=== PATIENT | female | born 1940 | race Caucasian/White ===

== ENCOUNTER → 2018-04-28 08:59 | Outpatient (CLI) | payer MEDICARE, OTHER, SELFPAY ==
--- NOTE | 2018-04-28 09:29 | DI.CT.S_ITS ---
PROCEDURE: CT ABDOMEN W CON INDICATIONS: Breast cancer evaluate liver cysts TECHNIQUE: After the administration of oral and intravenous contrast, 5 mm thick sections acquired from the diaphragms to the iliac crests. 5 mm thick coronal and sagittal reformats were acquired. For radiation dose reduction, the following was used: automated exposure control, adjustment of mA and/or kV according to patient size. COMPARISON: None. FINDINGS: Image quality: Excellent. Lung bases: There is a 7 mm subpleural nodule in the left lower lobe (series 5 image 10). Another nodule is noted more anteriorly on the same slice measuring 9 mm. Heart size is normal. There is a small hiatal hernia. Solid organs: There are a couple of low density nodules in the left hepatic lobe measuring 9 mm and 7 mm, respectively, most likely hepatic cysts. There is a 2 mm hepatic hypodensity in the right hepatic lobe, too small to further characterize. A 6 mm low density nodules noted in spleen, suspicious for a cyst. Liver and spleen are normal in size and enhancement. Gallbladder is normal. Biliary system is non dilated. Pancreas enhances normally. No adrenal nodules. Kidneys are normal in size, without hydronephrosis. Peritoneum and bowel: Contrast enhanced bowel loops appear normal in caliber. No free fluid or air. Nodes and vessels: No retroperitoneal or mesenteric adenopathy by size criteria. Scattered mesenteric lymph nodes are slightly more numerous and prominent in size than normally seen. Aorta and inferior vena cava are normal in size. Bones: No suspicious bony lesions. No vertebral body compression fractures. Miscellaneous: No ventral hernias. IMPRESSION: 1. A couple of cysts in the left hepatic lobe an 2 mm indeterminate hypodensity in the right hepatic lobe. 2. A centimeter hypodensity in the spleen is of likely a cyst. 3. A couple of lung nodules in the left lung base. CT followup suggested in 3 months in this patient with breast cancer. 4. Slightly prominent mesenteric lymph nodes, which is a nonspecific finding. 5. Small hiatal hernia. Dictated by: Goldie Cassidy M.D. on 04/28/2018 at 11:06 Approved by: Goldie Cassidy M.D. on 04/28/2018 at 11:17
[2018-04-28 09:45] LABS: BUN Creatinine Ratio 22.5 (6-22); Blood Urea Nitrogen 18 mg/dL (7-17); Calcium 9.2 mg/dL (8.4-10.2); Carbon Dioxide 31 mmol/L (22-32); Chloride 101 mmol/L (98-107); Estimated Glomerular Filt Rate > 60.0 mL/min (>60); Glucose 97 mg/dL (80-110); HEMOLYSIS < 15 (0-50); Potassium 4.2 mmol/L (3.4-5.1); Sodium 140 mmol/L (137-145)
== END ==
PROVIDERS: PCP Internal Medicine; Visit Provider Internal Medicine Hematology & Oncology
DX: C50.919 Malignant neoplasm of unspecified site of unspecified female breast (principal); K76.9 Liver disease, unspecified; R91.8 Other nonspecific abnormal finding of lung field; K44.9 Diaphragmatic hernia without obstruction or gangrene
CPT/HCPCS: 36415; 74160; 80048; Q9967

== ENCOUNTER → 2018-04-29 10:26 | Outpatient (CLI) | payer MEDICARE, OTHER, SELFPAY | PROVIDERS: PCP Internal Medicine; Visit Provider Internal Medicine Hematology & Oncology | DX: C50.911 Malignant neoplasm of unspecified site of right female breast (principal); Z53.9 Procedure and treatment not carried out, unspecified reason ==

== ENCOUNTER → 2018-05-04 15:25 | Outpatient (CLI) | payer MEDICARE, OTHER, SELFPAY ==
--- NOTE | 2018-05-04 15:29 | DI.RAD.S_ITS ---
PROCEDURE: XR CHEST 2V INDICATIONS: cough TECHNIQUE: 2 views of the chest were acquired. COMPARISON: [facility], , RIBS UNILATERAL WITH PA CXR, 06/22/2015, 11:54. FINDINGS: Surgical changes and devices: Postoperative changes of right breast surgery and axillary node resection Lungs and pleura: No pleural effusions or pneumothorax. Lungs are clear. Mediastinum: Mediastinal contours are normal. Heart size is normal. Bones and chest wall: No suspicious bony abnormalities. Soft tissues appear unremarkable. IMPRESSION: 1. Status post right lumpectomy and node dissection. 2. No evidence of metastatic disease or acute cardiopulmonary abnormality. Source of cough not seen. Dictated by: Jose Payne M.D. on 05/04/2018 at 16:02 Approved by: Jose Payne M.D. on 05/04/2018 at 16:05
== END ==
PROVIDERS: PCP Internal Medicine; Visit Provider Internal Medicine
DX: R05 Cough (principal); Z85.3 Personal history of malignant neoplasm of breast
CPT/HCPCS: 71046

== ENCOUNTER → 2018-05-07 10:11 | Outpatient (CLI) | payer MEDICARE, OTHER, SELFPAY ==
--- NOTE | 2018-05-07 | OV.WND_ITS ---
Progress Note Details Patient Name: Sherrie Sharif Patient Number: [id number] PatientPatientDate: 05/07/2018 Clinician: Mar Devine Physician / Junior Mechanical Engineer: Ryan Alonzo SUBJECTIVE Chief Complaint This information was obtained from the patient Skin tear to left forearm Allergies Sulfa (Sulfonamide Antibiotics), morphine HPI This information was obtained from the patient 05/07/18. Seen by Dr. Alonzo. The patient is new to our clinic and presents with a left forearm trauma wound that occurred last Friday when she feel up a set of stairs. She reports some mild discomfort at the site but no significant drainage, swelling, or redness and she's simply been keeping it covered the past few days. She also mentions a persistent cough over the past 2 weeks and feels it may be related to sitting near a citronella candle prior to her symptoms starting. She's consider asking for a referral to a chemistry quality control analyst and has asked my opinion. 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 Past Medical History This information was obtained from the patient Patient has a medical history of: Arthritis Hyperlipidemia Breast Cancer Surgical History This information was obtained from the patient Patient has a surgical history of: Hysterectomy Bladder Lift Appendectomy Complaints and Symptoms This information was obtained from the patient Patient complains of: General Notes: I have reviewed and concur with the Review of Systems and Past Family Social History documents completed by the clinician, I have reviewed and concur with the Wound Assessment document completed by the clinician Integumentary (Hair/Skin/Nails): Open Sore Prior Wound History: Drainage, Pain Respiratory: Cough Patient denies complaints or symptoms related to: Cardiovascular (Central): Irregular heart beat Constitutional Symptoms (General Health): Chills, Fever Hematologic/Lymphatic: Bleeding / Clotting Disorders, Bleeding Tendency Neurological: Loss of Protective Sensation Psychiatric: Memory Loss General Notes: Up to date Additional Information Does patient have a history of Cancer? Yes? Complete all questions.: Yes Location of Cancer: Breast Patient underwent Radiation Treatment? If yes, answer question below.: No Medications Crestor 5 mg tablet oral tablet oral once daily letrozole 2.5 mg tablet oral tablet oral once daily albuterol sulfate HFA 90 mcg/actuation aerosol inhaler inhalation HFA aerosol inhaler inhalation Boniva 3 mg/3 mL intravenous syringe intravenous syringe intravenous OBJECTIVE Constitutional Vital signs reviewed and noted. Well developed. Alert. Clean appearing.. Height/ Length: 67 in (170.18 cm), Weight: 155 lbs (70.45 kgs), BMI: 24.3, Temperature: 98.7 ?F ( 37.06 ?C), Pulse: 78 bpm, Respiratory Rate: 16 breaths/min, Blood Pressure: 112/68 mmHg, Pulse Oximetry: 97 %. Ears, Nose, Mouth, and Throat: No clinically significant hearing loss on informal examination. Respiratory: intermittent cough. Integumentary (Hair, Skin) No periwound erythema, warmth, or significant drainage. No periwound rashes appreciated or noted otherwise.. Refer to appropriate clinician wound documentation for this visit; left forearm wound extends to subcut with base partially covered with pink granulation, remainder yellow biofilm, fibrin and slough. Wound #1 Left Arm is a Full Thickness Skin Tear and has received a status of Not Healed. Initial wound encounter measurements are 0.9cm length x 1.6cm width x 0.1cm depth, with an area of 1.44 sq cm and a volume of 0.144 cubic cm. No tunneling has been noted. No sinus tract has been noted. No undermining has been noted. There is a moderate amount of sero- sanguineous drainage noted which has no odor. The patient reports a wound pain of level 0/10. The wound margin is attached. Wound bed has Yes epithelialization, No eschar, Yes slough, Yes pink, firm granulation. The periwound skin texture is normal. The periwound skin moisture is normal. The periwound skin color is normal. The temperature of the periwound skin is WNL. Periwound skin does not exhibit signs or symptoms of infection. Local Pulse is Palpable. Neurological: Cranial nerves grossly intact with symmetric function normal by informal observation.. ASSESSMENT Active Problems ICD-10 (Encounter Diagnosis) S51.802D - Unspecified open wound of left forearm, subsequent encounter (Encounter Diagnosis) R05 - Cough PROCEDURES Wound #1 Wound #1 (Skin Tear) is located on the left arm. A skin/subcutaneous tissue level surgical debridement with a total area debrided of 1.44 sq cm was performed by Ryan Alonzo MD. Dermis, Epidermis, and Subcutaneous were removed along with devitalized tissue: slough. The following instrument(s) were used: curette, forceps, and scissors. Pain control was achieved using 4% Lido. A time out was conducted prior to the start of the procedure. A minimal amount of bleeding was controlled with n/a. The procedure was tolerated well with a pain level of 0 throughout and a pain level of 0 following the procedure. Post Debridement Measurements: 0.9cm length x 1.6cm width x 0.2cm depth; with an area of 1.44 sq cm and a volume of 0.288 cubic cm; Additional Information Muscle fascia or bone removed and sent to pathology?: No PLAN Wound Orders: Wound #1 Left Arm Anesthetic Topical Xylocaine to wound bed. - In clinic only Cleanser Cleanse Wound: - Normal saline in clinic. May use distilled water at home. May Shower. - Please avoid getting wound wet with tap water. Please cover while in the shower. Dressings Primary dressing: - Bordered foam Change Dressing: - Every two days. Additional Orders: Follow-Up Appointments Return Appointment: - - One week Other information: If you develop fever, chills, increased pain, drainage, redness or swelling please call our office. If after hours, respond to the ER. Should you experience any significant changes in your wound(s) or have any questions regarding your home care instructions please contact the wound center @ [phone]. If after hours, contact your primary care physician or go to the hospital emergency room. Scribing Attestation I attest, as the nurse, that I scribed these orders for the physician. General Notes: We will call with any positive wound cultures requiring antibiotics. I've reviewed the clinician's documentation and agree with the evaluation and plan as written. In addition the patient's wound demonstrates evidence of non-viable devitalized tissue which will continue to benefit from sharp debridement to help promote granulation and expedite healing. Also, I've cultured the wound due to the drainage noted on exam but will defer oral antibiotics pending the results. I've also advised her to contact her PCP again regarding her cough as there's likely additional testing that would need to be done if the cough persists or worsens prior to referring to pulmonology. Electronic Signature(s) Signed By: Date: yRan Alonzo MD 05/08/2018 06:52:26 Entered By: Ryan Alonzo on 05/08/2018 06:47:10
== END ==
PROVIDERS: PCP Internal Medicine; Visit Provider Internal Medicine
DX: S51.802A Unspecified open wound of left forearm, initial encounter (principal); W10.8XXA Fall (on) (from) other stairs and steps, initial encounter; R05 Cough
CPT/HCPCS: 11042; 87070; 87075; 87205; 99213

== ENCOUNTER → 2018-05-21 09:55 | Outpatient (CLI) | payer MEDICARE, OTHER, SELFPAY ==
--- NOTE | 2018-05-21 | OV.WND_ITS ---
Progress Note Details Patient Name: Sherrie Sharif Patient Number: [id number] PatientPatientDate: 05/21/2018 Clinician: Krystle Andrade Clinician Cosigner: Elba Sy Physician / Ruby Engineer: Ryan Alonzo SUBJECTIVE Chief Complaint This information was obtained from the patient Skin tear to left forearm Allergies Sulfa (Sulfonamide Antibiotics), morphine HPI This information was obtained from the patient 05/21/18. Seen by Dr. Alonzo. The patient does not report pain or drainage associated with the left forearm trauma wound since her last visit. 05/07/18. Seen by Dr. Alonzo. The patient is new to our clinic and presents with a left forearm trauma wound that occurred last Friday when she feel up a set of stairs. She reports some mild discomfort at the site but no significant drainage, swelling, or redness and she's simply been keeping it covered the past few days. She also mentions a persistent cough over the past 2 weeks and feels it may be related to sitting near a citronella candle prior to her symptoms starting. She's consider asking for a referral to a inclusion specialist and has asked my opinion. Past Medical History This information was obtained from the patient Patient has a medical history of: Arthritis Hyperlipidemia Breast Cancer Complaints and Symptoms This information was obtained from the patient Patient complains of: General Notes: I have reviewed and concur with the Review of Systems and Past Family Social History documents completed by the clinician, I have reviewed and concur with the Wound Assessment document completed by the clinician Integumentary (Hair/Skin/Nails): Open Sore Prior Wound History: Drainage, Pain Respiratory: Cough Patient denies complaints or symptoms related to: Cardiovascular (Central): Irregular heart beat Constitutional Symptoms (General Health): Chills, Fever Hematologic/Lymphatic: Bleeding / Clotting Disorders, Bleeding Tendency Neurological: Loss of Protective Sensation Psychiatric: Memory Loss Additional Information Does patient have a history of Cancer? Yes? Complete all questions.: Yes Location of Cancer: Breast Patient underwent Radiation Treatment? If yes, answer question below.: No OBJECTIVE Constitutional Vital signs reviewed and noted. Height/Length: 67 in (170.18 cm), Weight: 155 lbs (70.45 kgs), BMI: 24.3, Temperature: 98.5 ?F (36.94 ?C), Pulse: 77 bpm, Respiratory Rate: 16 breaths/min, Blood Pressure: 109/65 mmHg, Pulse Oximetry: 98 %. Ears, Nose, Mouth, and Throat: No clinically significant hearing loss on informal examination. Integumentary (Hair, Skin) Refer to appropriate clinician wound documentation for this visit.. Wound #1 Left Arm is a Full Thickness Skin Tear and has received an outcome of Healed - no new wound(s). Subsequent wound encounter measurements are 0cm length x 0cm width x 0cm depth, with an area of 0 sq cm and a volume of 0 cubic cm. No tunneling has been noted. No sinus tract has been noted. No undermining has been noted. There was no drainage noted. The patient reports a wound pain of level 0/10. The wound margin is attached. Wound bed has Yes epithelialization, No eschar, No slough, No granulation. The periwound skin texture is normal. The periwound skin moisture is normal. The periwound skin color is normal. The temperature of the periwound skin is WNL. Periwound skin does not exhibit signs or symptoms of infection. Local Pulse is Palpable. Neurological: Cranial nerves grossly intact with symmetric function normal by informal observation.. ASSESSMENT Active Problems ICD-10 (Encounter Diagnosis) S51.802D - Unspecified open wound of left forearm, subsequent encounter PLAN Additional Orders: Follow-Up Appointments Discharge from Outpatient Services. - No dressing needed, wound is healed. Please call if you have any questions or concerns. Scribing Attestation I attest, as the nurse, that I scribed these orders for the physician. I've reviewed the clinician's documentation and agree with the evaluation and plan as written. In addition the patient's last remiaining complex wound is now healed. The patient is invited to return to our clinic for treatment of any future complex wounds. Post wound care and strategies to avoid recurrences were discussed. Electronic Signature(s) Signed By: Date: Ryan Alonzo MD 05/22/2018 07:58:24 Entered By: Ryan Alonzo on 05/21/2018 15:28:56
== END ==
PROVIDERS: PCP Internal Medicine; Visit Provider Internal Medicine
DX: S51.802D Unspecified open wound of left forearm, subsequent encounter (principal)
CPT/HCPCS: 99212

== ENCOUNTER → 2018-07-08 12:09 | Outpatient (CLI) | payer MEDICARE, OTHER, SELFPAY ==
--- NOTE | 2018-07-08 12:10 | DI.MG.S_ITS ---
BILATERAL DIGITAL SCREENING MAMMOGRAM 3D/2D WITH CAD POST LUMPECTOMY: 07/08/2018 CLINICAL: Routine screening. Family history of breast cancer. Comparison is made to exams dated: 06/30/2017 mammogram, 05/30/2016 mammogram, and 05/10/2015 mammogram - [facility]. The tissue of both breasts is heterogeneously dense. This may lower the sensitivity of mammography. Current study was also evaluated with a Computer Aided Detection (CAD) system. There are calcifications in both breasts, most consistent with secretory calcifications. There also are post operative findings in the right breast. No significant masses, calcifications, or other findings are seen in either breast. There has been no significant interval change. IMPRESSION: BENIGN There is no mammographic evidence of malignancy. A 1 year screening mammogram is recommended. This exam was interpreted at Station ID: [id number]. NOTE: For mammograms, a report in lay terms will be sent to the patient. Approximately 15% of breast malignancies will not be visualized mammographically. In the management of a palpable breast mass, a negative mammogram must not discourage biopsy of a clinically suspicious lesion. Electronically Signed By: Alan Bland M.D. ecl/:07/09/2018 07:26:27 letter sent: Normal Exam ACR BI-RADS Category 2: Benign Finding(s) 3342F
== END ==
PROVIDERS: PCP Internal Medicine; Visit Provider Internal Medicine
DX: Z12.31 Encounter for screening mammogram for malignant neoplasm of breast (principal); Z80.3 Family history of malignant neoplasm of breast
CPT/HCPCS: 77063; 77067

== ENCOUNTER → 2018-07-28 11:03 | Outpatient (CLI) | payer MEDICARE, OTHER, SELFPAY ==
--- NOTE | 2018-07-28 11:00 | DI.CT.S_ITS ---
PROCEDURE: CT ABDOMEN WO/W CON INDICATIONS: Liver nodules TECHNIQUE: 4 phase scanning was performed. Non-contrast 5 mm axial sections acquired from the diaphragm to the iliac crests. Following the administration of intravenous contrast, 5 mm thick arterial-phase, portal venous-phase, and 5-minute delayed phase images were acquired through the liver. 5 mm thick coronal and sagittal reformats were performed. For radiation dose reduction, the following was used: automated exposure control, adjustment of mA and/or kV according to patient size. COMPARISON: [facility], CT, CT ABDOMEN W CON, 04/28/2018, 9:44. FINDINGS: Image quality: Excellent. Lung bases: A 6 mm diameter left pleural-based nodule is redemonstrated, unchanged from the study dated 04/28/18. No acute air space opacities. No pleural effusion. No pneumothorax. Liver: The liver demonstrates normal size and homogeneous enhancement. 9 mm and a 7 mm hypoattenuating lesions are redemonstrated within the left hepatic lobe. These have a similar size and appearance to the study dated 04/28/18. A these demonstrate decrease density with respect to the surrounding hepatic parenchyma; however given the small size, these do not demonstrate water density. Other solid organs: Gallbladder is unremarkable. Biliary system is non dilated. Pancreas is normal in morphology. Spleen is normal in size and enhancement. A 5 mm hypoattenuating lesion is present within the midpole of the spleen, similar in size to the study dated 04/28/18. This demonstrates peripheral enhancement on the arterial and portal venous phase images than near complete central enhancement on the delayed phase images suggesting the presence of a splenic hemangioma. Along the anterolateral aspect of the spleen is a cystic lesion which remains hypoattenuating on all sequences suggesting a splenic cyst. No adrenal nodules. Both kidneys demonstrate normal size and enhancement, without hydronephrosis or nephrolithiasis. Nodes and vessels: No retroperitoneal or mesenteric adenopathy by size criteria. There is haziness at the mesenteric root with multiple subcentimeter shotty mesenteric lymph nodes. This finding is similar to the study dated 04/28/18. Aorta and inferior vena cava are normal in size. Bowel and peritoneum: Unenhanced bowel loops are normal in caliber. No free fluid or air. Bones: No suspicious bony lesions. No vertebral body compression fractures. Miscellaneous: No ventral hernias. IMPRESSION: 1. 9 and 7 mm hepatic cysts which are unchanged in size when compared with the study dated 04/28/18. These did not demonstrate any appreciable enhancement on this multiphase study; however, given their small size they are too small to definitively characterized as hepatic cysts. Continued attention should be directed to these lesions on future surveillance scans. 2. 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 However, given small size continued attention should be directed to these lesions on future surveillance scans. 3. Mesenteric root haziness and shotty subcentimeter mesenteric lymph nodes. This is a nonspecific finding, but can be associated with hematologic neoplasm. 4. Stable appearance of a left basilar pulmonary nodule when compared with the prior study. Dictated by: Mery Dodson M.D. on 07/28/2018 at 15:43 Approved by: Mery Dodson M.D. on 07/28/2018 at 16:13
== END ==
PROVIDERS: PCP Internal Medicine; Visit Provider Internal Medicine Hematology & Oncology
DX: K76.89 Other specified diseases of liver (principal); D73.4 Cyst of spleen; R91.1 Solitary pulmonary nodule
CPT/HCPCS: 74170; Q9967

== ENCOUNTER 2018-07-29 13:30 | Oncology outpatient (ONC) | payer MEDICARE, OTHER, SELFPAY ==
--- NOTE | 2018-04-23 09:59 | ONC.CONS ---
History of Present Illness - Data of Consult Primary Care Provider: PATRICIA Ellison - Consult Narrative Narrative: Sherrie Sharif is a 77 year old female CC: Silvio Arvizu MD Home Medications and Allergies Home Medications Medication Instructions Recorded Confirmed Type Coenzyme Q10 (COENZYME Q10~) 60 mg PO Q DAY #0 04/10/12 History lorazepam 0.5 mg PO HSP PRN #30 tab 08/14/17 Rx letrozole [Femara] 2.5 mg PO QDAY #90 tab 01/26/18 Rx rosuvastatin [Crestor] 5 mg PO QDAY #90 tab 01/26/18 Rx Allergies Allergy/AdvReac Type Severity Reaction Status Date / Time Sulfa (Sulfonamide Allergy Mild Unverified 01/28/18 13:07 Antibiotics) alendronate sodium AdvReac Mild Unverified 01/28/18 13:07 meperidine AdvReac Mild NAUSEA Unverified 01/28/18 13:07 morphine AdvReac Mild ILLNESS Unverified 01/28/18 13:07 Medical History - Medical, Surgical, Family History Surgical History: Surgical History History of bladder suspension procedure Status post appendectomy Status post hysterectomy Family History: Family History Child Age: 54 DCIS (ductal carcinoma in situ) Child Age: 52 Non Hodgkin's lymphoma, Onset Age: 36 Mother Heart disease Hypertension Stroke Sister Age: 65 Breast cancer
[2018-04-23 11:26] VITALS: BP 118/72; PULSE 70; RESP 16; TEMP 36.7; O2SAT 97
--- NOTE | 2018-04-23 11:44 | ONC.CONS ---
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 Mammogram on 03/24/2014 revealed a non-palpable 0.9 x 1.0 x 0.8 cm mass. Ultrasound-guided needle biopsy on 03/30/2014 confirmed invasive ductal carcinoma. Breast MRI on 04/12/2014 confirmed 1.2 x 1.3 x 1.8 cm mass in the right breast, and a 0.8 cm nodule in the left breast, which was ultimately benign. There were also 2 small 0.7 cm nodules in the left lobe of the liver, thought to represent cysts or hemangiomas. Radiology recommended further imaging with CT, which has not been performed to date. On 05/03/2014, Dr. Karina Rae took her to right breast lumpectomy with sentinel lymph node biopsy. Pathology revealed a 1.5 cm moderately differentiated invasive ductal carcinoma, composite score 6/9. This was a unifocal lesion with negative surgical margins. There was no DCIS or LCIS. ER and NM were both positive. She had a low proliferative index, and tumor was negative for overexpression of her-2. Two sentinel lymph nodes were negative. Pathologic staging was T1c N0 (sn). She met with Dr. Mittal in Radiation Oncology, but declined adjuvant radiation. She met with Dr. Jose Davalos in Medical Oncology in [place], and was started on letrozole 2.5 mg by mouth daily, initiating therapy in June 2014, with plans for a 5 year course of of antiestrogen treatment. She denies any side effects from this treatment. In particular, she denies any hot flashes or arthralgias. Recent bone density study at [facility] on 11/11/2017 shows osteoporosis. While she is on vitamin D3, calcium, ?hurts her stomach?, as did prior treatment with Fosamax. She had a right ankle fracture about 2 years ago. Mammogram in billing him in October is reportedly negative for evidence of recurrent cancer. That exam is not available in clinic today, but has been requested. She denies any acute change in her right breast. She denies any developing lesions in the left breast. She notes that her breasts have always been a ?lumpy?. No change in nipple. No nipple discharge. No change in overlying skin. She achieved menarche at age 16, and menopause at age 52. She has 2 adult children. Her son had non-Hodgkin's lymphoma at age 36, and daughter had DCIS in her mid 40s, later developing invasive breast cancer at age 52. A younger sister had breast cancer in 2009. A paternal cousin had breast cancer. There is no known family history of ovarian cancer. CC: Silvio Arvizu MD Home Medications and Allergies Home Medications Medication Instructions Recorded Confirmed Type Coenzyme Q10 (COENZYME Q10~) 60 mg PO Q DAY #0 04/10/12 History lorazepam 0.5 mg PO HSP PRN #30 tab 08/14/17 Rx letrozole [Femara] 2.5 mg PO QDAY #90 tab 01/26/18 Rx rosuvastatin [Crestor] 5 mg PO QDAY #90 tab 01/26/18 Rx cholecalciferol (vitamin D3) 5,000 unit PO DAILY 04/23/18 04/23/18 History [Vitamin D3] magnesium 400 mg PO DAILY 04/23/18 04/23/18 History omega-3 fatty acids [Fish Oil 1,000 mg PO DAILY 04/23/18 04/23/18 History Concentrate] potassium gluconate 550 mg PO DAILY 04/23/18 04/23/18 History Allergies Allergy/AdvReac Type Severity Reaction Status Date / Time Sulfa (Sulfonamide Allergy Mild Unverified 01/28/18 13:07 Antibiotics) alendronate sodium AdvReac Mild Unverified 01/28/18 13:07 meperidine AdvReac Mild NAUSEA Unverified 01/28/18 13:07 morphine AdvReac Mild ILLNESS Unverified 01/28/18 13:07 Medical History - Medical, Surgical, Family History Medical History: Medical History (Last Reviewed 04/23/18 @ 12:08 by Silvio Arvizu MD) Ankle fracture, right Cancer of right breast, stage 1, estrogen receptor positive Surgical History: Surgical History (Last Reviewed 04/23/18 @ 12:08 by Silvio Arvizu MD) S/P lumpectomy, right breast History of bladder suspension procedure Status post appendectomy Status post hysterectomy Family History: Family History (Last Reviewed 04/23/18 @ 12:08 by Silvio Arvizu MD) Child Age: 54 DCIS (ductal carcinoma in situ) Child Age: 52 Non Hodgkin's lymphoma, Onset Age: 36 Mother Heart disease Hypertension Stroke Sister Age: 65 Breast cancer - Social History Smoking Status: Former smoker Years smoked: 30 Quit Date: 04/23/90 Review of Systems - Patient Self-Reported Symptoms SR respiratory issues: Cough Exam Vital signs: Last Vital Signs Temp 98.1 F 04/23/18 11:26 Pulse 70 04/23/18 11:26 Resp 16 04/23/18 11:26 BP 118/72 04/23/18 11:26 Pulse Ox 97 04/23/18 11:26 - Constitutional positive no acute distress - Routine HEENT Exam Eye: Present: EOMI, PERRL, conjunctivae pink ENT: Present: mucous membranes moist - Routine Neck Exam Present: supple. Absent: lymphadenopathy - Routine Chest/Breast/Axilla Exam Breast: Absent: mass - Detailed Breast Exam right upper outer Palpation: Absent: mass Comments: Prior right lumpectomy. No evidence of recurrent tumor mass. Mild tenderness. - Routine Respiratory Exam Present: Clear to auscultation bilaterally - Routine Cardiovascular Exam Present: RRR, S1, S2. Absent: murmur, gallop, rubs - Routine Abdominal Exam Present: soft, normoactive bowel sounds. Absent: tenderness Palpation/Percussion: Absent: hepatomegaly, splenomegaly - Routine Extremities Exam Present: pulses intact. Absent: edema, tenderness - Routine Skin Exam Present: intact - Routine Neurological Exam Present: alert, oriented X3 - Routine Psychiatric Exam Present: normal affect Assessment and Plan (1) Malignant neoplasm of breast Onset Date: 06/22/14 Current visit: No Status: None 04/23/18 12:15 Pathologic T1c N0 M0 moderately differentiated infiltrating ductal carcinoma of the right breast: The patient was diagnosed in March 2014 when she had an abnormal mammogram. MRI imaging at that time showed a 1.5 cm mass, but also showed a couple small abnormalities in the liver. She underwent right lumpectomy and sentinel lymph node sampling with Dr. Karina Rae in [place], but declined subsequent adjuvant radiation therapy. However, she has been on hormonal therapy with letrozole 2.5 mg by mouth daily since June 2014 for her estrogen receptor-positive disease. She has significant osteoporosis, and sustained a right ankle fracture about 2 years ago. She is unable to tolerate oral calcium or Fosamax, but is on vitamin D3. Recommend that her primary care provider provide Prolia twice yearly to reduce risk of future arm fractures. Continue letrozole for a total of 5 years, which will be June 2019. She is not experiencing any significant side effects at this time. Obtain CT of the abdomen with contrast to follow-up previous abnormalities on MRI. Although these are likely liver cysts, we need to confirm. Return in 6 months for ongoing clinical evaluation. No further intervention indicated at this time. (1) Malignant neoplasm of breast Qualifiers: Breast location: upper outer quadrant of breast
--- NOTE | 2018-04-23 11:50 | P.CONONC_ITS ---
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 Mammogram on 03/24/2014 revealed a non-palpable 0.9 x 1.0 x 0.8 cm mass. Ultrasound-guided needle biopsy on 03/30/2014 confirmed invasive ductal carcinoma. Breast MRI on 04/12/2014 confirmed 1.2 x 1.3 x 1.8 cm mass in the right breast, and a 0.8 cm nodule in the left breast, which was ultimately benign. There were also 2 small 0.7 cm nodules in the left lobe of the liver, thought to represent cysts or hemangiomas. Radiology recommended further imaging with CT, which has not been performed to date. On 05/03/2014, Dr. Karina Rae took her to right breast lumpectomy with sentinel lymph node biopsy. Pathology revealed a 1.5 cm moderately differentiated invasive ductal carcinoma, composite score 6/9. This was a unifocal lesion with negative surgical margins. There was no DCIS or LCIS. ER and AR were both positive. She had a low proliferative index, and tumor was negative for overexpression of her-2. Two sentinel lymph nodes were negative. Pathologic staging was T1c N0 ( sn). She met with Dr. Mittal in Radiation Oncology, but declined adjuvant radiation. She met with Dr. Jose Davalos in Medical Oncology in [place], and was started on letrozole 2.5 mg by mouth daily, initiating therapy in June 2014 , with plans for a 5 year course of of antiestrogen treatment. She denies any side effects from this treatment. In particular, she denies any hot flashes or arthralgias. Recent bone density study at [facility] on 11/11/2017 shows osteoporosis. While she is on vitamin D3, calcium, ?hurts her stomach?, as did prior treatment with Fosamax. She had a right ankle fracture about 2 years ago. Mammogram in billing him in October is reportedly negative for evidence of recurrent cancer. That exam is not available in clinic today, but has been requested. She denies any acute change in her right breast. She denies any developing lesions in the left breast. She notes that her breasts have always been a ? lumpy?. No change in nipple. No nipple discharge. No change in overlying skin. She achieved menarche at age 16, and menopause at age 52. She has 2 adult children. Her son had non-Hodgkin's lymphoma at age 36, and daughter had DCIS in her mid 40s, later developing invasive breast cancer at age 52. A younger sister had breast cancer in 2009. A paternal cousin had breast cancer. There is no known family history of ovarian cancer. CC: Silvio Arvizu MD Home Medications and Allergies Home Medications Medication Instructions Recorded Confirmed Type Coenzyme Q10 (COENZYME Q10~) 60 mg PO Q DAY #0 04/10/12 History lorazepam 0.5 mg PO HSP PRN #30 tab 08/14/17 Rx letrozole [Femara] 2.5 mg PO QDAY #90 tab 01/26/18 Rx rosuvastatin [Crestor] 5 mg PO QDAY #90 tab 01/26/18 Rx cholecalciferol (vitamin D3) 5,000 unit PO DAILY 04/23/18 04/23/18 History [Vitamin D3] magnesium 400 mg PO DAILY 04/23/18 04/23/18 History omega-3 fatty acids [Fish Oil 1,000 mg PO DAILY 04/23/18 04/23/18 History Concentrate] potassium gluconate 550 mg PO DAILY 04/23/18 04/23/18 History Allergies Allergy/AdvReac Type Severity Reaction Status Date / Time Sulfa (Sulfonamide Allergy Mild Unverified 01/28/18 13:07 Antibiotics) alendronate sodium AdvReac Mild Unverified 01/28/18 13:07 meperidine AdvReac Mild NAUSEA Unverified 01/28/18 13:07 morphine AdvReac Mild ILLNESS Unverified 01/28/18 13:07 Medical History - Medical, Surgical, Family History Medical History: Medical History (Last Reviewed 04/23/18 @ 12:08 by Silvio Arvizu MD) Ankle fracture, right Cancer of right breast, stage 1, estrogen receptor positive Surgical History: Surgical History (Last Reviewed 04/23/18 @ 12:08 by Silvio Arvizu MD) S/P lumpectomy, right breast History of bladder suspension procedure Status post appendectomy Status post hysterectomy Family History: Family History (Last Reviewed 04/23/18 @ 12:08 by Silvio Arvizu MD) Child Age: 54 DCIS (ductal carcinoma in situ) Child Age: 52 Non Hodgkin's lymphoma, Onset Age: 36 Mother Heart disease Hypertension Stroke Sister Age: 65 Breast cancer - Social History Smoking Status: Former smoker Years smoked: 30 Quit Date: 04/23/90 Review of Systems - Patient Self-Reported Symptoms SR respiratory issues: Cough Exam Vital signs: Last Vital Signs Temp 98.1 F 04/23/18 11:26 Pulse 70 04/23/18 11:26 Resp 16 04/23/18 11:26 BP 118/72 04/23/18 11:26 Pulse Ox 97 04/23/18 11:26 - Constitutional positive no acute distress - Routine HEENT Exam Eye: Present: EOMI, PERRL, conjunctivae pink ENT: Present: mucous membranes moist - Routine Neck Exam Present: supple. Absent: lymphadenopathy - Routine Chest/Breast/Axilla Exam Breast: Absent: mass - Detailed Breast Exam right upper outer Palpation: Absent: mass Comments: Prior right lumpectomy. No evidence of recurrent tumor mass. Mild tenderness. - Routine Respiratory Exam Present: Clear to auscultation bilaterally - Routine Cardiovascular Exam Present: RRR, S1, S2. Absent: murmur, gallop, rubs - Routine Abdominal Exam Present: soft, normoactive bowel sounds. Absent: tenderness Palpation/Percussion: Absent: hepatomegaly, splenomegaly - Routine Extremities Exam Present: pulses intact. Absent: edema, tenderness - Routine Skin Exam Present: intact - Routine Neurological Exam Present: alert, oriented X3 - Routine Psychiatric Exam Present: normal affect Assessment and Plan (1) Malignant neoplasm of breast Onset Date: 06/22/14 Current visit: No Status: None 04/23/18 12:15 Pathologic T1c N0 M0 moderately differentiated infiltrating ductal carcinoma of the right breast: The patient was diagnosed in March 2014 when she had an abnormal mammogram. MRI imaging at that time showed a 1.5 cm mass, but also showed a couple small abnormalities in the liver. She underwent right lumpectomy and sentinel lymph node sampling with Dr. Karina Rae in [place] , but declined subsequent adjuvant radiation therapy. However, she has been on hormonal therapy with letrozole 2.5 mg by mouth daily since June 2014 for her estrogen receptor-positive disease. She has significant osteoporosis, and sustained a right ankle fracture about 2 years ago. She is unable to tolerate oral calcium or Fosamax, but is on vitamin D3. Recommend that her primary care provider provide Prolia twice yearly to reduce risk of future arm fractures. Continue letrozole for a total of 5 years, which will be June 2019. She is not experiencing any significant side effects at this time. Obtain CT of the abdomen with contrast to follow-up previous abnormalities on MRI. Although these are likely liver cysts, we need to confirm. Return in 6 months for ongoing clinical evaluation. No further intervention indicated at this time. (1) Malignant neoplasm of breast Qualifiers: Breast location: upper outer quadrant of breast
[2018-04-30 11:15] VITALS: BP 139/88; PULSE 86; RESP 16; TEMP 36.6; O2SAT 98
--- NOTE | 2018-04-30 11:46 | ONC.PN ---
Assessment and Plan (1) Malignant neoplasm of breast Onset Date: 06/22/14 Current visit: No Status: None Pathologic T1c N0 M0 moderately differentiated infiltrating ductal carcinoma of the right breast: The patient was diagnosed in March 2014 when she had an abnormal mammogram. MRI imaging at that time showed a 1.5 cm mass, but also showed a couple small abnormalities in the liver. She underwent right lumpectomy and sentinel lymph node sampling with Dr. Karina Rae in [place], but declined subsequent adjuvant radiation therapy. However, she has been on hormonal therapy with letrozole 2.5 mg by mouth daily since June 2014 for her estrogen receptor-positive disease. She has significant osteoporosis, and sustained a right ankle fracture about 2 years ago. She is unable to tolerate oral calcium or Fosamax, but is on vitamin D3. Recommend that her primary care provider provide Prolia twice yearly to reduce risk of future arm fractures. Continue letrozole for a total of 5 years, which will be June 2019. She is not experiencing any significant side effects at this time. CT of the abdomen with contrast to follow-up previous abnormalities on MRI showed stable cysts in the right hepatic lobe. She also had a small cyst in the spleen and a couple small lung nodules at the left lung base. Repeat CT imaging of the abdomen with contrast to reassess these findings in approximately 3 months, as recommended by Radiology. No further intervention indicated at this time. 04/30/18 11:52 PN -Subjective Interval history: Sherrie Sharif is a 77 year old female with node-negative right breast cancer. Mammogram on 03/24/2014 revealed a non-palpable 0.9 x 1.0 x 0.8 cm mass. Ultrasound-guided needle biopsy on 03/30/2014 confirmed invasive ductal carcinoma. Breast MRI on 04/12/2014 confirmed 1.2 x 1.3 x 1.8 cm mass in the right breast, and a 0.8 cm nodule in the left breast, which was ultimately benign. There were also 2 small 0.7 cm nodules in the left lobe of the liver, thought to represent cysts or hemangiomas. Radiology recommended further imaging with CT, which has not been performed to date. On 05/03/2014, Dr. Karina Rae took her to right breast lumpectomy with sentinel lymph node biopsy. Pathology revealed a 1.5 cm moderately differentiated invasive ductal carcinoma, composite score 6/9. This was a unifocal lesion with negative surgical margins. There was no DCIS or LCIS. ER and CO were both positive. She had a low proliferative index, and tumor was negative for overexpression of her-2. Two sentinel lymph nodes were negative. Pathologic staging was T1c N0 (sn). She met with Dr. Mittal in Radiation Oncology, but declined adjuvant radiation. She met with Dr. Jose Davalos in Medical Oncology in [place], and was started on letrozole 2.5 mg by mouth daily, initiating therapy in June 2014, with plans for a 5 year course of of antiestrogen treatment. She denies any side effects from this treatment. In particular, she denies any hot flashes or arthralgias. Recent bone density study at [facility] on 11/11/2017 shows osteoporosis. While she is on vitamin D3, calcium, ?hurts her stomach?, as did prior treatment with Fosamax. She had a right ankle fracture about 2 years ago. Mammogram in billing [facility] in October is reportedly negative for evidence of recurrent cancer. That exam is not available in clinic today, but has been requested. She denies any acute change in her right breast. She denies any developing lesions in the left breast. She notes that her breasts have always been a ?lumpy?. No change in nipple. No nipple discharge. No change in overlying skin. She achieved menarche at age 16, and menopause at age 52. She has 2 adult children. Her son had non-Hodgkin's lymphoma at age 36, and daughter had DCIS in her mid 40s, later developing invasive breast cancer at age 52. A younger sister had breast cancer in 2010. A paternal cousin had breast cancer. There is no known family history of ovarian cancer. CT of the abdomen on 04/28/2018 showed a couple stable cysts in the left hepatic lobe, approximately 2 mm in maximum dimension. There was also a subcentimeter hypodensity in the spleen, likely a cyst. A couple lung nodules in the left lung base, with recommended follow-up in 3 months by Radiology. She continues to have a slight cough, and is planning to meet with her primary care provider for further evaluation. - Patient Self-Reported Symptoms SR ears, nose, mouth, throat issues: Cough SR respiratory issues: Cough Home Medications and Allergies Home Medications Medication Instructions Recorded Confirmed Type Coenzyme Q10 (COENZYME Q10~) 60 mg PO Q DAY #0 04/10/12 History lorazepam 0.5 mg PO HSP PRN #30 tab 08/14/17 Rx letrozole [Femara] 2.5 mg PO QDAY #90 tab 01/26/18 Rx rosuvastatin [Crestor] 5 mg PO QDAY #90 tab 01/26/18 Rx cholecalciferol (vitamin D3) 5,000 unit PO DAILY 04/23/18 04/23/18 History [Vitamin D3] magnesium 400 mg PO DAILY 04/23/18 04/23/18 History omega-3 fatty acids [Fish Oil 1,000 mg PO DAILY 04/23/18 04/23/18 History Concentrate] potassium gluconate 550 mg PO DAILY 04/23/18 04/23/18 History Allergies Allergy/AdvReac Type Severity Reaction Status Date / Time Sulfa (Sulfonamide Allergy Mild Unverified 01/28/18 13:07 Antibiotics) alendronate sodium AdvReac Mild Unverified 01/28/18 13:07 meperidine AdvReac Mild NAUSEA Unverified 01/28/18 13:07 morphine AdvReac Mild ILLNESS Unverified 01/28/18 13:07 Exam Vital signs: Last Vital Signs Temp 97.8 F 04/30/18 11:15 Pulse 86 04/30/18 11:15 Resp 16 04/30/18 11:15 BP 139/88 H 04/30/18 11:15 Pulse Ox 98 04/30/18 11:15 Narrative: HEENT: Pupils equally round reactive to light extraocular muscles intact sclerae anicteric conjunctiva pink mucous membranes moist no oral lesions Nodes: No adenopathy in the neck or axilla Chest: Clear throughout no wheezes or crackles Cardiac: Regular rate and rhythm with normal S1 and S2 Breasts: No evidence of recurrent disease Abdomen soft nontender with normoactive bowel tones Extremities no edema 2+ distal pulses no calf tenderness Neuro: Alert and cooperative with no gross focal deficits (1) Malignant neoplasm of breast Qualifiers: Breast location: upper outer quadrant of breast
[2018-07-28 11:08] LABS: Blood Urea Nitrogen 20 mg/dL (7-17); Estimated Glomerular Filt Rate > 60.0 mL/min (>60)
[2018-07-29 14:01] VITALS: BP 113/61; PULSE 84; RESP 18; TEMP 36.5; O2SAT 96
--- NOTE | 2018-07-29 14:12 | P.PNONC_ITS ---
PN -Subjective Interval history: Diagnosis: Breast cancer T1 cN0, ERPR positive, her 2- Previous treatment: 1. Lumpectomy and sentinel node biopsy in April 2014. 2. Letrozole beginning in May 2014. Interval history: The patient is a 77-year-old woman who is seen today for follow-up of stage I breast cancer. She has been on hormone therapy with letrozole and has been tolerating it well. She notes occasional hot flashes but does not find them particularly bothersome. She does have some arthritis pain particularly in the hands but it has been stable. She denies any other new aches or pains. She denies any shortness of breath but has had a chronic cough that has not worsened. No GI complaints. She has not noted any changes in the breast. Her past medical history is notable for prior hysterectomy and appendectomy. She has a history of hypercholesterolemia. She has had osteoporosis. She did not tolerate fosamax very well but is doing better with Bon[place]. Family history is notable for son who had lymphoma. Her daughter had breast cancer and a sister had breast cancer as well. - Patient Self-Reported Symptoms SR ears, nose, mouth, throat issues: Cough SR respiratory issues: Cough SR Genitourinary issues: Incontinence Home Medications and Allergies Home Medications Medication Instructions Recorded Confirmed Type Coenzyme Q10 (COENZYME Q10~) 60 mg PO Q DAY #0 04/10/12 05/13/18 History cholecalciferol (vitamin D3) 5,000 unit PO DAILY 04/23/18 05/13/18 History [Vitamin D3] magnesium 400 mg PO DAILY 04/23/18 05/13/18 History omega-3 fatty acids [Fish Oil 1,000 mg PO DAILY 04/23/18 05/13/18 History Concentrate] albuterol sulfate HFA 90 2 puff INHALATION Q4H PRN #8.5 gram 05/04/18 05/13/18 Rx mcg/actuation aerosol inhaler ibandronate 150 mg tablet 150 mg PO QMONTH #3 tab 05/04/18 05/13/18 Rx inhalational spacing device #1 each 05/04/18 05/13/18 Rx lorazepam 0.5 mg tablet 0.5 mg PO HSP PRN #30 tab 06/10/18 Rx letrozole 2.5 mg tablet 2.5 mg PO QDAY #90 tab 07/21/18 Rx rosuvastatin [Crestor] 5 mg PO QDAY #90 tab 07/28/18 Rx Allergies Allergy/AdvReac Type Severity Reaction Status Date / Time Sulfa (Sulfonamide Allergy Mild Unverified 05/13/18 11:03 Antibiotics) alendronate sodium AdvReac Mild Unverified 05/13/18 11:03 meperidine AdvReac Mild NAUSEA Unverified 05/13/18 11:03 morphine AdvReac Mild ILLNESS Unverified 05/13/18 11:03 Exam Vital signs: Last Vital Signs Temp 97.7 F 07/29/18 14:01 Pulse 84 07/29/18 14:01 Resp 18 07/29/18 14:01 BP 113/61 07/29/18 14:01 Pulse Ox 96 07/29/18 14:01 - Constitutional positive no acute distress, positive average body habitus - Routine HEENT Exam Head: Present: normocephalic, atraumatic Eye: Present: EOMI, PERRL. Absent: conjunctival icterus, scleral injection ENT: Present: mucous membranes moist, oropharynx clear - Routine Neck Exam Present: supple. Absent: lymphadenopathy, thyromegaly - Routine Chest/Breast/Axilla Exam Comments: Breast exam shows no suspicious masses in either breast. There is no axillary adenopathy. - Routine Respiratory Exam Present: Clear to auscultation bilaterally. Absent: rales, wheezes - Routine Cardiovascular Exam Present: RRR, S1, S2. Absent: murmur - Routine Abdominal Exam Present: soft, normoactive bowel sounds. Absent: tenderness, organomegaly, mass - Routine Extremities Exam Absent: cyanosis, clubbing, edema - Routine Skin Exam Present: intact. Absent: petechiae, rash - Routine Neurological Exam Present: alert, oriented X3 - Routine Psychiatric Exam Present: normal affect, normal thought process Results - Labs Laboratory Last Values BUN 20 mg/dL (7-17) H 07/28/18 10:44 Creatinine 0.80 mg/dL (0.52-1.04) 07/28/18 10:44 Estimated GFR > 60.0 mL/min (>60) 07/28/18 10:44 BUN/Creatinine Ratio 25.0 (6-22) H 07/28/18 10:44 Assessment and Plan (1) Malignant neoplasm of breast Onset Date: 06/22/14 Problem details: A 77-year-old woman with a history of stage I breast cancer. She has completed about 4 years of adjuvant hormone therapy. She has no evidence of recurrence and is doing well. She did have a recent CT that showed some indeterminate but likely cysts in the liver that have been stable. She will continue with her letrozole. She return to clinic in about 6 months for follow-up. I would anticipate [address] scan probably in about a year. Today we did discuss the possibility of extended adjuvant therapy. She has been tolerating the letrozole well. I did review data regarding clinical trial showing a slight improvement in risk of relapse with extended therapy of either 7 or 10 years of treatment. Neither of these have demonstrated improvement in survival however. She is not sure yet whether she would want to continue on with therapy but we will have some time to think about before make a decision. Current visit: No Status: None (1) Malignant neoplasm of breast Qualifiers: Breast location: upper outer quadrant of breast
== END 2018-07-30 12:00 ==
PROVIDERS: PCP Internal Medicine; Visit Provider Internal Medicine Hematology & Oncology
DX: C50.411 Malignant neoplasm of upper-outer quadrant of right female breast (principal); M81.0 Age-related osteoporosis without current pathological fracture; Z79.811 Long term (current) use of aromatase inhibitors; Z17.0 Estrogen receptor positive status [ER+]; Z80.3 Family history of malignant neoplasm of breast
CPT/HCPCS: 36415; 74170; 82565; 84520; 99204; 99214; Q9967

== ENCOUNTER 2018-09-08 13:45 | Outpatient (RCR) | payer MEDICARE, OTHER, SELFPAY ==
--- NOTE | 2018-07-13 17:18 | PT.OIE ---
Current Diagnoses Unspecified urinary incontinence (07/07/18) Past Medical History (Last Updated 05/04/18 @ 07:58 by Hellen Daley) Cancer of right breast, stage 1, estrogen receptor positive (Chronic) Foot pain (Chronic ~2012) Osteopenia (Chronic) Seasonal allergies (Chronic ~1994) Ankle fracture, right (Resolved) Past Surgical History (Last Updated 05/04/18 @ 07:58 by Hellen Daley) Anesthesia (Resolved) S/P lumpectomy, right breast (Resolved) History of bladder suspension procedure (~1989) Status post appendectomy (~1946) Status post hysterectomy (~1979) Provider Visit Care Team Role Provider Type PATRICIA Ellison Attending Provider Advanced Artist'S Representative Primary Care Provider Specialty: Family Practice Address: [address] [place] [address], [facility] Email: [email or web address] Physical Therapy Initial Evaluation PT-OP-A Visit Information Start: 07/08/18 09:48 Freq: Status: Active Protocol: Document 07/07/18 09:45 [facility] (Rec: 07/08/18 09:58 [facility] [email or web address]) Out-Patient Physical Therapy Visit Information Visit Information Visit Type Initial Evaluation Visit Start Time 09:45 Visit Stop Time 10:30 Total Visit Minutes 45 Visit Number 1 Evaluation Information Evaluation Date 07/07/18 PT-OP-B Current Condition Start: 07/08/18 09:48 Freq: Status: Active Protocol: Document 07/07/18 09:45 [facility] (Rec: 07/08/18 09:58 [facility] [email or web address]) Current Condition History of Current Condition Onset Date 1 year ago Current Complaints urinary incontinence History of Current Condition Sherrie is a 77 year old female with history of pelvic floor weakness and urinary incontinence. She has undergone two bladder surgeries the last one being in 2007. She has had previous physical therapy for her pelvic floor prior to her last surgery. She notes symptoms began worsening this past year and she is experiencing constant leakage. She wears pantyshields daily and maxi pads when walking. 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 She is able to walk with this brace and regularly walks [facility] but with a heavy pad and leakge. Other past medical history includes hx of breast cancer, back pain, asthma Treatment Goals Patient/Caregiver Goals goals include to be able to discontinue pad use and eliminate urinary incontinence Current Functional Impairments (Reported) Functional Limitations- Mobility/Gait walking causes urinary leakage PT-OP-I Pelvic Floor Start: 07/08/18 09:48 Freq: Status: Active Protocol: Document 07/07/18 09:45 [facility] (Rec: 07/08/18 10:12 [facility] [email or web address]) Pelvic Floor Assessment Urine Pelvic Floor Surgery Yes: x 2 Other Urinary Symptoms urinary stress incontinence with leakage in standing positions Leakage Size Medium Leakage Cause Cough Exercise Lifting Sneeze Other Leakage Causes waling Leaks Per Day constant Voiding Frequency 5-6 times per day Urine Pad Type Panty Liner Maxi Pad Depends Pelvic Clock Pelvic Clock 12-3 Atrophy Pelvic Clock 3-6 Guarding Pelvic Clock 6-9 Atrophy Pelvic Clock 9-12 Atrophy SEMG (uV) Baseline 5 10 Second Contraction 16.1 Recruitment Pattern Good Relaxation Fair Holding Fair Stability of Hold Fair SEMG Stability of Rest Poor/Slow Contraction Ability Manual Muscle Testing Left 3 Manual Muscle Testing Right 3 Manual Muscle Testing Anterior 3 Manual Muscle Testing Posterior 3 Muscle Endurance (Seconds) 6 Comments Pelvic Floor Comments elevated tone initially but with verbal cuing Sherrie is able to relax her pelvic floor PT-OP-M Strength Start: 07/08/18 09:48 Freq: Status: Active Protocol: Document 07/07/18 09:45 [facility] (Rec: 07/08/18 10:12 [facility] [email or web address]) Hip Strength Hip Manual Muscle Testing Left Abduction 3+ Fair+ External Rotation 3+ Fair+ Right Abduction 3 Fair External Rotation 3 Fair PT-OP-T Assessment and Plan Start: 07/08/18 10:12 Freq: Status: Active Protocol: Document 07/07/18 09:45 [facility] (Rec: 07/08/18 10:23 [facility] [email or web address]) Physical Therapy Assessment Rehab Potential Rehabilitation Potential Good Evaluation Complexity Number of Personal Factors/Comorbidities 0 Number of Body Systems Impaired 1-2 Clinical Presentation at Evaluation Stable Impairments Impairments Activity Tolerance Soft Tissue Mobility Strength Tone Other Impairments urinary stress incontinence Goals Four Impairment Decreased pelvic floor endurance Short Term Goal (STG) Improve endurance of the pelvic floor to 10 second hold time in supine and 5 second hold time in standing STG Duration 6 weeks Three Impairment Hip abduction and ER weakness Handbag Frames Inspector Goal (LTG) Improve hip strength to 4/5 or better for improved support of the pelvis LTG Duration 8 weeks Two Impairment Pelvic floor weakness Snf Goal (LTG) Improve pelvic floor strength from 3/5 MMT to 4/5 MMT for improved bladder support LTG Duration 8 weeks One Impairment urinary stress incontinence Snf Goal (LTG) Sherrie is able to decrease urinary incontinence with pelvic floor strengthening and hip strengthening and is able to walk her 2-3 miles without leakage LTG Duration 8 weeks Assessment Summary Assessment Sherrie presents to physical therapy today with symptoms of urinary incontinence made worse with walking activities. Sherrie's goal is to be able to walk without a pad. Sherrie does have a history of 2 bladder surgeries with the last one being in 2007. It was in this past year that she began experiencing symptoms again. With pelvic floor examination she is able to facilitate her pelvic floor but is weak in all areas. There is some muscle guarding present however with cueing Sherrie was able to relax her pelvic floor at rest. She is weak in her lateral hip musculature right greater than left so hip strengthening will also be included in her treatment plan. Sherrie is a good candidate for PT Physical Therapy Plan Frequency and Duration Frequency of Treatment 1x/Week Duration of Treatment 8 weeks Plan of Care Start Date 07/07/18 Plan of Care End Date 09/01/18 Therapeutic Interventions Therapeutic Interventions Home Exercise Program Manual Therapy Neuromuscular Re-education Self-Care/Home Management Soft Tissue Mobilization Therapeutic Exercises Modalities Biofeedback
--- NOTE | 2018-07-13 17:18 | PT.OPPOC ---
Current Diagnoses Unspecified urinary incontinence (07/07/18) Provider Visit Care Team Role Provider Type PATRICIA Ellison Attending Provider Advanced Builder Beam Primary Care Provider Specialty: Family Practice Address: [address] [place] [address], [id number] Email: [email or web address] Plan Of Care PT-OP-T Assessment and Plan Start: 07/08/18 10:12 Freq: Status: Active Protocol: Document 07/07/18 09:45 [facility] (Rec: 07/08/18 10:23 [facility] [email or web address]) Physical Therapy Assessment Rehab Potential Rehabilitation Potential Good Evaluation Complexity Number of Personal Factors/Comorbidities 0 Number of Body Systems Impaired 1-2 Clinical Presentation at Evaluation Stable Impairments Impairments Activity Tolerance Soft Tissue Mobility Strength Tone Other Impairments urinary stress incontinence Goals Four Impairment Decreased pelvic floor endurance Short Term Goal (STG) Improve endurance of the pelvic floor to 10 second hold time in supine and 5 second hold time in standing STG Duration 6 weeks Three Impairment Hip abduction and ER weakness Residential Goal (LTG) Improve hip strength to 4/5 or better for improved support of the pelvis LTG Duration 8 weeks Two Impairment Pelvic floor weakness Residential Goal (LTG) Improve pelvic floor strength from 3/5 MMT to 4/5 MMT for improved bladder support LTG Duration 8 weeks One Impairment urinary stress incontinence Residential Goal (LTG) Sherrie is able to decrease urinary incontinence with pelvic floor strengthening and hip strengthening and is able to walk her 2-3 miles without leakage LTG Duration 8 weeks Assessment Summary Assessment Sherrie presents to physical therapy today with symptoms of urinary incontinence made worse with walking activities. Sherrie's goal is to be able to walk without a pad. Sherrie does have a history of 2 bladder surgeries with the last one being in 2007. It was in this past year that she began experiencing symptoms again. With pelvic floor examination she is able to facilitate her pelvic floor but is weak in all areas. There is some muscle guarding present however with cueing Sherrie was able to relax her pelvic floor at rest. She is weak in her lateral hip musculature right greater than left so hip strengthenign will also be included in her treatment plan. Sherrie is a good candidate for PT Physical Therapy Plan Frequency and Duration Frequency of Treatment 1x/Week Duration of Treatment 8 weeks Plan of Care Start Date 07/07/18 Plan of Care End Date 09/01/18 Therapeutic Interventions Therapeutic Interventions Home Exercise Program Manual Therapy Neuromuscular Re-education Self-Care/Home Management Soft Tissue Mobilization Therapeutic Exercises Modalities Biofeedback Plan of Care Dates Plan of Care Start Date 07/07/18 Plan of Care End Date 09/01/18 Please Sign and Return: I have reviewed this Plan of Care and certify that the skilled therapy services above are required to meet the patient?s needs. Physician Signature Date Printed Name and Credentials Clinical Instructor Signature Printed Name and Credentials
--- NOTE | 2018-07-14 11:50 | PT.OTN ---
Current Diagnoses Unspecified urinary incontinence (07/14/18) Physical Therapy Treatment Note PT-OP-A Visit Information Start: 07/08/18 09:48 Freq: Status: Active Protocol: Document 07/14/18 11:42 [facility] (Rec: 07/14/18 11:50 [facility] [email or web address]) Out-Patient Physical Therapy Visit Information Visit Information Visit Type Treatment Note Visit Start Time 09:45 Visit Stop Time 10:30 Total Visit Minutes 45 Visit Number 2 PT-OP-B Current Condition Start: 07/08/18 09:48 Freq: Status: Active Protocol: Document 07/07/18 09:45 [facility] (Rec: 07/08/18 09:58 [facility] [email or web address]) Current Condition History of Current Condition Onset Date 1 year ago Current Complaints urinary incontinence History of Current Condition Sherrie is a 77 year old female with history of pelvic floor weakness and urinary incontinence. She has undergone two bladder surgeries the last one being in 2007. She has had previous physical therapy for her pelvic floor prior to her last surgery. She notes symptoms began worsening this past year and she is experiencing constant leakage. She wears pantyshields daily and maxi pads when walking. 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 She is able to walk with this brace and regularly walks [place] but with a heavy pad and leakge. Other past medical history includes hx of breast cancer, back pain, asthma Treatment Goals Patient/Caregiver Goals goals include to be able to discontinue pad use and eliminate urinary incontinence Current Functional Impairments (Reported) Functional Limitations- Mobility/Gait walking causes urinary leakage PT-OP-I Pelvic Floor Start: 07/08/18 09:48 Freq: Status: Active Protocol: Document 07/07/18 09:45 [facility] (Rec: 07/08/18 10:12 [facility] [email or web address]) Pelvic Floor Assessment Urine Pelvic Floor Surgery Yes: x 2 Other Urinary Symptoms urinary stress incontinence with leakage in standing positions Leakage Size Medium Leakage Cause Cough Exercise Lifting Sneeze Other Leakage Causes waling Leaks Per Day constant Voiding Frequency 5-6 times per day Urine Pad Type Panty Liner Maxi Pad Depends Pelvic Clock Pelvic Clock 12-3 Atrophy Pelvic Clock 3-6 Guarding Pelvic Clock 6-9 Atrophy Pelvic Clock 9-12 Atrophy SEMG (uV) Baseline 5 10 Second Contraction 16.1 Recruitment Pattern Good Relaxation Fair Holding Fair Stability of Hold Fair SEMG Stability of Rest Poor/Slow Contraction Ability Manual Muscle Testing Left 3 Manual Muscle Testing Right 3 Manual Muscle Testing Anterior 3 Manual Muscle Testing Posterior 3 Muscle Endurance (Seconds) 6 Comments Pelvic Floor Comments elevated tone initially but with verbal cuing Sherrie is able to relax her pelvic floor PT-OP-M Strength Start: 07/08/18 09:48 Freq: Status: Active Protocol: Document 07/07/18 09:45 [facility] (Rec: 07/08/18 10:12 [facility] [email or web address]) Hip Strength Hip Manual Muscle Testing Left Abduction 3+ Fair+ External Rotation 3+ Fair+ Right Abduction 3 Fair External Rotation 3 Fair PT-OP-Q Treatments Start: 07/08/18 09:48 Freq: Status: Active Protocol: Document 07/14/18 11:42 [facility] (Rec: 07/14/18 11:50 [facility] [email or web address]) Therapeutic Exercises Supine Exercises 6 Supine Exercise Name TA engagement with heel slides Reps/Minutes x 10 each 5 Supine Exercise Name piriformis stretch 4 Supine Exercise Name templates on EMG biofeedback for coordination of the pelvic floor Reps/Minutes 5 each 3 Supine Exercise Name roll outs with theraband Reps/Minutes 3 x 10 2 Supine Exercise Name pelvic floor quick flicks Reps/Minutes 2 seconds on 2 seconds off x 10 reps 1 Supine Exercise Name pelvic floor long holds with EMG bbiofeedback Reps/Minutes 10 sec on/10 sec off x 10 reps Sidelying Exercises 1 Sidelying Exercise Name sidelying clam shells Reps/Minutes x 10 each Self-Care/Home Management Treatment Education Patient Education Home Exercise Program PT-OP-T Assessment and Plan Start: 07/08/18 10:12 Freq: Status: Active Protocol: Document 07/14/18 11:42 [facility] (Rec: 07/14/18 11:50 [facility] [email or web address]) Physical Therapy Assessment Assessment Summary Assessment Sherrie tolerated all exericses well today. Right hip was tight at the beginning of hip roll outs but she was able to loosen this up with exercises and streches. Clam shells on the right leg are also much tighter Physical Therapy Plan Frequency and Duration Frequency of Treatment 1x/Week Duration of Treatment 8 weeks Plan of Care Start Date 07/07/18 Plan of Care End Date 09/01/18 Therapeutic Interventions Therapeutic Interventions Home Exercise Program Manual Therapy Neuromuscular Re-education Self-Care/Home Management Soft Tissue Mobilization Therapeutic Exercises Modalities Biofeedback Next Visit Focus/Plan Next Note Type Treatment Note Next Visit Plan progress hip stabilizing exercises and transverse abdominal stabilization
--- NOTE | 2018-07-21 14:18 | PT.OTN ---
Current Diagnoses Unspecified urinary incontinence (07/21/18) Physical Therapy Treatment Note PT-OP-A Visit Information Start: 07/08/18 09:48 Freq: Status: Active Protocol: Document 07/21/18 14:11 [facility] (Rec: 07/21/18 14:16 [facility] [email or web address]) Out-Patient Physical Therapy Visit Information Visit Information Visit Type Treatment Note Visit Start Time 09:45 Visit Stop Time 10:30 Total Visit Minutes 45 Visit Number 3 Evaluation Information Evaluation Date 07/07/18 PT-OP-B Current Condition Start: 07/08/18 09:48 Freq: Status: Active Protocol: Document 07/07/18 09:45 [facility] (Rec: 07/08/18 09:58 [facility] [email or web address]) Current Condition History of Current Condition Onset Date 1 year ago Current Complaints urinary incontinence History of Current Condition Sherrie is a 77 year old female with history of pelvic floor weakness and urinary incontinence. She has undergone two bladder surgeries the last one being in 2007. She has had previous physical therapy for her pelvic floor prior to her last surgery. She notes symptoms began worsening this past year and she is experiencing constant leakage. She wears pantyshields daily and maxi pads when walking. 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 She is able to walk with this brace and regularly walks [employer] but with a heavy pad and leakge. Other past medical history includes hx of breast cancer, back pain, asthma Treatment Goals Patient/Caregiver Goals goals include to be able to discontinue pad use and eliminate urinary incontinence Current Functional Impairments (Reported) Functional Limitations- Mobility/Gait walking causes urinary leakage PT-OP-C Subjective Start: 07/08/18 09:48 Freq: Status: Active Protocol: Document 07/21/18 14:11 [facility] (Rec: 07/21/18 14:16 [facility] [email or web address]) OP-PT Subjective Patient Comments Patient Comments Sherrie reports she has been working on her HEP PT-OP-I Pelvic Floor Start: 07/08/18 09:48 Freq: Status: Active Protocol: Document 07/07/18 09:45 [facility] (Rec: 07/08/18 10:12 [facility] [email or web address]) Pelvic Floor Assessment Urine Pelvic Floor Surgery Yes: x 2 Other Urinary Symptoms urinary stress incontinence with leakage in standing positions Leakage Size Medium Leakage Cause Cough Exercise Lifting Sneeze Other Leakage Causes waling Leaks Per Day constant Voiding Frequency 5-6 times per day Urine Pad Type Panty Liner Maxi Pad Depends Pelvic Clock Pelvic Clock 12-3 Atrophy Pelvic Clock 3-6 Guarding Pelvic Clock 6-9 Atrophy Pelvic Clock 9-12 Atrophy SEMG (uV) Baseline 5 10 Second Contraction 16.1 Recruitment Pattern Good Relaxation Fair Holding Fair Stability of Hold Fair SEMG Stability of Rest Poor/Slow Contraction Ability Manual Muscle Testing Left 3 Manual Muscle Testing Right 3 Manual Muscle Testing Anterior 3 Manual Muscle Testing Posterior 3 Muscle Endurance (Seconds) 6 Comments Pelvic Floor Comments elevated tone initially but with verbal cuing Sherrie is able to relax her pelvic floor PT-OP-M Strength Start: 07/08/18 09:48 Freq: Status: Active Protocol: Document 07/07/18 09:45 [facility] (Rec: 07/08/18 10:12 [facility] [email or web address]) Hip Strength Hip Manual Muscle Testing Left Abduction 3+ Fair+ External Rotation 3+ Fair+ Right Abduction 3 Fair External Rotation 3 Fair PT-OP-Q Treatments Start: 07/08/18 09:48 Freq: Status: Active Protocol: Document 07/21/18 14:11 [facility] (Rec: 07/21/18 14:16 [facility] [email or web address]) Therapeutic Exercises Supine Exercises 7 Supine Exercise Name Hamstring and adductor stretch with strap 6 Supine Exercise Name TA engagement with heel slides Reps/Minutes x 10 each 5 Supine Exercise Name piriformis stretch 3 Supine Exercise Name roll outs with theraband Reps/Minutes 3 x 10 2 Supine Exercise Name pelvic floor quick flicks Reps/Minutes 2 seconds on 2 seconds off x 10 reps 1 Supine Exercise Name pelvic floor long holds with EMG bbiofeedback Reps/Minutes 10 sec on/10 sec off x 10 reps Sidelying Exercises 1 Sidelying Exercise Name sidelying clam shells Reps/Minutes x 10 each Other Exercises 1 Other Exercise Name cat cow and rock backs PT-OP-T Assessment and Plan Start: 07/08/18 10:12 Freq: Status: Active Protocol: Document 07/21/18 14:11 [facility] (Rec: 07/21/18 14:16 [facility] [email or web address]) Physical Therapy Assessment Assessment Summary Assessment worked on increasing hip stretches for the right hip, Gauris sacrum is also rotated to the left which may be contributing to her hip pain. I taught her the anatomy of the piriformis today and how tightness on one side can throw off your sacrum Physical Therapy Plan Frequency and Duration Frequency of Treatment 1x/Week Duration of Treatment 8 weeks Plan of Care Start Date 07/07/18 Plan of Care End Date 09/01/18 Therapeutic Interventions Therapeutic Interventions Home Exercise Program Manual Therapy Neuromuscular Re-education Self-Care/Home Management Soft Tissue Mobilization Therapeutic Exercises Modalities Biofeedback Next Visit Focus/Plan Next Note Type Treatment Note Next Visit Plan progress hip stabilizing exercises and transverse abdominal stabilization
--- NOTE | 2018-07-28 18:33 | PT.OTN ---
Current Diagnoses Unspecified urinary incontinence (07/28/18) Physical Therapy Treatment Note PT-OP-A Visit Information Start: 07/08/18 09:48 Freq: Status: Active Protocol: Document 07/28/18 18:20 [facility] (Rec: 07/28/18 18:33 [facility] [email or web address]) Out-Patient Physical Therapy Visit Information Visit Information Visit Type Treatment Note Visit Start Time 09:45 Visit Stop Time 10:30 Total Visit Minutes 45 Visit Number 4 Evaluation Information Evaluation Date 07/07/18 PT-OP-B Current Condition Start: 07/08/18 09:48 Freq: Status: Active Protocol: Document 07/07/18 09:45 [facility] (Rec: 07/08/18 09:58 [facility] [email or web address]) Current Condition History of Current Condition Onset Date 1 year ago Current Complaints urinary incontinence History of Current Condition Sherrie is a 77 year old female with history of pelvic floor weakness and urinary incontinence. She has undergone two bladder surgeries the last one being in 2007. She has had previous physical therapy for her pelvic floor prior to her last surgery. She notes symptoms began worsening this past year and she is experiencing constant leakage. She wears pantyshields daily and maxi pads when walking. 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 She is able to walk with this brace and regularly walks [place] [facility] but with a heavy pad and leakge. Other past medical history includes hx of breast cancer, back pain, asthma Treatment Goals Patient/Caregiver Goals goals include to be able to discontinue pad use and eliminate urinary incontinence Current Functional Impairments (Reported) Functional Limitations- Mobility/Gait walking causes urinary leakage PT-OP-C Subjective Start: 07/08/18 09:48 Freq: Status: Active Protocol: Document 07/28/18 18:20 [facility] (Rec: 07/28/18 18:33 [facility] [email or web address]) OP-PT Subjective Patient Comments Patient Comments This last week sherrie was out of town. She notes she wasn't able to do her exercises as much. She does state though that she is now wearing a panty liner for her walks instead of her maxi pad PT-OP-I Pelvic Floor Start: 07/08/18 09:48 Freq: Status: Active Protocol: Document 07/07/18 09:45 [facility] (Rec: 07/08/18 10:12 [facility] [email or web address]) Pelvic Floor Assessment Urine Pelvic Floor Surgery Yes: x 2 Other Urinary Symptoms urinary stress incontinence with leakage in standing positions Leakage Size Medium Leakage Cause Cough Exercise Lifting Sneeze Other Leakage Causes waling Leaks Per Day constant Voiding Frequency 5-6 times per day Urine Pad Type Panty Liner Maxi Pad Depends Pelvic Clock Pelvic Clock 12-3 Atrophy Pelvic Clock 3-6 Guarding Pelvic Clock 6-9 Atrophy Pelvic Clock 9-12 Atrophy SEMG (uV) Baseline 5 10 Second Contraction 16.1 Recruitment Pattern Good Relaxation Fair Holding Fair Stability of Hold Fair SEMG Stability of Rest Poor/Slow Contraction Ability Manual Muscle Testing Left 3 Manual Muscle Testing Right 3 Manual Muscle Testing Anterior 3 Manual Muscle Testing Posterior 3 Muscle Endurance (Seconds) 6 Comments Pelvic Floor Comments elevated tone initially but with verbal cuing Sherrie is able to relax her pelvic floor PT-OP-M Strength Start: 07/08/18 09:48 Freq: Status: Active Protocol: Document 07/07/18 09:45 [facility] (Rec: 07/08/18 10:12 [facility] [email or web address]) Hip Strength Hip Manual Muscle Testing Left Abduction 3+ Fair+ External Rotation 3+ Fair+ Right Abduction 3 Fair External Rotation 3 Fair PT-OP-Q Treatments Start: 07/08/18 09:48 Freq: Status: Active Protocol: Document 07/28/18 18:20 [facility] (Rec: 07/28/18 18:33 [facility] [email or web address]) Therapeutic Exercises Supine Exercises 7 Supine Exercise Name Hamstring and adductor stretch with strap 6 Supine Exercise Name TA engagement with heel slides Reps/Minutes x 10 each 5 Supine Exercise Name piriformis stretch 4 Supine Exercise Name templates on EMG biofeedback for coordination of the pelvic floor Reps/Minutes 5 each 3 Supine Exercise Name roll outs with theraband Reps/Minutes 3 x 10 2 Supine Exercise Name pelvic floor quick flicks Reps/Minutes 2 seconds on 2 seconds off x 10 reps 1 Supine Exercise Name pelvic floor long holds with EMG bbiofeedback Reps/Minutes 10 sec on/10 sec off x 10 reps Sidelying Exercises 1 Sidelying Exercise Name sidelying clam shells Reps/Minutes x 10 each Other Exercises 1 Other Exercise Name cat cow and rock backs PT-OP-T Assessment and Plan Start: 07/08/18 10:12 Freq: Status: Active Protocol: Document 07/28/18 18:20 [facility] (Rec: 07/28/18 18:33 [facility] [email or web address]) Physical Therapy Assessment Assessment Summary Assessment good progress switching to light day pad. Continue focusing on hip mobility and core strengthening. Physical Therapy Plan Frequency and Duration Frequency of Treatment 1x/Week Duration of Treatment 8 weeks Plan of Care Start Date 07/07/18 Plan of Care End Date 09/01/18 Therapeutic Interventions Therapeutic Interventions Home Exercise Program Manual Therapy Neuromuscular Re-education Self-Care/Home Management Soft Tissue Mobilization Therapeutic Exercises Modalities Biofeedback Next Visit Focus/Plan Next Note Type Treatment Note Next Visit Plan progress hip stabilizing exercises and transverse abdominal stabilization
--- NOTE | 2018-08-11 12:16 | PT.OTN ---
Current Diagnoses Unspecified urinary incontinence (08/11/18) Physical Therapy Treatment Note PT-OP-A Visit Information Start: 07/08/18 09:48 Freq: Status: Active Protocol: Document 08/11/18 12:08 [facility] (Rec: 08/11/18 12:16 [facility] [email or web address]) Out-Patient Physical Therapy Visit Information Visit Information Visit Type Treatment Note Visit Start Time 11:15 Visit Stop Time 12:00 Total Visit Minutes 45 Visit Number 6 PT-OP-B Current Condition Start: 07/08/18 09:48 Freq: Status: Active Protocol: Document 07/07/18 09:45 [facility] (Rec: 07/08/18 09:58 [facility] [email or web address]) Current Condition History of Current Condition Onset Date 1 year ago Current Complaints urinary incontinence History of Current Condition Sherrie is a 77 year old female with history of pelvic floor weakness and urinary incontinence. She has undergone two bladder surgeries the last one being in 2007. She has had previous physical therapy for her pelvic floor prior to her last surgery. She notes symptoms began worsening this past year and she is experiencing constant leakage. She wears pantyshields daily and maxi pads when walking. 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 She is able to walk with this brace and regularly walks [facility] but with a heavy pad and leakge. Other past medical history includes hx of breast cancer, back pain, asthma Treatment Goals Patient/Caregiver Goals goals include to be able to discontinue pad use and eliminate urinary incontinence Current Functional Impairments (Reported) Functional Limitations- Mobility/Gait walking causes urinary leakage PT-OP-C Subjective Start: 07/08/18 09:48 Freq: Status: Active Protocol: Document 08/11/18 12:08 [facility] (Rec: 08/11/18 12:16 [facility] [email or web address]) OP-PT Subjective Patient Comments Patient Comments Doing much better with decreased leakage overall. Sherrie does report her low back is sore today. PT-OP-I Pelvic Floor Start: 07/08/18 09:48 Freq: Status: Active Protocol: Document 07/07/18 09:45 [facility] (Rec: 07/08/18 10:12 [facility] [email or web address]) Pelvic Floor Assessment Urine Pelvic Floor Surgery Yes: x 2 Other Urinary Symptoms urinary stress incontinence with leakage in standing positions Leakage Size Medium Leakage Cause Cough Exercise Lifting Sneeze Other Leakage Causes waling Leaks Per Day constant Voiding Frequency 5-6 times per day Urine Pad Type Panty Liner Maxi Pad Depends Pelvic Clock Pelvic Clock 12-3 Atrophy Pelvic Clock 3-6 Guarding Pelvic Clock 6-9 Atrophy Pelvic Clock 9-12 Atrophy SEMG (uV) Baseline 5 10 Second Contraction 16.1 Recruitment Pattern Good Relaxation Fair Holding Fair Stability of Hold Fair SEMG Stability of Rest Poor/Slow Contraction Ability Manual Muscle Testing Left 3 Manual Muscle Testing Right 3 Manual Muscle Testing Anterior 3 Manual Muscle Testing Posterior 3 Muscle Endurance (Seconds) 6 Comments Pelvic Floor Comments elevated tone initially but with verbal cuing Sherrie is able to relax her pelvic floor PT-OP-M Strength Start: 07/08/18 09:48 Freq: Status: Active Protocol: Document 07/07/18 09:45 [facility] (Rec: 07/08/18 10:12 [facility] [email or web address]) Hip Strength Hip Manual Muscle Testing Left Abduction 3+ Fair+ External Rotation 3+ Fair+ Right Abduction 3 Fair External Rotation 3 Fair PT-OP-Q Treatments Start: 07/08/18 09:48 Freq: Status: Active Protocol: Document 08/11/18 12:08 [facility] (Rec: 08/11/18 12:16 [facility] [email or web address]) Therapeutic Exercises Supine Exercises 7 Supine Exercise Name Hamstring and adductor stretch with strap 6 Supine Exercise Name TA engagement with heel slides Reps/Minutes x 10 each 5 Supine Exercise Name piriformis stretch 3 Supine Exercise Name roll outs with theraband Reps/Minutes 3 x 10 2 Supine Exercise Name pelvic floor quick flicks Reps/Minutes 2 seconds on 2 seconds off x 10 reps 1 Supine Exercise Name pelvic floor long holds with EMG bbiofeedback Reps/Minutes 10 sec on/10 sec off x 10 reps Other Exercises 1 Other Exercise Name cat cow and rock backs PT-OP-T Assessment and Plan Start: 07/08/18 10:12 Freq: Status: Active Protocol: Document 08/11/18 12:08 [facility] (Rec: 08/11/18 12:16 [facility] [email or web address]) Physical Therapy Assessment Assessment Summary Assessment average 22 uv today on EMG biofeedback. Hip ER's are still very tight but Sherrie is working on this for home . No sit-stand today as her back was sore. Physical Therapy Plan Frequency and Duration Frequency of Treatment 1x/Week Duration of Treatment 8 weeks Plan of Care Start Date 07/07/18 Plan of Care End Date 09/01/18 Therapeutic Interventions Therapeutic Interventions Home Exercise Program Manual Therapy Neuromuscular Re-education Self-Care/Home Management Soft Tissue Mobilization Therapeutic Exercises Modalities Biofeedback Next Visit Focus/Plan Next Note Type Treatment Note Next Visit Plan work on sit-stand and standing pelvic floor next visit
--- NOTE | 2018-08-18 12:05 | PT.OTN ---
Current Diagnoses Unspecified urinary incontinence (08/18/18) Physical Therapy Treatment Note PT-OP-A Visit Information Start: 07/08/18 09:48 Freq: Status: Active Protocol: Document 08/18/18 12:01 [facility] (Rec: 08/18/18 12:05 [facility] [email or web address]) Out-Patient Physical Therapy Visit Information Visit Information Visit Type Treatment Note Visit Start Time 09:45 Visit Stop Time 10:30 Total Visit Minutes 45 Visit Number 7 Evaluation Information Evaluation Date 07/07/18 PT-OP-B Current Condition Start: 07/08/18 09:48 Freq: Status: Active Protocol: Document 07/07/18 09:45 [facility] (Rec: 07/08/18 09:58 [facility] [email or web address]) Current Condition History of Current Condition Onset Date 1 year ago Current Complaints urinary incontinence History of Current Condition Sherrie is a 77 year old female with history of pelvic floor weakness and urinary incontinence. She has undergone two bladder surgeries the last one being in 2007. She has had previous physical therapy for her pelvic floor prior to her last surgery. She notes symptoms began worsening this past year and she is experiencing constant leakage. She wears pantyshields daily and maxi pads when walking. 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 She is able to walk with this brace and regularly walks [employer] [place] but with a heavy pad and leakge. Other past medical history includes hx of breast cancer, back pain, asthma Treatment Goals Patient/Caregiver Goals goals include to be able to discontinue pad use and eliminate urinary incontinence Current Functional Impairments (Reported) Functional Limitations- Mobility/Gait walking causes urinary leakage PT-OP-C Subjective Start: 07/08/18 09:48 Freq: Status: Active Protocol: Document 08/18/18 12:01 [facility] (Rec: 08/18/18 12:05 [facility] [email or web address]) OP-PT Subjective Patient Comments Patient Comments Sherrie reports she did have one leak this week with walking and was wondering if the cold weather can effect this. She has been using heat on her low back as this felt really good following last visit PT-OP-I Pelvic Floor Start: 07/08/18 09:48 Freq: Status: Active Protocol: Document 07/07/18 09:45 [facility] (Rec: 07/08/18 10:12 [facility] [email or web address]) Pelvic Floor Assessment Urine Pelvic Floor Surgery Yes: x 2 Other Urinary Symptoms urinary stress incontinence with leakage in standing positions Leakage Size Medium Leakage Cause Cough Exercise Lifting Sneeze Other Leakage Causes waling Leaks Per Day constant Voiding Frequency 5-6 times per day Urine Pad Type Panty Liner Maxi Pad Depends Pelvic Clock Pelvic Clock 12-3 Atrophy Pelvic Clock 3-6 Guarding Pelvic Clock 6-9 Atrophy Pelvic Clock 9-12 Atrophy SEMG (uV) Baseline 5 10 Second Contraction 16.1 Recruitment Pattern Good Relaxation Fair Holding Fair Stability of Hold Fair SEMG Stability of Rest Poor/Slow Contraction Ability Manual Muscle Testing Left 3 Manual Muscle Testing Right 3 Manual Muscle Testing Anterior 3 Manual Muscle Testing Posterior 3 Muscle Endurance (Seconds) 6 Comments Pelvic Floor Comments elevated tone initially but with verbal cuing Sherrie is able to relax her pelvic floor PT-OP-M Strength Start: 07/08/18 09:48 Freq: Status: Active Protocol: Document 07/07/18 09:45 [facility] (Rec: 07/08/18 10:12 [facility] [email or web address]) Hip Strength Hip Manual Muscle Testing Left Abduction 3+ Fair+ External Rotation 3+ Fair+ Right Abduction 3 Fair External Rotation 3 Fair PT-OP-Q Treatments Start: 07/08/18 09:48 Freq: Status: Active Protocol: Document 08/18/18 12:01 [facility] (Rec: 08/18/18 12:05 [facility] [email or web address]) Therapeutic Exercises Supine Exercises 7 Supine Exercise Name Hamstring and adductor stretch with strap 6 Supine Exercise Name TA engagement with heel slides Reps/Minutes x 10 each 5 Supine Exercise Name piriformis stretch 3 Supine Exercise Name roll outs with theraband Reps/Minutes 3 x 10 2 Supine Exercise Name pelvic floor quick flicks Reps/Minutes 2 seconds on 2 seconds off x 10 reps 1 Supine Exercise Name pelvic floor long holds with EMG bbiofeedback Reps/Minutes 10 sec on/10 sec off x 10 reps Sidelying Exercises 1 Sidelying Exercise Name sidelying clam shells Reps/Minutes x 10 each Other Exercises 2 Other Exercise Name sit-stand with pelvic floor activation Reps/Minutes 10 reps Comments pt to try activating her pelvic floor when transferring from sit-stand PT-OP-T Assessment and Plan Start: 07/08/18 10:12 Freq: Status: Active Protocol: Document 08/18/18 12:01 [facility] (Rec: 08/18/18 12:05 [facility] [email or web address]) Physical Therapy Assessment Assessment Summary Assessment good tolerance for pelvic floor activation with sit- stand today, right hip still tight but Sherrie is working on this hip mobility for home. Physical Therapy Plan Frequency and Duration Frequency of Treatment 1x/Week Duration of Treatment 8 weeks Plan of Care Start Date 07/07/18 Plan of Care End Date 09/01/18 Therapeutic Interventions Therapeutic Interventions Home Exercise Program Manual Therapy Neuromuscular Re-education Self-Care/Home Management Soft Tissue Mobilization Therapeutic Exercises Modalities Biofeedback Next Visit Focus/Plan Next Note Type Treatment Note Next Visit Plan revisit sit-stand and stretches for the low back
--- NOTE | 2018-08-26 14:34 | PT.OTN ---
Current Diagnoses Unspecified urinary incontinence (08/26/18) Physical Therapy Treatment Note PT-OP-A Visit Information Start: 07/08/18 09:48 Freq: Status: Active Protocol: Document 08/26/18 14:26 [facility] (Rec: 08/26/18 14:34 [facility] [email or web address]) Out-Patient Physical Therapy Visit Information Visit Information Visit Type Treatment Note Visit Start Time 11:30 Visit Stop Time 12:15 Total Visit Minutes 45 Visit Number 8 Evaluation Information Evaluation Date 07/07/18 PT-OP-B Current Condition Start: 07/08/18 09:48 Freq: Status: Active Protocol: Document 07/07/18 09:45 [facility] (Rec: 07/08/18 09:58 [facility] [email or web address]) Current Condition History of Current Condition Onset Date 1 year ago Current Complaints urinary incontinence History of Current Condition Sherrie is a 77 year old female with history of pelvic floor weakness and urinary incontinence. She has undergone two bladder surgeries the last one being in 2007. She has had previous physical therapy for her pelvic floor prior to her last surgery. She notes symptoms began worsening this past year and she is experiencing constant leakage. She wears pantyshields daily and maxi pads when walking. 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 She is able to walk with this brace and regularly walks [employer] [facility] but with a heavy pad and leakge. Other past medical history includes hx of breast cancer, back pain, asthma Treatment Goals Patient/Caregiver Goals goals include to be able to discontinue pad use and eliminate urinary incontinence Current Functional Impairments (Reported) Functional Limitations- Mobility/Gait walking causes urinary leakage PT-OP-C Subjective Start: 07/08/18 09:48 Freq: Status: Active Protocol: Document 08/26/18 14:26 [facility] (Rec: 08/26/18 14:34 [facility] [email or web address]) OP-PT Subjective Patient Comments Patient Comments Sherrie reprots she has had a busy week and hasn't done the exercises as much this week. She is just using panty liners for the most part now. Sherrie also reports that the piriformis stretch may be aggravating her back so she has stopped doing it. PT-OP-I Pelvic Floor Start: 07/08/18 09:48 Freq: Status: Active Protocol: Document 07/07/18 09:45 [facility] (Rec: 07/08/18 10:12 [facility] [email or web address]) Pelvic Floor Assessment Urine Pelvic Floor Surgery Yes: x 2 Other Urinary Symptoms urinary stress incontinence with leakage in standing positions Leakage Size Medium Leakage Cause Cough Exercise Lifting Sneeze Other Leakage Causes waling Leaks Per Day constant Voiding Frequency 5-6 times per day Urine Pad Type Panty Liner Maxi Pad Depends Pelvic Clock Pelvic Clock 12-3 Atrophy Pelvic Clock 3-6 Guarding Pelvic Clock 6-9 Atrophy Pelvic Clock 9-12 Atrophy SEMG (uV) Baseline 5 10 Second Contraction 16.1 Recruitment Pattern Good Relaxation Fair Holding Fair Stability of Hold Fair SEMG Stability of Rest Poor/Slow Contraction Ability Manual Muscle Testing Left 3 Manual Muscle Testing Right 3 Manual Muscle Testing Anterior 3 Manual Muscle Testing Posterior 3 Muscle Endurance (Seconds) 6 Comments Pelvic Floor Comments elevated tone initially but with verbal cuing Sherrie is able to relax her pelvic floor PT-OP-M Strength Start: 07/08/18 09:48 Freq: Status: Active Protocol: Document 07/07/18 09:45 [facility] (Rec: 07/08/18 10:12 [facility] [email or web address]) Hip Strength Hip Manual Muscle Testing Left Abduction 3+ Fair+ External Rotation 3+ Fair+ Right Abduction 3 Fair External Rotation 3 Fair PT-OP-Q Treatments Start: 07/08/18 09:48 Freq: Status: Active Protocol: Document 08/26/18 14:26 [facility] (Rec: 08/26/18 14:34 [facility] [email or web address]) Therapeutic Exercises Supine Exercises 4 Supine Exercise Name templates on EMG biofeedback for coordination of the pelvic floor Reps/Minutes 5 each 3 Supine Exercise Name roll outs with theraband Reps/Minutes 3 x 10 2 Supine Exercise Name pelvic floor quick flicks Reps/Minutes 2 seconds on 2 seconds off x 10 reps 1 Supine Exercise Name pelvic floor long holds with EMG bbiofeedback Reps/Minutes 10 sec on/10 sec off x 10 reps Other Exercises 2 Other Exercise Name sit-stand with pelvic floor activiation Reps/Minutes 10 reps Comments pt to try activating her pelvic floor when transfering from sit-stand 1 Other Exercise Name cat cow and rock backs PT-OP-T Assessment and Plan Start: 07/08/18 10:12 Freq: Status: Active Protocol: Document 08/26/18 14:26 [facility] (Rec: 08/26/18 14:34 [facility] [email or web address]) Physical Therapy Assessment Assessment Summary Assessment worked on standing pelvic floor contractions and sit to stand today. Sherrie has one visit left in PT and then she will be discharged from PT Physical Therapy Plan Frequency and Duration Frequency of Treatment 1x/Week Duration of Treatment 8 weeks Plan of Care Start Date 07/07/18 Plan of Care End Date 09/01/18 Therapeutic Interventions Therapeutic Interventions Home Exercise Program Manual Therapy Neuromuscular Re-education Self-Care/Home Management Soft Tissue Mobilization Therapeutic Exercises Modalities Biofeedback Next Visit Focus/Plan Next Note Type Treatment Note Next Visit Plan review all established exercises next visit prior to discharge
--- NOTE | 2018-09-08 15:54 | PT.OTN ---
Current Diagnoses Unspecified urinary incontinence (09/08/18) Physical Therapy Treatment Note PT-OP-A Visit Information Start: 07/08/18 09:48 Freq: Status: Active Protocol: Document 09/08/18 15:47 [facility] (Rec: 09/08/18 15:54 [facility] [email or web address]) Out-Patient Physical Therapy Visit Information Visit Information Visit Type Treatment Note Visit Start Time 13:45 Visit Stop Time 14:30 Total Visit Minutes 45 Visit Number 9 Evaluation Information Evaluation Date 07/07/18 PT-OP-B Current Condition Start: 07/08/18 09:48 Freq: Status: Active Protocol: Document 07/07/18 09:45 [facility] (Rec: 07/08/18 09:58 [facility] [email or web address]) Current Condition History of Current Condition Onset Date 1 year ago Current Complaints urinary incontinence History of Current Condition Sherrie is a 77 year old female with history of pelvic floor weakness and urinary incontinence. She has undergone two bladder surgeries the last one being in 2007. She has had previous physical therapy for her pelvic floor prior to her last surgery. She notes symptoms began worsening this past year and she is experiencing constant leakage. She wears pantyshields daily and maxi pads when walking. 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 She is able to walk with this brace and regularly walks [employer] [place] but with a heavy pad and leakge. Other past medical history includes hx of breast cancer, back pain, asthma Treatment Goals Patient/Caregiver Goals goals include to be able to discontinue pad use and eliminate urinary incontinence Current Functional Impairments (Reported) Functional Limitations- Mobility/Gait walking causes urinary leakage PT-OP-C Subjective Start: 07/08/18 09:48 Freq: Status: Active Protocol: Document 09/08/18 15:47 [facility] (Rec: 09/08/18 15:54 [facility] [email or web address]) OP-PT Subjective Patient Comments Patient Comments Sherrie reports working on her exercises independently. She notes a few of the exercises aggravate her back so she has backed off on them some. Overall she notes a reduction in her symptoms and has been happy with her progress PT-OP-I Pelvic Floor Start: 07/08/18 09:48 Freq: Status: Active Protocol: Document 07/07/18 09:45 [facility] (Rec: 07/08/18 10:12 [facility] [email or web address]) Pelvic Floor Assessment Urine Pelvic Floor Surgery Yes: x 2 Other Urinary Symptoms urinary stress incontinence with leakage in standing positions Leakage Size Medium Leakage Cause Cough Exercise Lifting Sneeze Other Leakage Causes waling Leaks Per Day constant Voiding Frequency 5-6 times per day Urine Pad Type Panty Liner Maxi Pad Depends Pelvic Clock Pelvic Clock 12-3 Atrophy Pelvic Clock 3-6 Guarding Pelvic Clock 6-9 Atrophy Pelvic Clock 9-12 Atrophy SEMG (uV) Baseline 5 10 Second Contraction 16.1 Recruitment Pattern Good Relaxation Fair Holding Fair Stability of Hold Fair SEMG Stability of Rest Poor/Slow Contraction Ability Manual Muscle Testing Left 3 Manual Muscle Testing Right 3 Manual Muscle Testing Anterior 3 Manual Muscle Testing Posterior 3 Muscle Endurance (Seconds) 6 Comments Pelvic Floor Comments elevated tone initially but with verbal cuing Sherrie is able to relax her pelvic floor PT-OP-M Strength Start: 07/08/18 09:48 Freq: Status: Active Protocol: Document 07/07/18 09:45 [facility] (Rec: 07/08/18 10:12 [facility] [email or web address]) Hip Strength Hip Manual Muscle Testing Left Abduction 3+ Fair+ External Rotation 3+ Fair+ Right Abduction 3 Fair External Rotation 3 Fair PT-OP-Q Treatments Start: 07/08/18 09:48 Freq: Status: Active Protocol: Document 08/26/18 14:26 [facility] (Rec: 08/26/18 14:34 [facility] [email or web address]) Therapeutic Exercises Supine Exercises 4 Supine Exercise Name templates on EMG biofeedback for coordination of the pelvic floor Reps/Minutes 5 each 3 Supine Exercise Name roll outs with theraband Reps/Minutes 3 x 10 2 Supine Exercise Name pelvic floor quick flicks Reps/Minutes 2 seconds on 2 seconds off x 10 reps 1 Supine Exercise Name pelvic floor long holds with EMG bbiofeedback Reps/Minutes 10 sec on/10 sec off x 10 reps Other Exercises 2 Other Exercise Name sit-stand with pelvic floor activiation Reps/Minutes 10 reps Comments pt to try activating her pelvic floor when transfering from sit-stand 1 Other Exercise Name cat cow and rock backs PT-OP-T Assessment and Plan Start: 07/08/18 10:12 Freq: Status: Active Protocol: Document 09/08/18 15:47 [facility] (Rec: 11/20/18 15:54 [facility] [email or web address]) Physical Therapy Assessment Goals Four Impairment Decreased pelvic floor endurance Short Term Goal (STG) Improve endurance of the pelvic floor to 10 second hold time in supine and 5 second hold time in standing 09/08/18 GOAL MET Three Impairment Hip abduction and ER weakness [facility] Goal (LTG) Improved but limited right hip ER due to pain Two Impairment Pelvic floor weakness [employer] Goal (LTG) Improve pelvic floor strength from 3/5 MMT to 4/5 MMT for improved bladder support 09/08/18 GOAL MET LTG Duration 8 weeks One Impairment urinary stress incontinence [facility] Goal (LTG) much improved, reduced urinay incontinence overall. Sherrie reports wearing a mini pad now for protection Assessment Summary Assessment Sherrie has made great overall progress in physical therapy and she reports her symptoms or urinary incontinence have been greatly reduced. She is now only using a mini pad and reports no c/o pelvic pressure . She is independent with her home program and will be discharged at this time Physical Therapy Plan Discharge Physical Therapy Discharge Reasons Goals Met
== END 2018-09-09 11:19 ==
LOC: PHYS 13:45
PROVIDERS: PCP Internal Medicine; Visit Provider Internal Medicine
DX: R32 Unspecified urinary incontinence (principal)
CPT/HCPCS: 97110; 97161

== ENCOUNTER 2019-07-13 17:01 | Inpatient (IN) | payer MEDICARE, OTHER, SELFPAY ==
--- NOTE | 2019-07-13 17:08 | ED_ITS ---
HPI - Extremity Injury (Lower) General Chief Complaint: Extremity Injury, Lower Stated Complaint: GLF, L hip pain Time Seen by Provider: 07/13/19 17:05 Source: patient and EMS Mode of arrival: EMS Limitations: no limitations History of Present Illness HPI Narrative: Patient is a 78-year-old female who presents with left hip pain. She was walking the dog when she fell landing on her left hip pain. She denies hitting her head she did not fall onto her back no other injury. She last ate some toast around 1:00 p.m.. She is not on any anti platelets or anticoagulation medication. She has significant pain whenever she moves her left leg. She received ketamine 100 mg by EMS for pain along with fentanyl. MD complaint: hip injury Related Data Home Medications Medication Instructions Recorded Confirmed CoQ-10 1 cap PO DAILY #0 04/10/12 07/13/19 cholecalciferol (vitamin D3) 5,000 unit PO DAILY 04/23/18 07/13/19 [Vitamin D3] magnesium 400 mg PO DAILY 04/23/18 07/13/19 omega-3 fatty acids [Fish Oil 1,000 mg PO DAILY 04/23/18 07/13/19 Concentrate] diphenhydramine HCl [Sleep Aid 25 mg PO BEDTIME PRN 07/13/19 07/13/19 (diphenhydramine)] letrozole 2.5 mg PO DAILY 07/13/19 07/13/19 lorazepam 0.5 mg PO BEDTIME PRN 07/13/19 07/13/19 rosuvastatin 5 mg PO QPM 07/13/19 07/13/19 Previous Rx's Medication Instructions Recorded albuterol sulfate 90 mcg/actuation 2 puff INHALATION Q4H PRN #8.5 gram 05/04/18 aerosol inhaler inhalational spacing device #1 each 05/04/18 ibandronate 150 mg tablet 150 mg PO QMONTH #3 tab 02/04/19 Allergies Allergy/AdvReac Type Severity Reaction Status Date / Time Sulfa (Sulfonamide Allergy Mild Verified 07/13/19 17:09 Antibiotics) alendronate sodium AdvReac Mild Verified 07/13/19 17:09 meperidine AdvReac Mild NAUSEA Verified 07/13/19 17:09 morphine AdvReac Mild ILLNESS Verified 07/13/19 17:09 Review of Systems Review of Systems Narrative: GENERAL: Denies chills, fatigue, malaise, fever, sweats, travel HEENT: Denies sinus pain, ear pain, sore throat, difficulty swallowing, neck pain RESPIRATORY: Denies dyspnea, cough, wheezing, hemoptysis, sputum. CARDIOVASCULAR: Denies chest pain, palpitations, orthopnea, edema GASTROINTESTINAL: Denies nausea, vomiting, abdominal pain, diarrhea, constipation, melena. : Denies dysuria, frequency, incontinence, hematuria, urinary retention, flank pain. MUSCULOSKELETAL: See HPI SKIN: No rash, no erythema, no pruritus NEUROLOGIC: Denies weakness, dizziness, headache, numbness, change in speech, confusion PSYCHIATRIC: No concerning psychosocial issues. 12 point review of systems is negative except for those stated above and HPI [facility] Medical History Ankle fracture, right (Resolved) Cancer of right breast, stage 1, estrogen receptor positive (Chronic) Foot pain (Chronic ~2012) Osteopenia (Chronic) Seasonal allergies (Chronic ~1994) Surgical History Anesthesia (Resolved) History of bladder suspension procedure (~1989) S/P lumpectomy, right breast (Resolved) Status post appendectomy (~194) Status post hysterectomy (~1979) Family History Child Age: 56 DCIS (ductal carcinoma in situ) Child Age: 54 Non Hodgkin's lymphoma Mother Heart disease Hypertension Stroke Sister Age: 67 Breast cancer Father No problems noted. Social History Smoking Status: Former smoker Family History Child Age: 56 DCIS (ductal carcinoma in situ) Child Age: 54 Non Hodgkin's lymphoma Mother Heart disease Hypertension Stroke Sister Age: 67 Breast cancer Father No problems noted. Social History Smoking Status: Former smoker Exam Initial Vital Signs Initial Vital Signs: Vital Signs Temperature 97.0 F L 07/13/19 17:09 Pulse Rate 93 H 07/13/19 17:09 Respiratory Rate 18 07/13/19 17:09 Blood Pressure 151/59 H 07/13/19 17:09 Pulse Oximetry 93 07/13/19 17:09 GENERAL: Alert pleasant female appears in pain HEENT: Head atraumatic,EOMI, pupils reactive, face symmetric, moist mucous membranes CARDIOVASCULAR: Regular rate and rhythm without murmurs, rubs or gallops. RESPIRATORY: Breath sounds equal bilaterally, no wheezes rales or rhonchi. ABDOMEN: Soft, nontender. Normoactive bowel sounds all 4 quadrants. No guarding or rebound. BACK: No midline tenderness EXTREMITIES: Normal range of motion, no clubbing or edema. Neurovascularly intact Left hip tender to touch. Distal pedal pulse intact she does have some brace on her left leg which is easily removed. She can move her toes. Right hip no pain. NEUROLOGICAL: Alert and oriented x4.. Cranial nerves II through XII grossly intact. SKIN: Warm, dry, no laceration, no petechiae, no rashes or lesions. Course Orders Ordered: ED Orders 07/13/19 17:07 XR hip w pel if done LT 2V Stat 07/13/19 17:23 Complete Blood Count AUTO DIFF Stat Comprehensive Metabolic Panel Stat Partial Thromboplastin Time Stat Prothrombin Time INR Stat Albuterol (Ventolin Hfa) 2 puff INH Q4H PRN PRN Reason: shortness of breath or wheezing Diphenhydramine HCl (Benadryl) 25 mg PO BEDTIME PRN PRN Reason: Sleep Hydromorphone HCl (Dilaudid) 0.5 mg IV Q6HR PRN PRN Reason: Pain, Moderate (4-6) Hydromorphone HCl (Dilaudid) 1 mg IV Q6HR PRN PRN Reason: Pain, Severe (7-10) Ketorolac Tromethamine (Toradol) 30 mg IV Q6HR PRN PRN Reason: Pain, Mild (1-3) Stop: 07/18/19 18:20 Letrozole (Femara) 2.5 mg PO DAILY STAN Lorazepam (Ativan) 0.5 mg PO BEDTIME PRN PRN Reason: Sleep Ondansetron HCl (Zofran) 4 mg IV Q4HR STAN Rosuvastatin Calcium (Crestor) 5 mg PO QPM STAN Discontinued Medications Hydromorphone HCl (Dilaudid) 0.5 mg IV NOW ONE Stop: 07/13/19 17:06 Last Admin: 07/13/19 17:15 Dose: 0.5 mg Documented by: PAUL Lorazepam (Ativan) 1 mg IV NOW ONE Stop: 07/13/19 17:06 Last Admin: 07/13/19 17:15 Dose: 1 mg Documented by: PAUL Ondansetron HCl (Zofran) 4 mg IV NOW ONE Stop: 07/13/19 17:13 Last Admin: 07/13/19 17:15 Dose: 4 mg Documented by: PAUL Consultations Consultation #1: Dr. Silva orthopedics updated on patient's symptoms test results will go to the OR in the evening tomorrow. NPO after 8:00 a.m. tomorrow morning Time: 17:53 Consultation #2: hospitalist up-to-date on orthopedic recommendations. In 80 to seen evaluate patient Time: 18:00 Vital Signs Vital signs: Vital Signs - 8 hr 07/13/19 17:09 Temperature 97.0 F L Pulse Rate 93 H Respiratory Rate 18 Blood Pressure 151/59 H Pulse Oximetry 93 MDM - Extremity Injury (Lower) Lab Data Attestation: I reviewed the patient's lab results. Result diagrams: 07/13/19 17:23 07/13/19 17:23 Labs: Lab Results 07/13/19 07/13/19 07/13/19 Range/Units 17:23 17:23 17:23 WBC 7.6 (4.5-11.0) X10^3/uL RBC 4.02 (4.0-5.2) X10^6/uL Hgb 12.6 (12.0-16.0) g/dL Hct 37.3 (36-46) % MCV 92.7 (80-100) fL MCH 31.4 (26-34) PG MCHC 33.8 (30-36) % RDW 13.0 (11.6-14.8) % Plt Count 295 (150-400) X10^3/uL Neut % (Auto) 49.5 L (50-75) % Lymph % (Auto) 38.8 (25-40) % Will % (Auto) 8.8 (3-14) % Eos % (Auto) 2.4 (2-4) % Baso % (Auto) 0.5 (0-2) % Neut # (Auto) 3800 (0531-2979) /uL Lymph # (Auto) 3000 (7221-9850) /uL Will # (Auto) 700 (0-900) /uL Eos # (Auto) 200 (0-450) /uL Baso # (Auto) 0 (0-100) /uL PT 11.8 (10.1-12.7) SECONDS INR 1.0 (0.9-1.3) APTT 30 (26.4-36.2) SECONDS Sodium 136 L (137-145) mmol/L Potassium 3.1 L (3.4-5.1) mmol/L Chloride 103 (98-107) mmol/L Carbon Dioxide 20 L (22-32) mmol/L BUN 19 H (7-17) mg/dL Creatinine 0.80 (0.52-1.04) mg/dL Estimated GFR > 60.0 (>60) mL/min BUN/Creatinine Ratio 23.8 H (6-22) Glucose 111 H (80-110) mg/dL Calcium 8.8 (8.4-10.2) mg/dL Total Bilirubin 0.4 (0.2-1.3) mg/dL AST 26 (14-36) IU/L ALT 22 (9-52) IU/L Alkaline Phosphatase 52 (38-126) U/L Total Protein 6.4 (6.3-8.2) g/dL Albumin 3.9 (3.5-5.0) g/dL Globulin 2.5 (1.7-4.1) g/dL Albumin/Globulin Ratio 1.6 (1.0-2.8) Imaging Data Left hip: Radiologist's impression: PROCEDURE: XR HIP W PEL IF DONE LT 2V INDICATIONS: fall pain TECHNIQUE: 3 views of the hip were acquired. COMPARISON: CT abdomen . FINDINGS: Bones: Left transcervical femoral neck fracture with mild displacement. No dislocation of the left hip joint. No suspicious lesion. The visualized pelvic ring appears intact. Soft tissues: No suspicious soft tissue calcifications or masses. IMPRESSION: Left transcervical femoral neck fracture with mild displacement. No dislocation. Dictated by: Chaitanya Menendez M.D. on 07/13/2019 at 18:24 MDM Narrative Medical decision making narrative: Patient's pain is much better after Ativan and Dilaudid. Discharge Plan Departure Patient Disposition: Admitted As Inpatient Clinical Impression: Closed fracture of left hip Qualifiers: Encounter type: initial encounter Qualified Code(s): S72.002A - Fracture of unspecified part of neck of left femur, initial encounter for closed fracture Admit Date/Time: 07/13/19 17:55 Admit Provider: Dameon Veloz
[2019-07-13 17:09] VITALS: BP 151/59; PULSE 93; RESP 18; TEMP 36.1; O2SAT 93
[2019-07-13] MEDS: ONDANSETRON 4 MG/2 ML INJ IV (17:15)
[2019-07-13] MEDS: HYDROMORPHONE 0.5 MG INJ IV (17:15)
[2019-07-13] MEDS: LORazepam 2 MG/ML INJ 1 MG IV (17:15)
[2019-07-13 17:39] LABS: Prothrombin Time 11.8 SECONDS (10.1-12.7)
[2019-07-13 17:41] LABS: PTT Partial Thromboplastin Tim 30 SECONDS (26.4-36.2)
[2019-07-13 17:43] LABS: Alanine Aminotransferase 22 IU/L (9-52); Albumin 3.9 g/dL (3.5-5.0); Albumin Globulin Ratio 1.6 (1.0-2.8); Alkaline Phosphatase 52 U/L (38-126); Aspartate Aminotransferase 26 IU/L (14-36); BUN Creatinine Ratio 23.8 (6-22); Bilirubin Total 0.4 mg/dL (0.2-1.3); Blood Urea Nitrogen 19 mg/dL (7-17); Calcium 8.8 mg/dL (8.4-10.2); Carbon Dioxide 20 mmol/L (22-32); Chloride 103 mmol/L (98-107); Estimated Glomerular Filt Rate > 60.0 mL/min (>60); Globulin 2.5 g/dL (1.7-4.1); Glucose 111 mg/dL (80-110); HEMOLYSIS < 15 (0-50); Potassium 3.1 mmol/L (3.4-5.1); Sodium 136 mmol/L (137-145); Total Protein 6.4 g/dL (6.3-8.2)
[2019-07-13 17:46] LABS: Add Manual Diff / Slide Review NO; Basophils Absolute Auto 0 /uL (0-100); Basophils Percent Auto 0.5 % (0-2); Eosinophils Absolute Auto 200 /uL (0-450); Eosinophils Percent Auto 2.4 % (2-4); Hematocrit 37.3 % (36-46); Hemoglobin 12.6 g/dL (12.0-16.0); Lymphocytes Absolute Auto 3000 /uL (1100-4500); Lymphocytes Percent Auto 38.8 % (25-40); Mean Corpuscular HGB Conc 33.8 % (30-36); Mean Corpuscular Hemoglobin 31.4 PG (26-34); Mean Corpuscular Volume 92.7 fL (80-100); Monocytes Absolute Auto 700 /uL (0-900); Monocytes Percent Auto 8.8 % (3-14); Neutrophils Absolute Auto 3800 /uL (1500-7000); Neutrophils Percent Auto 49.5 % (50-75); Platelet Count 295 X10^3/uL (150-400); Red Blood Cell Count 4.02 X10^6/uL (4.0-5.2); White Blood Cell Count 7.6 X10^3/uL (4.5-11.0)
--- NOTE | 2019-07-13 18:24 | P.HP_ITS ---
History of Present Illness History of Present Illness Date Patient Seen: 07/13/19 Time Patient Seen: 06:10 Chief complaint: GLF, L hip pain Narrative: Sherrie Sharif is a 78-year-old female with past medical history of osteoporosis, hyperlipidemia, possible asthma, and stage I breast cancer who presented after a ground level fall with left hip pain. Patient states she was walking dogs, and one yanked on the leash pulling her over. She landed on her left hip and immediately had pain. The pain is sharp, located on the lateral left side, and radiates into her left groin. It is worse when she tries to move her left leg, and improved with rest. It is constantly right now at a mild level, but when she moves it increases in intensity. She received IV Dilaudid and Ativan which has helped somewhat with her pain. She denies any other pain at this point. She denies any recent fevers, chills, nausea, vomiting, abdominal pain, dysuria, urinary frequency, weakness, numbness. During her fall she did not hit her head, she does not take aspirin or other anticoagulants. Patient History Medical History (Updated 07/13/19 @ 17:55 by Catarina Kessler DO) Ankle fracture, right (Resolved) Cancer of right breast, stage 1, estrogen receptor positive (Chronic) Foot pain (Chronic ~2012) Osteopenia (Chronic) Seasonal allergies (Chronic ~1994) Surgical History (Updated 02/16/19 @ 14:03 by Kendrick Fairchild MD) Anesthesia (Resolved) History of bladder suspension procedure (~1989) S/P lumpectomy, right breast (Resolved) Status post appendectomy (~194) Status post hysterectomy (~1979) Family History Child Age: 56 DCIS (ductal carcinoma in situ) Child Age: 54 Non Hodgkin's lymphoma Mother Heart disease Hypertension Stroke Sister Age: 67 Breast cancer Father No problems noted. Social History Smoking Status: Former smoker Family & Social History Safety & Behavioral: Feels Safe in Current Yes Environment Been Physically Hurt or No Threatened By a Person Tobacco & Substance use: Smoking Status Former smoker alcohol intake frequency holiday/special occasion Substance Use Type does not use Meds Home Medications and Allergies Home Medications Medication Instructions Recorded Confirmed Type CoQ-10 1 cap PO DAILY #0 04/10/12 07/13/19 History cholecalciferol (vitamin D3) 5,000 unit PO DAILY 04/23/18 07/13/19 History [Vitamin D3] magnesium 400 mg PO DAILY 04/23/18 07/13/19 History omega-3 fatty acids [Fish Oil 1,000 mg PO DAILY 04/23/18 07/13/19 History Concentrate] albuterol sulfate 90 mcg/actuation 2 puff INHALATION Q4H PRN #8.5 gram 05/04/18 07/13/19 Rx aerosol inhaler inhalational spacing device #1 each 05/04/18 07/13/19 Rx ibandronate 150 mg tablet 150 mg PO QMONTH #3 tab 02/04/19 07/13/19 Rx diphenhydramine HCl [Sleep Aid 25 mg PO BEDTIME PRN 07/13/19 07/13/19 History (diphenhydramine)] letrozole 2.5 mg PO DAILY 07/13/19 07/13/19 History lorazepam 0.5 mg PO BEDTIME PRN 07/13/19 07/13/19 History rosuvastatin 5 mg PO QPM 07/13/19 07/13/19 History Allergies Allergy/AdvReac Type Severity Reaction Status Date / Time Sulfa (Sulfonamide Allergy Mild Verified 07/13/19 17:09 Antibiotics) alendronate sodium AdvReac Mild Verified 07/13/19 17:09 meperidine AdvReac Mild NAUSEA Verified 07/13/19 17:09 morphine AdvReac Mild ILLNESS Verified 07/13/19 17:09 Review of Systems Review of Systems Narrative: All other systems reviewed with the patient and are negative unless otherwise stated. Exam Vital Signs (past 8 hours): - 07/13/19 17:09 Temperature 97.0 F L Pulse Rate 93 H Respiratory Rate 18 Blood Pressure 151/59 H Pulse Oximetry 93 Oxygen Delivery Method Room Air Narrative Exam Narrative: GENERAL APPEARANCE: Well developed, elderly female, appears mildly uncomfortable in ED stretcher. SKIN: Inspection of the skin reveals no rashes, ulcerations or petechiae. HEENT: The sclerae were anicteric and conjunctivae were pink and moist. Extraocular movements were intact and pupils were equal, round with normal accommodation. External inspection of the ears and nose showed no scars, lesions, or masses. Lips, teeth, and gums showed normal mucosa. The oral mucosa, hard and soft palate, tongue and posterior pharynx were unremarkable. NECK: Supple and symmetric. There was no thyroid enlargement, and no tenderness, or masses were felt. CHEST: Normal AP diameter and normal contour without any kyphoscoliosis. LUNGS: Auscultation of the lungs revealed no wheezes, rhonchi, or rales. CARDIOVASCULAR: There was a regular rate and rhythm without any murmurs, gallops, rubs. Peripheral pulses were 2+ and symmetric. ABDOMEN: Soft and nontender with normal bowel sounds. No ascites was noted. MUSCULOSKELETAL: L hip tenderness laterally and posteriorly, no obvious ecchymosis. No R hip tenderness. Compartments EXTREMITIES: No cyanosis, clubbing or edema. NEUROLOGIC: Alert and oriented x 3. Normal affect. Sensation to touch was normal. Objective Imaging Pelvis X-ray: My impression: Left femoral neck fracture with mild displacement. Radiologist's impression: Left transcervical femoral neck fracture with mild displacement. No dislocation. Labs Result Diagrams: 07/13/19 17:23 07/13/19 17:23 Labs: Laboratory Results - last 24 hr 07/13/19 07/13/19 07/13/19 17:23 17:23 17:23 WBC 7.6 RBC 4.02 Hgb 12.6 Hct 37.3 MCV 92.7 MCH 31.4 MCHC 33.8 RDW 13.0 Plt Count 295 Neut % (Auto) 49.5 L Lymph % (Auto) 38.8 [place] % (Auto) 8.8 Eos % (Auto) 2.4 Baso % (Auto) 0.5 Neut # (Auto) 3800 Lymph # (Auto) 3000 [place] # (Auto) 700 Eos # (Auto) 200 Baso # (Auto) 0 PT 11.8 INR 1.0 APTT 30 Sodium 136 L Potassium 3.1 L Chloride 103 Carbon Dioxide 20 L BUN 19 H Creatinine 0.80 Estimated GFR > 60.0 BUN/Creatinine Ratio 23.8 H Glucose 111 H Calcium 8.8 Total Bilirubin 0.4 AST 26 ALT 22 Alkaline Phosphatase 52 Total Protein 6.4 Albumin 3.9 Globulin 2.5 Albumin/Globulin Ratio 1.6 Assessment & Plan Assessment & Plan narrative: Sherrie Sharif is a 78-year-old female with past medical history of osteoporosis, hyperlipidemia, possible asthma, and stage I breast cancer who presented after a ground level fall with left hip pain, she was admitted to Medicine with a displaced left femoral neck fracture. According to the ER provider, she is planned for operative intervention tomorrow. 1. Left femoral neck fracture, mildly displaced, acute, present on admission - pathologic secondary to osteoporosis given ground level fall. - toradol prn mild pain, dilaudid prn for more severe pain - zofran prn - NPO at midnight for planned operative intervention tomorrow - obtain EKG prior to operative intervention given age. Coags normal and other than hypokalemia no gross lab abnormalities. - patient does not have any reported shortness of breath and was otherwise asymptomatic prior to her fracture, no further workup needed prior to operative interventions. - follow up orthopedic surgery recommendations 2. hypokalemia, unknown chronicity, present on admission - will replete now 3. history of breast cancer - stage 1 breast cancer, follows with oncology here ([facility]). - continue letrozole 4. HLD, chronic, - continue home rosuvastatin 5 mg. 5. osteoporosis, chronic - on home D3, ibandronate monthly. DVT: SCDs given operative intervention tomorrow, resume DVT ppx after surgery Code: Full FENGI: NPO at midnight Dispo: admit to inpatient for displaced left femoral neck fracture with planned intervention. Admission is expected to exceed 2 midnights.
[2019-07-13] MEDS: HYDROMORPHONE 1 MG INJ IV ×2 (18:47→22:49)
[2019-07-13 18:50] VITALS: BP 124/68; PULSE 81; RESP 18; TEMP 35.7; O2SAT 96
[2019-07-13 18:58] VITALS: BMI 24.1
[2019-07-13 19:05] VITALS: BP 124/68; PULSE 70; RESP 18; O2SAT 94
[2019-07-13] MEDS: KETOROLAC 30 MG/ML VIAL IV (19:27)
[2019-07-13 20:47] VITALS: BP 117/63; PULSE 80; RESP 19; TEMP 35.8; O2SAT 99
[2019-07-13] MEDS: diazePAM 5 MG TABLET PO (21:53)
[2019-07-13] MEDS: LACTATED RINGERS 1,000 ML 100 ML IV (22:12)
--- NOTE | 2019-07-13 22:30 | PC.NURSE ---
Evening Shift/Admission Note- Patient arrived to room from ER via stretcher. Slider board used to transfer from stretcher to bed. PRN IV dilaudid given for stated pain of 10/10. No complaints of N/V. Admission questions done, home medications reviewed, and physical assessment completed. Oriented patient to bed and bed controls, room, lights, phone, and call luna/tv remote. safety measures in place. call luna and phone within reach . will continue to monitor.
[2019-07-13 23:05] VITALS: BP 131/63; PULSE 81; RESP 18; TEMP 36.6; O2SAT 92
[2019-07-14] VITALS (18 sets, daily range): BP systolic 106–130; BP diastolic 51–90; PULSE 73–89; RESP 12–18; TEMP 36–36.5; O2SAT 92–100; BMI 24.1
--- NOTE | 2019-07-14 | DI.RAD.S_ITS ---
PROCEDURE: XR PELVIS 1-2V INDICATIONS: INTRAOPERATIVE LEFT HIP TECHNIQUE: Intra-operative view of the pelvis and hip acquired. COMPARISON: None. FINDINGS: Bones: Intraoperative devices prior to placement of arthroplasty prostheses are in expected positions. No fractures or suspicious bony lesions. Soft tissues: Overlying surgical retractors are present, along with other intraoperative changes. IMPRESSION: Intraoperative device in expected position. Dictated by: Goldie Cassidy M.D. on 07/15/2019 at 13:03 Approved by: Goldie Cassidy M.D. on 07/15/2019 at 13:03
--- NOTE | 2019-07-14 | DI.RAD.S_ITS ---
PROCEDURE: XR HIP W PEL IF DONE LT 2V INDICATIONS: POST OPERATIVE LEFT HIP TECHNIQUE: AP pelvis and lateral view of the left hip acquired. COMPARISON: [facility], [facility], XR HIP W PEL IF DONE LT 2V, 07/13/2019, 17:29. FINDINGS: Bones: Patient is status post left hip arthroplasty, with hardware components in expected positions. The hip joint appears congruent. The visualized bony structures appear intact. Soft tissues: Overlying postoperative changes are noted. No suspicious soft tissue densities. IMPRESSION: Left hip prosthesis in anatomic alignment. Dictated by: Goldie Cassidy M.D. on 07/15/2019 at 13:02 Approved by: Goldie Cassidy M.D. on 07/15/2019 at 13:03
[2019-07-14] MEDS: KETOROLAC 30 MG/ML VIAL IV ×2 (01:11→08:11)
[2019-07-14] MEDS: HYDROMORPHONE 1 MG INJ IV ×3 (02:19→11:36)
[2019-07-14] MEDS: HYDROMORPHONE 0.5 MG INJ 1 MG IV (02:27)
[2019-07-14 05:35] LABS: Add Manual Diff / Slide Review NO; Basophils Absolute Auto 0 /uL (0-100); Basophils Percent Auto 0.1 % (0-2); Eosinophils Absolute Auto 0 /uL (0-450); Hematocrit 37.6 % (36-46); Hemoglobin 12.6 g/dL (12.0-16.0); Lymphocytes Absolute Auto 900 /uL (1100-4500); Lymphocytes Percent Auto 9.5 % (25-40); Mean Corpuscular HGB Conc 33.4 % (30-36); Mean Corpuscular Hemoglobin 31.2 PG (26-34); Mean Corpuscular Volume 93.3 fL (80-100); Monocytes Absolute Auto 500 /uL (0-900); Monocytes Percent Auto 5.1 % (3-14); Neutrophils Absolute Auto 7800 /uL (1500-7000); Neutrophils Percent Auto 85.3 % (50-75); Platelet Count 240 X10^3/uL (150-400); Red Blood Cell Count 4.03 X10^6/uL (4.0-5.2); Red Cell Distribution Width 12.8 % (11.6-14.8); White Blood Cell Count 9.1 X10^3/uL (4.5-11.0)
[2019-07-14 05:41] LABS: BUN Creatinine Ratio 28.3 (6-22); Blood Urea Nitrogen 17 mg/dL (7-17); Calcium 8.4 mg/dL (8.4-10.2); Carbon Dioxide 26 mmol/L (22-32); Chloride 100 mmol/L (98-107); Estimated Glomerular Filt Rate > 60.0 mL/min (>60); Glucose 137 mg/dL (80-110); HEMOLYSIS < 15 (0-50); Magnesium 1.8 mg/dL (1.6-2.3); Potassium 4.1 mmol/L (3.4-5.1); Sodium 135 mmol/L (137-145)
[2019-07-14] MEDS: LETROZOLE 2.5 MG TABLET PO (08:11)
[2019-07-14] MEDS: diazePAM 5 MG TABLET PO (08:11)
[2019-07-14] MEDS: LACTATED RINGERS 1,000 ML 100 ML IV (08:12)
--- NOTE | 2019-07-14 08:25 | CM.DANOTE ---
Discharge Planning/Care Management DCP: assessment: case received, EMR reviewed and met with pt. Introduced self and role. Pt is a 78 year old female who admitted last evening to care of hospitalist team. PCP: Amrita Ho Payer: Medicare Orthopedic surgeon is consulted/no note yet available. Pt also is under care of Dr. Fairchild/oncology/ clinic for Stage I breast CA Pt reports fall when outside walking dogs. She is expecting surgery sometime today and is eager to find out when. RN Leela says she thinks this will be later this afternoon. P: assured pt that DCP team would be checking in after d/c as her rehab needs become clearer and that she is well covered with her insurance for and d/c dispositions that may be needed. CM Discharge Assessment Start: 07/14/19 08:23 Freq: Status: Active Protocol: Document 07/14/19 08:24 ITV (Rec: 07/14/19 08:24 ITV [id number]) Discharge Planning Assessment Advance Directives? No History Provided By Patient,Medical Record Prior Living Arrangements House Household Members spouse Independent with ADL's Yes Is patient alert and oriented? Yes Whiteboard Updated in Patient Room with Yes name and ext. # of [employer] Prescription Clerk Review Status In Process
[2019-07-14] MEDS: ONDANSETRON 4 MG/2 ML INJ IV ×2 (08:30→13:31)
--- NOTE | 2019-07-14 08:38 | OT.IP.TRT ---
Surgery Performed Operation Date: 07/14/19 16:30 <No data on this case meets the specified criteria> Occupational Therapy Treatment Note M3 OT- IP Subjective and Pain Start: 07/14/19 08:36 Freq: Status: Active Protocol: Document 07/14/19 08:37 [facility] (Rec: 07/14/19 08:38 [facility] [id number]) OT- Subjective Occupational Therapy Visit Type Type Patient Unavailable Notes Pt to have surgery today , therefore hold OT eval until tomorrow.
--- NOTE | 2019-07-14 09:38 | PT-IP ANOTE ---
Pt is on bed rest order at this point who is scheduled to have sx later this pm. PT eval on hold and reattempt tomorrow morning
--- NOTE | 2019-07-14 15:41 | P.HP_ITS ---
History of Present Illness History of Present Illness Date Patient Seen: 07/14/19 Time Patient Seen: 13:00 Chief complaint: GLF, L hip pain Narrative: This is a pleasant 78-year-old female with a known history of osteoporosis who had a ground level fall when her dog pulled on her and she tripped and she noted the acute onset of left hip pain. She has a history of known breast cancer but does not have pre-existing left hip pain. She has had intermittent right hip pain and trochanteric bursitis. She notes significant left hip pain. 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 Patient History Medical History Ankle fracture, right (Resolved) Cancer of right breast, stage 1, estrogen receptor positive (Chronic) Foot pain (Chronic ~2012) Osteopenia (Chronic) Seasonal allergies (Chronic ~1994) Surgical History Anesthesia (Resolved) History of bladder suspension procedure (~1989) S/P lumpectomy, right breast (Resolved) Status post appendectomy (~1946) Status post hysterectomy (~1979) Family History Child Age: 56 DCIS (ductal carcinoma in situ) Child Age: 54 Non Hodgkin's lymphoma Mother Heart disease Hypertension Stroke Sister Age: 67 Breast cancer Father No problems noted. Social History household members: spouse Smoking Status: Former smoker Family & Social History Family History Child Age: 56 DCIS (ductal carcinoma in situ) Child Age: 54 Non Hodgkin's lymphoma Mother Heart disease Hypertension Stroke Sister Age: 67 Breast cancer Father No problems noted. Social History: household members spouse Prior Living Arrangements House Safety & Behavioral: Feels Safe in Current Yes Environment Been Physically Hurt or No Threatened By a Person Suicidal Ideation Description None Suicide Plan Description No Plan Tobacco & Substance use: Smoking Status Former smoker alcohol intake frequency holiday/special occasion Substance Use Type does not use Meds Home Medications and Allergies Home Medications Medication Instructions Recorded Confirmed Type CoQ-10 1 cap PO DAILY #0 04/10/12 07/13/19 History cholecalciferol (vitamin D3) 5,000 unit PO DAILY 04/23/18 07/13/19 History [Vitamin D3] magnesium 400 mg PO DAILY 04/23/18 07/13/19 History omega-3 fatty acids [Fish Oil 1,000 mg PO DAILY 04/23/18 07/13/19 History Concentrate] albuterol sulfate 90 mcg/actuation 2 puff INHALATION Q4H PRN #8.5 gram 05/04/18 07/13/19 Rx aerosol inhaler inhalational spacing device #1 each 05/04/18 07/13/19 Rx ibandronate 150 mg tablet 150 mg PO QMONTH #3 tab 02/04/19 07/13/19 Rx diphenhydramine HCl [Sleep Aid 25 mg PO BEDTIME PRN 07/13/19 07/13/19 History (diphenhydramine)] letrozole 2.5 mg PO DAILY 07/13/19 07/13/19 History lorazepam 0.5 mg PO BEDTIME PRN 07/13/19 07/13/19 History rosuvastatin 5 mg PO QPM 07/13/19 07/13/19 History Allergies Allergy/AdvReac Type Severity Reaction Status Date / Time Sulfa (Sulfonamide Allergy Mild Verified 07/13/19 17:09 Antibiotics) alendronate sodium AdvReac Mild Verified 07/13/19 17:09 meperidine AdvReac Mild NAUSEA Verified 07/13/19 17:09 morphine AdvReac Mild ILLNESS Verified 07/13/19 17:09 Review of Systems Review of Systems Narrative: Denies shortness of breath, denies dizziness, was not lightheaded prior to the fall, denies a history of chest pain, no known history of DVT or PE, she has been feeling well otherwise but she did note a recurrence right breast mass recently. Exam Vital Signs (past 8 hours): - 07/14/19 07:50 07/14/19 08:00 07/14/19 10:23 Temperature 97.5 F L Pulse Rate 78 78 Respiratory Rate 16 16 Blood Pressure 112/57 L Pulse Oximetry 97 100 100 07/14/19 13:00 07/14/19 15:14 Temperature 97.4 F L 97.6 F Pulse Rate 73 75 Respiratory Rate 16 13 Blood Pressure 106/51 L 113/61 Pulse Oximetry 100 95 Fraction of Inspired Oxygen 24 Oxygen Delivery Method Room Air Oxygen Flow Rate 1 Narrative Exam Narrative: Alert and oriented x4, very pleasant resting comfortably in bed, HEENT is benign, neck is supple, lungs is are clear, cor regular rate and rhythm, abdomen soft and benign, left lower extremity remarkable for shortening of the left leg with marked pain with gentle attempted range of motion in the left hip, she is able to fire toe flexors and extensors on the left and has sensation into her foot. She has a mild ankle effusion. She has some pain with ankle range of motion. Objective Labs Result Diagrams: 07/14/19 05:13 07/14/19 05:13 Labs: Laboratory Results - last 24 hr 07/13/19 07/13/19 07/13/19 17:23 17:23 17:23 WBC 7.6 RBC 4.02 Hgb 12.6 Hct 37.3 MCV 92.7 MCH 31.4 MCHC 33.8 RDW 13.0 Plt Count 295 Neut % (Auto) 49.5 L Lymph % (Auto) 38.8 [place] % (Auto) 8.8 Eos % (Auto) 2.4 Baso % (Auto) 0.5 Neut # (Auto) 3800 Lymph # (Auto) 3000 [place] # (Auto) 700 Eos # (Auto) 200 Baso # (Auto) 0 PT 11.8 INR 1.0 APTT 30 Sodium 136 L Potassium 3.1 L Chloride 103 Carbon Dioxide 20 L BUN 19 H Creatinine 0.80 Estimated GFR > 60.0 BUN/Creatinine Ratio 23.8 H Glucose 111 H Calcium 8.8 Magnesium Total Bilirubin 0.4 AST 26 ALT 22 Alkaline Phosphatase 52 Total Protein 6.4 Albumin 3.9 Globulin 2.5 Albumin/Globulin Ratio 1.6 07/14/19 07/14/19 05:13 05:13 WBC 9.1 RBC 4.03 Hgb 12.6 Hct 37.6 MCV 93.3 MCH 31.2 MCHC 33.4 RDW 12.8 Plt Count 240 Neut % (Auto) 85.3 H D Lymph % (Auto) 9.5 L D [place] % (Auto) 5.1 Eos % (Auto) 0.0 L Baso % (Auto) 0.1 Neut # (Auto) 7800 H Lymph # (Auto) 900 L [place] # (Auto) 500 Eos # (Auto) 0 Baso # (Auto) 0 PT INR APTT Sodium 135 L Potassium 4.1 Chloride 100 Carbon Dioxide 26 BUN 17 Creatinine 0.60 Estimated GFR > 60.0 BUN/Creatinine Ratio 28.3 H Glucose 137 H Calcium 8.4 Magnesium 1.8 Total Bilirubin AST ALT Alkaline Phosphatase Total Protein Albumin Globulin Albumin/Globulin Ratio x-rays showed a displaced left femoral neck fracture without significant hip arthritis. Assessment & Plan Assessment & Plan narrative: Impression is a displaced left femoral neck fracture plan is for left hip cemented hemiarthroplasty. Procedure alternatives risks benefits and complications discussed in detail. She understands and agrees and were going to go ahead and proceed with that. She has a known history of osteoporosis and the fall resulted in osteoporotic associated pathological fracture. Quality VTE Deep Vein Thrombosis/Pulmonary Embolism Present on Admission: No
--- NOTE | 2019-07-14 15:41 | PM.PREOP ---
Pre-operative Note Interval Note History & Physical reviewed/Exam performed by Physician: Yes Changes to H&P: No
--- NOTE | 2019-07-14 15:47 | PM.OP.1 ---
Operative Date/Time/Diagnoses Date of procedure: 07/14/19 Time of procedure: 16:14 Pre-op diagnosis: Left femoral neck fracture Post-op diagnosis: same Procedure & Clinicians Procedure: Left hip unipolar replacement Same procedure as scheduled: Yes Indications: This is a 78-year-old female who fell and has a displaced left femoral neck fracture. She is brought to the operating room for a left hip unipolar Surgeon: Latricia Ndiaye Supervisor Assembly: Isamar Dueñas Anesthesia Type: Spinal Operative Notes Findings: Displaced left femoral neck fracture, adequate stability Closure Type: primary Specimen(s): none sent Prosthetic devices, grafts, tissues, transplants, or devices: Ndiaye and Nephew size 13 synergy cemented stem standard offset, 46 mm head, 9 mm distal centralizer, +0 sleeve Applied: drain(s) Estimated Blood Loss (mL): 250 Blood products transfused: none Procedure in detail: The patient was seen in the pre-operative area, where the patient identified the left hip as the operative site and this was marked with my initials. The patient received pre-operative antibiotics and was taken to the operating room and placed on the operative table in the supine position after satisfactory anesthesia. A part time flexible clerk out was performed. Patient was placed in the lateral decubitus position and all bony prominences were carefully padded and the arms were appropriately position. The left lower extremity was prepared from the ankle to the iliac crest with ChloroPrep in the usual fashion and draped through sterile drapes. The hip was approached through posterolateral approach. Dissection was carried out down through skin and subcutaneous tissues. The fascia was opened. Gelpi retractors were placed. A Charnley retractor was placed. A small amount of inflamed bursa was resected. The piriformis was identified and protected. The other short external rotators and capsule were carefully stripped from the posterior aspect of the femur. They were tagged and carefully retracted. The femoral neck was brought up and an osteotomy was made of the residual femoral neck approximately 1 fingerbreadth above the lesser trochanter. The head was removed without difficulty. It was carefully sized. The acetabulum was meticulously irrigated with normal saline. There were no significant changes in the acetabulum. The acetabulum was carefully protected with an E tape. The canal was opened with a box cutting osteotome, followed by a T-handled reamer and a lateralizing reamer. The tapered reamers were then used, followed by sequential broaching. A trial head and neck were then placed and the hip relocated and checked for leg length and stability. The patient was stable in the position of sleep, of squatting, and could be put through a range of motion with 45 degrees internal rotation without dislocation. At 90 degrees flexion, internal rotation to [70] was possible before dislocation. This was felt to be satisfactory and the appropriate components were opened, and the trials were removed. The femoral canal was sized and a distal cement restrictor was placed. The bone was meticulously cleaned with pulse lavage. The canal was packed with vaginal packing with epinephrine. Antibiotics cement was mixed and carefully pressurized into the femoral canal. The femoral component was placed without difficulty. A repeat trial reduction showed good range of motion and stability. We did a brief Betadine soak after the cement had hardened. Patient had good range of motion and stability. The final head and neck were placed after carefully irrigating the wound. The capsulomuscular flap was then repaired to the greater trochanter though an awl hole using the tag sutures. The short external rotators were repaired with black braided nylon. A deep drain was placed and brought out anteriorly. The fascia valente was closed with Vicryl. A subcutaneous drain was placed. The subcutaneous layer was closed with interrupted 3-0 Vicryl, and the skin with a running 3-0 V-Lock suture and surgical glue. An Aquacel Ag dressing was applied and the patient was taken to recovery having tolerated the procedure well. Complications: none Post-operative Condition: stable Disposition: Acute Care Plan for aftercare: The patient will be maintained on a standard total hip replacement protocol with weight bearing as tolerated and posterior hip precautions. The patient will receive Aspirin and sequential compression devices for DVT prophylaxis. The patient will be discharged home when safe for the home environment.
--- NOTE | 2019-07-14 16:13 | PC.NURSE ---
Off to OR, did try to call spouse but he was not at home and pt didn't have her cell phone with her and couldnt recall his number. Spouse came in after pt was gone and he was told she had gone down early. He was disappointed he didn't see her before but he was updated on her condition and he says he will be back later. Pt having issues with nausea when she went to OR and transport crew was made aware. She had received 2 doses of zofran IV and a message had been left w/MD to see if she could have something else. They will get an order for something there for her. Dilaudid has been effective for pain control. Lt leg is shortened and exterally rotated, ppp, feet =/cool and has brisk cap refill, pt reports she is mad at herself for having fallen. Given time to express feeling.
[2019-07-14] MEDS: CEFAZOLIN 2 GM/100 ML FROZ.PIGGY IV ×2 (16:35→23:41)
[2019-07-14] MEDS: VANCOMYCIN 1,000 MG/200 ML PIGGYBACK 200 MG IV (16:45)
[2019-07-14] MEDS: TRANEXAMIC ACID 1,000 MG VIAL 1000 MG IV ×2 (17:01→18:22)
--- NOTE | 2019-07-14 17:28 | P.PN_ITS ---
Subjective Subjective Date Patient Seen: 07/14/19 Interval history: Sherrie Sharif is a 78-year-old female with a past medical history significant for osteoporosis, hyperlipidemia, possible asthma, and stage I breast cancer who presented after a ground level fall with left hip pain and was admitted to after ground level fall with a displaced left femoral neck fracture. The patient is resting in bed comfortably. She reports her pain is much more controlled than last night. She continues to endorse mild nausea likely related to narcotics. She has no other complaints and denies headache, shortness of breath, chest pain, abdominal pain, nausea, vomiting, fever, chills, dysuria, diarrhea or constipation. She is voiding via Morejon catheter without difficulty. Plan to implement bowel regimen to prevent opiate induced constipation. Exam Vital Signs (past 8 hours): - 07/14/19 10:23 07/14/19 13:00 07/14/19 15:14 Temperature 97.4 F L 97.6 F Pulse Rate 78 73 75 Respiratory Rate 16 16 13 Blood Pressure 106/51 L 113/61 Pulse Oximetry 100 100 95 Fraction of Inspired Oxygen 24 Oxygen Delivery Method Room Air Oxygen Flow Rate 1 Narrative Exam Narrative: General: Elderly female lying in bed and in no acute distress, well-developed, well-nourished, appropriately interactive. HEENT: Normocephalic, atraumatic. External ears without defect. Pupils equal, round, and reactive to light. Anicteric sclerae, moist conjunctivae, and no lid lag. Oropharynx free of erythema and cobble stoning with moist mucosa. Neck: Supple with full range of motion. No jugular venous distension. No lymphadenopathy or thyromegaly. Cardiovascular: Regular rate and rhythm without murmurs, rubs, or gallops appreciated Pulmonary: Clear to auscultation bilaterally without crackles, wheezes, or rhonchi. Normal respiratory effort with no use of accessory muscles. Abdomen: Soft, bowel sounds present, nontender, nondistended. No hep atosplenomegaly or masses appreciated. Extremities: No clubbing, cyanosis, or edema. Mild effusion of left ankle and left leg shortened and slightly internally rotated. Skin: Normal temperature, turgor, and texture; no rash, ulcers, or subcutaneous nodules appreciated. Neurological: Cranial nerves grossly intact. Psychiatric: Normal mood and affect. Alert and oriented to person, place, and time. Objective Labs Result Diagrams: 07/14/19 05:13 07/14/19 05:13 Labs: Laboratory Results - last 24 hr 07/13/19 07/13/19 07/13/19 17:23 17:23 17:23 WBC 7.6 RBC 4.02 Hgb 12.6 Hct 37.3 MCV 92.7 MCH 31.4 MCHC 33.8 RDW 13.0 Plt Count 295 Neut % (Auto) 49.5 L Lymph % (Auto) 38.8 [place] % (Auto) 8.8 Eos % (Auto) 2.4 Baso % (Auto) 0.5 Neut # (Auto) 3800 Lymph # (Auto) 3000 [place] # (Auto) 700 Eos # (Auto) 200 Baso # (Auto) 0 PT 11.8 INR 1.0 APTT 30 Sodium 136 L Potassium 3.1 L Chloride 103 Carbon Dioxide 20 L BUN 19 H Creatinine 0.80 Estimated GFR > 60.0 BUN/Creatinine Ratio 23.8 H Glucose 111 H Calcium 8.8 Magnesium Total Bilirubin 0.4 AST 26 ALT 22 Alkaline Phosphatase 52 Total Protein 6.4 Albumin 3.9 Globulin 2.5 Albumin/Globulin Ratio 1.6 07/14/19 07/14/19 05:13 05:13 WBC 9.1 RBC 4.03 Hgb 12.6 Hct 37.6 MCV 93.3 MCH 31.2 MCHC 33.4 RDW 12.8 Plt Count 240 Neut % (Auto) 85.3 H D Lymph % (Auto) 9.5 L D [place] % (Auto) 5.1 Eos % (Auto) 0.0 L Baso % (Auto) 0.1 Neut # (Auto) 7800 H Lymph # (Auto) 900 L [place] # (Auto) 500 Eos # (Auto) 0 Baso # (Auto) 0 PT INR APTT Sodium 135 L Potassium 4.1 Chloride 100 Carbon Dioxide 26 BUN 17 Creatinine 0.60 Estimated GFR > 60.0 BUN/Creatinine Ratio 28.3 H Glucose 137 H Calcium 8.4 Magnesium 1.8 Total Bilirubin AST ALT Alkaline Phosphatase Total Protein Albumin Globulin Albumin/Globulin Ratio Assessment & Plan Assessment & Plan narrative: Sherrie Sharif is a 78-year-old female with a past medical history significant for osteoporosis, hyperlipidemia, possible asthma, and stage I breast cancer who presented after a ground level fall with left hip pain and was admitted to after ground level fall with a displaced left femoral neck fracture. 1. Acute pathological mildly displaced left femoral neck fracture, present on admission. Active. -Secondary to osteoporosis given ground level fall. -Continue pain management with Tylenol 975 mg scheduled, toradol 30 mg every 6 hours as needed for mild pain, oxycodone 5 mg every 6 hours as needed for moderate pain, and dilaudid as needed for severe breakthrough pain. -Continue Zofran 4 mg every 4 hours as needed for nausea. -Orthopedic surgery has been consulted and plans to perform ORIF later this afternoon. NPO. 2. Hypokalemia, acuity unclear but likely acute, present on admission.- will replete now -Initial potassium 3.1. Received potassium chloride 40 mEq PO x1. 3. History of stage I breast cancer. -Patient is followed by Dr. Fairchild of Oncology. -Continue letrozole 2.5 mg daily. 4. Hyperlipidemia, chronic, present on admission. Stable. -Continue home rosuvastatin 5 mg daily at bedtime. 5. Osteoporosis, chronic, present on admission. Active. -Discontinued Boniva. -Continue vitamin D3 and calcium supplementation. Patient should be candidate for Prolia or Forteo once hip fracture has healed completely. Disposition: Patient likely to discharge in 1-[facility] days to [facility] for continued rehabilitation. Quality VTE Deep Vein Thrombosis/Pulmonary Embolism Present on Admission: No
--- NOTE | 2019-07-14 17:33 | SUR.OPER ---
Lateral on padded OR bed. Gel axillary roll. Arms secured on padded armboard with pillow supporting top arm. Padded hip positioner braces x4 - anterior and posterior chest and pelvis. Additional gel pad used anterior pelvis. Gel pad under bottom leg from knee to foot and secured with tape over sheet.
[2019-07-14] MEDS: BUPIVACAINE 0.25% W/ EPI 30 ML VIAL 60 ML INJ (18:12)
[2019-07-14] MEDS: BUPIVACAINE LIPOSOME 266 MG/20 ML VIAL INJ (18:13)
[2019-07-14] MEDS: SODIUM CHLORIDE IRRIG SOLUTION 250 ML, EPINEPHrine 1 MG IRR (18:17)
--- NOTE | 2019-07-14 19:46 | PC.NURSE ---
post op pt to AC from PACU at 1930. VSS. Aquacel dressing to left hip CDI and hemovac patent and clamped with sanguineous fluid in collection tubing. pt has decreased sensation from hip level distally. unable to move toes. SCDs on. Spouse at bedside. pillow between legs and post op precautions reviewed. pt instructed to use call light for needs and not attempt stand/ambulation without staff assist.
[2019-07-14] MEDS: LACTATED RINGERS 1,000 ML 125 ML IV (20:03)
[2019-07-14] MEDS: ACETAMINOPHEN 325 MG TABLET 975 MG PO (20:08)
[2019-07-14] MEDS: DOCUSATE 100 MG CAPSULE PO (20:09)
[2019-07-14] MEDS: ASPIRIN EC 81 MG TABLET PO (20:09)
[2019-07-14] MEDS: diphenhydrAMINE 25 MG TABLET PO (23:34)
[2019-07-14] MEDS: OXYCODONE IR 5 MG TABLET PO (23:41)
[2019-07-15] VITALS (8 sets, daily range): BP systolic 110–135; BP diastolic 52–64; PULSE 77–87; RESP 16–18; TEMP 36.2–36.6; O2SAT 93–98
[2019-07-15] MEDS: LACTATED RINGERS 1,000 ML 125 ML IV (04:44)
[2019-07-15] MEDS: KETOROLAC 30 MG/ML VIAL IV (04:46)
[2019-07-15 06:10] LABS: Add Manual Diff / Slide Review NO; Basophils Absolute Auto 0 /uL (0-100); Basophils Percent Auto 0.1 % (0-2); Eosinophils Absolute Auto 0 /uL (0-450); Hematocrit 36.7 % (36-46); Hemoglobin 12.3 g/dL (12.0-16.0); Lymphocytes Absolute Auto 500 /uL (1100-4500); Lymphocytes Percent Auto 4.7 % (25-40); Mean Corpuscular HGB Conc 33.4 % (30-36); Mean Corpuscular Hemoglobin 31.3 PG (26-34); Mean Corpuscular Volume 93.6 fL (80-100); Monocytes Absolute Auto 600 /uL (0-900); Monocytes Percent Auto 5.6 % (3-14); Neutrophils Absolute Auto 10200 /uL (1500-7000); Neutrophils Percent Auto 89.6 % (50-75); Platelet Count 217 X10^3/uL (150-400); Red Blood Cell Count 3.92 X10^6/uL (4.0-5.2); White Blood Cell Count 11.4 X10^3/uL (4.5-11.0)
[2019-07-15 06:28] LABS: BUN Creatinine Ratio 21.7 (6-22); Blood Urea Nitrogen 13 mg/dL (7-17); Calcium 8.8 mg/dL (8.4-10.2); Carbon Dioxide 27 mmol/L (22-32); Chloride 102 mmol/L (98-107); Estimated Glomerular Filt Rate > 60.0 mL/min (>60); Glucose 139 mg/dL (80-110); HEMOLYSIS < 15 (0-50); Magnesium 2.2 mg/dL (1.6-2.3); Potassium 3.9 mmol/L (3.4-5.1); Sodium 137 mmol/L (137-145)
[2019-07-15] MEDS: OXYCODONE IR 5 MG TABLET PO ×2 (08:31→21:47)
[2019-07-15] MEDS: DOCUSATE 100 MG CAPSULE PO ×2 (08:31→21:47)
[2019-07-15] MEDS: ASPIRIN EC 81 MG TABLET PO ×2 (08:31→21:47)
[2019-07-15] MEDS: POLYETHYLENE GLYCOL 3350 17 GM POWD.PACK PO (08:32)
[2019-07-15] MEDS: ACETAMINOPHEN 325 MG TABLET 975 MG PO ×3 (08:32→21:48)
[2019-07-15] MEDS: CEFAZOLIN 2 GM/100 ML FROZ.PIGGY IV (08:32)
[2019-07-15] MEDS: CALCIUM CARB/VIT D3 500/200 TABLET 1 EACH PO (08:33)
[2019-07-15] MEDS: LETROZOLE 2.5 MG TABLET PO (08:39)
--- NOTE | 2019-07-15 09:29 | PM.PNPO.1 ---
Subjective Subjective Date Patient Seen: 07/15/19 Time Patient Seen: 09:30 Interval history: Hospital day 3, postop day 1 following left femoral neck fracture with hemiarthroplasty by Dr. Ndiaye. Patient has remained stable postoperatively. She has not had any physical therapy yet. Pain controlled with oxycodone and ketorolac IV. Patient is Morejon catheter in place. She states she does have 2 steps to get into her house. Does have help at home. Exam Vital Signs (past 8 hours): - 07/15/19 05:55 07/15/19 07:00 07/15/19 08:44 Temperature 97.7 F 98 F Pulse Rate 87 83 84 Respiratory Rate 16 16 16 Blood Pressure 110/56 L 110/62 Pulse Oximetry 93 94 97 Fraction of Inspired Oxygen 21 Oxygen Delivery Method Room Air Oxygen Flow Rate 0 Narrative Exam Narrative: Alert, oriented no acute distress resting in bed. Legs. Aquacel dressing to left hip is dry without drainage or inflammation. Hemovac in place without drainage. No calf pain or swelling. Pulses symmetrical. Objective Labs Result Diagrams: 07/15/19 05:40 07/15/19 05:40 Labs: Laboratory Results - last 24 hr 07/15/19 07/15/19 05:40 05:40 WBC 11.4 H RBC 3.92 L Hgb 12.3 Hct 36.7 MCV 93.6 MCH 31.3 MCHC 33.4 RDW 13.0 Plt Count 217 Neut % (Auto) 89.6 H Lymph % (Auto) 4.7 L [place] % (Auto) 5.6 Eos % (Auto) 0.0 L Baso % (Auto) 0.1 Neut # (Auto) 49020 H Lymph # (Auto) 500 L [place] # (Auto) 600 Eos # (Auto) 0 Baso # (Auto) 0 Sodium 137 Potassium 3.9 Chloride 102 Carbon Dioxide 27 BUN 13 Creatinine 0.60 Estimated GFR > 60.0 BUN/Creatinine Ratio 21.7 Glucose 139 H Calcium 8.8 Magnesium 2.2 Assessment & Plan Post-op Postoperative Procedures: Procedures Operation Date: 07/14/19 16:30 Actual Procedures Side Surgeon p Hip Hemiarthroplasty Clemente Left Latricia A MD Senthil Plan: Will DC Hemovac. DC Morejon catheter once patient is more active for after PT. Discharge pending clearance by hospitalist. Patient should have postop visit at 2 weeks postop in the [facility] office for x-ray, dressing removal and staple removal. Weightbearing as tolerated. Quality VTE Deep Vein Thrombosis/Pulmonary Embolism Present on Admission: No
--- NOTE | 2019-07-15 10:02 | PT.IIE ---
Current Diagnoses Other osteoporosis with current pathological fracture, left femur, initial encounter for fracture (07/13/19) Surgery Performed Operation Date: 07/14/19 16:30 Actual Procedures p Hip Hemiarthroplasty [place](Left) - Latricia Ndiaye MD Surgical History (Last Reviewed 07/14/19 @ 15:44 by Latricia Ndiaye MD) Anesthesia (Resolved) History of bladder suspension procedure (~1989) S/P lumpectomy, right breast (Resolved) Status post appendectomy (~194) Status post hysterectomy (~1979) Medical History (Last Reviewed 07/14/19 @ 15:44 by Latricia Ndiaye MD) Ankle fracture, right (Resolved) Cancer of right breast, stage 1, estrogen receptor positive (Chronic) Foot pain (Chronic ~2012) Osteopenia (Chronic) Seasonal allergies (Chronic ~1994) Physical Therapy Inpatient Evaluation/Re-Eval M1 PT/OT-IP Prior Functional Status Start: 07/14/19 08:36 Freq: NEEDED Status: Active Protocol: Document 07/15/19 10:02 AB (Rec: 07/15/19 13:49 AB [id number]) Medical Review Prior Functional Status Medical History Reviewed Yes Communication able to make needs known Mobility and Gait pt stated that she is independent with all mobilities and ambulation without AD Social History Household Members spouse Living Arrangements House Number of Floors (Floors) Two Floors Number of Stairs To Enter/Railing? pt stays on main level of the house has 2 steps without rails to enter Home Environment High Toilet,Walk in Shower Home Equipment Four Wheel Walker,Straight Cane,Shower Seat with Backrest ,Hand Held Shower,Grab Bars In Shower M2 PT-IP Current Condition Start: 07/14/19 08:17 Freq: NEEDED Status: Active Protocol: Document 07/15/19 10:02 AB (Rec: 07/15/19 13:49 AB [id number]) Physical Therapy Current Condition Current Condition Evaluation Date 07/15/19 Treatment Diagnosis L femoral neck fx s/p NOEL posterior approach; difficulty in walking Onset Date 07/13/19 Precautions Posterior Hip Precautions No Hip Flexion > 90 degrees,No Hip Internal Rotation,No Hip Adduction Other Precautions L AFO Weight Bearing Status Weight Bearing Status Weight Bear as Tolerated M3 PT-IP Subjective Start: 07/14/19 08:17 Freq: NEEDED Status: Active Protocol: Document 07/15/19 10:02 AB (Rec: 07/15/19 13:49 AB [id number]) Subjective Physical Therapy Visit Type Type Initial Evaluation Visit Start Time 10:02 Visit Stop Time 10:51 Total Visit Minutes 49 Number of CAFETERIA ASSOCIATE Visits 0 Physical Therapy Visit Comments Patient Comments pt agreeable to do PT Therapy Pain Assessment Pain When Pain Assessed At Rest Pain Present Pain Present Pain Reported Location Left Hip Intensity 3 Scale Used Numeric (1 - 10) Pain Management Techniques Re-positioning,Timing of Activity with Medications M4 PT-IP Mobility and Gait Start: 07/14/19 08:17 Freq: NEEDED Status: Active Protocol: Document 07/15/19 10:02 AB (Rec: 07/15/19 13:49 AB [id number]) PT-Bed Mobility Assessment Supine to Sit Supine to Sit Standby Assistance Sit to Supine Sit to Supine Standby Assistance Scooting Scooting to Edge of Bed Standby Assistance PT-Transfer Assessment Sit to and From Stand Sit to and from Stand Minimal Assistance,1 Person Assistance,Use of Upper Extremities Equipment Transfer Assistive Device Gait Belt,Front Wheeled Walker Orthotic/Prosthetic Devices or Brace: Yes Transfers Transfer Destination Chair Transfer Technique pt ambulated using FWW Transfer Ability Level of Assist Minimal Assistance,1 Person Assistance,Use of Upper Extremities Comments Mobility Comments pt completed bed mobility supine to sit SBA. able to sit on EOB SBA. completed sit to stand min A and cues. LLE tends to adduct and IR and required assistance to stabilize. pt ambulated towards the chair using FWW min A and cues. pt completed sit to stand from the chair min A and cues and ambulated 40 ft min A and cues. agreed to stay up on chair. postioned pt. call light and table placed within reach. Gait Assessment Gait Gait Assistance Required: Minimum Assistance Distance (Feet) 40 Able to Maintain Weight Bearing Status Yes During Gait Assistive Devices Assistive Device Gait Belt,Front Wheeled Walker Orthotic/Prosthetic Devices or Brace: Yes Gait Deviations General Gait Pattern Antalgic,Decreased Stride Length,Decreased Feet Clearance Factors Limiting Gait Function Factors Limiting Gait Function Decreased Activity Tolerance, Decreased Strength,Pain,Poor Balance,Poor Safety Awareness Comments Gait Comments requires cues to maintain L hip posterior precautions. LLE tends to IR/adduct with sit to stand, requires cues to not IR during turns. PT-Balance Assessment Sitting Balance and Reactions Static Sitting Balance Ability Good Dynamic Sitting Balance Ability Good Standing Balance and Reactions Static Standing Balance Ability Fair Dynamic Standing Balance Ability Fair Device Used FWW M5 PT-IP Objective Assessments Start: 07/14/19 08:17 Freq: NEEDED Status: Active Protocol: Document 07/15/19 10:02 AB (Rec: 07/15/19 13:49 AB [id number]) Orientation Orientation/Cognition Level of Alertness Alert Orientation Name,Age,Birthday,Month,Date, Year,Day of Week,Place, Situation Safety Awareness Decreased Safety Awareness Memory Description Short Term Impaired Gross Range of Motion Lower Extremity ROM Assessment Within Functional Limits Strength Lower Extremity Strength Assessment Left Impaired Hip 3+/5 Knee 3+/5 Sensation Assessment Sensation Gross Sensation WNL Muscle Tone Muscle Tone WNL Yes M6 PT-IP Treatment Start: 07/14/19 08:17 Freq: NEEDED Status: Active Protocol: Document 07/15/19 10:02 AB (Rec: 07/15/19 13:49 AB [id number]) Physical Therapy Treatment Exercises Exercises Heel Slides Education Education Provided Precautions,Weight Bearing Status,Post-Op Packet,Safety M7 PT-IP Assessment and Plan Start: 07/14/19 08:17 Freq: NEEDED Status: Active Protocol: Document 07/15/19 10:02 AB (Rec: 07/15/19 13:49 AB [id number]) PT Summary Assessment and Plan Potential Rehabilitation Potential Good Summary Impairments Pain,ROM,Strength,Balance, Coordination,Sensation,Bed Mobility,Transfers,Gait, Activity Tolerance Assessment Summary pt requiring min A with mobility and cues to maintain hip precautions. set up caregiver training @ 2pm later today withou spouse. d/c plan depending if spouse will be able to assist pt and also has to complete stair climbing training. will continue to assess. Goals Bed Mobility Goal Independent Transfer Goal Independent,Front Wheeled Walker Gait Goal Independent,Front Wheel Walker Gait Distance 200 Other Goals up/down 2 steps without rails using SPC CGA Days to Meet Goals 5 Frequency of Treatment Frequency Of Treatment Twice a Day Treatment Plan Physical Therapy Treatment Plan Bed Mobility Training,Transfer Training,Gait Training, Therapeutic Exercise,Balance Retraining,Post Op Education, Discharge Planning,Hot or Cold Pack,Neuromuscular Re-ed, Coordination Retraining,Manual Therapy Other Recommendations and Next Treatment caregiver training 2pm Focus Recommendations To Nursing Amount of Assist Needed 1 Person Assist Discharge Recommendations PT Discharge Recommendations Home with 24/ Assist, Outpatient PT Equipment Needed for Home Before FWW Discharge
--- NOTE | 2019-07-15 10:21 | PM.PN.1 ---
Subjective Subjective Date Patient Seen: 07/15/19 Interval history: Sherrie Sharif is a 78-year-old female with a past medical history significant for osteoporosis, hyperlipidemia, possible asthma, and stage I breast cancer who presented after a ground level fall with left hip pain and was admitted to after ground level fall with a displaced left femoral neck fracture. The patient is resting in bed comfortably. She reports her pain suprisingly is minimal. She also reports she was able to do stairs today with PT. She has no complaints overall and denies headache, shortness of breath, chest pain, abdominal pain, nausea, vomiting, fever, chills, dysuria, diarrhea or constipation. She is voiding via [place] catheter without difficulty and plan to remove prior to discharge. She has yet to have a BM and have implemented a bowel regimen. Continue PT. Exam Vital Signs (past 8 hours): - 07/15/19 19:40 07/15/19 20:30 07/16/19 00:13 Temperature 97.9 F 98.1 F Pulse Rate 81 82 68 Respiratory Rate 16 16 16 Blood Pressure 126/64 121/60 Pulse Oximetry 96 96 94 Fraction of Inspired Oxygen 21 Oxygen Delivery Method Room Air Oxygen Flow Rate 0 Narrative Exam Narrative: General: Elderly female lying in bed and in no acute distress, well-developed, well-nourished, appropriately interactive. HEENT: Normocephalic, atraumatic. External ears without defect. Pupils equal, round, and reactive to light. Anicteric sclerae, moist conjunctivae, and no lid lag. Oropharynx free of erythema and cobble stoning with moist mucosa. Neck: Supple with full range of motion. No jugular venous distension. No lymphadenopathy or thyromegaly. Cardiovascular: Regular rate and rhythm without murmurs, rubs, or gallops appreciated Pulmonary: Clear to auscultation bilaterally without crackles, wheezes, or rhonchi. Normal respiratory effort with no use of accessory muscles. Abdomen: Soft, bowel sounds present, nontender, nondistended. No hepatosplenomegaly or masses appreciated. Extremities: No clubbing, cyanosis, or edema. Left hip with dressing in place C/D/I without surrounding erythema and mild edema. Skin: Normal temperature, turgor, and texture; no rash, ulcers, or subcutaneous nodules appreciated. Neurological: Cranial nerves grossly intact. Psychiatric: Normal mood and affect. Alert and oriented to person, place, and time. Objective Labs Result Diagrams: 07/15/19 05:40 07/15/19 05:40 Labs: Laboratory Results - last 24 hr 07/15/19 07/15/19 05:40 05:40 WBC 11.4 H RBC 3.92 L Hgb 12.3 Hct 36.7 MCV 93.6 MCH 31.3 MCHC 33.4 RDW 13.0 Plt Count 217 Neut % (Auto) 89.6 H Lymph % (Auto) 4.7 L Waldo % (Auto) 5.6 Eos % (Auto) 0.0 L Baso % (Auto) 0.1 Neut # (Auto) 91692 H Lymph # (Auto) 500 L Waldo # (Auto) 600 Eos # (Auto) 0 Baso # (Auto) 0 Sodium 137 Potassium 3.9 Chloride 102 Carbon Dioxide 27 BUN 13 Creatinine 0.60 Estimated GFR > 60.0 BUN/Creatinine Ratio 21.7 Glucose 139 H Calcium 8.8 Magnesium 2.2 Assessment & Plan Assessment & Plan narrative: Sherrie Sharif is a 78-year-old female with a past medical history significant for osteoporosis, hyperlipidemia, possible asthma, and stage I breast cancer who presented after a ground level fall with left hip pain and was admitted to after ground level fall with a displaced left femoral neck fracture. 1. Acute pathological mildly displaced left femoral neck fracture, present on admission. Active. -Secondary to osteoporosis given ground level fall. -Continue pain management with Tylenol 975 mg scheduled, toradol 30 mg every 6 hours as needed for mild pain, oxycodone 5 mg every 6 hours as needed for moderate pain, and dilaudid as needed for severe breakthrough pain. -Continue Zofran 4 mg every 4 hours as needed for nausea. -Orthopedic surgery has been consulted and performed ORIF. Continue postoperative manangement including: pain and DVT prophylaxis per Orthopedic surgery. 2. Hypokalemia, acuity unclear but likely acute, present on admission. -Initial potassium 3.1. Received potassium chloride 40 mEq PO x1. -Continue to monitor and replete as necessary. 3. History of stage I breast cancer. -Patient is followed by Dr. Fairchild of Oncology. -Continue letrozole 2.5 mg daily. 4. Hyperlipidemia, chronic, present on admission. Stable. -Continue home rosuvastatin 5 mg daily at bedtime. 5. Osteoporosis, chronic, present on admission. Active. -Discontinued Boniva. -Continue vitamin D3 and calcium supplementation. Patient should be candidate for Prolia or Forteo once hip fracture has healed completely. Disposition: Patient likely to discharge home tomorrow pending Orthopedic surgery clearance. Quality VTE Deep Vein Thrombosis/Pulmonary Embolism Present on Admission: No
--- NOTE | 2019-07-15 11:19 | PC.NURSE ---
Patient up with therapy, gait steady with FWW. Rouse and hemovac removed at 1115.
--- NOTE | 2019-07-15 14:13 | PT.IPTN ---
Current Diagnoses Other osteoporosis with current pathological fracture, left femur, initial encounter for fracture (07/13/19) Surgery Performed Operation Date: 07/14/19 16:30 Actual Procedures p Hip Hemiarthroplasty [place](Left) - Latricia Ndiaye MD Physical Therapy Treatment Note M2 PT-IP Current Condition Start: 07/14/19 08:17 Freq: NEEDED Status: Active Protocol: Document 07/15/19 10:02 AB (Rec: 07/15/19 13:49 AB [id number]) Physical Therapy Current Condition Current Condition Evaluation Date 07/15/19 Treatment Diagnosis L femoral neck fx s/p NOEL posterior approach; difficulty in walking Onset Date 07/13/19 Precautions Posterior Hip Precautions No Hip Flexion > 90 degrees,No Hip Internal Rotation,No Hip Adduction Other Precautions L AFO Weight Bearing Status Weight Bearing Status Weight Bear as Tolerated M3 PT-IP Subjective Start: 07/14/19 08:17 Freq: NEEDED Status: Active Protocol: Document 07/15/19 14:13 AB (Rec: 07/15/19 15:48 AB [id number]) Subjective Physical Therapy Visit Type Type Treatment Note Visit Start Time 14:13 Visit Stop Time 15:00 Total Visit Minutes 47 Number of RESEARCH AND DEVELOPMENT ENGINEER Visits 0 Physical Therapy Visit Comments Patient Comments pt agreeable to do PT; spouse present for caregiver training Therapy Pain Assessment Pain When Pain Assessed At Rest Pain Present Pain Present Pain Reported Location Left Hip Intensity 2 Scale Used Numeric (1 - 10) M4 PT-IP Mobility and Gait Start: 07/14/19 08:17 Freq: NEEDED Status: Active Protocol: Document 07/15/19 14:13 AB (Rec: 07/15/19 15:48 AB [id number]) PT-Bed Mobility Assessment Supine to Sit Supine to Sit Standby Assistance Sit to Supine Sit to Supine Minimal Assistance,1 Person Assistance PT-Transfer Assessment Sit to and From Stand Sit to and from Stand Contact Guard Assistance Equipment Transfer Assistive Device Gait Belt,Front Wheeled Walker Comments Mobility Comments caregiver training conducted. educated spouse on how to use safety belt and how to assist pt. pt completed supine to sit SBA and spouse was able to put safety belt on pt. assisted pt with ambulation in room using FWW CGA. pt ambulated in the hallway with spouse assisting CGA. pt completed ~ 125 ft using FWW. pt completed up/down platform step using FWW. completed 2 sets. PT assisting pt with first set requiring min A and cues. pt completed 2nd set with spouse assisted and completed safely. assisted pt back in her room. ambulated from w/c to bed using FWW CGA with spouse assisting. pt requires cues to push from w/c and to bring LLE forward prior to standing and prior to sitting. pt completed sit to supine with spouse assisting LLE up to bed . positioned pt in bed. call light and table placed within reach. Gait Assessment Gait Gait Assistance Required: Contact Guard Assist Distance (Feet) 125 Able to Maintain Weight Bearing Status Yes During Gait Assistive Devices Assistive Device Gait Belt,Front Wheeled Walker Orthotic/Prosthetic Devices or Brace: Yes Gait Deviations General Gait Pattern Antalgic Factors Limiting Gait Function Factors Limiting Gait Function Decreased Activity Tolerance, Decreased Strength,Pain,Poor Balance,Poor Safety Awareness Comments Gait Comments pls refer to mobility section for details Stair Climbing Assessment Evaluation Level of Assist On Stairs Minimal Assistance Devices Stair Climbing Assistive Devices Front Wheel Walker Technique/Endurance Stair Climbing Direction Ascend and Descend Stair Climbing Technique Step to Step Number of Steps Climbed 1 Stair Climbing Set # Repetitions (reps) 2 Comments Stair Climbing Comments please refer to mobility section for details M5 PT-IP Objective Assessments Start: 07/14/19 08:17 Freq: NEEDED Status: Active Protocol: Document 07/15/19 10:02 AB (Rec: 07/15/19 13:49 AB [id number]) Orientation Orientation/Cognition Level of Alertness Alert Orientation Name,Age,Birthday,Month,Date, Year,Day of Week,Place, Situation Safety Awareness Decreased Safety Awareness Memory Description Short Term Impaired Gross Range of Motion Lower Extremity ROM Assessment Within Functional Limits Strength Lower Extremity Strength Assessment Left Impaired Hip 3+/5 Knee 3+/5 Sensation Assessment Sensation Gross Sensation WNL Muscle Tone Muscle Tone WNL Yes M6 PT-IP Treatment Start: 07/14/19 08:17 Freq: NEEDED Status: Active Protocol: Document 07/15/19 14:13 AB (Rec: 07/15/19 15:48 AB [id number]) Physical Therapy Treatment Education Education Provided Precautions,Weight Bearing Status,Post-Op Packet,Safety M7 PT-IP Assessment and Plan Start: 07/14/19 08:17 Freq: NEEDED Status: Active Protocol: Document 07/15/19 14:13 AB (Rec: 07/15/19 15:48 AB [id number]) PT Summary Assessment and Plan Potential Rehabilitation Potential Good Summary Impairments Pain,ROM,Strength,Balance, Coordination,Sensation,Tone, Cognition,Bed Mobility, Transfers,Gait,Activity Tolerance Assessment Summary caregiver training completed. spouse was able to assist pt safely. pt continues to require cues to maintain hip precautions. pt may go home when medically stable. Goals Bed Mobility Goal Independent Transfer Goal Independent,Front Wheeled Walker Gait Goal Independent,Front Wheel Walker Gait Distance 200 Other Goals up/down 2 steps without rails using SPC CGA Days to Meet Goals 5 Frequency of Treatment Frequency Of Treatment Twice a Day Treatment Plan Physical Therapy Treatment Plan Bed Mobility Training,Transfer Training,Gait Training, Therapeutic Exercise,Balance Retraining,Post Op Education, Discharge Planning,Hot or Cold Pack,Neuromuscular Re-ed, Coordination Retraining,Manual Therapy Other Recommendations and Next Treatment cargiver training, stair Focus climbing Recommendations To Nursing Amount of Assist Needed 1 Person Assist Discharge Recommendations PT Discharge Recommendations Home with 12/05 Assist, Outpatient PT Equipment Needed for Home Before FWW Discharge
--- NOTE | 2019-07-15 16:16 | OT.IP.EVAL ---
Current Diagnoses Other osteoporosis with current pathological fracture, left femur, initial encounter for fracture (07/13/19) Surgery Performed Operation Date: 07/14/19 16:30 Actual Procedures p Hip Hemiarthroplasty [place](Left) - Latricia Ndiaye MD Past Medical History (Last Reviewed 07/14/19 @ 15:44 by Latricia Ndiaye MD) Ankle fracture, right (Resolved) Cancer of right breast, stage 1, estrogen receptor positive (Chronic) Foot pain (Chronic ~2012) Osteopenia (Chronic) Seasonal allergies (Chronic ~1994) Surgical History (Last Reviewed 07/14/19 @ 15:44 by Latricia Ndiaye MD) Anesthesia (Resolved) History of bladder suspension procedure (~1989) S/P lumpectomy, right breast (Resolved) Status post appendectomy (~1946) Status post hysterectomy (~1979) Occupational Therapy Inpatient Evaluation/Re-Eval M1 PT/OT-IP Prior Functional Status Start: 07/14/19 08:36 Freq: NEEDED Status: Active Protocol: Document 07/15/19 15:47 [facility] (Rec: 07/15/19 16:16 [facility] [id number]) Medical Review Prior Functional Status Medical History Reviewed Yes Communication able to make needs known Mobility and Gait pt stated that she is independent with all mobilities and ambulation without AD Activities of Daily Living and IADL's Completely independent with all ADl needs. Social History Household Members spouse Living Arrangements House Number of Floors (Floors) Two Floors Number of Stairs To Enter/Railing? pt stays on main level of the house has 2 steps without rails to enter Home Environment High Toilet,Walk in Shower Home Equipment Four Wheel Walker,Straight Cane,Shower Seat with Backrest ,Hand Held Shower,Grab Bars In Shower M2 OT-IP Current Condition Start: 07/14/19 08:36 Freq: Status: Active Protocol: Document 07/15/19 15:47 [facility] (Rec: 07/15/19 16:16 [facility] [id number]) Occupational Therapy Current Condition Current Condition Evaluation Date 07/15/19 Treatment Diagnosis Left Femoral neck fracture, s/ p Left hip unipolar replacement Diagnosis Onset Date 07/13/19 Post Operative Precautions Posterior Hip Precautions No Hip Flexion > 90 degrees,No Hip Internal Rotation,No Hip Adduction Weight Bearing Status Weight Bearing Status Weight Bear as Tolerated M3 OT- IP Subjective and Pain Start: 07/14/19 08:36 Freq: Status: Active Protocol: Document 07/15/19 15:47 [facility] (Rec: 07/15/19 16:16 [facility] [id number]) OT- Subjective Occupational Therapy Visit Type Type Initial Evaluation Visit Start Time 15:20 Visit Stop Time 15:40 Total Visit Minutes 20 Notes Pt not wanting to get up as just completed full session of caregiver training with PT. Occupational Therapy Visit Comments Patient Comments Pt states very tired and not wanting to get up but agreeable to go over education with OT for OT eval. Patient/Caregiver Goals To go home. OT Pain Assessment Pain When Pain Assessed At Rest Pain Present Pain Present Denied Pain M4 OT- IP ADL's Start: 07/14/19 08:36 Freq: Status: Active Protocol: Document 07/15/19 15:47 [facility] (Rec: 07/15/19 16:16 [facility] [id number]) OT ADL-Dressing General Eval Lower Body Dressing Ability Maximum Assistance Comments OT Dressing Comments At this time pt neeedng MAX A for all LB dressing due to posterior precautions. Pt's to assist pt for socks , shoes and AFO while pt is lying on the bed. OT ADL-Toileting Comments OT Toileting Comments Educated may be best to get BSC versus RTS as pt now switching sides of the bed will have longer distance to get to the bathroom. In addition BSC will give her more support for arms to push up to stand. Pt[facility] to [facility] to [facility] to get BSC/RTS. In addition suggested at night pt may want to wear a pad or brief to prevent from having to [place] to the bathroom. OT ADL-Bathing Comments OT Bathing Comments Pt wanting to go over shower tomorrow. M5 OT- IP IADL's Start: 07/14/19 08:36 Freq: Status: Active Protocol: Document 07/15/19 15:47 [facility] (Rec: 07/15/19 16:16 [facility] [id number]) OT-Instrumental Activities of Daily Living Home Safety Awareness Ability to Problem Solve Emergency Able to Problem Solve Situations M6 OT- IP Functional Cognition Start: 07/14/19 08:36 Freq: Status: Active Protocol: Document 07/15/19 15:47 [facility] (Rec: 07/15/19 16:16 [facility] [id number]) Cognitive Factors Limiting Selfcare Function Cognitive Ability Level of Alertness Alert Patient Orientation Name,Age,Birthday,Month,Date, Year,Day of Week,Place, Situation Attention Span Ability Capable of Focused Attention, Capable of Sustained Attention Ability to Follow Commands Able to Follow One Step Commands Safety Awareness Decreased Recall of Precautions Cognitive Comments Cognitive Assessment Comments Pt still needing reminders for hip precautions and how to incorporate needs for ADL's now. OT- Vision and Hearing OT- Hearing Assessment OT- Hearing Assessment WFL OT- Vision Assessment Visual Acuity Glasses For Reading M7 OT- IP Mobility and Balance Start: 07/14/19 08:36 Freq: Status: Active Protocol: Document 07/15/19 15:47 [facility] (Rec: 07/15/19 16:16 [facility] [id number]) OT-Transfer Assessment Comments Mobility Comments Pt not wanting to get up at this time, please see PT notes for mobility needs. Educated technique to get into the car and that theeir SUV would be more appropriate height to transfer in and out. M8 OT- IP Objective Assessments Start: 07/14/19 08:36 Freq: Status: Active Protocol: Document 07/15/19 15:47 [facility] (Rec: 07/15/19 16:16 [facility] [id number]) OT Gross Range of Motion Upper Extremity Range of Motion Assessment Within Functional Limits OT Strength Upper Extremity Strength Assessment Within Functional Limits M9 OT- IP Assessment and Plan Start: 07/14/19 08:36 Freq: Status: Active Protocol: Document 07/15/19 15:47 [facility] (Rec: 07/15/19 16:16 [facility] [id number]) OT Summary Assessment and Plan Potential Rehabilitation Potential Good Analytic Complexity at Evaluation Low Summary OT Impairments Functional Mobility,Dressing, Toileting,Bathing,Toilet Transfers,Shower Transfers Progress Towards Goals Progressing Toward Goals Assessment Summary Pt low complexity and per PT moving well and has started caregiver training. Pt looking to go home tomorrow . Today session able to go over all hip precautions, ADl equipment needs and strategies for dressing, toileting, and for car transfers. Goals Dressing Goal Minimal Assistance Toileting Goal Standby Assistance Bathing Goal Contact Guard Assistance Toilet Transfer Goal Standby Assistance Shower Transfer Goal Contact Guard Assistance Patient/Caregiver Education Goal Demonstrate Post-Op Precautions,Caregiver Independent Assisting Patient Days to Meet Goals 2 Frequency of Treatment Frequency Of Treatment Once a Day Treatment Plan OT Treatment Plan ADL Training,Functional Cognition Training,Functional Mobility,Patient/Family Education,Discharge Planning Other Treatment Recommendations and Next Shower, dressing , toileting Treatment Focus and incorporation of hip precautions. Discharge Recommendations OT Discharge Recommendations Home with Assistance Home Equipment Needs BSC/RTS
[2019-07-15] MEDS: ROSUVASTATIN 10 MG TABLET 5 MG PO (17:27)
[2019-07-15] MEDS: diphenhydrAMINE 25 MG TABLET PO (21:48)
[2019-07-15] MEDS: SODIUM CHLORIDE 0.9% FLUSH 10 ML IV (21:48)
[2019-07-16 00:13] VITALS: BP 121/60; PULSE 68; RESP 16; TEMP 36.7; O2SAT 94
[2019-07-16] MEDS: OXYCODONE IR 5 MG TABLET PO ×3 (03:14→12:28)
[2019-07-16 05:35] VITALS: BP 131/66; PULSE 84; RESP 16; TEMP 36.4; O2SAT 93
[2019-07-16 05:58] LABS: Add Manual Diff / Slide Review NO; Basophils Absolute Auto 0 /uL (0-100); Basophils Percent Auto 0.3 % (0-2); Eosinophils Absolute Auto 100 /uL (0-450); Eosinophils Percent Auto 1.3 % (2-4); Hematocrit 34.5 % (36-46); Hemoglobin 11.8 g/dL (12.0-16.0); Lymphocytes Absolute Auto 900 /uL (1100-4500); Lymphocytes Percent Auto 10.5 % (25-40); Mean Corpuscular HGB Conc 34.2 % (30-36); Mean Corpuscular Hemoglobin 31.6 PG (26-34); Mean Corpuscular Volume 92.3 fL (80-100); Monocytes Absolute Auto 500 /uL (0-900); Monocytes Percent Auto 6.3 % (3-14); Neutrophils Absolute Auto 7000 /uL (1500-7000); Neutrophils Percent Auto 81.6 % (50-75); Platelet Count 189 X10^3/uL (150-400); Red Blood Cell Count 3.74 X10^6/uL (4.0-5.2); White Blood Cell Count 8.5 X10^3/uL (4.5-11.0)
[2019-07-16 06:03] LABS: Blood Urea Nitrogen 15 mg/dL (7-17); Calcium 8.3 mg/dL (8.4-10.2); Carbon Dioxide 31 mmol/L (22-32); Chloride 102 mmol/L (98-107); Estimated Glomerular Filt Rate > 60.0 mL/min (>60); Glucose 100 mg/dL (80-110); HEMOLYSIS < 15 (0-50); Magnesium 2.1 mg/dL (1.6-2.3); Potassium 3.6 mmol/L (3.4-5.1); Sodium 139 mmol/L (137-145)
[2019-07-16 07:35] VITALS: BP 132/65; PULSE 83; RESP 18; TEMP 36.8; O2SAT 92
[2019-07-16] MEDS: POLYETHYLENE GLYCOL 3350 17 GM POWD.PACK PO (07:56)
[2019-07-16] MEDS: DOCUSATE 100 MG CAPSULE PO (07:57)
[2019-07-16] MEDS: ASPIRIN EC 81 MG TABLET PO (07:58)
[2019-07-16] MEDS: ACETAMINOPHEN 325 MG TABLET 975 MG PO (07:58)
[2019-07-16] MEDS: LETROZOLE 2.5 MG TABLET PO (07:58)
[2019-07-16] MEDS: CALCIUM CARB/VIT D3 500/200 TABLET 1 EACH PO (07:58)
--- NOTE | 2019-07-16 09:47 | P.DS_ITS ---
History of Present Illness History of Present Illness Date Patient Seen: 07/16/19 Chief complaint: GLF, L hip pain Narrative: Written by Dr. Veloz: Sherrie Sharif is a 78-year-old female with past medical history of osteoporosis, hyperlipidemia, possible asthma, and stage I breast cancer who presented after a ground level fall with left hip pain. Patient states she was walking dogs, and one yanked on the leash pulling her over. She landed on her left hip and immediately had pain. The pain is sharp, located on the lateral left side, and radiates into her left groin. It is worse when she tries to move her left leg, and improved with rest. It is constantly right now at a mild level, but when she moves it increases in intensity. She received IV Dilaudid and Ativan which has helped somewhat with her pain. She denies any other pain at this point. She denies any recent fevers, chills, nausea, vomiting, abdominal pain, dysuria, urinary frequency, weakness, numbness. During her fall she did not hit her head, she does not take aspirin or other anticoagulants. Discharge Providers Provider Date of admission: 07/13/19 17:55 Discharge Date: 07/16/19 Primary care physician: PATRICIA Ellison Consults: 07/13/19 18:22 Consult to Discharge Planning Routine Comment: Consult to Occupational Therapy Evaluate & Treat Comment: Physician Instructions: Evaluate and treat Consult to Physical Therapy Evaluate & Treat Comment: Physician Instructions: Evaluate and Treat 07/14/19 19:43 Consult to Discharge Planning Routine Comment: Consult to Physical Therapy Evaluate & Treat Comment: Physician Instructions: post op NOEL protocol Consult to Respiratory Therapy Evaluate & Treat Comment: Physician Instructions: Evaluate and treat Discharge provider: Shira Ahn DO Summary Hospital Course Discharge Diagnosis: 1. Acute pathological mildly displaced left femoral neck fracture, present on admission. Resolved. 2. Hypokalemia, acuity unclear but likely acute, present on admission. 3. History of stage I breast cancer. 4. Hyperlipidemia, chronic, present on admission. Stable. 5. Osteoporosis, chronic, present on admission. Active. Hospital Course: Sherrie Sharif is a 78-year-old female with a past medical history significant for osteoporosis, hyperlipidemia, possible asthma, and stage I breast cancer who presented after a ground level fall with left hip pain and was admitted to after ground level fall with a displaced left femoral neck fracture. 1. Acute pathological mildly displaced left femoral neck fracture, present on admission. Resolved. -Secondary to osteoporosis given ground level fall. -Continued pain management with Tylenol 975 mg scheduled, toradol 30 mg every 6 hours as needed for mild pain, oxycodone 5 mg every 6 hours as needed for moderate pain, and dilaudid as needed for severe breakthrough pain. -Continued Zofran 4 mg every 4 hours as needed for nausea. -Continued bowel regimen with Colace 100 mg twice daily and MiraLax 17 g daily. -Orthopedic surgery has been consulted and performed ORIF. Continued postoperative manangement including: pain control as above and DVT prophylaxis (aspirin 81 mg twice daily x6 weeks) per Orthopedic surgery. 2. Hypokalemia, acuity unclear but likely acute, present on admission. -Initial potassium 3.1. Received potassium chloride 40 mEq PO x1. -Continued to monitor and replete as necessary. 3. History of stage I breast cancer. -Patient is followed by Dr. Fairchild of Oncology. -Continued letrozole 2.5 mg daily. 4. Hyperlipidemia, chronic, present on admission. Stable. -Continued home rosuvastatin 5 mg daily at bedtime. 5. Osteoporosis, chronic, present on admission. Active. -Discontinued Boniva. -Continued vitamin D3 and calcium supplementation. Patient should be candidate for Prolia or Forteo once hip fracture has healed completely. Status at Discharge Functional status at discharge: uses cane/walker Overall status at discharge: patient is progressing back to baseline Exam Vital Signs (past 8 hours): - 07/16/19 05:35 07/16/19 07:35 Temperature 97.6 F 98.2 F Pulse Rate 84 83 Respiratory Rate 16 18 Blood Pressure 131/66 132/65 Pulse Oximetry 93 92 Fraction of Inspired Oxygen 21 Oxygen Delivery Method Room Air Oxygen Flow Rate 0 Narrative Exam Narrative: General: Elderly female lying in bed and in no acute distress, appears younger than stated age, well-developed, well-nourished, appropriately interactive. HEENT: Normocephalic, atraumatic. External ears without defect. Pupils equal, round, and reactive to light. Anicteric sclerae, moist conjunctivae, and no lid lag. Oropharynx free of erythema and cobble stoning with moist mucosa. Neck: Supple with full range of motion. No jugular venous distension. No lymphadenopathy or thyromegaly. Cardiovascular: Regular rate and rhythm without murmurs, rubs, or gallops appreciated Pulmonary: Clear to auscultation bilaterally without crackles, wheezes, or rhonchi. Normal respiratory effort with no use of accessory muscles. Abdomen: Soft, bowel sounds present, nontender, nondistended. No hepatosplenomegaly or masses appreciated. Extremities: No clubbing, cyanosis, or edema. Left hip with dressing in place C/D/I without surrounding erythema and mild edema. Skin: Normal temperature, turgor, and texture; no rash, ulcers, or subcutaneous nodules appreciated. Neurological: Cranial nerves grossly intact. Psychiatric: Normal mood and affect. Alert and oriented to person, place, and time. Objective Labs Result Diagrams: 07/16/19 05:25 07/16/19 05:25 Labs: Laboratory Results - last 24 hr 07/16/19 07/16/19 05:25 05:25 WBC 8.5 RBC 3.74 L Hgb 11.8 L Hct 34.5 L MCV 92.3 MCH 31.6 MCHC 34.2 RDW 13.0 Plt Count 189 Neut % (Auto) 81.6 H Lymph % (Auto) 10.5 L [place] % (Auto) 6.3 Eos % (Auto) 1.3 L Baso % (Auto) 0.3 Neut # (Auto) 7000 Lymph # (Auto) 900 L [place] # (Auto) 500 Eos # (Auto) 100 Baso # (Auto) 0 Sodium 139 Potassium 3.6 Chloride 102 Carbon Dioxide 31 BUN 15 Creatinine 0.60 Estimated GFR > 60.0 BUN/Creatinine Ratio 25.0 H Glucose 100 Calcium 8.3 L Magnesium 2.1 Discharge Plan Discharge Plan Patient Disposition: Home Discharge comment: You are being discharged home. Please follow-up at the orthopedic surgeon's office with their PA in 1 week. Continue to weight-bear as tolerated and continue outpatient physical therapy for which you may need a referral by ortho or your PCP. You were prescribed aspirin 81 mg twice daily for the next 6 weeks to prevent blood clots. Aspirin is abrasive to the GI tract please take this with food and drink plenty of water as it can also injury your kidneys. You are also provided prescriptions for Colace (stool softener) 100 mg twice daily and MiraLax (osmotic laxative) 17 g daily to prevent opiate induced constipation. You were given a temporary prescription for oxycodone 5 mg every 4-6 hours as needed for severe pain and you may also take Tylenol as directed on the bottle and as needed for mild pain. Continue calcium and vitamin D3 supplementation. Discharge Med Rec/Prescriptions Prescriptions: New polyethylene glycol 3350 17 gram Powder In Packet 17 gm PO DAILY Qty: 1 RF: 0 aspirin 81 mg Tablet,Delayed Release (Dr/Ec) 81 mg PO BID Qty: 90 RF: 0 oxycodone 5 mg Tablet 5 mg PO Q4-6H PRN (Reason: Pain, Moderate (4-6)) Qty: 30 RF: 0 calcium carbonate-vitamin D3 [Oyster Shell Calcium-Vit D3] 500 mg(1,250mg) - 200 unit Tablet 1 ea PO DAILY Qty: 30 RF: 0 docusate sodium [DOK] 100 mg Capsule 100 mg PO BID Qty: 60 RF: 0 Continued CoQ-10 1 cap PO DAILY Qty: 0 RF: 0 albuterol sulfate 90 mcg/actuation HFA aerosol inhaler 2 puff INHALATION Q4H PRN (Reason: shortness of breath or wheezing) Qty: 8.5 RF: 1 (DME) inhalational spacing device [Aerochamber MV] spacer See Dose Instructions .ROUTE .MEDSUPPLY Qty: 1 RF: 0 omega-3 fatty acids [Fish Oil Concentrate] 1,000 mg Capsule 1,000 mg PO DAILY RF: 0 magnesium 200 mg Tablet 400 mg PO DAILY RF: 0 cholecalciferol (vitamin D3) [Vitamin D3] 5,000 unit Tablet 5,000 unit PO DAILY RF: 0 rosuvastatin 10 mg tablet 5 mg PO QPM RF: 0 letrozole 2.5 mg tablet 2.5 mg PO DAILY RF: 0 lorazepam 0.5 mg tablet 0.5 mg PO BEDTIME PRN (Reason: Sleep) RF: 0 diphenhydramine HCl [Sleep Aid (diphenhydramine)] 25 mg Capsule 25 mg PO BEDTIME PRN (Reason: Sleep) RF: 0 Discontinued ibandronate [Boniva] 150 mg tablet 150 mg PO QMONTH Qty: 3 RF: 3 Follow up/Referrals: Amrita Ho ARNP [Primary Care Provider] - 1 Week Latricia Ndiaye MD [Physician] - 1 Week Provider Discharge Instructions Diet: Diet as Tolerated, Low-fat, Low-sodium and Low-cholesterol Activity: Activity and weight-bearing as tolerated with forward wheeled walker and continue PT outpatient. No hip flexion > 90 degrees. No hip internal rotation. No hip adduction. Visit Report/Discharge Packet Instructions: DI for Hip Replacement, How To Perform RICE (Rest, Ice, Compress, Elevate), How to Prevent Falls, DI for Postoperative Pain, DI for Osteoporosis Visit Report Forms: Stroke Signs & Symptoms Discharge Data Primary Care Provider: Amrita Ho VTE Deep Vein Thrombosis/Pulmonary Embolism Present on Admission: No
--- NOTE | 2019-07-16 10:24 | OT.IP.TRT ---
Current Diagnoses Other osteoporosis with current pathological fracture, left femur, initial encounter for fracture (07/13/19) Surgery Performed Operation Date: 07/14/19 16:30 Actual Procedures p Hip Hemiarthroplasty [place](Left) - Latricia Ndiaye MD Occupational Therapy Treatment Note M2 OT-IP Current Condition Start: 07/14/19 08:36 Freq: Status: Active Protocol: Document 07/15/19 15:47 [facility] (Rec: 07/15/19 16:16 [facility] [id number]) Occupational Therapy Current Condition Current Condition Evaluation Date 07/15/19 Treatment Diagnosis Left Femoral neck fracture, s/ p Left hip unipolar replacement Diagnosis Onset Date 07/13/19 Post Operative Precautions Posterior Hip Precautions No Hip Flexion > 90 degrees,No Hip Internal Rotation,No Hip Adduction Weight Bearing Status Weight Bearing Status Weight Bear as Tolerated M3 OT- IP Subjective and Pain Start: 07/14/19 08:36 Freq: Status: Active Protocol: Document 07/16/19 10:11 [facility] (Rec: 07/16/19 10:24 [facility] [id number]) OT- Subjective Occupational Therapy Visit Type Type Treatment Note Visit Start Time 09:03 Visit Stop Time 09:59 Total Visit Minutes 56 Occupational Therapy Visit Comments Patient Comments Pt a little hesitant to shower as stating hurting more today however after encouragement agreed to shower. OT Pain Assessment Pain When Pain Assessed At Rest Pain Present Pain Present Pain Reported Location Left Hip Intensity 4 M4 OT- IP ADL's Start: 07/14/19 08:36 Freq: Status: Active Protocol: Document 07/16/19 10:11 [facility] (Rec: 07/16/19 10:24 [facility] [id number]) OT ADL-Grooming General Evaluation Grooming Ability Independent OT ADL-Oral Care General Eval Oral Care Ability Independent OT ADL-Dressing General Eval Upper Body Dressing Ability Independent Lower Body Dressing Ability Moderate Assistance Assistive Devices Dressing Assistive Devices [employer] Specialist,Sock Aid Comments OT Dressing Comments Mainly just needing assist to efra AFo and shoes. Suggested may want to have friend assist for showering to help put on AFO afterwards as has difficulty to bend over. Pt states will just wear slippers with orthotic and then get to the bed to get AFO on. OT ADL-Toileting Comments OT Toileting Comments Pt's looking to get BSC today. OT ADL-Bathing Bathing Type Bathing Type Shower General Evaluation Bathing Ability Minimal Assistance Areas Needing Assistance Wash/Dry Back,Wash/Dry Lower Extremities Devices Bathing Equipment Hand Held Shower Sprayer,Grab Bars Comments OT Bathing Comments Pt needing MOD vc to not bend over too far , otherwise mainly just assist to wash/dry back and feet. M5 OT- IP IADL's Start: 07/14/19 08:36 Freq: Status: Active Protocol: Document 07/15/19 15:47 [facility] (Rec: 07/15/19 16:16 [facility] [id number]) OT-Instrumental Activities of Daily Living Home Safety Awareness Ability to Problem Solve Emergency Able to Problem Solve Situations M6 OT- IP Functional Cognition Start: 07/14/19 08:36 Freq: Status: Active Protocol: Document 07/16/19 10:11 [facility] (Rec: 07/16/19 10:24 [facility] [id number]) Cognitive Factors Limiting Selfcare Function Cognitive Ability Level of Alertness Alert Attention Span Ability Capable of Focused Attention, Capable of Sustained Attention Ability to Follow Commands Able to Follow One Step Commands Memory Description Short Term Impaired Safety Awareness Decreased Ability to Apply Precautions,Underestimates Need for Assistance Cognitive Comments Cognitive Assessment Comments Pt needing MOD vc to incorporate hip precautions for needs. Suggested for pt to have copies on precautions in the house to reminder her. Pt gets a little confused with having to be greater than 90 degrees for her left hip. M7 OT- IP Mobility and Balance Start: 07/14/19 08:36 Freq: Status: Active Protocol: Document 07/16/19 10:11 [facility] (Rec: 07/16/19 10:24 [facility] [id number]) OT- Bed Mobility Assessment Sit to Supine Sit to Supine Assist Standby Assistance Scooting Scooting to Edge of Bed Standby Assistance OT-Transfer Assessment Sit to and From Stand Sit to and from Stand Standby Assistance Transfers Transfer Ability Standby Assistance,Contact Guard Assistance Technique Transfer Destination Bed,Bedside Commode,Chair, Shower Stall Transfer Technique Stand Step Pivot Devices Transfer Assistive Devices Gait Belt,Front Wheeled Walker Comments Mobility Comments Pt able to show good safety for bed mobility , mainly just needing reassurance that she is doing it properly. OT- Balance Assessment Sitting Balance and Reactions Static Sitting Balance Ability Normal Dynamic Sitting Balance Ability Normal Standing Balance and Reactions Static Standing Balance Ability Good Dynamic Standing Balance Ability Fair M8 OT- IP Objective Assessments Start: 07/14/19 08:36 Freq: Status: Active Protocol: Document 07/15/19 15:47 [facility] (Rec: 07/15/19 16:16 [facility] [email or web address]) OT Gross Range of Motion Upper Extremity Range of Motion Assessment Within Functional Limits OT Strength Upper Extremity Strength Assessment Within Functional Limits M9 OT- IP Assessment and Plan Start: 07/14/19 08:36 Freq: Status: Active Protocol: Document 07/16/19 10:11 [facility] (Rec: 07/16/19 10:24 [facility] [email or web address]) OT Summary Assessment and Plan Potential Rehabilitation Potential Good Analytic Complexity at Evaluation Low Summary Progress Towards Goals Progressing Toward Goals Assessment Summary Pt doing well mainly just needing CHERELLE vc at times for hip precautions. Pt a bit anxious of falling. Pt to have assist at home and daughter coming Friday to assist and stay with her. Goals Patient/Caregiver Education Goal Demonstrate Post-Op Precautions,Caregiver Independent Assisting Patient Days to Meet Goals 1 Frequency of Treatment Frequency Of Treatment Once a Day Discharge Recommendations OT Discharge Recommendations Home with Assistance Home Equipment Needs BSC/RTS
--- NOTE | 2019-07-16 10:32 | PM.PNPO.1 ---
Subjective Subjective Date Patient Seen: 07/16/19 Time Patient Seen: 10:32 Interval history: Sherrie is POD#2 s/p right hip hemiarthroplasty after displaced femoral neck fracture with Dr. Ndiaye. She has mobilized well with PT. Pain has been well controlled. Tolerating a diet. Voiding independently. She denies chest pain, shortness of breath. Exam Vital Signs (past 8 hours): - 07/16/19 05:35 07/16/19 07:35 Temperature 97.6 F 98.2 F Pulse Rate 84 83 Respiratory Rate 16 18 Blood Pressure 131/66 132/65 Pulse Oximetry 93 92 Fraction of Inspired Oxygen 21 Oxygen Delivery Method Room Air Oxygen Flow Rate 0 Narrative Exam Narrative: Pleasant 78 year old female resting comfortably in bed. Alert and oriented in no acute distress. Dressing in place over right posterior hip is CDI. Patient able to flex/extend the hip and ankle. Sensation intact to light touch. Calves soft, compressible. Palpable pedal pulse. Objective Labs Result Diagrams: 07/16/19 05:25 07/16/19 05:25 Labs: Laboratory Results - last 24 hr 07/16/19 07/16/19 05:25 05:25 WBC 8.5 RBC 3.74 L Hgb 11.8 L Hct 34.5 L MCV 92.3 MCH 31.6 MCHC 34.2 RDW 13.0 Plt Count 189 Neut % (Auto) 81.6 H Lymph % (Auto) 10.5 L Cataño % (Auto) 6.3 Eos % (Auto) 1.3 L Baso % (Auto) 0.3 Neut # (Auto) 7000 Lymph # (Auto) 900 L Cataño # (Auto) 500 Eos # (Auto) 100 Baso # (Auto) 0 Sodium 139 Potassium 3.6 Chloride 102 Carbon Dioxide 31 BUN 15 Creatinine 0.60 Estimated GFR > 60.0 BUN/Creatinine Ratio 25.0 H Glucose 100 Calcium 8.3 L Magnesium 2.1 Assessment & Plan Post-op Postoperative Procedures: Procedures Operation Date: 07/14/19 16:30 Actual Procedures Side Surgeon p Hip Hemiarthroplasty Clemente Left Latricia A MD Senthil Patient progressing well post operatively. She may weight bear as tolerated. ASA 81mg BID for DVT prophylaxis. Continue pain control. She should follow up with ortho outpatient in 2 weeks. Quality VTE Deep Vein Thrombosis/Pulmonary Embolism Present on Admission: No
--- NOTE | 2019-07-16 10:55 | PT.IPTN ---
Current Diagnoses Other osteoporosis with current pathological fracture, left femur, initial encounter for fracture (07/13/19) Surgery Performed Operation Date: 07/14/19 16:30 Actual Procedures p Hip Hemiarthroplasty Clemente(Left) - Latricia Ndiaye MD Physical Therapy Treatment Note M2 PT-IP Current Condition Start: 07/14/19 08:17 Freq: NEEDED Status: Active Protocol: Document 07/15/19 10:02 AB (Rec: 07/15/19 13:49 AB [id number]) Physical Therapy Current Condition Current Condition Evaluation Date 07/15/19 Treatment Diagnosis L femoral neck fx s/p NOEL posterior approach; difficulty in walking Onset Date 07/13/19 Precautions Posterior Hip Precautions No Hip Flexion > 90 degrees,No Hip Internal Rotation,No Hip Adduction Other Precautions L AFO Weight Bearing Status Weight Bearing Status Weight Bear as Tolerated M3 PT-IP Subjective Start: 07/14/19 08:17 Freq: NEEDED Status: Active Protocol: Document 07/16/19 10:55 AB (Rec: 07/16/19 11:31 AB [id number]) Subjective Physical Therapy Visit Type Type Treatment Note Visit Start Time 10:55 Visit Stop Time 11:20 Total Visit Minutes 25 Number of FARM LOAN REPRESENTATIVE Visits 0 Physical Therapy Visit Comments Patient Comments pt agreeable to do PT Therapy Pain Assessment Pain When Pain Assessed During Mobility Pain Present Pain Present Pain Reported Location Left Hip Intensity 4 Scale Used Numeric (1 - 10) Pain Management Techniques Apply Cold,Timing of Activity with Medications M4 PT-IP Mobility and Gait Start: 07/14/19 08:17 Freq: NEEDED Status: Active Protocol: Document 07/16/19 10:55 AB (Rec: 07/16/19 11:31 AB [id number]) PT-Bed Mobility Assessment Supine to Sit Supine to Sit Standby Assistance Scooting Scooting to Edge of Bed Standby Assistance PT-Transfer Assessment Sit to and From Stand Sit to and from Stand Standby Assistance,Contact Guard Assistance,1 Person Assistance,Use of Upper Extremities Equipment Transfer Assistive Device Gait Belt,Front Wheeled Walker Orthotic/Prosthetic Devices or Brace: Yes Transfers Transfer Destination Chair Transfer Technique Stand Step Pivot Transfer Ability Level of Assist Contact Guard Assistance Comments Mobility Comments caregiver training conducted. spouse was able to assist pt with bed mobility, transfers and ambulation using FWW. Gait Assessment Gait Gait Assistance Required: Standby Assistance,Contact Guard Assist Distance (Feet) 75 Able to Maintain Weight Bearing Status Yes During Gait Assistive Devices Assistive Device Gait Belt,Front Wheeled Walker Orthotic/Prosthetic Devices or Brace: Yes Gait Deviations General Gait Pattern Antalgic,Decreased Stride Length,Decreased Feet Clearance Factors Limiting Gait Function Factors Limiting Gait Function Decreased Activity Tolerance, Decreased Strength,Limited Range of Motion,Pain,Poor Balance,Poor Safety Awareness Stair Climbing Assessment Comments Stair Climbing Comments stair training conducted yesterday with spouse and pt feels confident with it and does not want to do steps today M5 PT-IP Objective Assessments Start: 07/14/19 08:17 Freq: NEEDED Status: Active Protocol: Document 07/15/19 10:02 AB (Rec: 07/15/19 13:49 AB [id number]) Orientation Orientation/Cognition Level of Alertness Alert Orientation Name,Age,Birthday,Month,Date, Year,Day of Week,Place, Situation Safety Awareness Decreased Safety Awareness Memory Description Short Term Impaired Gross Range of Motion Lower Extremity ROM Assessment Within Functional Limits Strength Lower Extremity Strength Assessment Left Impaired Hip 3+/5 Knee 3+/5 Sensation Assessment Sensation Gross Sensation WNL Muscle Tone Muscle Tone WNL Yes M6 PT-IP Treatment Start: 07/14/19 08:17 Freq: NEEDED Status: Active Protocol: Document 07/16/19 10:55 AB (Rec: 07/16/19 11:31 AB [id number]) Physical Therapy Treatment Exercises Exercises Heel Slides Education Education Provided Precautions,Safety M7 PT-IP Assessment and Plan Start: 07/14/19 08:17 Freq: NEEDED Status: Active Protocol: Document 07/16/19 10:55 AB (Rec: 07/16/19 11:31 AB [id number]) PT Summary Assessment and Plan Potential Rehabilitation Potential Good Summary Impairments Pain,ROM,Strength,Balance, Coordination,Sensation,Tone, Cognition,Bed Mobility, Transfers,Gait,Activity Tolerance Progress Towards Goals Progressing Toward Goals Assessment Summary caregiver training conducted and spouse was able to assist and cue pt. pt plans to go home today. Goals Bed Mobility Goal Independent Transfer Goal Independent,Front Wheeled Walker Gait Goal Independent,Front Wheel Walker Gait Distance 200 Other Goals up/down 2 steps without rails using SPC CGA Days to Meet Goals 5 Frequency of Treatment Frequency Of Treatment Twice a Day Treatment Plan Physical Therapy Treatment Plan Bed Mobility Training,Transfer Training,Gait Training, Therapeutic Exercise,Balance Retraining,Post Op Education, Discharge Planning,Hot or Cold Pack,Neuromuscular Re-ed, Coordination Retraining,Manual Therapy Other Recommendations and Next Treatment cargiver training, stair Focus climbing Recommendations To Nursing Amount of Assist Needed 1 Person Assist Discharge Recommendations PT Discharge Recommendations Home with 24/ Assist, Outpatient PT Equipment Needed for Home Before FWW Discharge
--- NOTE | 2019-07-16 12:54 | CM.DPC ---
DCP: continued: pt now with a d/c to home order. EMR reviewed and met with pt. Her not currently in room but is here to drive her home. Pt says they are wondering if it is possible to rent a bedside recliner like the one in her room. She notes seat is flat and it will be better for her as she recovers than a standard home recliner. Was unable to find a PT to confer with so did give her the [employer] information as they are large and do rent and deliver many pieces of equipment. Pt says she will check on this and is thankful for the information. She says if they cannot get one I will be fine. We just thought it would be nice to have for awhile. p: home today.
--- NOTE | 2019-07-16 13:36 | PC.NURSE ---
Day Shift- Discharge Summary packet instructions given to pt by RN Coordinator Ellen. Pt left unit at 1335 in no distress via wheelchair with all belongings. [employer] escort and her present to drive her home.
== END 2019-07-16 13:35 | disposition home or self-care (01) | DRG 470 ==
LOC: ED 17:55 → AC 17:55
PROVIDERS: Internal Medicine; Orthopaedic Surgery; Admitting Provider Internal Medicine; Emergency Provider Emergency Medicine; PCP Internal Medicine; Visit Provider Internal Medicine
PROC: 0SRS0JZ Replacement of Left Hip Joint, Femoral Surface with Synthetic Substitute, Open Approach (ICD-10-PCS; CPT 27125; principal; 2019-07-14 16:30)
DX: M80.852A Other osteoporosis with current pathological fracture, left femur, initial encounter for fracture (principal); C50.919 Malignant neoplasm of unspecified site of unspecified female breast; E87.6 Hypokalemia; E78.5 Hyperlipidemia, unspecified; W18.30XA Fall on same level, unspecified, initial encounter; J45.909 Unspecified asthma, uncomplicated
CPT/HCPCS: 36415; 72170; 73502; 80048; 80053; 83735; 85025; 85610; 85730; 93005; 93010; 94762; 96374; 96375; 97116; 97161; 97165; 97530; 97535; 99283; 99284; C1776; C9290; J0171; J0690; J1100; J1170; J1885; J2060; J2250; J2405; J2704; J3010

== ENCOUNTER → 2019-07-30 08:32 | Outpatient (CLI) | payer MEDICARE, OTHER, SELFPAY ==
[2019-07-13 18:58] VITALS: BMI 24.1
--- NOTE | 2019-07-30 08:34 | DI.US.S_ITS ---
LIMITED ULTRASOUND OF RIGHT BREAST: 07/30/2019 CLINICAL: Post right lumpectomy. Comparison is made to exams dated: 07/30/2019 mammogram, 07/08/2018 mammogram - [facility], 06/30/2017 mammogram, 05/30/2016 mammogram, 05/10/2015 mammogram, and 10/26/2014 mammogram - [facility]. Color flow and real-time ultrasound of the right breast upper outer quadrant were performed. Wade scale images of the real-time examination were reviewed. Targeted ultrasound was performed in the region of the patient's reported focal palpable area of concern in the upper outer right breast near 9:00 posiiton 5 cm from the nipple demonstrates heterogenously hypoechoic parenchymal scarring with no significant or suspicious vascularity on Doppler imaging. There is a 1.0 x 0.7 x 07 cm oval circumscribed cyst with posterior acoustic enhancement, minimal internal echogenic debris, and no vascularity on Doppler imaging, consistent with a benign complicated/oil cyst. This correlates with mammography findings. No underlying suspicious breast mass or abnormality is identified. IMPRESSION: BENIGN 1) Patient's reported focal painful palpable area of concern correlates with parenchymal scarring from her prior lumpectomy with a 1.0 x 0.7 x 0.7 cm benign-appearing complicated cyst, consistent with an oil cyst/fat necrosis. Recommend clinical follow-up for further evaluation and management of the patient's reported symptoms. 2) There is no sonographic evidence of malignancy in the imaged areas of the right breast. Return to annual screening mammography schedule is recommended. The patient is advised to monitor her breasts and to return sooner for re-evaluation should she feel anything grow or change. This exam was interpreted at Station ID: [id number]. Electronically Signed By: Alan Bland M.D. ecl/:07/30/2019 10:08:31 letter sent: Clinical Evaluation Ultrasound BI-RADS: 2 Benign
--- NOTE | 2019-07-30 08:34 | DI.MG.S_ITS ---
BILATERAL DIGITAL DIAGNOSTIC MAMMOGRAM 3D/2D POST LUMPECTOMY: 07/30/2019 CLINICAL: Right breast lump. Comparison is made to exams dated: 07/08/2018 mammogram - [facility], 06/30/2017 mammogram, and 05/30/2016 mammogram - [facility]. The tissue of both breasts is heterogeneously dense. This may lower the sensitivity of mammography. There is a triangular marker overlying the skin of the upper outer right breast at the site of the patient's reported palpable abnormality. There is extensive postsurgical change with surgical clips, parenchymal scarring, and fat necrosis immediately underlying the marker at this site, correlating with history of prior lumpectomy. The postsurgical changes appear stable to prior comparison exams with no new masses or suspicious abnormalities identified after spot compression and tomosynthesis views. There are overlying linear scar markers There are bilateral sariah-shaped calcifications consistent with benign secretory calcifications. No suspicious masses, calcifications, or other findings are seen in either breast. IMPRESSION: INCOMPLETE: NEEDS ADDITIONAL IMAGING EVALUATION Patient's site of reported focal palpable abnormality in the upper outer right breast correlates with extensive postsurgical changes that are stable to prior comparison exams. No new suspicious masses or abnormalities are identified in the area of concern by mammography. Targeted diagnostic ultrasound recommended for further evaluation, which will be performed immediately following this exam. This exam was interpreted at Station ID: [id number]. NOTE: For mammograms, a report in lay terms will be sent to the patient. Approximately 15% of breast malignancies will not be visualized mammographically. In the management of a palpable breast mass, a negative mammogram must not discourage biopsy of a clinically suspicious lesion. Electronically Signed By: Alan Bland M.D. ecl/:07/30/2019 09:29:36 ACR BI-RADS Category 0: Incomplete [id number]
--- NOTE | 2019-07-30 08:41 | DI.CT.S_ITS ---
PROCEDURE: CT CHEST WO CON INDICATIONS: Indeterminate nodules TECHNIQUE: Noncontrast 2.0-2.5 mm thick sections acquired from the pulmonary apices to the posterior costophrenic angles. 7 mm thick axial MIP and 5 mm coronal and sagittal reformats were then acquired. A low radiation dose technique was utilized. COMPARISON: CT abdomen 07/28/2018, 04/28/2018, CXR 05/04/2018. FINDINGS: Image quality: Diagnostic, given the low radiation dose technique. Lungs and pleura: -Nodular opacity at the left lung base measuring 1.8 x 1.3 cm, (3/274), new. -Lateral left lower lobe juxtapleural nodule measuring a 0.5 x 0.4 cm, (3/235), previously 0.6 x 0.5 cm and unchanged since 07/28/2018. -Left lower lobe pulmonary nodule measuring 3 mm (3/224), previously 3 mm. -Nodular opacity at the right lung base measuring 1.7 x 1 cm, (3/289), new. -Opacity at the right lung base measuring 2.4 x 1.5 cm, (3/260), new less defined. -Right lung base juxtapleural nodule measuring 0.9 x 0.8 cm, (3/259), new. -Subtle ill-defined ground glass opacity in the right upper lobe, (3/80). Mediastinum: Heart size is normal. No pericardial effusion. No mediastinal adenopathy by size criteria. Thoracic aorta and central pulmonary arteries are normal in size. Esophagus is normal in caliber. No hiatal hernia. Bones and chest wall: No suspicious bony lesions. DDD. No vertebral body compression fractures. A prior right breast lumpectomy. Prior right axillary lymph node dissection. No axillary or supraclavicular adenopathy by size criteria. Thyroid gland is unremarkable. Abdomen: Visualized upper abdomen solid organs and bowel loops appear normal in the absence of contrast. Stable small hepatic cysts. IMPRESSION: 1. Several new nodular opacities at the lung bases bilaterally. Differential diagnosis includes infectious/inflammatory consolidative opacity, pulmonary nodules, atelectasis, and less likely metastatic disease. 2. Previously seen left lower lobe right nodules are stable. Recommend short interval followup chest CT in 3-[address] with the patient in prone position may be helpful for ruling out atelectasis. If the patient is high-risk for metastatic disease PET/CT could also be considered for further evaluation. Fleischner Society criteria for SOLID lung nodule followup. Nodule size (mm)Low-risk patientHigh-risk patient<6 (single or multiple)No routine followup.Optional CT at 12 months. 6-8 (single or multiple)CT at 6-12 months, then optional CT at 18-24 mo.CT at 6-12 months, then CT at 18-24 months. >8 (single)CT at 3 months, PET-CT, or biopsy. Same as for low-risk pts. >8 (multiple)CT at 3-6 months, then optional CT at 18-24 mo.CT at 3-6 months, then CT at 18-24 months. Fleischner Society criteria for SUB-SOLID lung nodule followup. Solitary pure ground-glass nodules<6 mm (ground glass or part solid)No followup needed. 6 mm or larger (ground glass)CT at 6-12 months to confirm persistence, then CT every 2 years until 5 years.6 mm or larger (part solid)CT at 3-6 months to confirm persistence, then annual CT until 5 years if unchanged and solid component remains <6 mm. Multiple sub-solid nodules<6 mmCT at 3-6 months, then CT consider at 2 & 4 years for high risk patients. [address] at 3-6 months. Subsequent management based on most suspicious lesions. Recommendations do not apply to lung cancer screening, patients with immunosuppression, or patients with known primary cancer. Dictated by: Chaitanya Menendez M.D. on 07/30/2019 at 12:11 Approved by: Chaitanya Menendez M.D. on 07/30/2019 at 12:33
== END ==
PROVIDERS: Family Provider Internal Medicine
DX: C50.919 Malignant neoplasm of unspecified site of unspecified female breast (principal); R91.8 Other nonspecific abnormal finding of lung field; R92.8 Other abnormal and inconclusive findings on diagnostic imaging of breast; N60.01 Solitary cyst of right breast; L90.5 Scar conditions and fibrosis of skin
CPT/HCPCS: 71250; 76642; 77066; G0279

== ENCOUNTER → 2019-09-02 13:19 | Outpatient (CLI) | payer MEDICARE, OTHER, SELFPAY | PROVIDERS: Family Provider Internal Medicine; PCP Internal Medicine; Referring Provider Internal Medicine Endocrinology, Diabetes & Metabolism; Visit Provider Internal Medicine | DX: M81.0 Age-related osteoporosis without current pathological fracture (principal); Z78.0 Asymptomatic menopausal state; Z85.3 Personal history of malignant neoplasm of breast; Z87.891 Personal history of nicotine dependence | CPT/HCPCS: 77080; 77081 ==

== ENCOUNTER 2019-09-28 12:15 | Outpatient (RCR) | payer MEDICARE, OTHER, SELFPAY ==
--- NOTE | 2019-08-05 14:30 | PT.OPPOC ---
Current Diagnoses Stiffness of left hip, not elsewhere classified (08/05/19) Other abnormalities of gait and mobility (08/05/19) Weakness (08/05/19) History of falling (08/05/19) Presence of left artificial hip joint (08/05/19) Visit Care Team Role Provider Type Primary Care Provider Specialty: Address: Phone: Fax: Email: PATRICIA Ellison Family Provider Advanced Rigger Chief Specialty: Family Practice Address: [address] [place] [address], [facility] [place], [address] Email: [email or web address] Isamar Dueñas PA-C Attending Provider Advanced Rigger Chief Specialty: Orthopedics Address: [address] [place] [address], [id number] Email: [email or web address] Plan Of Care PT-OP-T Assessment and Plan Start: 08/06/19 08:35 Freq: Status: Active Protocol: Document 08/05/19 13:45 DCW (Rec: 08/06/19 13:22 DCW [id number]) Physical Therapy Assessment Rehab Potential Rehabilitation Potential Excellent Evaluation Complexity Number of Personal Factors/Comorbidities 1-2 Number of Body Systems Impaired 1-2 Clinical Presentation at Evaluation Stable Impairments Impairments Activity Tolerance,Functional Mobility,Gait,ROM,Strength Goals Three Impairment Pt displays left hip weakness following hemiarthroplasty Intermediate Goal (LTG) Pt to display L hip MMT at least 4/5 with flexion, abduction, and ER/IR LTG Duration 10/05/19 Two Impairment Pt walking less than one mile daily Intermediate Goal (LTG) Pt to return to her two mile walks with her walking group LTG Duration 10/05/19 One Impairment Pt does not have an appropriate home exercise program Short Term Goal (STG) Pt to be independent and compliant with an appropriate HEP STG Duration 09/05/19 Assessment Summary Assessment Pt is a 78 year old female presenting three and a half weeks s/p left hip hemiarthroplasty following a GLF. Pt is going well after surgery, not experiencing much , if any, pain with mobility or walking. Pt to follow posterior hip precautions, pt needed review with motions other than 90? flexion. Pt ambulating well, able to complete 801' during 6 MWT, and a 11.5 second TUG. Pt should benefit from skilled therapy focusing on gait to decrease dependence on FWW, increased activity tolerance, LE strengthening, and ROM within the confines of posterior hip precautions. Physical Therapy Plan Frequency and Duration Frequency of Treatment 2x/Week Duration of Treatment 10 weeks Plan of Care Start Date 08/05/19 Plan of Care End Date 10/14/19 Therapeutic Interventions Therapeutic Interventions Aquatic Therapy,Gait Training, Home Exercise Program,Joint Mobilizations,Manual Therapy, Neuromuscular Re-education, Patient/Caregiver Education, Self-Care/Home Management,Soft Tissue Mobilization, Therapeutic Activities, Therapeutic Exercises Modalities Cold Pack/Ice Massage,Electric Stimulation,Hot Packs, Ultrasound Next Visit Focus/Plan Next Note Type Treatment Note Next Visit Plan Hip ROM, strengthening, gait training, improved activity tolerance Plan of Care Dates Plan of Care Start Date 08/05/19 Plan of Care End Date 10/14/19
--- NOTE | 2019-08-05 14:30 | PT.OIE ---
Current Diagnoses Stiffness of left hip, not elsewhere classified (08/05/19) Other abnormalities of gait and mobility (08/05/19) Weakness (08/05/19) History of falling (08/05/19) Presence of left artificial hip joint (08/05/19) Past Medical History (Last Reviewed 07/14/19 @ 15:44 by Latricia Ndiaye MD) Ankle fracture, right (Resolved) Cancer of right breast, stage 1, estrogen receptor positive (Chronic) Foot pain (Chronic ~2012) Osteopenia (Chronic) Seasonal allergies (Chronic ~1994) Past Surgical History (Last Reviewed 07/14/19 @ 15:44 by Latricia Ndiaye MD) Anesthesia (Resolved) History of bladder suspension procedure (~1989) S/P lumpectomy, right breast (Resolved) Status post appendectomy (~1946) Status post hysterectomy (~1979) Visit Care Team Role Provider Type Primary Care Provider Specialty: Address: Phone: Fax: Email: PATRICIA Ellison Family Provider Advanced License And Permit Specialist Specialty: Family Practice Address: [address] [place] [address], [id number] Email: [email or web address] Isamar Dueñas PA-C Attending Provider Advanced License And Permit Specialist Specialty: Orthopedics Address: [address] [place] [address], [id number] Email: [email or web address] Physical Therapy Initial Evaluation PT-OP-A Visit Information Start: 08/06/19 08:35 Freq: Status: Active Protocol: Document 08/05/19 13:45 DCW (Rec: 08/06/19 13:22 DC [id number]) Out-Patient Physical Therapy Visit Information Visit Information Visit Type Initial Evaluation Visit Start Time 13:45 Visit Stop Time 14:30 Total Visit Minutes 45 Visit Number 1 Number of CASING MAN Visits 0 Evaluation Information Evaluation Date 08/05/19 PT-OP-B Current Condition Start: 08/06/19 08:35 Freq: Status: Active Protocol: Document 08/05/19 13:45 DCW (Rec: 08/06/19 13:22 DCW [id number]) Current Condition History of Current Condition Onset Date 07/13/19 Current Complaints Left hip hemiarthroplasty History of Current Condition Pt is a 78 year old female who suffered a fall on 07/13/19 while walking her dog. She was brought in to ED, was found to have suffered a mildly displaced left femoral neck fracture. Pt underwent a left hip cemented hemiarthroplasty the following day, and received post-op instructions to follow posterior hip precautions. Pt feels so far she is doing very well ~3 weeks post-op, is not experiencing much pain or movement limitations. Pt is currently using a FWW when out of the house, but is ambulating independently in her home. She does admit to difficulty sleeping since surgery, however this is more due to her trying to sleep on her back and being uncomfortable in that position , rather than any actually experiencing pain. Pt notes her goal is to get back to the way I was, and return to walking her dogs and walking with a group of friends several times a week. Pt admits that she has not been doing any HEP at home, does not think anyone told her to do anything. Prior Treatments and Tests left hip cemented hemiarthroplasty on 07/14/19 Treatment Goals Patient/Caregiver Goals Return to walking two miles with friends around [facility] and [facility]. Prior Functional Status Baseline Function- ADL's Independent Baseline Function- Mobility Independent Baseline Function- Gait Walk dogs 2x/day, walk /c group of friends 2+ miles several times per week Current Functional Impairments (Reported) Functional Limitations- Mobility/Gait Limited to household distances with no AD, community ambulation with FWW, ambulates less than one mile each day PT-OP-C Subjective Start: 08/06/19 08:35 Freq: Status: Active Protocol: Document 08/05/19 13:45 DCW (Rec: 08/06/19 13:22 DCW [id number]) Patient Questionnaires Lower Extremity Functional Scale LEFS Score 16/80 = 20% LEFS Impairment 80 to 99% Impaired (Score 1-16 ) OP-PT Pain Assessment Pain Assessment Grid Paper Pain Assessment Grid Completed Yes Location Left Hip Intensity 1 Scale Used Numeric (1 - 10) Description Burning Description- Other Occasional burning at incision site PT-OP-E Functional Tests Start: 08/06/19 08:35 Freq: Status: Active Protocol: Document 08/05/19 13:45 DCW (Rec: 08/06/19 13:22 DCW [id number]) Functional Tests 6 Minute Walk Test Distance 801' Device Used FWW Comments 2.22 ft/sec Timed Up and Go (TUG) Score 11.58 seconds Comments 3-trial average (11.42, 11.69, 11.62) TUG Impairment Rating 1 to <20% Impaired (Score 11) PT-OP-F Manual Assessment Start: 08/06/19 08:35 Freq: Status: Active Protocol: Document 08/05/19 13:45 DCW (Rec: 08/06/19 13:22 DCW [id number]) Manual Assessments Soft Tissue Assessment Soft Tissue Mobility Assessment Post-op effusion along left lateral hip Joint Mobility Assessment Joint Mobility Assessment Appropriate join mobility within posterior hip precautions PT-OP-K Range of Motion Start: 08/06/19 08:35 Freq: Status: Active Protocol: Document 08/05/19 13:45 DCW (Rec: 08/06/19 13:22 DCW [id number]) Hip Goniometric Range of Motion Hip Left Testing Position Supine Flexion w/Knee Flexed 90 Abduction 32 Hip ROM Limitations Comments Within posterior hip precautions PT-OP-M Strength Start: 08/06/19 08:35 Freq: Status: Active Protocol: Document 08/05/19 13:45 DCW (Rec: 08/06/19 13:22 DCW [id number]) Hip Strength Hip Manual Muscle Testing Right Flexion (L2) 4+ Good+ Abduction 4 Good Adduction 4 Good External Rotation 4 Good Internal Rotation 4+ Good+ Left Flexion (L2) 4- Good- Abduction 3 Fair Adduction 4 Good External Rotation 3 Fair Internal Rotation 3+ Fair+ PT-OP-Q Treatments Start: 08/06/19 08:35 Freq: Status: Active Protocol: Document 08/05/19 13:45 DCW (Rec: 08/06/19 13:22 DCW [id number]) Therapeutic Exercises Supine Exercises 3 Supine Exercise Name SLR Side left 2 Supine Exercise Name Glute Sets Side bilateral 1 Supine Exercise Name Quad Sets Side left Standing Exercises 1 Standing Exercise Name Standing Abduction Side bilateral PT-OP-T Assessment and Plan Start: 08/06/19 08:35 Freq: Status: Active Protocol: Document 08/05/19 13:45 DCW (Rec: 08/06/19 13:22 DCW [id number]) Physical Therapy Assessment Rehab Potential Rehabilitation Potential Excellent Evaluation Complexity Number of Personal Factors/Comorbidities 1-2 Number of Body Systems Impaired 1-2 Clinical Presentation at Evaluation Stable Impairments Impairments Activity Tolerance,Functional Mobility,Gait,ROM,Strength Goals Three Impairment Pt displays left hip weakness following hemiarthroplasty Gericare Aide Goal (LTG) Pt to display L hip MMT at least 4/5 with flexion, abduction, and ER/IR LTG Duration 10/05/19 Two Impairment Pt walking less than one mile daily Intermediate Goal (LTG) Pt to return to her two mile walks with her walking group LTG Duration 10/05/19 One Impairment Pt does not have an appropriate home exercise program Short Term Goal (STG) Pt to be independent and compliant with an appropriate HEP STG Duration 09/05/19 Assessment Summary Assessment Pt is a 78 year old female presenting three and a half weeks s/p left hip hemiarthroplasty following a GLF. Pt is going well after surgery, not experiencing much , if any, pain with mobility or walking. Pt to follow posterior hip precautions, pt needed review with motions other than 90? flexion. Pt ambulating well, able to complete 801' during 6 MWT, and a 11.5 second TUG. Pt should benefit from skilled therapy focusing on gait to decrease dependence on FWW, increased activity tolerance, LE strengthening, and ROM within the confines of posterior hip precautions. Physical Therapy Plan Frequency and Duration Frequency of Treatment 2x/Week Duration of Treatment 10 weeks Plan of Care Start Date 08/05/19 Plan of Care End Date 10/14/19 Therapeutic Interventions Therapeutic Interventions Aquatic Therapy,Gait Training, Home Exercise Program,Joint Mobilizations,Manual Therapy, Neuromuscular Re-education, Patient/Caregiver Education, Self-Care/Home Management,Soft Tissue Mobilization, Therapeutic Activities, Therapeutic Exercises Modalities Cold Pack/Ice Massage,Electric Stimulation,Hot Packs, Ultrasound Next Visit Focus/Plan Next Note Type Treatment Note Next Visit Plan Hip ROM, strengthening, gait training, improved activity tolerance
--- NOTE | 2019-08-09 14:27 | PT.OTN ---
Current Diagnoses Stiffness of left hip, not elsewhere classified (08/09/19) Other abnormalities of gait and mobility (08/09/19) Weakness (08/09/19) History of falling (08/09/19) Presence of left artificial hip joint (08/09/19) Physical Therapy Treatment Note PT-OP-A Visit Information Start: 08/06/19 08:35 Freq: Status: Active Protocol: Document 08/09/19 15:20 SP (Rec: 08/09/19 15:34 SP [email or web address]) Out-Patient Physical Therapy Visit Information Visit Information Visit Type Treatment Note Visit Start Time 13:45 Visit Stop Time 14:27 Total Visit Minutes 42 Visit Number 2 Number of [employer] COMBINATION Visits 1 PT-OP-B Current Condition Start: 08/06/19 08:35 Freq: Status: Active Protocol: Document 08/05/19 13:45 DCW (Rec: 08/06/19 13:22 DCW [id number]) Current Condition History of Current Condition Onset Date 07/13/19 Current Complaints Left hip hemiarthroplasty History of Current Condition Pt is a 78 year old female who suffered a fall on 07/13/19 while walking her dog. She was brought in to [facility] ED, was found to have suffered a mildly displaced left femoral neck fracture. Pt underwent a left hip cemented hemiarthroplasty the following day, and received post-op instructions to follow posterior hip precautions. Pt feels so far she is doing very well ~3 weeks post-op, is not experiencing much pain or movement limitations. Pt is currently using a FWW when out of the house, but is ambulating independently in her home. She does admit to difficulty sleeping since surgery, however this is more due to her trying to sleep on her back and being uncomfortable in that position , rather than any actually experiencing pain. Pt notes her goal is to get back to the way I was, and return to walking her dogs and walking with a group of friends several times a week. Pt admits that she has not been doing any HEP at home, does not think anyone told her to do anything. Prior Treatments and Tests left hip cemented hemiarthroplasty on 07/14/19 Treatment Goals Patient/Caregiver Goals Return to walking two miles with friends around [facility] and [facility]. Prior Functional Status Baseline Function- ADL's Independent Baseline Function- Mobility Independent Baseline Function- Gait Walk dogs 2x/day, walk /c group of friends 2+ miles several times per week Current Functional Impairments (Reported) Functional Limitations- Mobility/Gait Limited to household distances with no AD, community ambulation with FWW, ambulates less than one mile each day PT-OP-C Subjective Start: 08/06/19 08:35 Freq: Status: Active Protocol: Document 08/09/19 15:35 SP (Rec: 08/09/19 15:36 SP [email or web address]) OP-PT Subjective Patient Comments Patient Comments Pt reported no pain but does experience tightness anterior L hip pre PT, is compliant with HEP given by physician post op. Patient Reported Progress Improving PT-OP-E Functional Tests Start: 08/06/19 08:35 Freq: Status: Active Protocol: Document 08/05/19 13:45 DCW (Rec: 08/06/19 13:22 DCW [id number]) Functional Tests 6 Minute Walk Test Distance 801' Device Used FWW Comments 2.22 ft/sec Timed Up and Go (TUG) Score 11.58 seconds Comments 3-trial average (11.42, 11.69, 11.62) TUG Impairment Rating 1 to <20% Impaired (Score 11) PT-OP-F Manual Assessment Start: 08/06/19 08:35 Freq: Status: Active Protocol: Document 08/05/19 13:45 DCW (Rec: 08/06/19 13:22 DCW [id number]) Manual Assessments Soft Tissue Assessment Soft Tissue Mobility Assessment Post-op effusion along left lateral hip Joint Mobility Assessment Joint Mobility Assessment Appropriate join mobility within posterior hip precautions PT-OP-K Range of Motion Start: 08/06/19 08:35 Freq: Status: Active Protocol: Document 08/05/19 13:45 DCW (Rec: 08/06/19 13:22 DCW [id number]) Hip Goniometric Range of Motion Hip Left Testing Position Supine Flexion w/Knee Flexed 90 Abduction 32 Hip ROM Limitations Comments Within posterior hip precautions PT-OP-M Strength Start: 08/06/19 08:35 Freq: Status: Active Protocol: Document 08/05/19 13:45 DCW (Rec: 08/06/19 13:22 DCW [id number]) Hip Strength Hip Manual Muscle Testing Right Flexion (L2) 4+ Good+ Abduction 4 Good Adduction 4 Good External Rotation 4 Good Internal Rotation 4+ Good+ Left Flexion (L2) 4- Good- Abduction 3 Fair Adduction 4 Good External Rotation 3 Fair Internal Rotation 3+ Fair+ PT-OP-Q Treatments Start: 08/06/19 08:35 Freq: Status: Active Protocol: Document 08/09/19 15:20 SP (Rec: 08/09/19 15:34 SP [email or web address]) Therapeutic Exercises Supine Exercises 4 Supine Exercise Name Double leg bridge Side bilateral Reps/Minutes 3x10 Comments slow controlling, tolerable range 3 Supine Exercise Name SLR Side left Resistance AROM Reps/Minutes 3x10 LLE 2 Supine Exercise Name Glute Sets Side bilateral Reps/Minutes 10 x10 1 Supine Exercise Name Quad Sets Side left Reps/Minutes 10 x10 Prone Exercises knee flexion/hs curl Resistance AROM Reps/Minutes initially use to prone position, [id number] Comments slow controlled, cued heel in line with thigh, NO IR ( footfall out to side) Standing Exercises 3 Standing Exercise Name heel/ toe raises Reps/Minutes 3x10 Comments contact support FWW, upright posture 2 Standing Exercise Name marching Reps/Minutes 2x10 Comments contact support fww, upright posture 1 Reps/Minutes 2x10 Comments contact support FWW, upright posture Gait Training Gait Activity forward/back/side stepping Device Used //bar Level of Assistance SBA Surface level Distance/Duration 10 ft x2 laps each Treatment Focus glut activation, level pelvis Comments Cued for LLE glut tightening during RLE transitioning to decreased hip depression, improvement. PT-OP-T Assessment and Plan Start: 08/06/19 08:35 Freq: Status: Active Protocol: Document 08/09/19 15:20 SP (Rec: 08/09/19 15:34 SP [email or web address]) Physical Therapy Assessment Assessment Summary Assessment Pt tolerated tx well, reported no increased pain but some muscle tiring. Educated for neutral spine with slow muscular control to concentric /eccentric strengthening and upright postural alignment during standing ex, L glut activation with level pelvis to assist decrease R hip depression during stepping activities with noted improvement. Improvement in activity tolerance. Physical Therapy Plan Frequency and Duration Frequency of Treatment 2x/Week Duration of Treatment 10 weeks Plan of Care Start Date 08/05/19 Plan of Care End Date 10/14/19 Therapeutic Interventions Therapeutic Interventions Aquatic Therapy,Gait Training, Home Exercise Program,Joint Mobilizations,Manual Therapy, Neuromuscular Re-education, Patient/Caregiver Education, Self-Care/Home Management,Soft Tissue Mobilization, Therapeutic Activities, Therapeutic Exercises Modalities Cold Pack/Ice Massage,Electric Stimulation,Hot Packs, Ultrasound Next Visit Focus/Plan Next Note Type Treatment Note Next Visit Plan Hip ROM, strengthening, gait training, improved activity tolerance
--- NOTE | 2019-08-11 15:25 | PT.OTN ---
Current Diagnoses Stiffness of left hip, not elsewhere classified (08/11/19) Other abnormalities of gait and mobility (08/11/19) Weakness (08/11/19) History of falling (08/11/19) Presence of left artificial hip joint (08/11/19) Physical Therapy Treatment Note PT-OP-A Visit Information Start: 08/06/19 08:35 Freq: Status: Active Protocol: Document 08/11/19 15:27 SP (Rec: 08/11/19 15:48 SP [email or web address]) Out-Patient Physical Therapy Visit Information Visit Information Visit Type Treatment Note Visit Start Time 14:35 Visit Stop Time 15:25 Total Visit Minutes 50 Visit Number 3 Number of MINERAL INDU[employer] TEACHER Visits 2 Precautions Precautions Posterior hip precautions: 12/20 recall. PT-OP-B Current Condition Start: 08/06/19 08:35 Freq: Status: Active Protocol: Document 08/05/19 13:45 DCW (Rec: 08/06/19 13:22 DCW [id number]) Current Condition History of Current Condition Onset Date 07/13/19 Current Complaints Left hip hemiarthroplasty History of Current Condition Pt is a 78 year old female who suffered a fall on 07/13/19 while walking her dog. She was brought in to [facility] ED, was found to have suffered a mildly displaced left femoral neck fracture. Pt underwent a left hip cemented hemiarthroplasty the following day, and received post-op instructions to follow posterior hip precautions. Pt feels so far she is doing very well ~3 weeks post-op, is not experiencing much pain or movement limitations. Pt is currently using a FWW when out of the house, but is ambulating independently in her home. She does admit to difficulty sleeping since surgery, however this is more due to her trying to sleep on her back and being uncomfortable in that position , rather than any actually experiencing pain. Pt notes her goal is to get back to the way I was, and return to walking her dogs and walking with a group of friends several times a week. Pt admits that she has not been doing any HEP at home, does not think anyone told her to do anything. Prior Treatments and Tests left hip cemented hemiarthroplasty on 07/14/19 Treatment Goals Patient/Caregiver Goals Return to walking two miles with friends around [facility] and [place]. Prior Functional Status Baseline Function- ADL's Independent Baseline Function- Mobility Independent Baseline Function- Gait Walk dogs 2x/day, walk /c group of friends 2+ miles several times per week Current Functional Impairments (Reported) Functional Limitations- Mobility/Gait Limited to household distances with no AD, community ambulation with FWW, ambulates less than one mile each day PT-OP-C Subjective Start: 08/06/19 08:35 Freq: Status: Active Protocol: Document 08/11/19 15:27 SP (Rec: 08/11/19 15:48 SP [email or web address]) OP-PT Subjective Patient Comments Patient Comments Pt demonstrated antalgic gait with no AD use upon arrival today. Pt reported no pain just tight anterior L thigh pre PT, L hip got sore later in the day after last tx, applied cold pack which always helps. Pt stated her friends were commenting on her progress in getting around. Patient Reported Progress Improving PT-OP-E Functional Tests Start: 08/06/19 08:35 Freq: Status: Active Protocol: Document 08/05/19 13:45 DCW (Rec: 08/06/19 13:22 DCW [id number]) Functional Tests 6 Minute Walk Test Distance 801' Device Used FWW Comments 2.22 ft/sec Timed Up and Go (TUG) Score 11.58 seconds Comments 3-trial average (11.42, 11.69, 11.62) TUG Impairment Rating 1 to <20% Impaired (Score 11) PT-OP-F Manual Assessment Start: 08/06/19 08:35 Freq: Status: Active Protocol: Document 08/05/19 13:45 DCW (Rec: 08/06/19 13:22 DCW [id number]) Manual Assessments Soft Tissue Assessment Soft Tissue Mobility Assessment Post-op effusion along left lateral hip Joint Mobility Assessment Joint Mobility Assessment Appropriate join mobility within posterior hip precautions PT-OP-K Range of Motion Start: 08/06/19 08:35 Freq: Status: Active Protocol: Document 08/05/19 13:45 DCW (Rec: 08/06/19 13:22 DCW [id number]) Hip Goniometric Range of Motion Hip Left Testing Position Supine Flexion w/Knee Flexed 90 Abduction 32 Hip ROM Limitations Comments Within posterior hip precautions PT-OP-M Strength Start: 08/06/19 08:35 Freq: Status: Active Protocol: Document 08/05/19 13:45 DCW (Rec: 08/06/19 13:22 DCW [id number]) Hip Strength Hip Manual Muscle Testing Right Flexion (L2) 4+ Good+ Abduction 4 Good Adduction 4 Good External Rotation 4 Good Internal Rotation 4+ Good+ Left Flexion (L2) 4- Good- Abduction 3 Fair Adduction 4 Good External Rotation 3 Fair Internal Rotation 3+ Fair+ PT-OP-Q Treatments Start: 08/06/19 08:35 Freq: Status: Active Protocol: Document 08/11/19 15:27 SP (Rec: 08/11/19 15:48 SP [email or web address]) Therapeutic Exercises Supine Exercises 5 Supine Exercise Name clam shell Side right Equipment Used AROM (unable add band) Reps/Minutes 3x5 Comments cued small pillow betweens to assist with IR precautions 4 Supine Exercise Name Double leg bridge Side bilateral Equipment Used Level 1 TB (added for HEP) Reps/Minutes 3x5 Comments cued hold bridge then perform abd, tolerated 5 reps before rest. 3 Supine Exercise Name SLR Side left Resistance AROM Reps/Minutes x10 LLE (review HEP) 1 Supine Exercise Name Quad Sets Side left Reps/Minutes 10 x10 Standing Exercises step up Equipment Used 4 step Reps/Minutes 3x10 Comments lead with R up/down, can perform L leading of not using momentum compens. eccentric step down Equipment Used 4 step Reps/Minutes 3x5 R and L Comments knee aligned with and not passed toes Gait Training Gait Activity stair mgt Description patterning stair Device Used 2 rails ascend, descend Level of Assistance SBA Surface 4 steps Treatment Focus increase confidence with stair mgt Comments Cued for patterning step to ascending RLE lead secondary to weak/difficult step over step, good step over step. forward/back/side stepping Description Level 1 Tb around distal thigh Device Used no AD Level of Assistance SBA Surface level Distance/Duration 10 ft x2 laps each Treatment Focus glut facilitation, level pelvis Comments Cued for level pelvis to decrease hip hike to R, improvement post cues. Manual Therapy Treatment Soft Tissue Mobilization stick rolling Body Location stick or tennis ball quad Mobilization Type Rolling Intensity/Depth Superficial Body Position Standing Comments gentle pressure for tolerance to decrease reported thigh tension. PT-OP-T Assessment and Plan Start: 08/06/19 08:35 Freq: Status: Active Protocol: Document 08/11/19 15:27 SP (Rec: 08/11/19 15:48 SP [email or web address]) Physical Therapy Assessment Assessment Summary Assessment Pt tolerated ther ex and increased resistance added today with no adverse affects. Pt is progressing wtih decreased support and improvement with antalgic gait by end of tx. Physical Therapy Plan Frequency and Duration Frequency of Treatment 2x/Week Duration of Treatment 10 weeks Plan of Care Start Date 08/05/19 Plan of Care End Date 10/14/19 Therapeutic Interventions Therapeutic Interventions Aquatic Therapy,Gait Training, Home Exercise Program,Joint Mobilizations,Manual Therapy, Neuromuscular Re-education, Patient/Caregiver Education, Self-Care/Home Management,Soft Tissue Mobilization, Therapeutic Activities, Therapeutic Exercises Modalities Cold Pack/Ice Massage,Electric Stimulation,Hot Packs, Ultrasound Next Visit Focus/Plan Next Note Type Treatment Note Next Visit Plan Hip ROM, strengthening, gait training, improved activity tolerance
--- NOTE | 2019-08-17 16:44 | PT.OTN ---
Current Diagnoses Stiffness of left hip, not elsewhere classified (08/17/19) Other abnormalities of gait and mobility (08/17/19) Weakness (08/17/19) History of falling (08/17/19) Presence of left artificial hip joint (08/17/19) Physical Therapy Treatment Note PT-OP-A Visit Information Start: 08/06/19 08:35 Freq: Status: Active Protocol: Document 08/17/19 13:00 AMB (Rec: 08/17/19 16:43 AMB [email or web address]) Out-Patient Physical Therapy Visit Information Visit Information Visit Type Treatment Note Visit Start Time 13:00 Visit Stop Time 13:50 Total Visit Minutes 50 Visit Number 4 Number of REPLENISHMENT BUYER Visits 0 PT-OP-B Current Condition Start: 08/06/19 08:35 Freq: Status: Active Protocol: Document 08/05/19 13:45 DCW (Rec: 08/06/19 13:22 DCW [id number]) Current Condition History of Current Condition Onset Date 07/13/19 Current Complaints Left hip hemiarthroplasty History of Current Condition Pt is a 78 year old female who suffered a fall on 07/13/19 while walking her dog. She was brought in to [facility] ED, was found to have suffered a mildly displaced left femoral neck fracture. Pt underwent a left hip cemented hemiarthroplasty the following day, and received post-op instructions to follow posterior hip precautions. Pt feels so far she is doing very well ~3 weeks post-op, is not experiencing much pain or movement limitations. Pt is currently using a FWW when out of the house, but is ambulating independently in her home. She does admit to difficulty sleeping since surgery, however this is more due to her trying to sleep on her back and being uncomfortable in that position , rather than any actually experiencing pain. Pt notes her goal is to get back to the way I was, and return to walking her dogs and walking with a group of friends several times a week. Pt admits that she has not been doing any HEP at home, does not think anyone told her to do anything. Prior Treatments and Tests left hip cemented hemiarthroplasty on 07/14/19 Treatment Goals Patient/Caregiver Goals Return to walking two miles with friends around [facility] and [facility]. Prior Functional Status Baseline Function- ADL's Independent Baseline Function- Mobility Independent Baseline Function- Gait Walk dogs 2x/day, walk /c group of friends 2+ miles several times per week Current Functional Impairments (Reported) Functional Limitations- Mobility/Gait Limited to household distances with no AD, community ambulation with FWW, ambulates less than one mile each day PT-OP-C Subjective Start: 08/06/19 08:35 Freq: Status: Active Protocol: Document 08/17/19 13:00 AMB (Rec: 08/17/19 16:43 AMB [email or web address]) OP-PT Subjective Patient Comments Patient Comments Pt has antalgic gait due to hip flexor pain today. PT-OP-E Functional Tests Start: 08/06/19 08:35 Freq: Status: Active Protocol: Document 08/05/19 13:45 DCW (Rec: 08/06/19 13:22 DCW [id number]) Functional Tests 6 Minute Walk Test Distance 801' Device Used FWW Comments 2.22 ft/sec Timed Up and Go (TUG) Score 11.58 seconds Comments 3-trial average (11.42, 11.69, 11.62) TUG Impairment Rating 1 to <20% Impaired (Score 11) PT-OP-F Manual Assessment Start: 08/06/19 08:35 Freq: Status: Active Protocol: Document 08/05/19 13:45 DCW (Rec: 08/06/19 13:22 DCW [id number]) Manual Assessments Soft Tissue Assessment Soft Tissue Mobility Assessment Post-op effusion along left lateral hip Joint Mobility Assessment Joint Mobility Assessment Appropriate join mobility within posterior hip precautions PT-OP-K Range of Motion Start: 08/06/19 08:35 Freq: Status: Active Protocol: Document 08/05/19 13:45 DCW (Rec: 08/06/19 13:22 DCW [id number]) Hip Goniometric Range of Motion Hip Left Testing Position Supine Flexion w/Knee Flexed 90 Abduction 32 Hip ROM Limitations Comments Within posterior hip precautions PT-OP-M Strength Start: 08/06/19 08:35 Freq: Status: Active Protocol: Document 08/05/19 13:45 DCW (Rec: 08/06/19 13:22 DCW [id number]) Hip Strength Hip Manual Muscle Testing Right Flexion (L2) 4+ Good+ Abduction 4 Good Adduction 4 Good External Rotation 4 Good Internal Rotation 4+ Good+ Left Flexion (L2) 4- Good- Abduction 3 Fair Adduction 4 Good External Rotation 3 Fair Internal Rotation 3+ Fair+ PT-OP-Q Treatments Start: 08/06/19 08:35 Freq: Status: Active Protocol: Document 08/17/19 13:00 AMB (Rec: 08/17/19 16:43 AMB [email or web address]) Therapeutic Exercises Supine Exercises 9 Supine Exercise Name L hip flexor off table stretch Reps/Minutes 30x2 Comments intense 8 Supine Exercise Name R SKTC Reps/Minutes 30x2 Comments to stretch left hip flexor 5 Supine Exercise Name clam shell Side right Equipment Used AROM (unable add band) Reps/Minutes 3x5 Comments cued small pillow betweens to assist with IR precautions Standing Exercises 4 Standing Exercise Name standing hip abd Reps/Minutes 2x10 Therapeutic Activity Therapeutic Activity 1 Name problem solving floor transfer Comments did not perform today, but discussed in detail in regards to quadruped, hip precautions , with environmental support Gait Training Gait Activity 1 Description ambulation with SPC Level of Assistance smooth Comments focus on reducing antalgia Manual Therapy Treatment Soft Tissue Mobilization 1 Body Location iliopsoas Mobilization Type Myofascial Release,Sustained Pressure Intensity/Depth Moderate Body Position Supine Comments significant tenderness on L PT-OP-R Modalities Start: 08/06/19 08:35 Freq: Status: Active Protocol: Document 08/17/19 13:00 AMB (Rec: 08/17/19 16:44 AMB [email or web address]) Hot Pack/Cold Pack Treatment Hot Pack Location L hip flexor Patient Position Hooklying Treatment Duration (minutes) 10 Patient Tolerance Good PT-OP-T Assessment and Plan Start: 08/06/19 08:35 Freq: Status: Active Protocol: Document 08/17/19 13:00 AMB (Rec: 08/17/19 16:43 AMB [email or web address]) Physical Therapy Assessment Assessment Summary Assessment Pt with signficant tenderness to hip flexor today, felt decreased antalgic gait after stretching/ manual. Physical Therapy Plan Next Visit Focus/Plan Next Note Type Treatment Note Next Visit Plan Hip ROM, strengthening, gait training, improved activity tolerance, address hip flexor pain
--- NOTE | 2019-08-20 13:47 | PT.OTN ---
Current Diagnoses Stiffness of left hip, not elsewhere classified (08/20/19) Other abnormalities of gait and mobility (08/20/19) Weakness (08/20/19) History of falling (08/20/19) Presence of left artificial hip joint (08/20/19) Physical Therapy Treatment Note PT-OP-A Visit Information Start: 08/06/19 08:35 Freq: Status: Active Protocol: Document 08/20/19 13:47 SP (Rec: 08/20/19 14:50 SP [email or web address]) Out-Patient Physical Therapy Visit Information Visit Information Visit Type Treatment Note Visit Start Time 13:00 Visit Stop Time 13:47 Total Visit Minutes 47 Visit Number 5 Number of MICROFILM TECHNICIAN Visits 1 PT-OP-B Current Condition Start: 08/06/19 08:35 Freq: Status: Active Protocol: Document 08/05/19 13:45 DCW (Rec: 08/06/19 13:22 DCW [id number]) Current Condition History of Current Condition Onset Date 07/13/19 Current Complaints Left hip hemiarthroplasty History of Current Condition Pt is a 78 year old female who suffered a fall on 07/13/19 while walking her dog. She was brought in to [facility] ED, was found to have suffered a mildly displaced left femoral neck fracture. Pt underwent a left hip cemented hemiarthroplasty the following day, and received post-op instructions to follow posterior hip precautions. Pt feels so far she is doing very well ~3 weeks post-op, is not experiencing much pain or movement limitations. Pt is currently using a FWW when out of the house, but is ambulating independently in her home. She does admit to difficulty sleeping since surgery, however this is more due to her trying to sleep on her back and being uncomfortable in that position , rather than any actually experiencing pain. Pt notes her goal is to get back to the way I was, and return to walking her dogs and walking with a group of friends several times a week. Pt admits that she has not been doing any HEP at home, does not think anyone told her to do anything. Prior Treatments and Tests left hip cemented hemiarthroplasty on 07/14/19 Treatment Goals Patient/Caregiver Goals Return to walking two miles with friends around [facility] and [facility]. Prior Functional Status Baseline Function- ADL's Independent Baseline Function- Mobility Independent Baseline Function- Gait Walk dogs 2x/day, walk /c group of friends 2+ miles several times per week Current Functional Impairments (Reported) Functional Limitations- Mobility/Gait Limited to household distances with no AD, community ambulation with FWW, ambulates less than one mile each day PT-OP-C Subjective Start: 08/06/19 08:35 Freq: Status: Active Protocol: Document 08/20/19 13:47 SP (Rec: 08/20/19 14:50 SP [email or web address]) OP-PT Subjective Patient Comments Patient Comments Pt reported had stopped taking tylenol last week but started up again since last tx. Pt expressed fears of L hip extension activities: leg off table stretch, walking dog, leg positioning while sleeping and the trauma of her fall and doesn't get fearful. Still not sleeping well and anterior L hip still tight PT-OP-E Functional Tests Start: 08/06/19 08:35 Freq: Status: Active Protocol: Document 08/05/19 13:45 DCW (Rec: 08/06/19 13:22 DCW [id number]) Functional Tests 6 Minute Walk Test Distance 801' Device Used FWW Comments 2.22 ft/sec Timed Up and Go (TUG) Score 11.58 seconds Comments 3-trial average (11.42, 11.69, 11.62) TUG Impairment Rating 1 to <20% Impaired (Score 11) PT-OP-F Manual Assessment Start: 08/06/19 08:35 Freq: Status: Active Protocol: Document 08/05/19 13:45 DCW (Rec: 08/06/19 13:22 DCW [id number]) Manual Assessments Soft Tissue Assessment Soft Tissue Mobility Assessment Post-op effusion along left lateral hip Joint Mobility Assessment Joint Mobility Assessment Appropriate join mobility within posterior hip precautions PT-OP-K Range of Motion Start: 08/06/19 08:35 Freq: Status: Active Protocol: Document 08/05/19 13:45 DCW (Rec: 08/06/19 13:22 DCW [id number]) Hip Goniometric Range of Motion Hip Left Testing Position Supine Flexion w/Knee Flexed 90 Abduction 32 Hip ROM Limitations Comments Within posterior hip precautions PT-OP-M Strength Start: 08/06/19 08:35 Freq: Status: Active Protocol: Document 08/05/19 13:45 DCW (Rec: 08/06/19 13:22 DCW [id number]) Hip Strength Hip Manual Muscle Testing Right Flexion (L2) 4+ Good+ Abduction 4 Good Adduction 4 Good External Rotation 4 Good Internal Rotation 4+ Good+ Left Flexion (L2) 4- Good- Abduction 3 Fair Adduction 4 Good External Rotation 3 Fair Internal Rotation 3+ Fair+ PT-OP-Q Treatments Start: 08/06/19 08:35 Freq: Status: Active Protocol: Document 08/20/19 13:47 SP (Rec: 08/20/19 14:50 SP [email or web address]) Therapeutic Exercises Prone Exercises hip ext lift Side bilateral Reps/Minutes 3x8 knee flexion/hs curl Prone Exercise Name knee flexion with glut activation Side left Resistance AROM Reps/Minutes 3x8 Standing Exercises 4 Standing Exercise Name standing hip abd Reps/Minutes 2x10 Comments upright posture, PPT, glut med small range 3 Standing Exercise Name standing hip ext Reps/Minutes 3x10 Comments upright posture, PPT, glut max activation small range 2 Standing Exercise Name hip flexor stretch Equipment Used step 6 Reps/Minutes 30 x3 Comments contact rail/chair, hip flexion precautions (mod off table hip flex stret) Self-Care/Home Management Treatment Education Patient Education Joint Protection Caregiver Education Provided education in use of pillows in sidelying and knee/ hip flexion< 90* with pillow support to elevate at hip level to allow staying within hip precautions of not IR and behind back to provide spinal stability with positive feedback. (SL side hooklying) PT-OP-R Modalities Start: 08/06/19 08:35 Freq: Status: Active Protocol: Document 08/17/19 13:00 AMB (Rec: 08/17/19 16:44 AMB [email or web address]) Hot Pack/Cold Pack Treatment Hot Pack Location L hip flexor Patient Position Hooklying Treatment Duration (minutes) 10 Patient Tolerance Good PT-OP-T Assessment and Plan Start: 08/06/19 08:35 Freq: Status: Active Protocol: Document 08/20/19 13:47 SP (Rec: 08/20/19 14:50 SP [email or web address]) Physical Therapy Assessment Assessment Summary Assessment Tx focused on sidelying support with pillows, stretching L ant hip for comfort and not trigger trauma fear while incorporating standing and prone hip ext to continue strengthening. Pt reported anterior L hip felt better, little glut/hip muscle soreness, working but not over doing it. Recommended hold off on off table hip flexor stretch for now. MICROFILM TECHNICIAN will discuss with PT patient her fears of ADLs as walking her dog. Physical Therapy Plan Frequency and Duration Frequency of Treatment 2x/Week Duration of Treatment 10 weeks Plan of Care Start Date 08/05/19 Plan of Care End Date 10/14/19 Therapeutic Interventions Therapeutic Interventions Aquatic Therapy,Gait Training, Home Exercise Program,Joint Mobilizations,Manual Therapy, Neuromuscular Re-education, Patient/Caregiver Education, Self-Care/Home Management,Soft Tissue Mobilization, Therapeutic Activities, Therapeutic Exercises Modalities Cold Pack/Ice Massage,Electric Stimulation,Hot Packs, Ultrasound Next Visit Focus/Plan Next Note Type Treatment Note Next Visit Plan Hip ROM, strengthening, gait training, improved activity tolerance, address hip flexor pain. Continue hip strengthening, hip ext/abd/ sit to stands/walking retro/ balance to allow for walking her dog without fear of falling.
--- NOTE | 2019-08-25 16:30 | PT.OTN ---
Current Diagnoses Stiffness of left hip, not elsewhere classified (08/25/19) Other abnormalities of gait and mobility (08/25/19) Weakness (08/25/19) History of falling (08/25/19) Presence of left artificial hip joint (08/25/19) Physical Therapy Treatment Note PT-OP-A Visit Information Start: 08/06/19 08:35 Freq: Status: Active Protocol: Document 08/25/19 11:15 AMB (Rec: 08/25/19 16:30 AMB [email or web address]) Out-Patient Physical Therapy Visit Information Visit Information Visit Type Treatment Note Visit Start Time 11:17 Visit Stop Time 12:00 Total Visit Minutes 42 Visit Number 6 Number of STORAGE FACILITY RENTAL CLERK Visits 0 PT-OP-B Current Condition Start: 08/06/19 08:35 Freq: Status: Active Protocol: Document 08/05/19 13:45 DCW (Rec: 08/06/19 13:22 DCW [id number]) Current Condition History of Current Condition Onset Date 07/13/19 Current Complaints Left hip hemiarthroplasty History of Current Condition Pt is a 78 year old female who suffered a fall on 07/13/19 while walking her dog. She was brought in to [facility] ED, was found to have suffered a mildly displaced left femoral neck fracture. Pt underwent a left hip cemented hemiarthroplasty the following day, and received post-op instructions to follow posterior hip precautions. Pt feels so far she is doing very well ~3 weeks post-op, is not experiencing much pain or movement limitations. Pt is currently using a FWW when out of the house, but is ambulating independently in her home. She does admit to difficulty sleeping since surgery, however this is more due to her trying to sleep on her back and being uncomfortable in that position , rather than any actually experiencing pain. Pt notes her goal is to get back to the way I was, and return to walking her dogs and walking with a group of friends several times a week. Pt admits that she has not been doing any HEP at home, does not think anyone told her to do anything. Prior Treatments and Tests left hip cemented hemiarthroplasty on 07/14/19 Treatment Goals Patient/Caregiver Goals Return to walking two miles with friends around [facility] and [facility]. Prior Functional Status Baseline Function- ADL's Independent Baseline Function- Mobility Independent Baseline Function- Gait Walk dogs 2x/day, walk /c group of friends 2+ miles several times per week Current Functional Impairments (Reported) Functional Limitations- Mobility/Gait Limited to household distances with no AD, community ambulation with FWW, ambulates less than one mile each day PT-OP-C Subjective Start: 08/06/19 08:35 Freq: Status: Active Protocol: Document 08/25/19 11:15 AMB (Rec: 08/25/19 16:30 AMB [email or web address]) OP-PT Subjective Patient Comments Patient Comments Pt with difficulty with prone hip extension but otherwise exercises are going well. Lateral hip pain not so much of a problem, but hip flexor still creates pain. Seeing Dr Dinorah Ndiaye on Friday. PT-OP-E Functional Tests Start: 08/06/19 08:35 Freq: Status: Active Protocol: Document 08/05/19 13:45 DCW (Rec: 08/06/19 13:22 DCW [id number]) Functional Tests 6 Minute Walk Test Distance 801' Device Used FWW Comments 2.22 ft/sec Timed Up and Go (TUG) Score 11.58 seconds Comments 3-trial average (11.42, 11.69, 11.62) TUG Impairment Rating 1 to <20% Impaired (Score 11) PT-OP-F Manual Assessment Start: 08/06/19 08:35 Freq: Status: Active Protocol: Document 08/05/19 13:45 DCW (Rec: 08/06/19 13:22 DCW [id number]) Manual Assessments Soft Tissue Assessment Soft Tissue Mobility Assessment Post-op effusion along left lateral hip Joint Mobility Assessment Joint Mobility Assessment Appropriate join mobility within posterior hip precautions PT-OP-K Range of Motion Start: 08/06/19 08:35 Freq: Status: Active Protocol: Document 08/05/19 13:45 DCW (Rec: 08/06/19 13:22 DCW [id number]) Hip Goniometric Range of Motion Hip Left Testing Position Supine Flexion w/Knee Flexed 90 Abduction 32 Hip ROM Limitations Comments Within posterior hip precautions PT-OP-M Strength Start: 08/06/19 08:35 Freq: Status: Active Protocol: Document 08/05/19 13:45 DCW (Rec: 08/06/19 13:22 DCW [id number]) Hip Strength Hip Manual Muscle Testing Right Flexion (L2) 4+ Good+ Abduction 4 Good Adduction 4 Good External Rotation 4 Good Internal Rotation 4+ Good+ Left Flexion (L2) 4- Good- Abduction 3 Fair Adduction 4 Good External Rotation 3 Fair Internal Rotation 3+ Fair+ PT-OP-Q Treatments Start: 08/06/19 08:35 Freq: Status: Active Protocol: Document 08/25/19 11:15 AMB (Rec: 08/25/19 16:30 AMB [email or web address]) Cardio Equipment Recumbent Elliptical (Biodex) Duration (Minutes) 5 Resistance 4 Therapeutic Exercises Standing Exercises 4 Standing Exercise Name standing hip abd Reps/Minutes 2x10 Comments upright posture, PPT, glut med small range 3 Standing Exercise Name standing hip ext Reps/Minutes 3x10 Comments upright posture, PPT, glut max activation small range 2 Standing Exercise Name hip flexor stretch Equipment Used step 6 Reps/Minutes 30 x3 Comments contact rail/chair, hip flexion precautions (mod off table hip flex stret) 1 Standing Exercise Name calf stretch on JOCY Reps/Minutes 30x2 Manual Therapy Treatment Soft Tissue Mobilization 1 Body Location iliopsoas Mobilization Type Myofascial Release,Sustained Pressure Intensity/Depth Moderate Body Position Supine Comments significant tenderness on L PT-OP-R Modalities Start: 08/06/19 08:35 Freq: Status: Active Protocol: Document 08/17/19 13:00 AMB (Rec: 08/17/19 16:44 AMB [email or web address]) Hot Pack/Cold Pack Treatment Hot Pack Location L hip flexor Patient Position Hooklying Treatment Duration (minutes) 10 Patient Tolerance Good PT-OP-T Assessment and Plan Start: 08/06/19 08:35 Freq: Status: Active Protocol: Document 08/25/19 11:15 AMB (Rec: 08/25/19 16:30 AMB [email or web address]) Physical Therapy Assessment Assessment Summary Assessment Reviewed new HEP as pt had questions about it. Will need to continue to progress balance/ gait/ stair activities next visit, but pt did do well with stairs today. Physical Therapy Plan Next Visit Focus/Plan Next Note Type Treatment Note Next Visit Plan Hip ROM, strengthening, gait training, improved activity tolerance, address hip flexor pain. Continue hip strengthening, hip ext/abd/ sit to stands/walking retro/ balance to allow for walking her dog without fear of falling.
--- NOTE | 2019-08-27 14:10 | PT.OTN ---
Current Diagnoses Stiffness of left hip, not elsewhere classified (08/27/19) Other abnormalities of gait and mobility (08/27/19) Weakness (08/27/19) History of falling (08/27/19) Presence of left artificial hip joint (08/27/19) Physical Therapy Treatment Note PT-OP-A Visit Information Start: 08/06/19 08:35 Freq: Status: Active Protocol: Document 08/27/19 13:00 AMB (Rec: 08/27/19 14:10 AMB [id number]) Out-Patient Physical Therapy Visit Information Visit Information Visit Type Treatment Note Visit Start Time 13:00 Visit Stop Time 13:45 Total Visit Minutes 45 Visit Number 7 Number of SEA[employer] PROCESS WORKER Visits 0 PT-OP-B Current Condition Start: 08/06/19 08:35 Freq: Status: Active Protocol: Document 08/05/19 13:45 DCW (Rec: 08/06/19 13:22 DCW [id number]) Current Condition History of Current Condition Onset Date 07/13/19 Current Complaints Left hip hemiarthroplasty History of Current Condition Pt is a 78 year old female who suffered a fall on 07/13/19 while walking her dog. She was brought in to [facility] ED, was found to have suffered a mildly displaced left femoral neck fracture. Pt underwent a left hip cemented hemiarthroplasty the following day, and received post-op instructions to follow posterior hip precautions. Pt feels so far she is doing very well ~3 weeks post-op, is not experiencing much pain or movement limitations. Pt is currently using a FWW when out of the house, but is ambulating independently in her home. She does admit to difficulty sleeping since surgery, however this is more due to her trying to sleep on her back and being uncomfortable in that position , rather than any actually experiencing pain. Pt notes her goal is to get back to the way I was, and return to walking her dogs and walking with a group of friends several times a week. Pt admits that she has not been doing any HEP at home, does not think anyone told her to do anything. Prior Treatments and Tests left hip cemented hemiarthroplasty on 07/14/19 Treatment Goals Patient/Caregiver Goals Return to walking two miles with friends around [facility] and [facility]. Prior Functional Status Baseline Function- ADL's Independent Baseline Function- Mobility Independent Baseline Function- Gait Walk dogs 2x/day, walk /c group of friends 2+ miles several times per week Current Functional Impairments (Reported) Functional Limitations- Mobility/Gait Limited to household distances with no AD, community ambulation with FWW, ambulates less than one mile each day PT-OP-C Subjective Start: 08/06/19 08:35 Freq: Status: Active Protocol: Document 08/27/19 13:00 AMB (Rec: 08/27/19 14:10 AMB [id number]) OP-PT Subjective Patient Comments Patient Comments Pt saw Dr. Ndiaye who said she doesn't need to sleep with the pillow between her legs anymore. She is planning on going to walk with her friends tomorrow with her dog. PT-OP-E Functional Tests Start: 08/06/19 08:35 Freq: Status: Active Protocol: Document 08/05/19 13:45 DCW (Rec: 08/06/19 13:22 DCW [id number]) Functional Tests 6 Minute Walk Test Distance 801' Device Used FWW Comments 2.22 ft/sec Timed Up and Go (TUG) Score 11.58 seconds Comments 3-trial average (11.42, 11.69, 11.62) TUG Impairment Rating 1 to <20% Impaired (Score 11) PT-OP-F Manual Assessment Start: 08/06/19 08:35 Freq: Status: Active Protocol: Document 08/05/19 13:45 DCW (Rec: 08/06/19 13:22 DCW [id number]) Manual Assessments Soft Tissue Assessment Soft Tissue Mobility Assessment Post-op effusion along left lateral hip Joint Mobility Assessment Joint Mobility Assessment Appropriate join mobility within posterior hip precautions PT-OP-K Range of Motion Start: 08/06/19 08:35 Freq: Status: Active Protocol: Document 08/05/19 13:45 DCW (Rec: 08/06/19 13:22 DCW [id number]) Hip Goniometric Range of Motion Hip Left Testing Position Supine Flexion w/Knee Flexed 90 Abduction 32 Hip ROM Limitations Comments Within posterior hip precautions PT-OP-M Strength Start: 08/06/19 08:35 Freq: Status: Active Protocol: Document 08/05/19 13:45 DCW (Rec: 08/06/19 13:22 DCW [id number]) Hip Strength Hip Manual Muscle Testing Right Flexion (L2) 4+ Good+ Abduction 4 Good Adduction 4 Good External Rotation 4 Good Internal Rotation 4+ Good+ Left Flexion (L2) 4- Good- Abduction 3 Fair Adduction 4 Good External Rotation 3 Fair Internal Rotation 3+ Fair+ PT-OP-Q Treatments Start: 08/06/19 08:35 Freq: Status: Active Protocol: Document 08/27/19 13:00 AMB (Rec: 08/27/19 14:10 AMB [id number]) Cardio Equipment Recumbent Elliptical (Biodex) Duration (Minutes) 5 Resistance 4 Therapeutic Exercises Standing Exercises 5 Standing Exercise Name sit to stand Comments from chair with pillow on top, ball btween knee to avoid knee valgus step up Standing Exercise Name 6 forward and lateral Reps/Minutes 1x10, 1x5 Comments lateral increased pain after 5 reps 2 Standing Exercise Name hip flexor stretch Equipment Used step 6 Reps/Minutes 30 x3 Comments contact rail/chair, hip flexion precautions (mod off table hip flex stret) Manual Therapy Treatment Soft Tissue Mobilization 1 Body Location iliopsoas Mobilization Type Myofascial Release,Sustained Pressure Intensity/Depth Moderate Body Position Supine Comments significant tenderness on L, instructed pt in self tennis ball release PT-OP-R Modalities Start: 08/06/19 08:35 Freq: Status: Active Protocol: Document 08/17/19 13:00 AMB (Rec: 08/17/19 16:44 AMB [email or web address]) Hot Pack/Cold Pack Treatment Hot Pack Location L hip flexor Patient Position Hooklying Treatment Duration (minutes) 10 Patient Tolerance Good PT-OP-T Assessment and Plan Start: 08/06/19 08:35 Freq: Status: Active Protocol: Document 08/27/19 13:00 AMB (Rec: 08/27/19 14:10 AMB [id number]) Physical Therapy Assessment Assessment Summary Assessment Pt is feeling better today overall, is continuing to notice weakness as she is getting more active. Does feel like the manual therapy is helpful. Physical Therapy Plan Frequency and Duration Frequency of Treatment 2x/Week Duration of Treatment 10 weeks Plan of Care Start Date 08/05/19 Plan of Care End Date 10/14/19 Next Visit Focus/Plan Next Note Type Treatment Note Next Visit Plan Address floor transfer. Hip ROM, strengthening, gait training, improved activity tolerance, address hip flexor pain. Continue hip strengthening, hip ext/abd/ sit to stands/walking retro/ balance to allow for walking her dog without fear of falling.
--- NOTE | 2019-09-01 15:43 | PT.OTN ---
Current Diagnoses Stiffness of left hip, not elsewhere classified (09/01/19) Other abnormalities of gait and mobility (09/01/19) Weakness (09/01/19) History of falling (09/01/19) Presence of left artificial hip joint (09/01/19) Physical Therapy Treatment Note PT-OP-A Visit Information Start: 08/06/19 08:35 Freq: Status: Active Protocol: Document 09/01/19 13:00 AMB (Rec: 09/01/19 15:42 AMB [email or web address]) Out-Patient Physical Therapy Visit Information Visit Information Visit Type Treatment Note Visit Start Time 13:00 Visit Stop Time 13:45 Total Visit Minutes 45 Visit Number 8 Number of ARTIFICIAL STONE APPLICATOR Visits 0 PT-OP-B Current Condition Start: 08/06/19 08:35 Freq: Status: Active Protocol: Document 08/05/19 13:45 DCW (Rec: 08/06/19 13:22 DCW [id number]) Current Condition History of Current Condition Onset Date 07/13/19 Current Complaints Left hip hemiarthroplasty History of Current Condition Pt is a 78 year old female who suffered a fall on 07/13/19 while walking her dog. She was brought in to [facility] ED, was found to have suffered a mildly displaced left femoral neck fracture. Pt underwent a left hip cemented hemiarthroplasty the following day, and received post-op instructions to follow posterior hip precautions. Pt feels so far she is doing very well ~3 weeks post-op, is not experiencing much pain or movement limitations. Pt is currently using a FWW when out of the house, but is ambulating independently in her home. She does admit to difficulty sleeping since surgery, however this is more due to her trying to sleep on her back and being uncomfortable in that position , rather than any actually experiencing pain. Pt notes her goal is to get back to the way I was, and return to walking her dogs and walking with a group of friends several times a week. Pt admits that she has not been doing any HEP at home, does not think anyone told her to do anything. Prior Treatments and Tests left hip cemented hemiarthroplasty on 07/14/19 Treatment Goals Patient/Caregiver Goals Return to walking two miles with friends around [facility] and [facility]. Prior Functional Status Baseline Function- ADL's Independent Baseline Function- Mobility Independent Baseline Function- Gait Walk dogs 2x/day, walk /c group of friends 2+ miles several times per week Current Functional Impairments (Reported) Functional Limitations- Mobility/Gait Limited to household distances with no AD, community ambulation with FWW, ambulates less than one mile each day PT-OP-C Subjective Start: 08/06/19 08:35 Freq: Status: Active Protocol: Document 09/01/19 13:00 AMB (Rec: 09/01/19 15:42 AMB [email or web address]) OP-PT Subjective Patient Comments Patient Comments Pt walked about a mile and felt pretty good with that. She is still nervous with stairs and getting down on the ground. She is getting a DXA scan tomorrow and is concernd about how to exercise for osteoporosis. PT-OP-E Functional Tests Start: 08/06/19 08:35 Freq: Status: Active Protocol: Document 08/05/19 13:45 DCW (Rec: 08/06/19 13:22 DCW [id number]) Functional Tests 6 Minute Walk Test Distance 801' Device Used FWW Comments 2.22 ft/sec Timed Up and Go (TUG) Score 11.58 seconds Comments 3-trial average (11.42, 11.69, 11.62) TUG Impairment Rating 1 to <20% Impaired (Score 11) PT-OP-F Manual Assessment Start: 08/06/19 08:35 Freq: Status: Active Protocol: Document 08/05/19 13:45 DCW (Rec: 08/06/19 13:22 DCW [id number]) Manual Assessments Soft Tissue Assessment Soft Tissue Mobility Assessment Post-op effusion along left lateral hip Joint Mobility Assessment Joint Mobility Assessment Appropriate join mobility within posterior hip precautions PT-OP-K Range of Motion Start: 08/06/19 08:35 Freq: Status: Active Protocol: Document 08/05/19 13:45 DCW (Rec: 08/06/19 13:22 DCW [id number]) Hip Goniometric Range of Motion Hip Left Testing Position Supine Flexion w/Knee Flexed 90 Abduction 32 Hip ROM Limitations Comments Within posterior hip precautions PT-OP-M Strength Start: 08/06/19 08:35 Freq: Status: Active Protocol: Document 08/05/19 13:45 DCW (Rec: 08/06/19 13:22 DCW [id number]) Hip Strength Hip Manual Muscle Testing Right Flexion (L2) 4+ Good+ Abduction 4 Good Adduction 4 Good External Rotation 4 Good Internal Rotation 4+ Good+ Left Flexion (L2) 4- Good- Abduction 3 Fair Adduction 4 Good External Rotation 3 Fair Internal Rotation 3+ Fair+ PT-OP-Q Treatments Start: 08/06/19 08:35 Freq: Status: Active Protocol: Document 09/01/19 13:00 AMB (Rec: 09/01/19 15:42 AMB [email or web address]) Cardio Equipment Recumbent Elliptical (Biodex) Duration (Minutes) 5 Resistance 4 Therapeutic Exercises Standing Exercises step up Standing Exercise Name 8 and 4 forward Reps/Minutes 1x10 and 1x20 Comments with vc to avoid genu valgus 2 Standing Exercise Name hip flexor stretch Equipment Used step 6 Reps/Minutes 30 x3 Comments contact rail/chair, hip flexion precautions (mod off table hip flex stret) Therapeutic Activity Therapeutic Activity 1 Name floor transfer with environmental support Comments vc for sequencing and SBA, but pt did well Manual Therapy Treatment Soft Tissue Mobilization 1 Body Location iliopsoas Mobilization Type Myofascial Release,Sustained Pressure Intensity/Depth Moderate Body Position Supine Comments significant tenderness on L, instructed pt in self tennis ball release PT-OP-R Modalities Start: 08/06/19 08:35 Freq: Status: Active Protocol: Document 08/17/19 13:00 AMB (Rec: 08/17/19 16:44 AMB [email or web address]) Hot Pack/Cold Pack Treatment Hot Pack Location L hip flexor Patient Position Hooklying Treatment Duration (minutes) 10 Patient Tolerance Good PT-OP-T Assessment and Plan Start: 08/06/19 08:35 Freq: Status: Active Protocol: Document 09/01/19 13:00 AMB (Rec: 09/01/19 15:42 AMB [email or web address]) Physical Therapy Assessment Assessment Summary Assessment Pt did well with the floor transfer with environmental support. Hip flexor is improving, but can still reproduce pain. Continued to need more strengthening for stairs. Physical Therapy Plan Next Visit Focus/Plan Next Note Type Treatment Note Next Visit Plan Hip ROM, strengthening, gait training, improved activity tolerance, address hip flexor pain. Continue hip strengthening, hip ext/abd/ sit to stands/walking retro/ balance to allow for walking her dog without fear of falling.
--- NOTE | 2019-09-07 13:01 | PT.OTN ---
Current Diagnoses Stiffness of left hip, not elsewhere classified (09/07/19) Other abnormalities of gait and mobility (09/07/19) Weakness (09/07/19) History of falling (09/07/19) Presence of left artificial hip joint (09/07/19) Physical Therapy Treatment Note PT-OP-A Visit Information Start: 08/06/19 08:35 Freq: Status: Active Protocol: Document 09/07/19 11:15 AMB (Rec: 09/07/19 13:01 AMB [email or web address]) Out-Patient Physical Therapy Visit Information Visit Information Visit Type Treatment Note Visit Start Time 11:15 Visit Stop Time 11:58 Total Visit Minutes 43 Visit Number 9 Number of SALES OPERATIONS Visits 0 PT-OP-B Current Condition Start: 08/06/19 08:35 Freq: Status: Active Protocol: Document 08/05/19 13:45 DCW (Rec: 08/06/19 13:22 DCW [id number]) Current Condition History of Current Condition Onset Date 07/13/19 Current Complaints Left hip hemiarthroplasty History of Current Condition Pt is a 78 year old female who suffered a fall on 07/13/19 while walking her dog. She was brought in to [facility] ED, was found to have suffered a mildly displaced left femoral neck fracture. Pt underwent a left hip cemented hemiarthroplasty the following day, and received post-op instructions to follow posterior hip precautions. Pt feels so far she is doing very well ~3 weeks post-op, is not experiencing much pain or movement limitations. Pt is currently using a FWW when out of the house, but is ambulating independently in her home. She does admit to difficulty sleeping since surgery, however this is more due to her trying to sleep on her back and being uncomfortable in that position , rather than any actually experiencing pain. Pt notes her goal is to get back to the way I was, and return to walking her dogs and walking with a group of friends several times a week. Pt admits that she has not been doing any HEP at home, does not think anyone told her to do anything. Prior Treatments and Tests left hip cemented hemiarthroplasty on 07/14/19 Treatment Goals Patient/Caregiver Goals Return to walking two miles with friends around [facility] and [facility]. Prior Functional Status Baseline Function- ADL's Independent Baseline Function- Mobility Independent Baseline Function- Gait Walk dogs 2x/day, walk /c group of friends 2+ miles several times per week Current Functional Impairments (Reported) Functional Limitations- Mobility/Gait Limited to household distances with no AD, community ambulation with FWW, ambulates less than one mile each day PT-OP-C Subjective Start: 08/06/19 08:35 Freq: Status: Active Protocol: Document 09/07/19 11:15 AMB (Rec: 09/07/19 13:01 AMB [email or web address]) OP-PT Subjective Patient Comments Patient Comments Pt reports hip flexor pain is pretty much over at this point . She is still a bit nervous about walking the dog with the leash, but she is doing it. PT-OP-E Functional Tests Start: 08/06/19 08:35 Freq: Status: Active Protocol: Document 08/05/19 13:45 DCW (Rec: 08/06/19 13:22 DCW [id number]) Functional Tests 6 Minute Walk Test Distance 801' Device Used FWW Comments 2.22 ft/sec Timed Up and Go (TUG) Score 11.58 seconds Comments 3-trial average (11.42, 11.69, 11.62) TUG Impairment Rating 1 to <20% Impaired (Score 11) PT-OP-F Manual Assessment Start: 08/06/19 08:35 Freq: Status: Active Protocol: Document 08/05/19 13:45 DCW (Rec: 08/06/19 13:22 DCW [id number]) Manual Assessments Soft Tissue Assessment Soft Tissue Mobility Assessment Post-op effusion along left lateral hip Joint Mobility Assessment Joint Mobility Assessment Appropriate join mobility within posterior hip precautions PT-OP-K Range of Motion Start: 08/06/19 08:35 Freq: Status: Active Protocol: Document 08/05/19 13:45 DCW (Rec: 08/06/19 13:22 DCW [id number]) Hip Goniometric Range of Motion Hip Left Testing Position Supine Flexion w/Knee Flexed 90 Abduction 32 Hip ROM Limitations Comments Within posterior hip precautions PT-OP-M Strength Start: 08/06/19 08:35 Freq: Status: Active Protocol: Document 08/05/19 13:45 DCW (Rec: 08/06/19 13:22 DCW [id number]) Hip Strength Hip Manual Muscle Testing Right Flexion (L2) 4+ Good+ Abduction 4 Good Adduction 4 Good External Rotation 4 Good Internal Rotation 4+ Good+ Left Flexion (L2) 4- Good- Abduction 3 Fair Adduction 4 Good External Rotation 3 Fair Internal Rotation 3+ Fair+ PT-OP-Q Treatments Start: 08/06/19 08:35 Freq: Status: Active Protocol: Document 09/07/19 11:15 AMB (Rec: 09/07/19 13:01 AMB [email or web address]) Cardio Equipment Recumbent Elliptical (Biodex) Duration (Minutes) 7 Resistance 4 Gym Equipment Shuttle Recovery Bilateral Squats Resistance 75 Reps/Time 3x12 Therapeutic Activity Therapeutic Activity 1 Name donning/doffing shoes Comments education on hip precautions, per pt MD said it would take a lot to dislocate hip at this point, so encouraged pt that she can bend hip over 90 degrees, especially if she moves into abduction instead of adduction. PT-OP-R Modalities Start: 08/06/19 08:35 Freq: Status: Active Protocol: Document 08/17/19 13:00 AMB (Rec: 08/17/19 16:44 AMB [email or web address]) Hot Pack/Cold Pack Treatment Hot Pack Location L hip flexor Patient Position Hooklying Treatment Duration (minutes) 10 Patient Tolerance Good PT-OP-T Assessment and Plan Start: 08/06/19 08:35 Freq: Status: Active Protocol: Document 09/07/19 11:15 AMB (Rec: 09/07/19 13:01 AMB [email or web address]) Physical Therapy Assessment Assessment Summary Assessment Pt continues to have concerns over osteoporosis and hip precautions. Worked through donning/doffing shoes today. Physical Therapy Plan Next Visit Focus/Plan Next Note Type Progress Note Next Visit Plan Hip ROM, strengthening, gait training, improved activity tolerance, Progress strengthening, hip ext/abd/ sit to stands/walking retro/ balance to allow for walking her dog without fear of falling.
--- NOTE | 2019-09-10 13:58 | PT.OTN ---
Current Diagnoses Stiffness of left hip, not elsewhere classified (09/10/19) Other abnormalities of gait and mobility (09/10/19) Weakness (09/10/19) History of falling (09/10/19) Presence of left artificial hip joint (09/10/19) Physical Therapy Treatment Note PT-OP-A Visit Information Start: 08/06/19 08:35 Freq: Status: Active Protocol: Document 09/10/19 13:00 AMB (Rec: 09/12/19 13:53 AMB [email or web address]) Out-Patient Physical Therapy Visit Information Visit Information Visit Type Progress Note Visit Start Time 13:00 Visit Stop Time 13:45 Total Visit Minutes 45 Visit Number 10 Number of SET UP PERSON Visits 0 PT-OP-B Current Condition Start: 08/06/19 08:35 Freq: Status: Active Protocol: Document 08/05/19 13:45 DCW (Rec: 08/06/19 13:22 DCW [id number]) Current Condition History of Current Condition Onset Date 07/13/19 Current Complaints Left hip hemiarthroplasty History of Current Condition Pt is a 78 year old female who suffered a fall on 07/13/19 while walking her dog. She was brought in to [facility] ED, was found to have suffered a mildly displaced left femoral neck fracture. Pt underwent a left hip cemented hemiarthroplasty the following day, and received post-op instructions to follow posterior hip precautions. Pt feels so far she is doing very well ~3 weeks post-op, is not experiencing much pain or movement limitations. Pt is currently using a FWW when out of the house, but is ambulating independently in her home. She does admit to difficulty sleeping since surgery, however this is more due to her trying to sleep on her back and being uncomfortable in that position , rather than any actually experiencing pain. Pt notes her goal is to get back to the way I was, and return to walking her dogs and walking with a group of friends several times a week. Pt admits that she has not been doing any HEP at home, does not think anyone told her to do anything. Prior Treatments and Tests left hip cemented hemiarthroplasty on 07/14/19 Treatment Goals Patient/Caregiver Goals Return to walking two miles with friends around [facility] and [facility]. Prior Functional Status Baseline Function- ADL's Independent Baseline Function- Mobility Independent Baseline Function- Gait Walk dogs 2x/day, walk /c group of friends 2+ miles several times per week Current Functional Impairments (Reported) Functional Limitations- Mobility/Gait Limited to household distances with no AD, community ambulation with FWW, ambulates less than one mile each day PT-OP-C Subjective Start: 08/06/19 08:35 Freq: Status: Active Protocol: Document 09/10/19 13:00 AMB (Rec: 09/12/19 13:53 AMB [email or web address]) OP-PT Subjective Patient Comments Patient Comments Pt has been able to get her shoes on and get down on the floor independently. She is not quite back to baseline with her walking yet. PT-OP-E Functional Tests Start: 08/06/19 08:35 Freq: Status: Active Protocol: Document 08/05/19 13:45 DCW (Rec: 08/06/19 13:22 DCW [id number]) Functional Tests 6 Minute Walk Test Distance 801' Device Used FWW Comments 2.22 ft/sec Timed Up and Go (TUG) Score 11.58 seconds Comments 3-trial average (11.42, 11.69, 11.62) TUG Impairment Rating 1 to <20% Impaired (Score 11) PT-OP-F Manual Assessment Start: 08/06/19 08:35 Freq: Status: Active Protocol: Document 08/05/19 13:45 DCW (Rec: 08/06/19 13:22 DCW [id number]) Manual Assessments Soft Tissue Assessment Soft Tissue Mobility Assessment Post-op effusion along left lateral hip Joint Mobility Assessment Joint Mobility Assessment Appropriate join mobility within posterior hip precautions PT-OP-K Range of Motion Start: 08/06/19 08:35 Freq: Status: Active Protocol: Document 08/05/19 13:45 DCW (Rec: 08/06/19 13:22 DCW [id number]) Hip Goniometric Range of Motion Hip Left Testing Position Supine Flexion w/Knee Flexed 90 Abduction 32 Hip ROM Limitations Comments Within posterior hip precautions PT-OP-M Strength Start: 08/06/19 08:35 Freq: Status: Active Protocol: Document 09/10/19 13:11 AMB (Rec: 09/10/19 13:51 AMB [id number]) Hip Strength Hip Manual Muscle Testing Left Flexion (L2) 4+ Good+ Abduction 4- Good- External Rotation 4 Good Internal Rotation 4- Good- PT-OP-Q Treatments Start: 08/06/19 08:35 Freq: Status: Active Protocol: Document 09/10/19 13:00 AMB (Rec: 09/12/19 13:53 AMB [email or web address]) Cardio Equipment Recumbent Elliptical (Biodex) Duration (Minutes) 7 Resistance 5 Therapeutic Exercises Sidelying Exercises 2 Sidelying Exercise Name sidelying hip abduction Reps/Minutes 2x12 1 Sidelying Exercise Name sidelying clam shells Reps/Minutes x 10 each Standing Exercises 5 Standing Exercise Name sit to stand Reps/Minutes 10 Comments from chair with pillow on top, ball btween knee to avoid knee valgus step up Standing Exercise Name 8 and 4 forward Reps/Minutes 1x10 and 1x20 Comments with vc to avoid genu valgus 2 Standing Exercise Name hip flexor stretch Equipment Used step 6 Reps/Minutes 30 x3 Comments contact rail/chair, hip flexion precautions (mod off table hip flex stret) Gait Training Gait Activity 1 Description ambulation without AD Level of Assistance smooth Comments focus on trunk rotation, avoid excessive lateral trunk movement, equal weightbearing and push off PT-OP-R Modalities Start: 08/06/19 08:35 Freq: Status: Active Protocol: Document 08/17/19 13:00 AMB (Rec: 08/17/19 16:44 AMB [email or web address]) Hot Pack/Cold Pack Treatment Hot Pack Location L hip flexor Patient Position Hooklying Treatment Duration (minutes) 10 Patient Tolerance Good PT-OP-T Assessment and Plan Start: 08/06/19 08:35 Freq: Status: Active Protocol: Document 09/10/19 13:00 AMB (Rec: 09/12/19 13:47 AMB [email or web address]) Physical Therapy Assessment Goals Three Impairment Pt displays left hip weakness following hemiarthroplasty Longterm Goal (LTG) Pt to display L hip MMT at least 4/5 with flexion, abduction, and ER/IR PROGRESS MADE: 4-/5 in abduction and internal rotation, otherwise goal met LTG Duration 10/05/19 Two Impairment Pt walking less than one mile daily Commercial Light Fixture Assembler Goal (LTG) Pt to return to her two mile walks with her walking group. PROGRESS MADE- walking 1 mile LTG Duration 10/05/19 One Impairment Pt does not have an appropriate home exercise program Short Term Goal (STG) Pt to be independent and compliant with an appropriate HEP PROGRESS MADE - does some of her exercises STG Duration 09/05/19 Assessment Summary Assessment Pt with weakness into hip abduction. Worked on gait mechanics today and walking without limping. Pt would benefit from review of HEP- pt feels she has too many exercises, so helping to priortize- so that she can be consistent with her exercises. Physical Therapy Plan Next Visit Focus/Plan Next Note Type Treatment Note Next Visit Plan Pt is considering d/c vs going on hold for 2-3 weeks and then having a follow up appointment. She has not yet met all of her goals and would benefit from continued strengthening, so will need to review HEP either way. She is feeling she is getting close to being able to independently progress from here.
--- NOTE | 2019-09-13 13:00 | PT.OTN ---
Current Diagnoses Stiffness of left hip, not elsewhere classified (09/13/19) Other abnormalities of gait and mobility (09/13/19) Weakness (09/13/19) History of falling (09/13/19) Presence of left artificial hip joint (09/13/19) Physical Therapy Treatment Note PT-OP-A Visit Information Start: 08/06/19 08:35 Freq: Status: Active Protocol: Document 09/13/19 12:15 SP (Rec: 09/13/19 13:14 SP [id number]) Out-Patient Physical Therapy Visit Information Visit Information Visit Type Treatment Note Visit Start Time 12:15 Visit Stop Time 13:00 Total Visit Minutes 45 Visit Number 11 Number of EARLY CHILDHOOD SPECIAL EDUCATOR Visits 1 PT-OP-B Current Condition Start: 08/06/19 08:35 Freq: Status: Active Protocol: Document 08/05/19 13:45 DCW (Rec: 08/06/19 13:22 DCW [id number]) Current Condition History of Current Condition Onset Date 07/13/19 Current Complaints Left hip hemiarthroplasty History of Current Condition Pt is a 78 year old female who suffered a fall on 07/13/19 while walking her dog. She was brought in to [facility] ED, was found to have suffered a mildly displaced left femoral neck fracture. Pt underwent a left hip cemented hemiarthroplasty the following day, and received post-op instructions to follow posterior hip precautions. Pt feels so far she is doing very well ~3 weeks post-op, is not experiencing much pain or movement limitations. Pt is currently using a FWW when out of the house, but is ambulating independently in her home. She does admit to difficulty sleeping since surgery, however this is more due to her trying to sleep on her back and being uncomfortable in that position , rather than any actually experiencing pain. Pt notes her goal is to get back to the way I was, and return to walking her dogs and walking with a group of friends several times a week. Pt admits that she has not been doing any HEP at home, does not think anyone told her to do anything. Prior Treatments and Tests left hip cemented hemiarthroplasty on 07/14/19 Treatment Goals Patient/Caregiver Goals Return to walking two miles with friends around [facility] and [facility]. Prior Functional Status Baseline Function- ADL's Independent Baseline Function- Mobility Independent Baseline Function- Gait Walk dogs 2x/day, walk /c group of friends 2+ miles several times per week Current Functional Impairments (Reported) Functional Limitations- Mobility/Gait Limited to household distances with no AD, community ambulation with FWW, ambulates less than one mile each day PT-OP-C Subjective Start: 08/06/19 08:35 Freq: Status: Active Protocol: Document 09/13/19 12:15 SP (Rec: 09/13/19 13:14 SP [id number]) OP-PT Subjective Patient Comments Patient Comments Pt stated she is back to walking her dog again up to 1. [address] [employer] [address] on level surfaces and doing fine. Hasn't been doing her exercises as much as has been but using stairs more in the house and has more confidence. PT-OP-E Functional Tests Start: 08/06/19 08:35 Freq: Status: Active Protocol: Document 09/13/19 12:15 SP (Rec: 09/13/19 13:14 SP [id number]) Functional Tests 6 Minute Walk Test Distance 1522 Device Used 0 PT-OP-F Manual Assessment Start: 08/06/19 08:35 Freq: Status: Active Protocol: Document 08/05/19 13:45 DCW (Rec: 08/06/19 13:22 DCW [id number]) Manual Assessments Soft Tissue Assessment Soft Tissue Mobility Assessment Post-op effusion along left lateral hip Joint Mobility Assessment Joint Mobility Assessment Appropriate join mobility within posterior hip precautions PT-OP-K Range of Motion Start: 08/06/19 08:35 Freq: Status: Active Protocol: Document 09/13/19 12:15 SP (Rec: 09/13/19 13:14 SP [id number]) Hip Goniometric Range of Motion Hip Left Testing Position Supine Flexion w/Knee Flexed 124 Abduction 35 PT-OP-M Strength Start: 08/06/19 08:35 Freq: Status: Active Protocol: Document 09/10/19 13:11 AMB (Rec: 09/10/19 13:51 AMB [id number]) Hip Strength Hip Manual Muscle Testing Left Flexion (L2) 4+ Good+ Abduction 4- Good- External Rotation 4 Good Internal Rotation 4- Good- PT-OP-Q Treatments Start: 08/06/19 08:35 Freq: Status: Active Protocol: Document 09/13/19 12:15 SP (Rec: 09/13/19 13:14 SP [id number]) Cardio Equipment Recumbent Stepper (Sci-Fit) Duration (Minutes) 6 Resistance 2.0 Seat Position 12 Therapeutic Exercises Sidelying Exercises 1 Sidelying Exercise Name sidelying clam shells Side bilateral Equipment Used TB 1 Reps/Minutes x 10 each Standing Exercises 5 Standing Exercise Name sit to stand Reps/Minutes 10 Comments from chair 18, ball btween knee to avoid knee valgus step up Standing Exercise Name 8 and 4 forward Reps/Minutes 1x10 and 1x20 Comments with vc to avoid genu valgus PT-OP-R Modalities Start: 08/06/19 08:35 Freq: Status: Active Protocol: Document 08/17/19 13:00 AMB (Rec: 08/17/19 16:44 AMB [email or web address]) Hot Pack/Cold Pack Treatment Hot Pack Location L hip flexor Patient Position Hooklying Treatment Duration (minutes) 10 Patient Tolerance Good PT-OP-T Assessment and Plan Start: 08/06/19 08:35 Freq: Status: Active Protocol: Document 09/13/19 12:15 SP (Rec: 09/13/19 13:14 SP [id number]) Physical Therapy Assessment Goals Four Impairment Decreased pelvic floor endurance Short Term Goal (STG) Improve endurance of the pelvic floor to 10 second hold time in supine and 5 second hold time in standing 09/08/18 GOAL MET Three Impairment Pt displays left hip weakness following hemiarthroplasty Mcfp Goal (LTG) Pt to display L hip MMT at least 4/5 with flexion, abduction, and ER/IR PROGRESS MADE: 4-/5 in abduction and internal rotation, otherwise goal met LTG Duration 10/05/19 Two Impairment Pt walking less than one mile daily Agricultural Pilot Goal (LTG) Pt to return to her two mile walks with her walking group. PROGRESS MADE- walking 1 mile LTG Duration 10/05/19 One Impairment Pt does not have an appropriate home exercise program Short Term Goal (STG) Pt to be independent and compliant with an appropriate HEP PROGRESS MADE - does some of her exercises STG Duration 09/05/19 Assessment Summary Assessment Pt was able to complete 6MWT with increased distance 1522 ft improved from 801ft last tested, fair recall to HEP and tolerated Tb clamshells today . Pt wants to added more appts until end of POC 10/14/19 to fine tune HEP and increase strength, endurance and balance. Physical Therapy Plan Frequency and Duration Frequency of Treatment 2x/Week Duration of Treatment 10 weeks Plan of Care Start Date 08/05/19 Plan of Care End Date 10/14/19 Therapeutic Interventions Therapeutic Interventions Aquatic Therapy,Gait Training, Home Exercise Program,Joint Mobilizations,Manual Therapy, Neuromuscular Re-education, Patient/Caregiver Education, Self-Care/Home Management,Soft Tissue Mobilization, Therapeutic Activities, Therapeutic Exercises Modalities Cold Pack/Ice Massage,Electric Stimulation,Hot Packs, Ultrasound Next Visit Focus/Plan Next Note Type Treatment Note Next Visit Plan Review HEP, include more dynamic standing exercises to improve endurance walking.
--- NOTE | 2019-09-28 13:00 | PT.OTN ---
Current Diagnoses Stiffness of left hip, not elsewhere classified (09/28/19) Other abnormalities of gait and mobility (09/28/19) Weakness (09/28/19) History of falling (09/28/19) Presence of left artificial hip joint (09/28/19) Physical Therapy Treatment Note PT-OP-A Visit Information Start: 08/06/19 08:35 Freq: Status: Active Protocol: Document 09/28/19 12:16 SP (Rec: 09/28/19 13:18 SP [id number]) Out-Patient Physical Therapy Visit Information Visit Information Visit Type Treatment Note Visit Start Time 12:16 Visit Stop Time 13:00 Total Visit Minutes 44 Visit Number 12 Number of EXCEL EXPERT Visits 2 PT-OP-B Current Condition Start: 08/06/19 08:35 Freq: Status: Active Protocol: Document 08/05/19 13:45 DCW (Rec: 08/06/19 13:22 DCW [id number]) Current Condition History of Current Condition Onset Date 07/13/19 Current Complaints Left hip hemiarthroplasty History of Current Condition Pt is a 78 year old female who suffered a fall on 07/13/19 while walking her dog. She was brought in to [facility] ED, was found to have suffered a mildly displaced left femoral neck fracture. Pt underwent a left hip cemented hemiarthroplasty the following day, and received post-op instructions to follow posterior hip precautions. Pt feels so far she is doing very well ~3 weeks post-op, is not experiencing much pain or movement limitations. Pt is currently using a FWW when out of the house, but is ambulating independently in her home. She does admit to difficulty sleeping since surgery, however this is more due to her trying to sleep on her back and being uncomfortable in that position , rather than any actually experiencing pain. Pt notes her goal is to get back to the way I was, and return to walking her dogs and walking with a group of friends several times a week. Pt admits that she has not been doing any HEP at home, does not think anyone told her to do anything. Prior Treatments and Tests left hip cemented hemiarthroplasty on 07/14/19 Treatment Goals Patient/Caregiver Goals Return to walking two miles with friends around [facility] and [facility]. Prior Functional Status Baseline Function- ADL's Independent Baseline Function- Mobility Independent Baseline Function- Gait Walk dogs 2x/day, walk /c group of friends 2+ miles several times per week Current Functional Impairments (Reported) Functional Limitations- Mobility/Gait Limited to household distances with no AD, community ambulation with FWW, ambulates less than one mile each day PT-OP-C Subjective Start: 08/06/19 08:35 Freq: Status: Active Protocol: Document 09/28/19 12:16 SP (Rec: 09/28/19 13:18 SP [id number]) OP-PT Subjective Patient Comments Patient Comments Pt stated is happy with her progress hasn't been able get out walking with busy schedule and weather but is able to walk her dog a mile and many other standing activities in the house could easily add up to 1 mile with no concerns. Pt is going to make one more appt with PT and then continue on her own. Pt reported caught her toe on the carpet this am and was able to recover without trouble. Patient Reported Progress Improving PT-OP-E Functional Tests Start: 08/06/19 08:35 Freq: Status: Active Protocol: Document 09/13/19 12:15 SP (Rec: 09/13/19 13:14 SP [id number]) Functional Tests 6 Minute Walk Test Distance 1522 Device Used 0 PT-OP-F Manual Assessment Start: 08/06/19 08:35 Freq: Status: Active Protocol: Document 08/05/19 13:45 DCW (Rec: 08/06/19 13:22 DCW [id number]) Manual Assessments Soft Tissue Assessment Soft Tissue Mobility Assessment Post-op effusion along left lateral hip Joint Mobility Assessment Joint Mobility Assessment Appropriate join mobility within posterior hip precautions PT-OP-K Range of Motion Start: 08/06/19 08:35 Freq: Status: Active Protocol: Document 09/13/19 12:15 SP (Rec: 09/13/19 13:14 SP [id number]) Hip Goniometric Range of Motion Hip Left Testing Position Supine Flexion w/Knee Flexed 124 Abduction 35 PT-OP-M Strength Start: 08/06/19 08:35 Freq: Status: Active Protocol: Document 09/10/19 13:11 AMB (Rec: 09/10/19 13:51 AMB [id number]) Hip Strength Hip Manual Muscle Testing Left Flexion (L2) 4+ Good+ Abduction 4- Good- External Rotation 4 Good Internal Rotation 4- Good- PT-OP-Q Treatments Start: 08/06/19 08:35 Freq: Status: Active Protocol: Document 09/28/19 12:16 SP (Rec: 09/28/19 13:18 SP [id number]) Cardio Equipment Recumbent Bicycle Duration (Minutes) 6 Resistance 6 Seat Position 6 Therapeutic Exercises Supine Exercises 1 Supine Exercise Name bridge hip abd (HEP) Resistance Y TB Reps/Minutes 3x10 Sidelying Exercises 2 Sidelying Exercise Name sidelying hip abduction Resistance AROM Reps/Minutes x10 Comments alow control 1 Sidelying Exercise Name sidelying clam shells Side bilateral Equipment Used YTB Reps/Minutes x 10 each Standing Exercises 5 Standing Exercise Name sit to stand Reps/Minutes 10 Comments from chair 18, occasional cue for knees apart sitting better than standing step up Standing Exercise Name 8 and 4 forward Reps/Minutes 1x10 and 1x20 Comments improvement in knee alignment eccentric step down Equipment Used 4 step Reps/Minutes 3x10 R and L Comments improvement in knee alignment PT-OP-R Modalities Start: 08/06/19 08:35 Freq: Status: Active Protocol: Document 08/17/19 13:00 AMB (Rec: 08/17/19 16:44 AMB [email or web address]) Hot Pack/Cold Pack Treatment Hot Pack Location L hip flexor Patient Position Hooklying Treatment Duration (minutes) 10 Patient Tolerance Good PT-OP-T Assessment and Plan Start: 08/06/19 08:35 Freq: Status: Active Protocol: Document 09/28/19 12:16 SP (Rec: 09/28/19 13:18 SP [id number]) Physical Therapy Assessment Goals Four Impairment Decreased pelvic floor endurance Short Term Goal (STG) Improve endurance of the pelvic floor to 10 second hold time in supine and 5 second hold time in standing. 09/08/18 GOAL MET Three Impairment Pt displays left hip weakness following hemiarthroplasty Combination Machine Tender Goal (LTG) Pt to display L hip MMT at least 4/5 with flexion, abduction, and ER/IR PROGRESS MADE: 4-/5 in abduction and internal rotation, otherwise goal met 09/28/19 GOAL MET 4/5 abd, flex, IR/ER. LTG Duration 10/05/19 Two Impairment Pt walking less than one mile daily Combination Machine Tender Goal (LTG) Pt to return to her two mile walks with her walking group. PROGRESS MADE- walking 1 mile 09/28/19 GOAL MET walking dog 1 mile and more distance in house approx 1mile including 3 flights stairs. LTG Duration 10/05/19 One Impairment Pt does not have an appropriate home exercise program Short Term Goal (STG) Pt to be independent and compliant with an appropriate HEP PROGRESS MADE - does some of her exercises 09/28/19 GOAL MET independent. STG Duration 09/05/19 Assessment Summary Assessment Tx focused on HEP review with cuing for R knee alignment and able to maintain with awareness of slow pacing and glut facilitation/ hip hinge to get out of a chair and up/ down stairs. PPt has good recall and I with HEP. PT is back to walking her dog and prior activities. EXCEL EXPERT discussed progress made with PT and PT agreed will complete DC today. Physical Therapy Plan Frequency and Duration Frequency of Treatment 2x/Week Duration of Treatment 10 weeks Plan of Care Start Date 08/05/19 Plan of Care End Date 10/14/19 Therapeutic Interventions Therapeutic Interventions Aquatic Therapy,Gait Training, Home Exercise Program,Joint Mobilizations,Manual Therapy, Neuromuscular Re-education, Patient/Caregiver Education, Self-Care/Home Management,Soft Tissue Mobilization, Therapeutic Activities, Therapeutic Exercises Modalities Cold Pack/Ice Massage,Electric Stimulation,Hot Packs, Ultrasound Next Visit Focus/Plan Next Note Type Treatment Note Next Visit Plan Pt met goals and independent with primarily standing HEP feels confident can continue on own. PT to complete DC today.
--- NOTE | 2019-09-28 14:23 | PT.OPDS ---
Current Diagnoses Stiffness of left hip, not elsewhere classified (09/28/19) Other abnormalities of gait and mobility (09/28/19) Weakness (09/28/19) History of falling (09/28/19) Presence of left artificial hip joint (09/28/19) Visit Care Team Role Provider Type Primary Care Provider Specialty: Address: Phone: Fax: Email: PATRICIA Ellison Family Provider Advanced Fence Installer Specialty: Family Practice Address: [address] [place] [address], [facility] [place], [address] Email: [email or web address] Isamar Dueñas PA-C Attending Provider Advanced Fence Installer Specialty: Orthopedics Address: [address] [place] [address], [id number] Email: [email or web address] Visit Number Visit Number 12 Discharge Summary PT-OP-B Current Condition Start: 08/06/19 08:35 Freq: Status: Active Protocol: Document 08/05/19 13:45 DCW (Rec: 08/06/19 13:22 DCW [id number]) Current Condition History of Current Condition Onset Date 07/13/19 Current Complaints Left hip hemiarthroplasty History of Current Condition Pt is a 78 year old female who suffered a fall on 07/13/19 while walking her dog. She was brought in to [facility] ED, was found to have suffered a mildly displaced left femoral neck fracture. Pt underwent a left hip cemented hemiarthroplasty the following day, and received post-op instructions to follow posterior hip precautions. Pt feels so far she is doing very well ~3 weeks post-op, is not experiencing much pain or movement limitations. Pt is currently using a FWW when out of the house, but is ambulating independently in her home. She does admit to difficulty sleeping since surgery, however this is more due to her trying to sleep on her back and being uncomfortable in that position , rather than any actually experiencing pain. Pt notes her goal is to get back to the way I was, and return to walking her dogs and walking with a group of friends several times a week. Pt admits that she has not been doing any HEP at home, does not think anyone told her to do anything. Prior Treatments and Tests left hip cemented hemiarthroplasty on 07/14/19 Treatment Goals Patient/Caregiver Goals Return to walking two miles with friends around [facility] and [facility]. Prior Functional Status Baseline Function- ADL's Independent Baseline Function- Mobility Independent Baseline Function- Gait Walk dogs 2x/day, walk /c group of friends 2+ miles several times per week Current Functional Impairments (Reported) Functional Limitations- Mobility/Gait Limited to household distances with no AD, community ambulation with FWW, ambulates less than one mile each day PT-OP-C Subjective Start: 08/06/19 08:35 Freq: Status: Active Protocol: Document 09/28/19 12:16 SP (Rec: 09/28/19 13:18 SP [id number]) OP-PT Subjective Patient Comments Patient Comments Pt stated is happy with her progress hasn't been able get out walking with busy schedule and weather but is able to walk her dog a mile and many other standing activities in the house could easily add up to 1 mile with no concerns. Pt is going to make one more appt with PT and then continue on her own. Pt reported caught her toe on the carpet this am and was able to recover without trouble. Patient Reported Progress Improving PT-OP-E Functional Tests Start: 08/06/19 08:35 Freq: Status: Active Protocol: Document 09/13/19 12:15 SP (Rec: 09/13/19 13:14 SP [id number]) Functional Tests 6 Minute Walk Test Distance 1522 Device Used 0 PT-OP-F Manual Assessment Start: 08/06/19 08:35 Freq: Status: Active Protocol: Document 08/05/19 13:45 DCW (Rec: 08/06/19 13:22 DCW [id number]) Manual Assessments Soft Tissue Assessment Soft Tissue Mobility Assessment Post-op effusion along left lateral hip Joint Mobility Assessment Joint Mobility Assessment Appropriate join mobility within posterior hip precautions PT-OP-K Range of Motion Start: 08/06/19 08:35 Freq: Status: Active Protocol: Document 09/13/19 12:15 SP (Rec: 09/13/19 13:14 SP [id number]) Hip Goniometric Range of Motion Hip Left Testing Position Supine Flexion w/Knee Flexed 124 Abduction 35 PT-OP-M Strength Start: 08/06/19 08:35 Freq: Status: Active Protocol: Document 09/10/19 13:11 AMB (Rec: 09/10/19 13:51 AMB [id number]) Hip Strength Hip Manual Muscle Testing Left Flexion (L2) 4+ Good+ Abduction 4- Good- External Rotation 4 Good Internal Rotation 4- Good- PT-OP-T Assessment and Plan Start: 08/06/19 08:35 Freq: Status: Active Protocol: Document 09/28/19 14:21 AMB (Rec: 09/28/19 14:23 AMB [id number]) Physical Therapy Assessment Goals Three Impairment Pt displays left hip weakness following hemiarthroplasty [employer] Machine Operator Goal (LTG) Pt to display L hip MMT at least 4/5 with flexion, abduction, and ER/IR PROGRESS MADE: 4-/5 in abduction and internal rotation, otherwise goal met 09/28/19 GOAL MET 4/5 abd, flex, IR/ER. LTG Duration 10/05/19 Two Impairment Pt walking less than one mile daily Usp Goal (LTG) Pt to return to her two mile walks with her walking group. PROGRESS MADE- walking 1 mile 09/28/19 GOAL MET walking dog 1 mile and more distance in house approx 1mile including 3 flights stairs. LTG Duration 10/05/19 One Impairment Pt does not have an appropriate home exercise program Short Term Goal (STG) Pt to be independent and compliant with an appropriate HEP PROGRESS MADE - does some of her exercises 09/28/19 GOAL MET independent. STG Duration 09/05/19 Assessment Summary Assessment Sherrie has met all of her goals , she no longer has pain in her hip, and has returned to close to her baseline: walking 1 mile rather than 2, but feels this is more due to her busy schedule and weather than her hip fatigue. Reviewed HEP and she is independent with it therefore she is discharged due to meeting her goals and being able to independently improve from here. Physical Therapy Plan Discharge Physical Therapy Discharge Reasons Goals Met
== END 2019-10-15 11:41 | disposition home or self-care (01) ==
LOC: PHYS 12:15
PROVIDERS: Family Provider Internal Medicine; Visit Provider Physician Assistant Surgical
DX: Z96.642 Presence of left artificial hip joint (principal); R26.89 Other abnormalities of gait and mobility; Z91.81 History of falling; R53.1 Weakness; M25.652 Stiffness of left hip, not elsewhere classified
CPT/HCPCS: 97110; 97116; 97140; 97161; 97530

== ENCOUNTER → 2019-11-25 10:41 | Outpatient (CLI) | payer MEDICARE, OTHER, SELFPAY ==
--- NOTE | 2019-11-25 10:53 | DI.CT.S_ITS ---
PROCEDURE: CT CHEST WO CON INDICATIONS: f/u nodules TECHNIQUE: Noncontrast 2.0-2.5 mm thick sections acquired from the pulmonary apices to the posterior costophrenic angles. 7 mm thick axial MIP and 5 mm coronal and sagittal reformats were then acquired. A low radiation dose technique was utilized. COMPARISON: [facility], CT, CT CHEST WO CON, 07/30/2019, 9:02. FINDINGS: Image quality: Diagnostic, given the low radiation dose technique. Lungs and pleura: No acute consolidation pleural effusion or pneumothorax. There is interval resolution of the numerous bilateral pulmonary nodules seen on prior CT dated 07/30/19., For example in the left lung base previous 1.5 cm nodule no longer visualized and there is mild residual groundglass attenuation and scarring in the expected location. Adjacent fat-containing small left diaphragmatic hernia incidentally noted. This appears unchanged Multiple right basilar pulmonary nodules also appear resolved, with mild scarring present in the right posterior sulcus on image 281/3. 4 mm left basilar pleural nodule on image to 33 series 3 appears decreased in size. There is unchanged ground glass nodularity seen within the right upper lobe on image 75/3, which appears unchanged Mediastinum: Heart size is normal. No pericardial effusion. No mediastinal adenopathy by size criteria. Thoracic aorta and central pulmonary arteries are normal in size. Esophagus is normal in caliber. No hiatal hernia. Bones and chest wall: No suspicious bony lesions. No vertebral body compression fractures. No axillary or supraclavicular adenopathy by size criteria. Thyroid gland negative. Abdomen: Nonspecific subcentimeter hypodensities present in the left lobe liver, image 54/2 which are indeterminate although probably unchanged IMPRESSION: Interval near-complete resolution of previous numerous bilateral pulmonary nodules therefore reflecting prior infectious or inflammatory etiology. Residual 3 mm pleural-based nodule in left lung base which could be followed up with chest CT in one year as clinically warranted although this also appears slightly less conspicuous (could be due to slice registration artifact) Unchanged 9 mm nodular ground glass focus in the right upper lobe, which could be further analyzed on the one year followup interval chest CT discussed above. Fleischner Society criteria for SOLID lung nodule followup. Nodule size (mm)Low-risk patientHigh-risk patient<6 (single or multiple)No routine followup.Optional CT at 12 months. 6-8 (single or multiple)CT at 6-12 months, then optional CT at 18-24 mo.CT at 6-12 months, then CT at 18-24 months. >8 (single)CT at 3 months, PET-CT, or biopsy. Same as for low-risk pts. >8 (multiple)CT at 3-6 months, then optional CT at 18-24 mo.CT at 3-6 months, then CT at 18-24 months. Fleischner Society criteria for SUB-SOLID lung nodule followup. Solitary pure ground-glass nodules<6 mm (ground glass or part solid)No followup needed. 6 mm or larger (ground glass)CT at 6-12 months to confirm persistence, then CT every 2 years until 5 years.6 mm or larger (part solid)CT at 3-6 months to confirm persistence, then annual CT until 5 years if unchanged and solid component remains <6 mm. Multiple sub-solid nodules<6 mmCT at 3-6 months, then CT consider at 2 & 4 years for high risk patients. [address] at 3-6 months. Subsequent management based on most suspicious lesions. Recommendations do not apply to lung cancer screening, patients with immunosuppression, or patients with known primary cancer. Dictated by: Jose M Sotelo M.D. on 11/25/2019 at 12:22 Approved by: Jose M Sotelo M.D. on 11/25/2019 at 12:34
== END ==
PROVIDERS: Family Provider Internal Medicine; PCP Internal Medicine
DX: C50.919 Malignant neoplasm of unspecified site of unspecified female breast (principal); R91.8 Other nonspecific abnormal finding of lung field
CPT/HCPCS: 71250

== ENCOUNTER → 2020-02-08 10:15 | Outpatient (CLI) | payer MEDICARE, OTHER, SELFPAY ==
--- NOTE | 2020-02-08 | DI.US.S_ITS ---
ULTRASOUND OF RIGHT BREAST: 02/08/2020 CLINICAL: 6 month follow-up of cysts. Comparison is made to exams dated: 02/08/2020 mammogram, 07/30/2019 ultrasound, 07/30/2019 mammogram, 07/08/2018 mammogram - [facility], and 06/30/2017 mammogram - [facility]. Color flow and real-time ultrasound of the right breast were performed. Wade scale images of the real-time examination were reviewed. There is a 1 cm x 0.7 cm x 0.7 cm wider than tall oval cyst in the right breast at 9 o'clock posterior depth 5 cm from the nipple. This oval cyst is hypoechoic with a well-defined boundary and posterior acoustic enhancement. This abnormality is not significantly changed and correlates as palpated, with mammography findings, and area of clinical concern. There are related rim calcifications which appear slightly more coarse and consistent with findings seen on mammography. Color flow imaging demonstrates that there is no vascularity present. IMPRESSION: PROBABLY BENIGN The 1 cm x 0.7 cm x 0.7 cm wider than tall oval cyst in the right breast most likely is an oil cyst/fat necrosis and is probably benign. A follow-up bilateral mammogram and a right breast ultrasound in 6 months is recommended to demonstrate continued stability. This exam was interpreted at Station ID: [id number]. Electronically Signed By: Rolando Jeronimo M.D. aty/:02/08/2020 11:44:42 copy to: SHANTE BAKER copy to: Amrita Ho letter sent: Followup Recommended Ultrasound BI-RADS: 3 Probably benign
--- NOTE | 2020-02-08 | DI.MG.S_ITS ---
UNILATERAL RIGHT DIGITAL DIAGNOSTIC MAMMOGRAM 3D/2D POST LUMPECTOMY: 02/08/2020 CLINICAL: Right breast pain and lump. Comparison is made to exams dated: 07/30/2019 mammogram, 07/08/2018 mammogram - [facility], and 06/30/2017 mammogram - [facility]. The tissue of right breast is heterogeneously dense. This may lower the sensitivity of mammography. The patient is status post partial mastectomy right breast in the upper outer quadrant. Stable postoperative changes and persistent peripheral, dystrophic calcifications noted in area of fat necrosis. These calcifications appear slightly more coarse. There are benign appearing large sariah-like calcifications in the right breast that are not significantly changed. No new significant masses, calcifications, or other findings are seen in the breast. Area of palpable concern localized with triangle skin marker which correlates directly over the surgical change and fat necrosis. IMPRESSION: INCOMPLETE: NEEDS ADDITIONAL IMAGING EVALUATION There is no mammographic evidence of malignancy; however, further evaluation with sonogram will be performed targeting the palpable area of concern. This is scheduled to immediately follow this study. This exam was interpreted at Station ID: [id number]. NOTE: For mammograms, a report in lay terms will be sent to the patient. Approximately 15% of breast malignancies will not be visualized mammographically. In the management of a palpable breast mass, a negative mammogram must not discourage biopsy of a clinically suspicious lesion. Electronically Signed By: Rolando Jeronimo M.D. aty/:02/08/2020 11:40:03 copy to: SHANTE BAKER copy to: Amrita HRAKINS BI-RADS Category 0: Incomplete [id number]
== END ==
PROVIDERS: Family Provider Internal Medicine; PCP Internal Medicine; Referring Provider Surgery; Visit Provider Surgery
DX: R92.8 Other abnormal and inconclusive findings on diagnostic imaging of breast (principal); N64.4 Mastodynia; N60.01 Solitary cyst of right breast
CPT/HCPCS: 76642; 77065; G0279

== ENCOUNTER → 2020-08-01 10:58 | Outpatient (CLI) | payer MEDICARE, OTHER, SELFPAY | PROVIDERS: Family Provider Internal Medicine; PCP Internal Medicine; Referring Provider Internal Medicine Hematology & Oncology; Visit Provider Internal Medicine Hematology & Oncology | DX: Z85.3 Personal history of malignant neoplasm of breast (principal); Z53.8 Procedure and treatment not carried out for other reasons ==

== ENCOUNTER → 2020-08-10 14:15 | Outpatient (CLI) | payer MEDICARE, OTHER, SELFPAY ==
--- NOTE | 2020-08-10 14:17 | DI.US.S_ITS ---
LIMITED ULTRASOUND OF RIGHT BREAST: 08/10/2020 CLINICAL: Six month follow up for abnormal mammo. Comparison is made to exams dated: 08/10/2020 mammogram, 02/08/2020 ultrasound, 02/08/2020 mammogram, 07/30/2019 ultrasound, 07/30/2019 mammogram, and 07/08/2018 mammogram - [facility]. Color flow ultrasound of the right breast was performed. Wade scale images of the real-time examination were reviewed. There is a 1 cm x 0.7 cm x 0.7 cm wider than tall oval cyst in the right breast at 9 o'clock posterior depth 5 cm from the nipple. This oval cyst is hypoechoic with a well-defined boundary. This abnormality is not significantly changed and correlates as palpated, with mammography findings, and area of clinical concern. There are related rim calcifications. Color flow imaging demonstrates that there is no vascularity present. IMPRESSION: PROBABLY BENIGN The 1 cm x 0.7 cm x 0.7 cm wider than tall oval cyst in the right breast most likely is an oil cyst and is probably benign. A follow-up right mammogram and an ultrasound in 6 months is recommended to demonstrate stability. This exam was interpreted at Station ID: [id number]. Electronically Signed By: Arian bradshaw/ryan:08/14/2020 10:33:52 copy to: SHANTE BAKER copy to: Amrita Ho letter sent: Followup Recommended Ultrasound BI-RADS: 3 Probably benign
--- NOTE | 2020-08-10 14:17 | DI.MG.S_ITS ---
BILATERAL DIGITAL DIAGNOSTIC MAMMOGRAM 3D/2D SHORT-TERM FOLLOW-UP POST LUMPECTOMY: 08/10/2020 CLINICAL: Patient returns for a 6 month follow up of the right breast, due for bilateral exam. Comparison is made to exams dated: 02/08/2020 mammogram, 07/30/2019 mammogram, 07/08/2018 mammogram - [facility], 06/30/2017 mammogram - [facility], and 02/08/2020 ultrasound - [facility]. The tissue of both breasts is heterogeneously dense. This may lower the sensitivity of mammography. There is an oval fat necrosis with rim calcifications in the right breast at 9 o'clock posterior depth. This is increased in number of calcifications. There are surgical clips and a post-surgical scar associated with the fat necrosis. No other significant masses, calcifications, or other findings are seen in either breast. IMPRESSION: INCOMPLETE: NEEDS ADDITIONAL IMAGING EVALUATION The oval fat necrosis in the right breast is indeterminate. An ultrasound is recommended. This exam was interpreted at Station ID: [id number]. NOTE: For mammograms, a report in lay terms will be sent to the patient. Approximately 15% of breast malignancies will not be visualized mammographically. In the management of a palpable breast mass, a negative mammogram must not discourage biopsy of a clinically suspicious lesion. SUMMARY: Targeted ultrasound is recommended for further evaluation and will be scheduled immediately following this exam. Electronically Signed By: Arian bradshaw/ryan:08/10/2020 16:25:21 copy to: SHANTE BAKER copy to: Amrita HARKINS BI-RADS Category 0: Incomplete [id number]
== END ==
PROVIDERS: Family Provider Internal Medicine; PCP Internal Medicine; Referring Provider Internal Medicine Hematology & Oncology; Visit Provider Internal Medicine Hematology & Oncology
DX: R92.8 Other abnormal and inconclusive findings on diagnostic imaging of breast (principal); C50.919 Malignant neoplasm of unspecified site of unspecified female breast; R92.1 Mammographic calcification found on diagnostic imaging of breast; N64.1 Fat necrosis of breast; N60.01 Solitary cyst of right breast
CPT/HCPCS: 76642; 77066; G0279

== ENCOUNTER → 2020-11-22 10:50 | Outpatient (CLI) | payer MEDICARE, OTHER, SELFPAY ==
[2020-11-22 13:04] LABS: COVID19 -Nasal RAPID Negative (Negative)
== END ==
PROVIDERS: Family Provider Internal Medicine; PCP Internal Medicine; Visit Provider Physician Assistant
DX: Z01.812 Encounter for preprocedural laboratory examination (principal); Z20.822 Contact with and (suspected) exposure to COVID-19
CPT/HCPCS: 87635; C9803

== ENCOUNTER 2020-11-24 13:29 | Day surgery (SDC) | payer MEDICARE, OTHER, SELFPAY ==
--- NOTE | 2020-11-24 12:17 | PM.HP.1 ---
History of Present Illness History of Present Illness Date Patient Seen: 11/24/20 Chief complaint: WYC Narrative: 80 year old female comes in today for consideration of a screening colonoscopy. Last colonoscopy in 2008, indicated for history of polyps, normal, 5 year recall recommended. Prior to that, had a colonoscopy in approximately 2003, 2 polyps, unknown pathology. There have been no lower GI symptoms suggesting disease such as change in bowel habits, bleeding, abdominal pain or anemia. There's been no family history of colon cancer or colon polyps. Overall health issues have been stable, including no major cardiac events for at least 6 weeks. PCP: PATRICIA Ellison Past medical history: History of breast cancer Osteoporosis Back pain Past Surgical History: Lumpectomy - 2013 bladder lift X 2 fractured ankle, right- 2015 Appendectomy - at age 7 Hysterectomy (1978) Left hip replacement(07/14/19) Family History: Father: Heart Disease Mother: from stroke Siblings: sister and daughter has had breast CA, crw-gkd-tgsnccmj lymphoma Social history: , retired. Lives with Vladimir at home. Patient History Medical History (Updated 12/21/19 @ 17:27 by PATRICIA Enamorado) Ankle fracture, right Cancer of right breast, stage 1, estrogen receptor positive Foot pain (~2012) Insomnia Obstructive sleep apnea Osteopenia Seasonal allergies (~1994) Surgical History Anesthesia History of bladder suspension procedure (~1989) S/P lumpectomy, right breast Status post appendectomy (~194) Status post hysterectomy (~1979) Family & Social History Family History Child Age: 57 DCIS (ductal carcinoma in situ) Child Age: 55 Non Hodgkin's lymphoma Mother Heart disease Hypertension Stroke Sister Age: 68 Breast cancer Father No problems noted. Social History: household members spouse Tobacco & Substance use: Smoking Status Former smoker alcohol intake frequency holiday/special occasion Substance Use Type does not use Meds Home Medications and Allergies Home Medications Medication Instructions Recorded Confirmed Type CoQ-10 1 cap PO DAILY #0 04/10/12 11/24/20 History cholecalciferol (vitamin D3) 5,000 unit PO DAILY 04/23/18 11/24/20 History [Vitamin D3] magnesium 400 mg PO DAILY 04/23/18 11/24/20 History omega-3 fatty acids [Fish Oil 1,000 mg PO DAILY 04/23/18 11/24/20 History Concentrate] albuterol sulfate 90 mcg/actuation 2 puff INHALATION Q4H PRN #8.5 gram 05/04/18 11/24/20 Rx aerosol inhaler inhalational spacing device #1 each 05/04/18 11/24/20 Rx lorazepam 0.5 mg PO BEDTIME PRN 07/13/19 11/24/20 History rosuvastatin 5 mg PO QPM 07/13/19 11/24/20 History calcium carbonate-vitamin D3 1 ea PO DAILY #30 tab 07/16/19 11/24/20 Rx [Oyster Shell Calcium-Vit D3] denosumab [Prolia] 60 mg SUBCUT [id number] 11/24/20 11/24/20 History Allergies Allergy/AdvReac Type Severity Reaction Status Date / Time Sulfa (Sulfonamide Allergy Mild Verified 11/24/20 13:43 Antibiotics) alendronate sodium AdvReac Mild Verified 11/24/20 13:43 meperidine AdvReac Mild NAUSEA Verified 11/24/20 13:43 morphine AdvReac Mild ILLNESS Verified 11/24/20 13:43 Review of Systems Review of Systems ROS: Yes All systems reviewed with the patient and are negative except as otherwise documented Exam Narrative Exam Narrative: GENERAL: Alert and oriented, appearing stated age and in no acute distress. HEENT: Head normocephalic/atraumatic. Pupils equal, round, and reactive to light and accomodation. Extraocular muscles intact. Tympanic membranes clear. Nasal mucosa moist, septum midline. Oral mucosa moist, no lesions. Neck soft and supple, no lymphadenopathy. LUNGS: Clear to ausculation bilaterally, no wheezes, rhonchi or rales. CV: Normal S1 and S2 with regular rate and rhythm, no audible murmurs, rubs or gallops. ABDOMEN: Soft, non-tender, non-distended, no organomegaly. Positive bowel sounds. EXTREMITIES: No clubbing, cyanosis, or edema. NEURO: Cranial nerves II through XII grossly intact, no focal deficits. PSYCH: Alert and oriented x 3. SKIN: No concerning lesions. Assessment & Plan Assessment & Plan narrative: 1. History of colon polyps 2. Screening for colon cancer Plan for colonoscopy. The nature and character of the procedure as well as anticipated results were discussed. The possibility of not completing the procedure was also discussed. Possible complications including aspiration pneumonia, bleeding, perforation and reaction to medications either for sedation or preparation and missed lesions were discussed. Questions were answered and proceeding to the colonoscopy was elected. Informed consent signed. I sincerely appreciate the referral allowing me to participate in this patient's care. Please contact me with any questions or concerns.
--- NOTE | 2020-11-24 12:22 | PM.OP.ENDO ---
Operative Date/Time/Diagnoses Date of procedure: 11/24/20 Procedure Notes SCOAP/Timeout: 2:56 p.m. Procedure in detail: ENDOSCOPIST: Irina French MD Sedation RN: Melanie Telles RN Sedation start time: 2:57 p.m. Sedation end time: 6:22 a.m. PROCEDURE: Colonoscopy INDICATIONS: 1. History of colon polyps 2. Screening for colon cancer MEDICATION: Levsin 0.125 mg sublingual, incremental doses of Versed and fentanyl until appropriate level sedation achieved. ASA CLASS: 2 CECAL WITHDRAWAL TIME: 7 minutes COMPLICATIONS: None. EXTENT OF PROCEDURE: Cecum. QUALITY OF PREP: Good with portions of liquid stool. PROCEDURE: Prior to insertion of the colonoscope, a digital rectal examination was accomplished with circumferential palpation of the distal rectal mucosa without significant findings being noted. The high-definition pediatric colonoscope was passed into the rectum in the usual fashion and advanced over to the cecum without difficulty. The ileocecal valve, appendiceal stoma, and medial wall all could be inspected and no abnormalities were seen. ASCENDING COLON: As the colonoscope was withdrawn, care was taken to expose and inspect the haustral folds and no abnormalities were seen. HEPATIC FLEXURE: Normal, no polyps, diverticula or other abnormalities. TRANSVERSE COLON: Normal, no polyps, diverticula or other abnormalities. DESCENDING COLON: Minor diverticulosis, otherwise, normal, no polyps, or other abnormalities. SIGMOID COLON: Minor diverticulosis, otherwise, normal, no polyps, or other abnormalities. RECTUM: Normal. J maneuver was produced. There was no significant perianal disease. The J maneuver was broken. The remainder of the rectum was inspected and there was no external hemorrhoid disease. The scope was withdrawn. IMPRESSION: 1. Normal colonoscopy PLAN: 1. At this point, patient can age out of colonoscopies. The possibility of a missed lesion including a malignancy has been discussed with the patient previously. Potential alarm symptoms have been discussed and should be reported immediately.
[2020-11-24] MEDS: HYOSCYAMINE 0.125 MG TABLET PO (13:47)
[2020-11-24] MEDS: LACTATED RINGERS 1,000 ML 200 ML IV (13:57)
[2020-11-24 13:58] VITALS: BP 114/71; PULSE 80; RESP 16; TEMP 36.8; O2SAT 97; BMI 23.8
[2020-11-24] MEDS: ONDANSETRON 4 MG/2 ML INJ IV (14:57)
[2020-11-24] MEDS: MIDAZOLAM 5 MG/5 ML VIAL IV (15:05)
[2020-11-24] MEDS: fentaNYL 250 MCG/5 ML INJ IV (15:09)
[2020-11-24 15:26] VITALS: BP 109/56; PULSE 82; RESP 14; TEMP 36.9; O2SAT 96
[2020-11-24 15:31] VITALS: BP 106/63; PULSE 87; RESP 12; O2SAT 96
[2020-11-24 15:36] VITALS: BP 113/52; PULSE 73; RESP 14; O2SAT 97
[2020-11-24 15:45] VITALS: BP 110/52; PULSE 79; RESP 14; TEMP 36.4; O2SAT 100
== END 2020-11-24 16:04 | disposition home or self-care (01) ==
PROVIDERS: Family Provider Internal Medicine; PCP Internal Medicine; Referring Provider Student in an Organized Health Care Education/Training Program; Visit Provider Student in an Organized Health Care Education/Training Program
PROC: 0DJD8ZZ Inspection of Lower Intestinal Tract, Via Natural or Artificial Opening Endoscopic (ICD-10-PCS; CPT 45378; principal; 2020-11-24 14:30)
DX: Z12.11 Encounter for screening for malignant neoplasm of colon (principal); Z86.010 Personal history of colon polyps; K57.30 Diverticulosis of large intestine without perforation or abscess without bleeding
CPT/HCPCS: G0105; J2250; J2405; J3010

== ENCOUNTER → 2020-11-27 11:10 | Outpatient (CLI) | payer MEDICARE, OTHER, SELFPAY ==
--- NOTE | 2020-11-27 11:11 | DI.CT.S_ITS ---
PROCEDURE: CT CHEST WO CON INDICATIONS: pulmonary nodule TECHNIQUE: Noncontrast 5 mm thick sections acquired from the pulmonary apices to the posterior costophrenic angles. 1 mm lung window, 5 mm thick coronal and sagittal and 7 mm axial MIP reformats were then acquired. For radiation dose reduction, the following was used: automated exposure control, adjustment of mA and/or kV according to patient size. COMPARISON: [facility], CT, CT CHEST WO CON, 11/25/2019, 10:40. FINDINGS: Image quality: Excellent. Lungs and pleura: Previous focus of ground-glass opacity in the posterior aspect of the right upper lobe is noted. Mediastinum: Heart size is normal. Trace pericardial effusion. No mediastinal adenopathy by size criteria. Thoracic aorta and central pulmonary arteries are normal in size. Esophagus is normal in caliber. No hiatal hernia. Bones and chest wall: No suspicious bony lesions. No vertebral body compression fractures. No axillary or supraclavicular adenopathy by size criteria. Thyroid gland is unremarkable. Abdomen: Visualized upper abdominal solid organs and bowel loops appear normal in the absence of contrast. IMPRESSION: 1. Unchanged focus of ground glass in the right upper lobe. It is overall nonspecific. Given stability, this is reflective of chronic infection and/or inflammation. Dictated by: Amanda Boyle M.D. on 11/27/2020 at 13:37 Approved by: Amanda Boyle M.D. on 11/27/2020 at 13:54
== END ==
PROVIDERS: Family Provider Internal Medicine; PCP Internal Medicine; Referring Provider Internal Medicine Hematology & Oncology; Visit Provider Internal Medicine Hematology & Oncology
DX: R91.1 Solitary pulmonary nodule (principal); C50.919 Malignant neoplasm of unspecified site of unspecified female breast
CPT/HCPCS: 71250

== ENCOUNTER → 2021-01-23 11:56 | Outpatient (CLI) | payer MEDICARE, OTHER, SELFPAY ==
--- NOTE | 2021-01-23 11:59 | DI.US.S_ITS ---
LIMITED ULTRASOUND OF RIGHT BREAST: 01/23/2021 CLINICAL: Patient returns today to evaluate a focal asymmetry in the right breast. Comparison is made to exams dated: 08/10/2020 mammogram, 01/23/2021 mammogram, 08/10/2020 ultrasound, 02/08/2020 ultrasound, 07/30/2019 ultrasound, and 02/08/2020 mammogram - [facility]. Color flow and real-time ultrasound of the right breast 9 o'clock region were performed on the areas of interest. There is a stable 0.9 cm x 0.6 cm x 0.5 cm oval cyst in the right breast at 9 o'clock middle depth. This oval cyst is hypoechoic with a well-defined boundary and posterior acoustic shadowing. This correlates with mammography findings. There are related rim calcifications. Color flow imaging demonstrates that there is no vascularity present. IMPRESSION: PROBABLY BENIGN The stable 0.9 cm x 0.6 cm x 0.5 cm oval cyst in the right breast likely represents an oil cyst or fat necrosis and is probably benign. Findings are stable compared to prior studies dating back to 07/30/19. A follow-up mammogram and an ultrasound in 6 months are recommended to demonstrate 2 year stability. Patient will be due for mammography of the contralateral breast at that time. This exam was interpreted at Station ID: [id number]. Electronically Signed By: Jabier garzon/:01/23/2021 13:51:45 copy to: Amrita Ho letter sent: Followup Recommended Ultrasound BI-RADS: 3 Probably benign
--- NOTE | 2021-01-23 11:59 | DI.MG.S_ITS ---
UNILATERAL RIGHT DIGITAL DIAGNOSTIC MAMMOGRAM 3D/2D SHORT-TERM FOLLOW-UP: 01/23/2021 CLINICAL: Short follow up. Comparison is made to exams dated: 08/10/2020 mammogram, 02/08/2020 mammogram, and 07/30/2019 mammogram - [facility]. The tissue of right breast is heterogeneously dense. This may lower the sensitivity of mammography. There is an irregular fat containing region of probable fat necrosis with indistinct margins and grouped coarse dystrophic calcifications in the right breast at 11 o'clock posterior depth. The calcifications are more coarse in appearance. No other significant masses or calcifications are seen in the breast. IMPRESSION: INCOMPLETE: NEEDS ADDITIONAL IMAGING EVALUATION The irregular region of probably fat necrosis in the right breast is indeterminate. An ultrasound is recommended. Ultrasound will be performed immediately following the current exam. This exam was interpreted at Station ID: [id number]. NOTE: For mammograms, a report in lay terms will be sent to the patient. Approximately 15% of breast malignancies will not be visualized mammographically. In the management of a palpable breast mass, a negative mammogram must not discourage biopsy of a clinically suspicious lesion. Electronically Signed By: Jabier Mata M.D. ddjoaquina/:01/23/2021 13:46:50 copy to: Amrita HARKINS BI-RADS Category 0: Incomplete 3340F
== END ==
PROVIDERS: Family Provider Internal Medicine; PCP Internal Medicine; Referring Provider Internal Medicine Hematology & Oncology; Visit Provider Internal Medicine Hematology & Oncology
DX: N60.01 Solitary cyst of right breast (principal); Z85.3 Personal history of malignant neoplasm of breast
CPT/HCPCS: 76642; 77065; G0279

== ENCOUNTER → 2021-03-17 11:09 | Outpatient (CLI) | payer MEDICARE, OTHER, SELFPAY ==
[2021-02-12 14:26] VITALS: BMI 24.1
--- NOTE | 2021-03-17 11:11 | DI.MRI.S_ITS ---
PROCEDURE: MR HIP RT WO CON INDICATIONS: Trochanteric bursitis, right hip TECHNIQUE: Noncontrast coronal T1 spin echo and STIR through the bony pelvis. Coronal and axial T2 fast spin echo with fat saturation, sagittal T1 spin echo, and oblique axial T2 fast spin echo with fat saturation through the hip. COMPARISON: [facility] [place], CR, XR PELVIS WITH LATERAL HIP RIGHT, 02/21/2021, 10:20. FINDINGS: Image quality: Degraded by left hip arthroplasty artifact. Bones and joints: Left hip arthroplasty artifact is present, obscuring adjacent structures. There is subchondral linear low T2 signal intensity involving the superomedial aspect of the right femoral head, measuring roughly 10 mm transverse. There is moderate surrounding ill-defined T2 signal elevation within the right femoral head and neck. There is degenerative subchondral cyst formation within the adjacent aspect of the right anterosuperior acetabulum, with moderate surrounding ill-defined, presumably degenerative STIR signal elevation. The visualized lower lumbar spine appears normally aligned. Tendons and ligaments: The gluteus medius and minimus tendons appear intact, without associated muscle atrophy. Mild edema adjacent to the femoral insertion sites of the right gluteus medius and minimus tendons. The nearby proximal iliotibial band also appears intact. The iliopsoas tendon appears intact, without adjacent bursal fluid collections or evidence for impingement syndrome. The origin of the hamstring tendon is intact at the ischial tuberosity, as well as the associated sacrotuberous ligament. The straight and reflected heads of the rectus femoris muscle origin appear intact, as well as the conjoint tendon. The ligamentum teres appears intact where visualized. Labrum and cartilage: Diffuse tearing of the right hip labrum is present. There is a moderate right hip joint effusion. Cartilage surface of the femoral head appears of normal thickness. The alpha angle of the femur is within normal limits at less than 55 degrees. Soft tissues: Visualized muscles demonstrate normal bulk and internal signal. Quadratus femoris muscle demonstrates no internal edema to suggest ischiofemoral impingement. The proximal sciatic neurovascular bundle appears normal adjacent to the hamstring tendons. No free pelvic fluid. Bladder wall thickness is normal. Genitourinary structures and bowel loops appear normal where visualized. IMPRESSION: 1. Subacute or chronic osteochondral injury involving the superomedial aspect of the right femoral head, with associated reactive marrow edema within the femoral head and neck. This could be the result of stress fracture or a small focus of avascular necrosis involving the right femoral head. There is associated right hip osteoarthritis . 2. Degenerative tearing of the right hip labrum. 3. Mild insertional tendinitis of the right gluteus medius and minimus tendons. Dictated by: Cassie Mccollum M.D. on 03/20/2021 at 9:47 Approved by: Cassie Mccollum M.D. on 03/20/2021 at 9:53
== END ==
PROVIDERS: Family Provider Internal Medicine; PCP Internal Medicine; Referring Provider Orthopaedic Surgery; Visit Provider Orthopaedic Surgery
DX: M70.61 Trochanteric bursitis, right hip (principal)
CPT/HCPCS: 73721

== ENCOUNTER → 2021-07-25 12:32 | Outpatient (CLI) | payer MEDICARE, OTHER, SELFPAY ==
[2021-02-12 14:26] VITALS: BMI 24.1
--- NOTE | 2021-07-25 12:33 | DI.US.S_ITS ---
LIMITED ULTRASOUND OF RIGHT BREAST: 07/25/2021 CLINICAL: Patient returns today to evaluate an asymmetry in the right breast. Comparison is made to exams dated: 07/25/2021 mammogram, 01/23/2021 mammogram, 01/23/2021 ultrasound, 08/10/2020 mammogram, 08/10/2020 ultrasound, 02/08/2020 ultrasound, and 07/30/2019 ultrasound [facility]. Color flow and real-time ultrasound of the right breast 9 o'clock region were performed on the areas of interest. There is a stable 0.9 cm x 0.6 cm x 0.8 cm oval cyst in the right breast at 9 o'clock middle depth. This oval cyst is hypoechoic with a well-defined boundary and posterior acoustic shadowing. This correlates with mammography findings. There are related rim calcifications. Color flow imaging demonstrates that there is no vascularity present. Findings are stable in size compared to prior studies dating back to 07/30/2019. IMPRESSION: BENIGN There is no sonographic evidence of malignancy. The stable 0.9 cm x 0.6 cm x 0.8 cm oval cyst in the right breast is benign given stability over 2 years. A 1 year screening mammogram is recommended. This exam was interpreted at Station ID: [id number]. Electronically Signed By: Jabier garzon/:07/25/2021 14:22:21 copy to: Amrita Ho letter sent: Normal Exam Ultrasound BI-RADS: 2 Benign
--- NOTE | 2021-07-25 12:33 | DI.MG.S_ITS ---
BILATERAL DIGITAL DIAGNOSTIC MAMMOGRAM 3D/2D: 07/25/2021 CLINICAL: Short term follow up of the right breast. Comparison is made to exams dated: 01/23/2021 ultrasound, 01/23/2021 mammogram, and 08/10/2020 mammogram - [facility]. The tissue of both breasts is heterogeneously dense. This may lower the sensitivity of mammography. There is an oval fat containing fat necrosis with an obscured and indistinct margin and coarse dystrophic calcifications in the right breast at 11 o'clock posterior depth. This is not significantly changed. Additional post-surgical changes are also redemonstrated in the upper outer quadrant of the right breast. Additional bilateral benign-appearing areas of calcification are also redemonstrated. No other significant new masses, calcifications, or other findings are seen in either breast. IMPRESSION: INCOMPLETE: NEEDS ADDITIONAL IMAGING EVALUATION The oval area of fat necrosis in the right breast is not signficantly changed. An ultrasound is recommended. Ultrasound will be performed immediately following the current exam. This exam was interpreted at Station ID: [id number]. NOTE: For mammograms, a report in lay terms will be sent to the patient. Approximately 15% of breast malignancies will not be visualized mammographically. In the management of a palpable breast mass, a negative mammogram must not discourage biopsy of a clinically suspicious lesion. Electronically Signed By: Jabier Mata M.D. ddjoaquina/:07/25/2021 13:41:28 copy to: Amrita Ho ACR BI-RADS Category 0: Incomplete 3340F
== END ==
PROVIDERS: Family Provider Internal Medicine; PCP Internal Medicine; Referring Provider Internal Medicine Hematology & Oncology; Visit Provider Internal Medicine Hematology & Oncology
DX: C50.919 Malignant neoplasm of unspecified site of unspecified female breast (principal); N60.01 Solitary cyst of right breast; Z08 Encounter for follow-up examination after completed treatment for malignant neoplasm
CPT/HCPCS: 76642; 77066; G0279

== ENCOUNTER → 2021-08-23 09:10 | Outpatient (CLI) | payer MEDICARE, OTHER, SELFPAY ==
[2021-02-12 14:26] VITALS: BMI 24.1
[2021-08-23 11:06] LABS: Hemoglobin A1C% w Est Avg Glu 5.2 % (4.0-6.0)
[2021-08-23 11:12] LABS: Add Manual Diff / Slide Review NO; Basophils Absolute Auto 0 /uL (0-100); Basophils Percent Auto 0.3 % (0-2); Eosinophils Absolute Auto 200 /uL (0-450); Eosinophils Percent Auto 3.5 % (2-4); Hematocrit 38.7 % (36-46); Lymphocytes Absolute Auto 1300 /uL (1100-4500); Lymphocytes Percent Auto 25.8 % (25-40); Mean Corpuscular HGB Conc 33.7 % (30-36); Mean Corpuscular Hemoglobin 30.8 PG (26-34); Mean Corpuscular Volume 91.3 fL (80-100); Monocytes Absolute Auto 400 /uL (0-900); Monocytes Percent Auto 8.3 % (3-14); Neutrophils Absolute Auto 3200 /uL (1500-7000); Neutrophils Percent Auto 62.1 % (50-75); Platelet Count 284 X10^3/uL (150-400); Red Blood Cell Count 4.23 X10^6/uL (4.0-5.2); White Blood Cell Count 5.2 X10^3/uL (4.5-11.0)
[2021-08-23 11:15] LABS: Alanine Aminotransferase 15 IU/L (<35); Albumin Globulin Ratio 1.5 (1.0-2.8); Alkaline Phosphatase 45 U/L (38-126); Aspartate Aminotransferase 23 IU/L (14-36); BUN Creatinine Ratio 28.2 (6-22); Bilirubin Total 0.4 mg/dL (0.2-1.3); Blood Urea Nitrogen 24 mg/dL (7-17); Carbon Dioxide 30 mmol/L (22-32); Chloride 103 mmol/L (98-107); Cholesterol 155 mg/dL (140-199); Estimated Glomerular Filt Rate > 60.0 mL/min (>60); Globulin 2.6 g/dL (1.7-4.1); Glucose 91 mg/dL (80-110); HDL Cholesterol 80 mg/dL (40-60); HEMOLYSIS < 15 (0-50); LDL Cholesterol Calculated 60 mg/dL (<100); Potassium 4.2 mmol/L (3.4-5.1); Sodium 140 mmol/L (137-145); Total Protein 6.6 g/dL (6.3-8.2); Triglycerides 76 mg/dL (35-150)
[2021-08-23 11:37] LABS: Thyroid Stimulating Hormone 1.75 uIU/mL (0.47-4.68)
== END ==
PROVIDERS: Family Provider Internal Medicine; PCP Internal Medicine; Referring Provider Internal Medicine; Visit Provider Internal Medicine
DX: Z13.29 Encounter for screening for other suspected endocrine disorder (principal); M80.052A Age-related osteoporosis with current pathological fracture, left femur, initial encounter for fracture; Z13.6 Encounter for screening for cardiovascular disorders; Z13.0 Encounter for screening for diseases of the blood and blood-forming organs and certain disorders involving the immune mechanism; E78.5 Hyperlipidemia, unspecified; Z79.899 Other long term (current) drug therapy
CPT/HCPCS: 36415; 80053; 80061; 83036; 84443; 85025

== ENCOUNTER → 2021-10-24 08:51 | Outpatient (CLI) | payer MEDICARE, OTHER, SELFPAY ==
[2021-02-12 14:26] VITALS: BMI 24.1
== END ==
PROVIDERS: Family Provider Internal Medicine; PCP Internal Medicine; Visit Provider Nurse Practitioner Family
DX: R30.0 Dysuria (principal)
CPT/HCPCS: 87086

== ENCOUNTER → 2021-11-24 11:44 | Outpatient (CLI) | payer MEDICARE, OTHER, SELFPAY ==
[2021-02-12 14:26] VITALS: BMI 24.1
[2021-11-24 12:24] LABS: Add Manual Diff / Slide Review NO; Basophils Absolute Auto 0 /uL (0-100); Basophils Percent Auto 0.4 % (0-2); Eosinophils Absolute Auto 200 /uL (0-450); Eosinophils Percent Auto 2.6 % (2-4); Hematocrit 37.3 % (36-46); Hemoglobin 12.6 g/dL (12.0-16.0); Lymphocytes Absolute Auto 1400 /uL (1100-4500); Lymphocytes Percent Auto 19.7 % (25-40); Mean Corpuscular HGB Conc 33.7 % (30-36); Mean Corpuscular Hemoglobin 30.7 PG (26-34); Monocytes Absolute Auto 500 /uL (0-900); Monocytes Percent Auto 7.6 % (3-14); Neutrophils Absolute Auto 5000 /uL (1500-7000); Neutrophils Percent Auto 69.7 % (50-75); Platelet Count 262 X10^3/uL (150-400); Red Cell Distribution Width 13.3 % (11.6-14.8); White Blood Cell Count 7.2 X10^3/uL (4.5-11.0)
[2021-11-24 12:26] LABS: Appearance Urine UA CLEAR; Bilirubin Urine UA NEGATIVE (NEGATIVE); Color Urine UA YELLOW; Glucose Urine UA NEGATIVE (Negative); Ketones Urine UA NEGATIVE (NEGATIVE); Leukocyte Esterase Urine UA NEGATIVE (NEGATIVE); Nitrite Urine UA NEGATIVE (Negative); Occult Blood Urine UA TRACE-INTACT (Negative); Protein Urine UA NEGATIVE (Negative); Specific Gravity Urine UA 1.015 (1.000-1.035); Urobilinogen Urine UA 0.2 E.U./dL (0.2)
[2021-11-24 12:28] LABS: pH Urine UA 6.5 (4.5-8.0)
[2021-11-24 12:38] LABS: Amorphous Sediment Urine 2+; Bacteria Urine None Seen; Culture Indicated Urine Cult Not Indicated; RBC Urine 1-5/HPF (0-5/HPF); WBC Urine None Seen (0-5/HPF)
[2021-11-24 12:46] LABS: BUN Creatinine Ratio 31.3 (6-22); Blood Urea Nitrogen 26 mg/dL (7-17); Calcium 9.4 mg/dL (8.4-10.2); Carbon Dioxide 32 mmol/L (22-32); Chloride 104 mmol/L (98-107); Estimated Glomerular Filt Rate > 60.0 mL/min (>60); Glucose 105 mg/dL (80-110); HEMOLYSIS < 15 (0-50); Potassium 4.5 mmol/L (3.4-5.1); Sodium 136 mmol/L (137-145)
[2021-11-24 13:10] LABS: Hemoglobin A1C% w Est Avg Glu 5.3 % (4.0-6.0)
== END ==
PROVIDERS: Family Provider Internal Medicine; PCP Internal Medicine; Referring Provider Orthopaedic Surgery; Visit Provider Orthopaedic Surgery
DX: R73.9 Hyperglycemia, unspecified (principal); Z01.818 Encounter for other preprocedural examination; Z01.812 Encounter for preprocedural laboratory examination; N39.0 Urinary tract infection, site not specified
CPT/HCPCS: 36415; 80048; 81001; 83036; 85025; 93005; 93010

== ENCOUNTER → 2021-12-10 11:46 | Outpatient (CLI) | payer MEDICARE, OTHER, SELFPAY ==
[2021-02-12 14:26] VITALS: BMI 24.1
[2021-12-10 13:58] LABS: COVID19 -Nasal RAPID Negative (Negative)
== END ==
PROVIDERS: Family Medicine Sleep Medicine; Family Provider Internal Medicine; PCP Internal Medicine; Visit Provider Physician Assistant
DX: R39.9 Unspecified symptoms and signs involving the genitourinary system (principal); Z20.822 Contact with and (suspected) exposure to COVID-19
CPT/HCPCS: 87086; 87635; C9803

== ENCOUNTER 2021-12-11 06:29 | Day surgery (SDC) | payer MEDICARE, OTHER, SELFPAY ==
[2021-02-12 14:26] VITALS: BMI 24.1
[2021-12-10 08:53] VITALS: BMI 23.8
[2021-12-11] VITALS (16 sets, daily range): BP systolic 99–132; BP diastolic 40–70; PULSE 69–88; RESP 10–18; TEMP 36.1–36.6; O2SAT 92–99; BMI 23.8; BMI 24.1
--- NOTE | 2021-12-11 07:38 | DI.RAD.S_ITS ---
PROCEDURE: XR HIP W PEL IF DONE RT 2V INDICATIONS: prosthesis placement TECHNIQUE: 4 intraoperative spot fluoroscopic images of the pelvis and right hip. COMPARISON: [facility] [place], CR, XR PELVIS WITH BILATERAL LATERAL HIPS, 09/05/2021, 13:20. [facility], CR, XR HIP W PEL IF DONE RT 2V, 12/11/2021, 10:39. [facility], CR, XR HIP W PEL IF DONE LT 2V, 07/14/2019, 19:04. FINDINGS: Intraoperative spot fluoroscopic images demonstrate a right total hip arthroplasty in expected position. A left hip arthroplasty is partially imaged. IMPRESSION: Intraoperative images demonstrate right total hip arthroplasty in expected position. Dictated by: Arian Calzada M.D. on 12/11/2021 at 16:38 Approved by: Arian Calzada M.D. on 12/11/2021 at 16:40
--- NOTE | 2021-12-11 07:45 | PM.PREOP ---
Pre-operative Note COVID-19 COVID-19 status: Negative Criteria for continued procedure: Expected advancement of disease process, Possibility delay results in more complex future surgery or treatment, Increased loss of function and Continuing or worsening of significant or severe pain Interval Note History & Physical reviewed/Exam performed by Physician: Yes Changes to H&P: No
[2021-12-11] MEDS: VANCOMYCIN 1,000 MG/200 ML PIGGYBACK 200 MG IV (07:55)
[2021-12-11] MEDS: ACETAMINOPHEN 325 MG TABLET 975 MG PO (07:55)
[2021-12-11] MEDS: PREGABALIN 75 MG CAPSULE PO (07:56)
[2021-12-11] MEDS: TRANEXAMIC ACID 1,000 MG VIAL 2000 MG INJ ×2 (08:25→10:20)
[2021-12-11] MEDS: CEFAZOLIN 2 GM/20 ML SYRINGE IV ×3 (08:30→23:47)
--- NOTE | 2021-12-11 09:09 | SUR.OPER ---
Supine on padded Grant table with bilateral legs secured in padded positioning boots and suspended in positioning spars, operative leg in traction per surgeon. Head on one pillow. Arm on non-operative side secured on padded armboard <90 degrees abduction. Arm on operative side padded and resting across chest then secured with tape over sheet. Padded perineal post in place per surgeon.
[2021-12-11] MEDS: BUPIVACAINE LIPOSOME 266 MG/20 ML VIAL INJ (09:26)
[2021-12-11] MEDS: BUPIVACAINE 0.5% (PF) VIAL 30 ML INJ (09:29)
[2021-12-11] MEDS: BUPIVACAINE 0.25% (PF) 60 ML, EPINEPHrine 0.3 MG INJ (09:30)
--- NOTE | 2021-12-11 10:12 | DI.RAD.S_ITS ---
PROCEDURE: XR HIP W PEL IF DONE RT 2V INDICATIONS: RIGHT ANTERIOR HIP post operative TECHNIQUE: AP pelvis and lateral view of the right hip acquired. COMPARISON: [facility], CR, XR HIP W PEL IF DONE RT 2V, 12/11/2021, 10:25. FINDINGS: Bones: Patient is status post right hip arthroplasty, with hardware components in expected positions. The hip joint appears congruent. The visualized bony structures appear intact. Left hip arthroplasty components are intact as well. 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 Soft tissues: Overlying postoperative changes are noted. No suspicious soft tissue densities. IMPRESSION: 1. New right hip arthroplasty components in expected position. 2. No unexpected fractures. 3. Asymmetric left SI joint erosion. Dictated by: Kamini Francois M.D. on 12/11/2021 at 17:47 Approved by: Kamini Francois M.D. on 12/11/2021 at 17:52
--- NOTE | 2021-12-11 10:43 | PM.OP.1 ---
Operative Date/Time/Diagnoses Date of procedure: 12/11/21 Time of procedure: 08:10 Pre-op diagnosis: Severe right hip OA Post-op diagnosis: same Procedure & Clinicians Procedure: Right total hip arthroplasty anterior approach Same procedure as scheduled: Yes Indications: The patient has had progressively worsening right hip pain with radiographic changes consistent with arthritis. Non-operative management has failed and the patient has requested total hip replacement. The risks, benefits and alternatives to surgery were discussed with the patient prior to proceeding. Risks discussed included, but were not limited to, failure to relieve pain, leg length discrepancy, dislocation, stiffness, infection, nerve damage, deep venous thrombosis, pulmonary embolism, stroke, coma, heart attack, permanent paralysis and , as well as the potential need for eventual revision of the prosthetic. Surgeon: Latricia Ndiaye Locomotive Switch Operator: Augusta Ashford Anesthesia Type: General and Spinal Operative Notes Findings: Severe right hip OA, adequate stability, adequate bone Closure Type: primary Specimen(s): none sent Prosthetic devices, grafts, tissues, transplants, or devices: Ndiaye and Nephew R3 52, size 9 standard offset anthology, +0 Oxinium with neutral liner, one 6.5 screw Estimated Blood Loss (mL): 250 Blood products transfused: none Procedure in detail: The patient was brought to the operating room. Patient was carefully positioned in the supine position. Time-out was performed and antibiotics were given. Anesthesia was induced. She was positioned in the on the table in order to allow hyperextension of the hip. The right lower extremity was prepped and draped in a standard sterile fashion. An anterior right hip incision was made 1 fingerbreadth lateral to the anterior superior iliac spine and extended distally towards the greater trochanter. Dissection was carried out through skin and subcutaneous tissues. Superficial hemostasis was achieved. The fascia over the tensor fascia valente was defined and incised with a knife. Two Allis clamps were used to grasp the fascia. Tensor fascia valente was retracted laterally. A gelpi retractor was placed. Dissection was carried out down along the neck. The circumflex vessels were carefully identified and cauterized with the Aqua Mantis. There was good visualization of the femoral neck. A Cobra was placed superior to the neck and the gluteus fibers were carefully stripped from that superior aspect of the capsule. A 2nd retractor was placed along the inferior aspect of the neck. The rectus insertion along the capsule was partially released. A 3rd retractor that was then gently placed over the rim of the acetabulum under the rectus. Capsule was carefully incised and released from the intertrochanteric line circumferentially superior to the mid sagittal line and inferiorly to the mid sagittal line until the lesser trochanter was palpable. A tag stitch was placed both in the superior and inferior limb of the capsular insertion. Along the acetabulum capsule was also released up to the mid sagittal 12:00 position. A portion of the labrum was resected. A saw was used to perform an osteotomy at the level of the intertrochanteric line and the junction of the superior femoral neck leaving approximately 1 finger breath of residual inferior neck above the lesser trochanter. A 2nd cut was made along the femoral neck at the base of the head and a napkin ring of neck was removed. Corkscrew was placed in the femoral head and the head was removed without difficulty. Retractors were then repositioned around the acetabulum. Residual labrum was resected and additional osteophytes were removed. A reamer that was 4 mm below the templated size was placed by hand in the acetabulum and it was reamed to centralize the acetabulum. It was then reamed up to 2 under the templated size and fluoroscopy was brought in to confirm the position of the reaming and depth of reaming. I reamed 1 under the anticipated size and touched the rim with line to line reaming. A trial cup was placed and noted that it was appropriately sized and fluoroscopy confirmed position and depth. The component was open and inserted without difficulty fluoroscopic imaging was used to confirm that the cup had been adequately seated and was well positioned. It was further stabilized with a single screw. Neutral poly liner was placed. The cup was tested and noted to be stable. Attention was then directed to the femur. The femur was gently hyperextended additional capsular release was performed as needed in order to allow adequate visualization of the proximal femur with elevation of the femur. Patient was placed in a hyperextended slightly adducted position with maximum external rotation. Box osteotome was used to check for any residual neck as well as sclerotic bone along the trochanter. [place] pepper was placed in the femur. Additional broaching was performed. Canal finder was used to determine the alignment of the canal and position. Size 1 broach was placed. The canal was then appropriately broached up to the templated size as long as there was adequate stability of the broach and serial advancement of the broach without excessive impingement. Specific attention was directed at avoiding varus attempting to direct the distal aspect of the broach more anteriorly and avoiding excessive anteversion. Trial reduction showed acceptable range of motion, good stability, no posterior impingement, denominational of leg length and appropriate lateral shuck. I also hyperflexed the hip and checked that there was no impingement anteriorly and there was good stability with flexion, adduction and internal rotation. Marcaine and Exparel were injected. The stem was placed without difficulty. Repeat trial reduction and x-ray showed acceptable overall position, length, and no evidence of the femoral fracture. Final head was placed. Wound was meticulously irrigated with normal saline. The hip was reduced and additional Exparel and Marcaine were injected. The capsule was closed with interrupted nonabsorbable sutures. The fascia of the tensor was closed with interrupted and running Vicryl. No drain was placed. Any tensor fascia valente muscle that appeared to be contused or injured which was a minimal amount was carefully resected. Capsule around the tensor was injected with Exparel and Marcaine. The skin was closed with barbed stitches for the subcutaneous tissue and skin. We also used surgical glue. The wound was dressed sterilely. Brief Betadine soak was also used and was meticulously irrigated with normal saline. Patient was transferred to recovery room in satisfactory condition. Complications: none Post-operative Condition: stable Disposition: Acute Care Plan for aftercare: The patient will be maintained on a standard total hip replacement protocol with weight bearing as tolerated and anterior hip precautions. The patient will receive Aspirin and sequential compression devices for DVT prophylaxis. The patient will be discharged home when safe for the home environment.
--- NOTE | 2021-12-11 11:33 | SUR.PHASEI ---
Patient transferred to room 203 in bed by this RN. Pt awake, alert, wiggling toes. Pt with own belonging bag and 1 hospital bag. SBAr report and update at bedside to Loyda GARCIA.
--- NOTE | 2021-12-11 11:37 | SUR.PHASEI ---
Dr Ndiaye notified of patient complaint of right shoulder pain that patient states she thinks is from having my arm across my body. Positive radial pulse, no numbness or tingling, able to move arm and shoulder. Ice applied.
--- NOTE | 2021-12-11 11:57 | PC.NURSE ---
Pt to room 203 via bed from PACU. Pt awake, alert, and oriented. Denies pain, nausea, or shortness of breath. Oriented Pt to room, call light, bed controls, and tv controls. Pt reports that her feet are still a bit numb but she is able to wiggle her toes. Pt IVF infusing as ordered, SCD's on and running. Bed alarm on for safety. Pt agrees to call for assistance as needed and to not get up without assistance.
[2021-12-11] MEDS: LACTATED RINGERS 1,000 ML 125 ML IV ×2 (12:04→20:20)
--- NOTE | 2021-12-11 13:45 | PT.IIE ---
Current Diagnoses Pain in right hip (12/11/21) Surgery Performed Operation Date: 12/11/21 07:45 Actual Procedures p Total Hip Arthroplasty/Anterior Approach(Right) - Latricia Ndiaye MD Surgical History (Last Reviewed 12/10/21 @ 11:42 by Andreea Son PA-C) Anesthesia History of bladder suspension procedure (~1989) Status post appendectomy (~194) Status post hysterectomy (~1979) Medical History (Last Reviewed 12/10/21 @ 11:42 by Andreea Son PA-C) Ankle fracture, right Cancer of right breast, stage 1, estrogen receptor positive (2013) Degenerative joint disease of right hip Foot pain (~2012) Insomnia Obstructive sleep apnea Osteopenia Seasonal allergies (~1994) Physical Therapy Inpatient Evaluation/Re-Eval M1 PT/OT-IP Prior Functional Status Start: 12/11/21 14:59 Freq: NEEDED Status: Active Protocol: Document 12/11/21 13:45 AB (Rec: 12/11/21 15:12 AB [email or web address]) Medical Review Prior Functional Status Medical History Reviewed Yes Communication able to make needs known Mobility and Gait pt stated that she is modified independent with all mobilities and ambulation without AD Social History Household Members spouse Living Arrangements House Number of Floors (Floors) Two Floors Number of Stairs To Enter/Railing? pt stays on main level of the house 1 step to enter Home Environment High Toilet,Walk in Shower Home Equipment Front Wheel Walker,Four Wheel Walker,Straight Cane,Bedside Commode,Shower Seat with Backrest,Hand Held Shower,Grab Bars In Shower Additional Social History Comment stated that her spouse will assist her and her daughter will stay with her for ~ 1 week to assist as well M2 PT-IP Current Condition Start: 12/11/21 14:59 Freq: NEEDED Status: Active Protocol: Document 12/11/21 13:45 AB (Rec: 12/11/21 15:12 AB [id number]) Physical Therapy Current Condition Current Condition Evaluation Date 12/11/21 Treatment Diagnosis s/p R NOEL anterior approach; difficulty in walking Onset Date 12/11/21 M3 PT-IP Subjective Start: 12/11/21 14:59 Freq: NEEDED Status: Active Protocol: Document 12/11/21 13:45 AB (Rec: 12/11/21 15:12 AB [email or web address]) Subjective Physical Therapy Visit Type Type Initial Evaluation Visit Start Time 13:45 Visit Stop Time 14:50 Total Visit Minutes 65 Number of CONCRETE CRAFTSMAN Visits 0 Physical Therapy Visit Comments Patient Comments pt wants to try to move but stated that she is still numb on BLE but has some sensation back Therapy Pain Assessment Pain Present Pain Present Denied Pain M4 PT-IP Mobility and Gait Start: 12/11/21 14:59 Freq: NEEDED Status: Active Protocol: Document 12/11/21 13:45 AB (Rec: 12/11/21 15:12 [email or web address]) PT-Bed Mobility Assessment Supine to Sit Supine to Sit Standby Assistance Sit to Supine Sit to Supine Minimal Assistance PT-Transfer Assessment Sit to and From Stand Sit to and from Stand Maximum Assistance,1 Person Assistance,Use of Upper Extremities Equipment Transfer Assistive Device Gait Belt,Front Wheeled Walker Orthotic/Prosthetic Devices or Brace: No Transfers Transfer Destination Bedside Commode Transfer Technique Stand Pivot Transfer Ability Level of Assist Maximum Assistance,1 Person Assistance,Use of Upper Extremities Comments Mobility Comments educated pt on anterior hip precautions. BP in supine: 114/68. completed supine to sit SBA. able to sit on EOB SBA. pt stated that she voided. Asked NAC to assist. pt sat on EOB and brief positioned. pt completed sit to stand max A and max cues. Pt presents with decrease BLE motor control requiring max A from PT for steadiness and prevent from RLE buckling. pt continued to void in standing position and unable to control. unable to pull brief up. pt sat back on EOB. positioned bedside commode. pt completed sit to stand again max A and cues and stand pivot transfer to bedside commode max A and max cues. completed sit to stand from bedside commode max A and max cues. pt able to stand max A and max cues for steadiness using FWW for support while NAC assisted pt with hygiene care and brief management. pt completed stand pivot transfer to bed max A and max cues using FWW. c/o nausea and slight dizziness. pt laid back in bed sit to supine min A for LE elevation. BP in supine: 124/73. positioned pt in bed. call light and table placed within reach. pt unable to ambulate at this time and odes not have much motor control on BLE. nurse is aware. set up caregiver training for tomorrow at 10am. PT-Balance Assessment Sitting Balance and Reactions Static Sitting Balance Ability Good Dynamic Sitting Balance Ability Fair Standing Balance and Reactions Static Standing Balance Ability Poor Dynamic Standing Balance Ability Poor Device Used FWW M5 PT-IP Objective Assessments Start: 12/11/21 14:59 Freq: NEEDED Status: Active Protocol: Document 12/11/21 13:45 AB (Rec: 12/11/21 15:12 AB [id number]) Orientation Orientation/Cognition Level of Alertness Alert Orientation Name Language Function Ability No Deficits Noted Safety Awareness Decreased Safety Awareness Memory Description Short Term Impaired Gross Range of Motion Lower Extremity ROM Assessment Within Functional Limits Strength Lower Extremity Strength Assessment Right Impaired Hip 3-/5 Knee 3+/5 Sensation Assessment Sensation Gross Sensation Right LE Impaired,Left LE Impaired Sensation Description Numbness,Tingling Comments Sensation Comments pt still has decrease motor control on BLE M6 PT-IP Treatment Start: 12/11/21 14:59 Freq: NEEDED Status: Active Protocol: Document 12/11/21 13:45 AB (Rec: 12/11/21 15:12 AB [email or web address]) Physical Therapy Treatment Education Education Provided Precautions,Weight Bearing Status,Post-Op Packet,Safety M7 PT-IP Assessment and Plan Start: 12/11/21 14:59 Freq: NEEDED Status: Active Protocol: Document 12/11/21 13:45 AB (Rec: 12/11/21 15:12 AB [email or web address]) PT Summary Assessment and Plan Potential Rehabilitation Potential Fair Status of Condition at Evaluation Evolving Summary Impairments Pain,ROM,Strength,Balance, Coordination,Sensation,Tone, Cognition,Bed Mobility, Transfers,Gait,Activity Tolerance Assessment Summary pt s/p R NOEL atnerior approach and just had surgery this morning. pt requiring max A for sit to stand and unable to ambulate at this time and with decrease LE motor control at this time. Pt has d/c order but pt is not ready to d /c home at this time. Nurse is aware. caregiver training set up for tomorrow at 10 am. will continue to assess progress. Goals Bed Mobility Goal Independent Transfer Goal Independent,Front Wheeled Walker Gait Goal Independent,Front Wheel Walker Gait Distance 150 Other Goals up/down 1 step to enter using FWW SBA Days to Meet Goals 5 Frequency of Treatment Frequency Of Treatment Twice a Day Treatment Plan Physical Therapy Treatment Plan Bed Mobility Training,Transfer Training,Gait Training, Therapeutic Exercise,Balance Retraining,Post Op Education, Discharge Planning,Hot or Cold Pack,Neuromuscular Re-ed, Coordination Retraining,Manual Therapy Other Recommendations and Next Treatment caregiver trainin12/12/21 @ [facility] 10 am Precautions Anterior Hip Precautions No Hip Extension,No Hip External Rotation Weight Bearing Status Weight Bearing Status Weight Bear as Tolerated Allowed Weight Bearing Amount (enter % RLE WBAT or #) (%) Recommendations To Nursing Amount of Assist Needed PT/OT Assist Only Discharge Recommendations PT Discharge Recommendations Home with Assistance, Outpatient PT Transportation Needs at Discharge Private Vehicle
[2021-12-11] MEDS: IBUPROFEN 400 MG TABLET PO ×3 (13:55→21:20)
--- NOTE | 2021-12-11 15:06 | PC.NURSE ---
Discharge order cancelled. Pt is not ready to leave and still has numbness in her leg. PT states they will do caregiver training with Pt tomorrow at 10am and Pt called her Spouse. Pt was able to void but was not able to feel herself voiding.
[2021-12-11] MEDS: GABAPENTIN 300 MG CAPSULE PO ×2 (15:24→21:20)
[2021-12-11] MEDS: ACETAMINOPHEN 325 MG TABLET 650 MG PO ×2 (15:24→21:19)
[2021-12-11] MEDS: OXYCODONE IR 5 MG TABLET PO ×2 (20:19→23:47)
[2021-12-11] MEDS: AMITRIPTYLINE 25 MG TABLET 50 MG PO (21:19)
[2021-12-11] MEDS: ASPIRIN EC 81 MG TABLET PO (21:20)
[2021-12-11] MEDS: ATORVASTATIN 20 MG TABLET 10 MG PO (21:20)
[2021-12-11] MEDS: DOCUSATE 100 MG CAPSULE PO (21:21)
[2021-12-11] MEDS: ONDANSETRON 4 MG/2 ML INJ IV (21:55)
[2021-12-12 00:35] VITALS: BP 126/72; PULSE 79; RESP 18; TEMP 36.4; O2SAT 98
[2021-12-12 03:41] VITALS: BP 131/74; PULSE 81; RESP 18; TEMP 36.6; O2SAT 98
[2021-12-12 05:18] LABS: Hematocrit 35.2 % (36-46); Hemoglobin 11.4 g/dL (12.0-16.0)
[2021-12-12] MEDS: ACETAMINOPHEN 325 MG TABLET 650 MG PO (05:38)
[2021-12-12 07:20] VITALS: O2SAT 97
--- NOTE | 2021-12-12 07:31 | P.DS_ITS ---
History of Present Illness History of Present Illness Date Patient Seen: 12/12/21 Time Patient Seen: 07:31 Chief complaint: Right hip pain s/p right NOEL Narrative: Patient is complaining of mild right hip pain this morning. Her biggest concern is right arm and shoulder pain. She notes the numbness and tingling in her right arm has resolved since yesterday. She is concerned that the right arm pain is due to positioning on the [place] table yesterday. Denies any chest pain or shortness of breath. Discharge Providers Provider Discharge Date: 12/12/21 Primary care physician: PATRICIA Ellison Consults: 12/11/21 07:37 Consult to Anesthesiology Routine Comment: Consulting Provider: Anesthesiologist Reason for consultation: Regional block for post operative pain control 12/11/21 11:31 Consult to Discharge Planning Routine Comment: Consult to Physical Therapy Evaluate & Treat Comment: Physician Instructions: post op NOEL protocol Consult to Respiratory Therapy Evaluate & Treat Comment: Physician Instructions: Evaluate and treat Discharge provider: Augusta Ashford PA-C Summary Hospital Course Discharge Diagnosis: Severe right hip OA Hospital Course: Operative Date/Time/Diagnoses Date of procedure: 12/11/21 Time of procedure: 08:10 Procedure & Clinicians Procedure: Right total hip arthroplasty anterior approach Same procedure as scheduled: Yes Indications: The patient has had progressively worsening right hip pain with radiographic changes consistent with arthritis. Non-operative management has failed and the patient has requested total hip replacement. The risks, benefits and alternatives to surgery were discussed with the patient prior to proceeding. Risks discussed included, but were not limited to, failure to relieve pain, leg length discrepancy, dislocation, stiffness, infection, nerve damage, deep venous thrombosis, pulmonary embolism, stroke, coma, heart attack, permanent paralysis and , as well as the potential need for eventual revision of the prosthetic. Surgeon: Latricia Ndiaye Amusement Machine Mechanic: Augusta Ashford Anesthesia Type: General and Spinal Operative Notes Findings: Severe right hip OA, adequate stability, adequate bone Closure Type: primary Specimen(s): none sent Prosthetic devices, grafts, tissues, transplants, or devices: Ndiaye and Nephew R3 52, size 9 standard offset anthology, +0 Oxinium with neutral liner, one 6.5 screw Estimated Blood Loss (mL): 250 Blood products transfused: none Status at Discharge Cognitive/behavioral status at discharge: oriented Functional status at discharge: uses cane/walker Overall status at discharge: patient is progressing back to baseline Exam Vital Signs (past 8 hours): - 12/12/21 00:35 12/12/21 03:41 Temperature 97.6 F 97.8 F Pulse Rate 79 81 Respiratory Rate 18 18 Blood Pressure 126/72 131/74 Pulse Oximetry 98 98 Oxygen Delivery Method Room Air Oxygen Flow Rate 0 Narrative Exam Narrative: Very pleasant 81-year-old female, resting comfortably in bed, no acute distress. Dressing is clean, dry, intact. Bilateral lower extremities: Motor functions are grossly intact, sensation is grossly intact to light touch, calves are soft and nontender palpation. Right shoulder is tender to palpation over her trapezius and there are muscle spasms noted. She is distally bilateral upper extremity neurovascularly intact. And strength is 5/5 with wrist flexion extension and finger intrinsics. 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 Social History household members: spouse Smoking Status: Former smoker alcohol intake: current Discharge Assessment & Plan Assessment and Plan Assessment: Stable status post right total hip arthroplasty, anterior approach Plan of Treatment: -mobilize with PT. Weightbearing as tolerated front wheel walker. Maintain anterior hip precautions x6 weeks -continue with current pain regimen and aspirin 81 mg b.i.d. x6 weeks for DVT prophylaxis -DC home today when cleared by PT Discharge Plan Discharge Plan Patient Disposition: Home Provider Discharge Comment: Discharge to home if able to ambulate and cleared by PT Discharge orders & Medications Discharge Orders: Discharge (Order); Ordered 12/12/21 Ordered By: Augusta Ashford Prescriptions: New acetaminophen 500 mg capsule 500 mg PO Q4H MDD Max 3000 mg per day PRN (Reason: fever or pain) Qty: 90 0RF aspirin 81 mg Tablet,Delayed Release (Dr/Ec) 81 mg PO BID 42 Days Qty: 84 0RF Rx Instructions: Prevent blood clots docusate sodium 100 mg Capsule 100 mg PO BID PRN (Reason: Constipation from narcotic pain med) Qty: 20 0RF ibuprofen 400 mg Tablet 400 mg PO Q4HR MDD Max 2400 mg per day PRN (Reason: Pain/inflammation) Qty: 90 0RF oxycodone 5 mg Tablet 5 mg PO Q3HR PRN (Reason: Pain, Moderate (4-6)) Qty: 30 0RF Continued albuterol sulfate 90 mcg/actuation HFA aerosol inhaler 2 puff INHALATION Q4H PRN (Reason: shortness of breath or wheezing) Qty: 8.5 1RF Rx Instructions: administer with spacer (DME) inhalational spacing device [Aerochamber MV] spacer See Dose Instructions .ROUTE .MEDSUPPLY Qty: 1 0RF Dose Instruction: As directed Rx Instructions: As directed amitriptyline 50 mg Tablet 50 mg PO BEDTIME 0RF gabapentin 300 mg Capsule 300 mg PO TID 0RF omega-3 fatty acids [Fish Oil Concentrate] 1,000 mg Capsule 1,000 mg PO DAILY 0RF Label Comments: patient states does not take regularly magnesium 200 mg Tablet 400 mg PO DAILY 0RF Label Comments: patient states takes this OTC more regularly than others. cholecalciferol (vitamin D3) [Vitamin D3] 5,000 unit Tablet 5,000 unit PO DAILY 0RF Label Comments: patient states does not take regularly meloxicam 15 mg Tablet 15 mg PO DAILY 0RF rosuvastatin 10 mg tablet 5 mg PO QPM 0RF lorazepam 0.5 mg tablet 0.5 mg PO BEDTIME PRN (Reason: Sleep) 0RF Label Comments: patient states hasn't taken in months--uses OTC sleep aid Prolia 60 mg/mL Syringe 60 mg SUBCUT T2CURDNP 0RF Discontinued oxycodone-acetaminophen [Percocet] 2.5-325 mg Tablet 0.5 - 1 tab PO Q4-6H PRN (Reason: Pain) 0RF Follow up/Referrals: Amrita Ho ARNP [Primary Care Provider] - Latricia Ndiaye MD [Physician] - (10-14 days for postoperative visit) Diet/Activity/Treatments Diet: Diet as Tolerated Activity: Ambulate multiple times a day. Weightbearing as tolerated right leg. Cold/Heat Therapy: Apply ice to right leg multiple times a day. Skin/Wound/Dressing Care Skin care: Okay to shower. Report to your healthcare provider any signs of infection, such as:: chills, fever, night sweats, increased pain, unusual drainage and unusual redness Dressing: Leave dressing on. Visit Report/Discharge Packet Instructions: DI for Hip Replacement Stand Alone Forms: Surgery Discharge Discharge Data Primary Care Provider: Amrita Ho Attending Provider: Latricia Ndiaye Quality VTE Deep Vein Thrombosis/Pulmonary Embolism Present on Admission: No
[2021-12-12 07:35] VITALS: BP 119/57; PULSE 59; RESP 18; TEMP 36.8; O2SAT 97
[2021-12-12] MEDS: IBUPROFEN 400 MG TABLET PO (09:32)
[2021-12-12] MEDS: ASPIRIN EC 81 MG TABLET PO (09:32)
[2021-12-12] MEDS: DOCUSATE 100 MG CAPSULE PO (09:32)
[2021-12-12] MEDS: CHOLECALCIFEROL (VITAMIN D3) 5,000 UNIT TABLET 5000 UNIT PO (09:32)
[2021-12-12] MEDS: GABAPENTIN 300 MG CAPSULE PO (09:32)
[2021-12-12] MEDS: MAGNESIUM OXIDE 400 MG TABLET PO (09:33)
--- NOTE | 2021-12-12 10:30 | PT.IPTN ---
Current Diagnoses Pain in right hip (12/11/21) Surgery Performed Operation Date: 12/11/21 07:45 Actual Procedures p Total Hip Arthroplasty/Anterior Approach(Right) - Latricia Ndiaye MD Physical Therapy Treatment Note M2 PT-IP Current Condition Start: 12/11/21 14:59 Freq: NEEDED Status: Discharge Protocol: Document 12/12/21 10:03 SP (Rec: 12/12/21 17:45 SP [id number]) Physical Therapy Current Condition Current Condition Evaluation Date 12/11/21 Treatment Diagnosis s/p R NOEL anterior approach; difficulty in walking Onset Date 12/11/21 M3 PT-IP Subjective Start: 12/11/21 14:59 Freq: NEEDED Status: Discharge Protocol: Document 12/12/21 10:03 SP (Rec: 12/12/21 17:45 SP [id number]) Subjective Physical Therapy Visit Type Type Treatment Note Visit Start Time 10:03 Visit Stop Time 10:30 Total Visit Minutes 27 Notes Vitals taken during tx: supine: 106/ 65, HR 80 SaO2 97 % on RA Seated: 124/70 HR 93 Post mobility (reported little dizzy): 110/66 HR 82. completed caregiver training with assist required throughout tx. Number of PATIENT RELATIONS SPECIALIST Visits 1 Physical Therapy Visit Comments Patient Comments Pt willing to work with PT, complete caregiver training with . Patient Goals return home with to assist her. Already set up with outpt therapy on Friday. Therapy Pain Assessment Pain When Pain Assessed During Mobility Pain Present Pain Present Pain Reported Location Right Hip Scale Used soreness anterolateral thigh Description Pressure,Tender,With Movement Pain Behaviors Facial Grimacing Pain Management Techniques Distraction,Re-positioning, Timing of Activity with Medications M4 PT-IP Mobility and Gait Start: 12/11/21 14:59 Freq: NEEDED Status: Discharge Protocol: Document 12/12/21 10:03 SP (Rec: 12/12/21 17:45 SP [id number]) PT-Bed Mobility Assessment Supine to Sit Supine to Sit Standby Assistance PT-Transfer Assessment Sit to and From Stand Sit to and from Stand Contact Guard Assistance,Use of Upper Extremities Equipment Transfer Assistive Device Gait Belt,Front Wheeled Walker Orthotic/Prosthetic Devices or Brace: No Transfers Transfer Destination Chair Transfer Technique pt ambulated using fWW Transfer Ability Level of Assist Standby Assistance,Contact Guard Assistance,Use of Upper Extremities Comments Mobility Comments PATIENT RELATIONS SPECIALIST instructed post op ex, provided strap on R foot for self assist knee flexion, hip abd to EOB, quad and glut sets 3 reps each. Pt completed supine>sit self sBA, donned gait belt. Sit>Stand CGA w/ fWW,cued to push from bed to stand, not on FWW for safety. Pt ambulated further distance to door w/ fWW, CGA by , complete ascend/ descend 1 PF step w/ FWW to assimulate enter/ exit home, CGA and support for safety fWW positioning and cues for sequencing by PATIENT RELATIONS SPECIALIST support by . Pt ambulated further in hallway, occasional cues for step to patterning to maintaining no R hip extension precautions with carryover cues as needed, approx 120 ft total. Pt returned to room chair, CGA with cues for back up fully and reach back slow descent to chair. Pt had call light and all needs in reach before left . in room. Gait Assessment Gait Gait Assistance Required: Contact Guard Assist Distance (Feet) 120 Able to Maintain Weight Bearing Status Yes During Gait Assistive Devices Assistive Device Gait Belt,Front Wheeled Walker Orthotic/Prosthetic Devices or Brace: No Gait Deviations General Gait Pattern Antalgic,Decreased Stride Length,Decreased Feet Clearance,Step-to Gait Factors Limiting Gait Function Factors Limiting Gait Function Decreased Activity Tolerance, Decreased Strength,Limited Range of Motion,Pain,Poor Safety Awareness Comments Gait Comments See mobility comments Stair Climbing Assessment Evaluation Level of Assist On Stairs Contact Guard Assistance,1 Person Assistance Devices Stair Climbing Assistive Devices Front Wheel Walker Technique/Endurance Stair Climbing Direction Ascend and Descend Stair Climbing Technique Step to Step Number of Steps Climbed 1 Stair Climbing Set # Repetitions (reps) 1 Comments Stair Climbing Comments see mobility comments PT-Balance Assessment Sitting Balance and Reactions Static Sitting Balance Ability Normal Dynamic Sitting Balance Ability Good Standing Balance and Reactions Static Standing Balance Ability Good Dynamic Standing Balance Ability Good Device Used FWW M5 PT-IP Objective Assessments Start: 12/11/21 14:59 Freq: NEEDED Status: Discharge Protocol: Document 12/11/21 13:45 AB (Rec: 12/11/21 15:12 AB [id number]) Orientation Orientation/Cognition Level of Alertness Alert Orientation Name Language Function Ability No Deficits Noted Safety Awareness Decreased Safety Awareness Memory Description Short Term Impaired Gross Range of Motion Lower Extremity ROM Assessment Within Functional Limits Strength Lower Extremity Strength Assessment Right Impaired Hip 3-/5 Knee 3+/5 Sensation Assessment Sensation Gross Sensation Right LE Impaired,Left LE Impaired Sensation Description Numbness,Tingling Comments Sensation Comments pt still has decrease motor control on BLE M6 PT-IP Treatment Start: 12/11/21 14:59 Freq: NEEDED Status: Discharge Protocol: Document 12/12/21 10:03 SP (Rec: 12/12/21 17:45 SP [id number]) Physical Therapy Treatment Exercises Exercises Ankle Pumps,Gluteal Sets,Quad Sets,Heel Slides,Supine Hip Abduction Knee ROM Measurement approx 45 deg R knee flexion w / strap during heel slide Education Education Provided Precautions,Weight Bearing Status,Post-Op Packet,Safety M7 PT-IP Assessment and Plan Start: 12/11/21 14:59 Freq: NEEDED Status: Discharge Protocol: Document 12/12/21 10:03 SP (Rec: 12/12/21 17:45 SP [id number]) PT Summary Assessment and Plan Potential Rehabilitation Potential Fair Status of Condition at Evaluation Evolving Summary Impairments Pain,ROM,Strength,Balance, Coordination,Sensation,Tone, Cognition,Bed Mobility, Transfers,Gait,Activity Tolerance Progress Towards Goals Progressing Toward Goals,Slow Progress due to Activity Tolerance Assessment Summary Pt required SBA during bed mob , CGA duing transfers, CG- SBA during gait using fWW, cued for no hip ext and ER precautions during gait approx 120 ft total. Complete 1 PF step mgt CGA w/ fWW. Pt is ok to return home with to assist her when medically cleared. Is set up with outpt therapy on Friday, understands and good form with HEP and gait for circulation/ strength . Pt was little dizzy during gait, stable vitals. Goals Bed Mobility Goal Independent Transfer Goal Independent,Front Wheeled Walker Gait Goal Independent,Front Wheel Walker Gait Distance 150 Other Goals up/down 1 step to enter using FWW SBA Days to Meet Goals 5 Frequency of Treatment Frequency Of Treatment Twice a Day Treatment Plan Physical Therapy Treatment Plan Bed Mobility Training,Transfer Training,Gait Training, Therapeutic Exercise,Balance Retraining,Post Op Education, Discharge Planning,Hot or Cold Pack,Neuromuscular Re-ed, Coordination Retraining,Manual Therapy Other Recommendations and Next Treatment post op ex, gait w/ FWW longer Focus distance. Precautions Anterior Hip Precautions No Hip Extension,No Hip External Rotation Other Precautions recalled 1/2 precautions, remembered no hip ER when cued . Discussed maintain precuations during gait. Weight Bearing Status Weight Bearing Status Weight Bear as Tolerated Allowed Weight Bearing Amount (enter % RLE WBAT or #) (%) Recommendations To Nursing Amount of Assist Needed Standby Assistance,1 Person Assist Discharge Recommendations PT Discharge Recommendations Home with Assistance, Outpatient PT Equipment Needed for Home Before was able to access FWW Discharge for home use. Transportation Needs at Discharge Private Vehicle
--- NOTE | 2021-12-12 11:55 | PC.NURSE ---
Pt is dressed and ready for discharge home with Spouse. Went over d/c instructions with Pt and Spouse-discussed d/c meds, time of last dose, reviewed stroke education, s/s of infection, follow up and hip precautions. Encouraged Pt to drink plenty of fluids to prevent constipation or dehydration. IV removed. Pt and Spouse denied further questions and Pt was taken out to POV via w/c by RN with Spouse and all belongings.
--- NOTE | 2021-12-12 12:28 | CM.IDA ---
Initial DCP Assessment Note Pt is a 81 yo female, resident of [place], now POD#1 from right NOEL by Dr Ndiaye PCP: PATRICIA Ellison Payer: [employer] Reviewed chart, pt discussed in multidisciplinary rounds this morning. Therapy has cleared pt for return home w/family to assist and pt has planned for home, DC order from Ortho has already been initiated this morning. No needs expected from DC planning team although will remain available in case this changes today. CATHERINE Vega
== END 2021-12-12 11:25 | disposition home or self-care (01) ==
LOC: OR 06:31 → AC 06:32
PROVIDERS: Family Provider Internal Medicine; PCP Internal Medicine; Referring Provider Orthopaedic Surgery; Visit Provider Orthopaedic Surgery
PROC: (CPT 27130; principal; 2021-12-11 07:45)
DX: M16.11 Unilateral primary osteoarthritis, right hip (principal); E78.5 Hyperlipidemia, unspecified
CPT/HCPCS: 27130; 36415; 73502; 76000; 85014; 85018; 97116; 97162; 97530; C1776; C9290; J0171; J0690; J1100; J2250; J2274; J2405; J2704; J3010

== ENCOUNTER → 2022-02-13 13:10 | Outpatient (CLI) | payer MEDICARE, OTHER, SELFPAY ==
[2021-12-11 11:42] VITALS: BMI 24.1
[2022-02-13 13:51] LABS: Add Manual Diff / Slide Review NO; Basophils Absolute Auto 0 /uL (0-100); Basophils Percent Auto 0.4 % (0-2); Eosinophils Absolute Auto 200 /uL (0-450); Eosinophils Percent Auto 3.4 % (2-4); Hematocrit 37.6 % (36-46); Hemoglobin 12.4 g/dL (12.0-16.0); Lymphocytes Absolute Auto 1700 /uL (1100-4500); Lymphocytes Percent Auto 27.7 % (25-40); Mean Corpuscular HGB Conc 32.9 % (30-36); Mean Corpuscular Hemoglobin 30.2 PG (26-34); Mean Corpuscular Volume 91.8 fL (80-100); Monocytes Absolute Auto 500 /uL (0-900); Monocytes Percent Auto 8.2 % (3-14); Neutrophils Absolute Auto 3700 /uL (1500-7000); Neutrophils Percent Auto 60.3 % (50-75); Platelet Count 315 X10^3/uL (150-400); Red Cell Distribution Width 13.9 % (11.6-14.8); White Blood Cell Count 6.1 X10^3/uL (4.5-11.0)
[2022-02-13 14:23] LABS: BUN Creatinine Ratio 25.9 (6-22); Blood Urea Nitrogen 21 mg/dL (7-17); Calcium 9.1 mg/dL (8.4-10.2); Carbon Dioxide 28 mmol/L (22-32); Chloride 103 mmol/L (98-107); Estimated Glomerular Filt Rate > 60 mL/min (>60); Glucose 88 mg/dL (80-110); HEMOLYSIS < 15 (0-50); Potassium 4.5 mmol/L (3.4-5.1); Sodium 138 mmol/L (137-145)
[2022-02-13 14:52] LABS: TSH w/ Reflex to FT4 1.61 uIU/mL (0.47-4.68)
[2022-02-13 15:57] LABS: Vitamin D 25 Hydroxy (D3) 69.5 ng/mL (30.0-100.0)
== END ==
PROVIDERS: Family Provider Internal Medicine; PCP Internal Medicine; Referring Provider Internal Medicine Endocrinology, Diabetes & Metabolism; Visit Provider Internal Medicine Endocrinology, Diabetes & Metabolism
DX: M80.072A Age-related osteoporosis with current pathological fracture, left ankle and foot, initial encounter for fracture (principal); M80.00XD Age-related osteoporosis with current pathological fracture, unspecified site, subsequent encounter for fracture with routine healing
CPT/HCPCS: 36415; 80048; 82306; 84443; 85025

== ENCOUNTER → 2022-07-29 10:55 | Outpatient (CLI) | payer MEDICARE, OTHER, SELFPAY ==
[2021-12-11 11:42] VITALS: BMI 24.1
--- NOTE | 2022-07-29 10:57 | DI.MG.S_ITS ---
BILATERAL DIGITAL SCREENING MAMMOGRAM 3D/2D WITH CAD: 07/29/2022 CLINICAL: Routine screening. Personal history of right breast cancer. Family history of breast cancer. Comparison is made to exams dated: 07/25/2021 mammogram, 01/23/2021 ultrasound, 01/23/2021 mammogram, 08/10/2020 mammogram, 08/10/2020 ultrasound, and 02/08/2020 ultrasound - [facility]. Both breasts are heterogeneously dense, which may obscure small masses (category c / 51-75% glandular tissue). Current study was also evaluated with a Computer Aided Detection (CAD) system. There are benign calcifications in both breasts. There also are benign vascular calcifications in the right breast. Additionally, there are benign post operative findings in the right breast. No significant masses, calcifications, or other findings are seen in either breast. There has been no significant interval change. IMPRESSION: BENIGN There is no mammographic evidence of malignancy. A 1 year screening mammogram is recommended. This exam was interpreted at Station ID: [id number]. NOTE: For mammograms, a report in lay terms will be sent to the patient. Approximately 15% of breast malignancies will not be visualized mammographically. In the management of a palpable breast mass, a negative mammogram must not discourage biopsy of a clinically suspicious lesion. Electronically Signed By: Kamini crane/ryan:07/29/2022 13:43:04 copy to: Amrita Ho letter sent: Normal Exam ACR BI-RADS Category 2: Benign Finding(s) [id number]
== END ==
PROVIDERS: Family Provider Internal Medicine; PCP Internal Medicine; Referring Provider Internal Medicine; Visit Provider Internal Medicine
DX: Z12.31 Encounter for screening mammogram for malignant neoplasm of breast (principal); Z80.3 Family history of malignant neoplasm of breast; C50.911 Malignant neoplasm of unspecified site of right female breast; Z17.0 Estrogen receptor positive status [ER+]
CPT/HCPCS: 77063; 77067

== ENCOUNTER → 2022-08-22 12:50 | Outpatient (CLI) | payer MEDICARE, OTHER, SELFPAY ==
[2021-12-11 11:42] VITALS: BMI 24.1
== END ==
PROVIDERS: Family Provider Internal Medicine; PCP Internal Medicine; Referring Provider Internal Medicine Endocrinology, Diabetes & Metabolism; Visit Provider Internal Medicine Endocrinology, Diabetes & Metabolism
DX: M80.00XD Age-related osteoporosis with current pathological fracture, unspecified site, subsequent encounter for fracture with routine healing (principal); M85.88 Other specified disorders of bone density and structure, other site; Z78.0 Asymptomatic menopausal state; Z79.890 Hormone replacement therapy; Z79.83 Long term (current) use of bisphosphonates
CPT/HCPCS: 36415; 77080; 77081; 80053; 82306; 82523

== ENCOUNTER → 2022-08-22 13:17 | Outpatient (CLI) | payer MEDICARE, OTHER, SELFPAY ==
[2021-12-11 11:42] VITALS: BMI 24.1
[2022-08-22 13:48] LABS: Alanine Aminotransferase 18 IU/L (<35); Albumin Globulin Ratio 1.3 (1.0-2.8); Alkaline Phosphatase 51 U/L (38-126); Aspartate Aminotransferase 24 IU/L (14-36); BUN Creatinine Ratio 25.3 (6-22); Bilirubin Total 0.3 mg/dL (0.2-1.3); Blood Urea Nitrogen 21 mg/dL (7-17); Calcium 8.6 mg/dL (8.4-10.2); Carbon Dioxide 30 mmol/L (22-32); Chloride 101 mmol/L (98-107); Estimated Glomerular Filt Rate > 60 mL/min (>60); Globulin 3.1 g/dL (1.7-4.1); Glucose 92 mg/dL (80-110); HEMOLYSIS < 15 (0-50); Potassium 4.5 mmol/L (3.4-5.1); Sodium 136 mmol/L (137-145); Total Protein 7.1 g/dL (6.3-8.2)
[2022-08-26 16:37] LABS: C-Telopeptide, Serum 95 pg/mL (.)
== END ==
PROVIDERS: Family Provider Internal Medicine; PCP Internal Medicine; Referring Provider Internal Medicine Endocrinology, Diabetes & Metabolism; Visit Provider Internal Medicine Endocrinology, Diabetes & Metabolism
DX: M80.072A Age-related osteoporosis with current pathological fracture, left ankle and foot, initial encounter for fracture
CPT/HCPCS: 36415; 80053; 82306; 82523

== ENCOUNTER → 2023-02-24 13:43 | Outpatient (CLI) | payer MEDICARE, OTHER, SELFPAY ==
[2021-12-11 11:42] VITALS: BMI 24.1
[2023-02-24 14:27] LABS: Alanine Aminotransferase 22 IU/L (<35); Albumin 3.9 g/dL (3.5-5.0); Albumin Globulin Ratio 1.5 (1.0-2.8); Alkaline Phosphatase 43 U/L (38-126); Aspartate Aminotransferase 28 IU/L (14-36); BUN Creatinine Ratio 28.8 (6-22); Bilirubin Total 0.3 mg/dL (0.2-1.3); Blood Urea Nitrogen 21 mg/dL (7-17); Calcium 8.3 mg/dL (8.4-10.2); Carbon Dioxide 30 mmol/L (22-32); Chloride 105 mmol/L (98-107); Estimated Glomerular Filt Rate > 60 mL/min (>60); Globulin 2.6 g/dL (1.7-4.1); Glucose 90 mg/dL (80-110); HEMOLYSIS < 15 (0-50); Potassium 4.2 mmol/L (3.4-5.1); Sodium 137 mmol/L (137-145); Total Protein 6.5 g/dL (6.3-8.2)
== END ==
PROVIDERS: Family Provider Internal Medicine; PCP Internal Medicine; Referring Provider Internal Medicine Endocrinology, Diabetes & Metabolism; Visit Provider Internal Medicine Endocrinology, Diabetes & Metabolism
DX: M85.80 Other specified disorders of bone density and structure, unspecified site (principal); M80.00XD Age-related osteoporosis with current pathological fracture, unspecified site, subsequent encounter for fracture with routine healing
CPT/HCPCS: 36415; 80053; 82306

== ENCOUNTER → 2023-07-23 12:11 | Outpatient (CLI) | payer MEDICARE, OTHER, SELFPAY ==
[2021-12-11 11:42] VITALS: BMI 24.1
[2023-07-23 13:19] LABS: Add Manual Diff / Slide Review NO; Basophils Absolute Auto 0 /uL (0-100); Basophils Percent Auto 0.4 % (0-2); Eosinophils Absolute Auto 200 /uL (0-450); Hematocrit 38.2 % (36-46); Hemoglobin 12.7 g/dL (12.0-16.0); Lymphocytes Absolute Auto 1500 /uL (1100-4500); Lymphocytes Percent Auto 24.5 % (25-40); Mean Corpuscular HGB Conc 33.4 % (30-36); Mean Corpuscular Hemoglobin 30.9 PG (26-34); Mean Corpuscular Volume 92.7 fL (80-100); Monocytes Absolute Auto 500 /uL (0-900); Monocytes Percent Auto 8.5 % (3-14); Neutrophils Absolute Auto 3900 /uL (1500-7000); Neutrophils Percent Auto 63.6 % (50-75); Platelet Count 256 X10^3/uL (150-400); Red Blood Cell Count 4.12 X10^6/uL (4.0-5.2); Red Cell Distribution Width 13.3 % (11.6-14.8); White Blood Cell Count 6.2 X10^3/uL (4.5-11.0)
[2023-07-23 13:35] LABS: Alanine Aminotransferase 16 IU/L (<35); Albumin Globulin Ratio 1.5 (1.0-2.8); Alkaline Phosphatase 43 U/L (38-126); Aspartate Aminotransferase 26 IU/L (14-36); BUN Creatinine Ratio 36.6 (6-22); Bilirubin Total 0.4 mg/dL (0.2-1.3); Blood Urea Nitrogen 26 mg/dL (7-17); Calcium 9.1 mg/dL (8.4-10.2); Carbon Dioxide 31 mmol/L (22-32); Chloride 102 mmol/L (98-107); Estimated Glomerular Filt Rate > 60 mL/min (>60); Globulin 2.7 g/dL (1.7-4.1); Glucose 92 mg/dL (80-110); HEMOLYSIS < 15 (0-50); Potassium 4.4 mmol/L (3.4-5.1); Sodium 135 mmol/L (137-145); Total Protein 6.7 g/dL (6.3-8.2)
[2023-07-23 18:31] LABS: Vitamin D 25 Hydroxy (D3) 62.1 ng/mL (30.0-100.0)
== END ==
PROVIDERS: Internal Medicine Hematology & Oncology; Family Provider Internal Medicine; PCP Internal Medicine; Referring Provider Internal Medicine Endocrinology, Diabetes & Metabolism; Visit Provider Internal Medicine Endocrinology, Diabetes & Metabolism
DX: M80.00XD Age-related osteoporosis with current pathological fracture, unspecified site, subsequent encounter for fracture with routine healing (principal); C50.911 Malignant neoplasm of unspecified site of right female breast; Z17.0 Estrogen receptor positive status [ER+]
CPT/HCPCS: 36415; 80053; 82306; 85025

== ENCOUNTER → 2023-08-11 14:47 | Outpatient (CLI) | payer MEDICARE, OTHER, SELFPAY ==
[2021-12-11 11:42] VITALS: BMI 24.1
--- NOTE | 2023-08-11 14:48 | DI.MG.S_ITS ---
BILATERAL DIGITAL SCREENING MAMMOGRAM 3D/2D WITH CAD: 08/11/2023 CLINICAL: Routine screening. Personal history of right breast cancer. Family history of breast cancer. Comparison is made to exams dated: 07/29/2022 mammogram, 07/25/2021 mammogram, 01/23/2021 mammogram, 08/10/2020 mammogram, 02/08/2020 mammogram, and 07/30/2019 mammogram - [facility]. Both breasts are heterogeneously dense, which may obscure small masses (category c / 51-75% glandular tissue). Current study was also evaluated with a Computer Aided Detection (CAD) system. There are benign calcifications in both breasts. There also are benign vascular calcifications in the right breast. Additionally, there are benign post operative findings in the right breast. No significant masses, calcifications, or other findings are seen in either breast. There has been no significant interval change. IMPRESSION: BENIGN There is no mammographic evidence of malignancy. A 1 year screening mammogram is recommended. This exam was interpreted at Station ID: [id number]. NOTE: For mammograms, a report in lay terms will be sent to the patient. Approximately 15% of breast malignancies will not be visualized mammographically. In the management of a palpable breast mass, a negative mammogram must not discourage biopsy of a clinically suspicious lesion. Electronically Signed By: Arian bradshaw/ryan:08/12/2023 16:36:55 copy to: Amrita Ho letter sent: Normal Exam ACR BI-RADS Category 2: Benign Finding(s) [id number]
== END ==
PROVIDERS: Family Provider Internal Medicine; PCP Internal Medicine; Referring Provider Internal Medicine Hematology & Oncology; Visit Provider Internal Medicine Hematology & Oncology
DX: Z12.31 Encounter for screening mammogram for malignant neoplasm of breast (principal); C50.911 Malignant neoplasm of unspecified site of right female breast; Z17.0 Estrogen receptor positive status [ER+]; Z80.3 Family history of malignant neoplasm of breast
CPT/HCPCS: 77063; 77067

== ENCOUNTER → 2024-02-18 12:54 | Outpatient (CLI) | payer MEDICARE, OTHER, SELFPAY ==
[2021-12-11 11:42] VITALS: BMI 24.1
[2024-02-18 15:12] LABS: BUN Creatinine Ratio 31.8 (6-22); Blood Urea Nitrogen 27 mg/dL (7-17); Calcium 9.1 mg/dL (8.4-10.2); Carbon Dioxide 31 mmol/L (22-32); Chloride 104 mmol/L (98-107); Estimated Glomerular Filt Rate > 60 mL/min (>60); Glucose 101 mg/dL (80-110); HEMOLYSIS < 15 (0-50); Sodium 139 mmol/L (137-145)
[2024-02-18 17:14] LABS: Vitamin D 25 Hydroxy (D3) 69.3 ng/mL (30.0-100.0)
== END ==
PROVIDERS: Family Provider Internal Medicine; PCP Internal Medicine; Referring Provider Internal Medicine Endocrinology, Diabetes & Metabolism; Visit Provider Internal Medicine Endocrinology, Diabetes & Metabolism
DX: E55.9 Vitamin D deficiency, unspecified (principal); M80.00XD Age-related osteoporosis with current pathological fracture, unspecified site, subsequent encounter for fracture with routine healing
CPT/HCPCS: 36415; 80048; 82306

== ENCOUNTER → 2024-08-23 14:22 | Outpatient (CLI) | payer MEDICARE, OTHER, SELFPAY ==
[2021-12-11 11:42] VITALS: BMI 24.1
[2024-08-23 16:26] LABS: Add Manual Diff / Slide Review NO; Basophils Absolute Auto 0 /uL (0-100); Basophils Percent Auto 0.3 % (0-2); Eosinophils Absolute Auto 300 /uL (0-450); Eosinophils Percent Auto 3.9 % (2-4); Hematocrit 38.8 % (36-46); Lymphocytes Absolute Auto 1300 /uL (1100-4500); Lymphocytes Percent Auto 18.1 % (25-40); Mean Corpuscular HGB Conc 33.5 % (30-36); Mean Corpuscular Hemoglobin 31.6 PG (26-34); Mean Corpuscular Volume 94.5 fL (80-100); Monocytes Absolute Auto 500 /uL (0-900); Monocytes Percent Auto 7.3 % (3-14); Neutrophils Absolute Auto 5000 /uL (1500-7000); Neutrophils Percent Auto 70.4 % (50-75); Platelet Count 263 X10^3/uL (150-400); Red Cell Distribution Width 13.4 % (11.6-14.8); White Blood Cell Count 7.1 X10^3/uL (4.5-11.0)
[2024-08-23 17:11] LABS: Alanine Aminotransferase 18 IU/L (<35); Albumin 3.8 g/dL (3.5-5.0); Albumin Globulin Ratio 1.4 (1.0-2.8); Alkaline Phosphatase 54 U/L (38-126); Aspartate Aminotransferase 25 IU/L (14-36); BUN Creatinine Ratio 26.7 (6-22); Bilirubin Total 0.4 mg/dL (0.2-1.3); Blood Urea Nitrogen 24 mg/dL (7-17); Calcium 9.1 mg/dL (8.4-10.2); Carbon Dioxide 27 mmol/L (22-32); Chloride 102 mmol/L (98-107); Estimated Glomerular Filt Rate > 60 mL/min (>60); Globulin 2.8 g/dL (1.7-4.1); Glucose 80 mg/dL (80-110); HEMOLYSIS < 15 (0-50); Sodium 135 mmol/L (137-145); Total Protein 6.6 g/dL (6.3-8.2)
[2024-08-23 17:19] LABS: Vitamin D 25 Hydroxy (D3) 87.2 ng/mL (30.0-100.0)
== END ==
LOC: LAB 14:24
PROVIDERS: Internal Medicine Hematology & Oncology; Family Provider Internal Medicine; PCP Internal Medicine; Referring Provider Internal Medicine Endocrinology, Diabetes & Metabolism; Visit Provider Internal Medicine Endocrinology, Diabetes & Metabolism
DX: C50.911 Malignant neoplasm of unspecified site of right female breast (principal); Z17.0 Estrogen receptor positive status [ER+]; M80.00XD Age-related osteoporosis with current pathological fracture, unspecified site, subsequent encounter for fracture with routine healing
CPT/HCPCS: 36415; 80053; 82306; 85025

== ENCOUNTER → 2024-08-24 11:09 | Outpatient (CLI) | payer MEDICARE, OTHER, SELFPAY ==
[2021-12-11 11:42] VITALS: BMI 24.1
--- NOTE | 2024-08-24 11:11 | DI.MG.S_ITS ---
BILATERAL DIGITAL SCREENING MAMMOGRAM 3D/2D WITH CAD POST LUMPECTOMY: 08/24/2024 CLINICAL: Routine screening. Personal history of right breast cancer. Family history of breast cancer. Comparison is made to exams dated: 08/11/2023 mammogram, 07/29/2022 mammogram, and 07/25/2021 mammogram - [facility]. The breasts are heterogeneously dense, which may obscure small masses (category c / 51-75% glandular tissue). Current study was also evaluated with a Computer Aided Detection (CAD) system. There are benign diffuse calcifications in both breasts. There also are benign post operative findings in the right breast. No significant masses, calcifications, or other findings are seen in either breast. There has been no significant interval change. IMPRESSION: BENIGN There is no mammographic evidence of malignancy. A 1 year screening mammogram is recommended. This exam was interpreted at Station ID: [id number]. NOTE: For mammograms, a report in lay terms will be sent to the patient. Approximately 15% of breast malignancies will not be visualized mammographically. In the management of a palpable breast mass, a negative mammogram must not discourage biopsy of a clinically suspicious lesion. Electronically Signed By: Chaitanya raygoza/ryan:08/24/2024 12:41:24 copy to: Amrita Ho letter sent: Normal Exam ACR BI-RADS Category 2: Benign
== END ==
LOC: MAMMO 11:10
PROVIDERS: Family Provider Internal Medicine; PCP Internal Medicine; Referring Provider Internal Medicine Hematology & Oncology; Visit Provider Internal Medicine Hematology & Oncology
DX: Z12.31 Encounter for screening mammogram for malignant neoplasm of breast (principal); Z85.3 Personal history of malignant neoplasm of breast; Z80.3 Family history of malignant neoplasm of breast; R92.333 Mammographic heterogeneous density, bilateral breasts
CPT/HCPCS: 77063; 77067

== ENCOUNTER → 2024-08-25 12:24 | Outpatient (CLI) | payer MEDICARE, OTHER, SELFPAY ==
[2021-12-11 11:42] VITALS: BMI 24.1
--- NOTE | 2024-08-25 12:25 | DI.RAD.S_ITS ---
PROCEDURE: XR DEXA AXIAL SKELETON INDICATIONS: AGE RELATED OSTEOPOROSIS COMPARISON: [facility], CR, XR DEXA AXIAL SKELETON, 08/22/2022, 13:04. FINDINGS: Lumbar Spine: Bone mineral density 0.831 g/cm2, T score -1.3, compared to -1.9. Left Forearm: Bone mineral density 0.628 g/cm2, T score -1.1. Fracture Risk Calculation (when applicable): Not applicable (T score greater or equal to -1.0 to: NORMAL) (T score from -1.1 to -2.4: OSTEOPENIA) (T score less than or equal to -2.5: OSTEOPOROSIS) IMPRESSION: Minimal to mild osteopenia in lumbar spine forearm demonstrating improved bone mineral density in the spine compared to prior exam. Follow-up guidelines as follows: Osteoporosis: Consider a repeat DEXA and Vertebral Fracture Assessment (VFA) exam in 2 years or sooner if medically necessary, to reassess this patient's status. Osteopenia: Consider a repeat DEXA in 2-3 years to reassess this patient's status, or if there is a new clinical indication. Normal: Consider a repeat DEXA in 5 years or sooner, or if there is a new clinical indication. All treatment decisions require clinical judgment and consideration of individual patient factors, including patient preferences, comorbidities, previous drug use, risk factors not captured in the FRAX model (e.g., frailty, falls, vitamin D deficiency, increased bone turnover, interval significant decline in bone density ) and possible under- or over-estimation of fracture risk by FRAX. In addition, the NOF Guide recommends that FDA-approved medical therapies be considered in postmenopausal women and men age >= 50 years with a: * Hip or vertebral (clinical or morphometric) fracture * T-score of <=-2.5 at the spine or hip * Ten-year fracture probability by FRAX of >= 3% for hip fracture or >=20% for major osteoporotic fracture. People with diagnosed cases of osteoporosis or at high risk for fracture should have regular bone mineral density tests. For patients eligible for Medicare, routine testing is allowed once every 2 years. The testing frequency can be increased to one year for patients who have rapidly progressing disease, those who are receiving or discontinuing medical therapy to restore bone mass, or have additional risk factors. Dictated by: Amanda Boyle M.D. on 08/27/2024 at 8:50 Approved by: Amanda Boyle M.D. on 08/27/2024 at 8:51
== END ==
PROVIDERS: Family Provider Internal Medicine; PCP Internal Medicine; Referring Provider Internal Medicine Endocrinology, Diabetes & Metabolism; Visit Provider Internal Medicine Endocrinology, Diabetes & Metabolism
DX: M81.0 Age-related osteoporosis without current pathological fracture (principal)
CPT/HCPCS: 77080; 77081

== ENCOUNTER → 2024-10-07 11:57 | Outpatient (CLI) | payer MEDICARE, OTHER, SELFPAY ==
[2021-12-11 11:42] VITALS: BMI 24.1
== END ==
PROVIDERS: Family Provider Internal Medicine; PCP Internal Medicine; Visit Provider Physician Assistant
DX: R30.0 Dysuria (principal)
CPT/HCPCS: 87077; 87086

== ENCOUNTER → 2025-03-02 14:26 | Outpatient (CLI) | payer MEDICARE, OTHER, SELFPAY ==
[2021-12-11 11:42] VITALS: BMI 24.1
[2025-03-02 15:11] LABS: BUN Creatinine Ratio 26.9 (6-22); Blood Urea Nitrogen 25 mg/dL (7-17); Calcium 8.9 mg/dL (8.4-10.2); Carbon Dioxide 28 mmol/L (22-32); Chloride 104 mmol/L (98-107); Estimated Glomerular Filt Rate > 60 mL/min (>60); Glucose 102 mg/dL (70-99); HEMOLYSIS 17 (0-50); Potassium 4.3 mmol/L (3.4-5.1); Sodium 138 mmol/L (137-145)
[2025-03-02 16:02] LABS: Vitamin D 25 Hydroxy (D3) 73.7 ng/mL (30.0-100.0)
== END ==
LOC: LAB 14:29
PROVIDERS: Family Provider Internal Medicine; PCP Family Medicine; Referring Provider Internal Medicine Endocrinology, Diabetes & Metabolism; Visit Provider Internal Medicine Endocrinology, Diabetes & Metabolism
DX: M80.00XD Age-related osteoporosis with current pathological fracture, unspecified site, subsequent encounter for fracture with routine healing (principal)
CPT/HCPCS: 36415; 80048; 82306

== ENCOUNTER → 2025-05-18 12:05 | Outpatient (CLI) | payer MEDICARE, OTHER, SELFPAY ==
[2021-12-11 11:42] VITALS: BMI 24.1
--- NOTE | 2025-05-18 12:14 | DI.RAD.S_ITS ---
PROCEDURE: XR HIP W PEL IF DONE BILAT 2V INDICATIONS: BACK PAIN TECHNIQUE: AP pelvis with lateral view(s) of the right hip(s). COMPARISON: [facility], CR, XR HIP W PEL IF DONE RT 2V, 12/11/2021, 10:39. FINDINGS: Bones: There are no osseous abnormalities. SI and hip joints: Bilateral hip prostheses are in near anatomic alignment without loosening or other complication. Moderate left and mild right SI degeneration noted. Severe L3-4 L4-5 and L5-S1 degenerative disc disease Soft tissues: No soft tissue swelling, calcification or mass. IMPRESSION: Bowel hip prostheses unremarkable Dictated by: Jasper Curtis M.D. on 05/19/2025 at 12:04 Approved by: Jasper Curtis M.D. on 05/19/2025 at 12:05
--- NOTE | 2025-05-18 12:15 | DI.RAD.S_ITS ---
PROCEDURE: XR LUMBAR SPINE 2-3V INDICATIONS: back pain TECHNIQUE: 3 views of the lumbar spine were acquired. COMPARISON: None. FINDINGS: Lumbar spine curvature and alignment: Normal. Bones: There are no osseous abnormalities. Disc spaces: Severe L2-3 L3-4, mild L4-5 and L5-S1 degenerative disc disease noted. Severe L4-5 and L5-S1 degenerative facet disease also noted Soft tissues: No soft tissue swelling, calcification or mass. IMPRESSION: Degeneration Dictated by: Jasper Curtis M.D. on 05/19/2025 at 12:05 Approved by: Jasper Curtis M.D. on 05/19/2025 at 12:06
== END ==
PROVIDERS: Family Provider Internal Medicine; PCP Family Medicine; Referring Provider Registered Nurse; Visit Provider Registered Nurse
DX: G89.29 Other chronic pain (principal); M54.42 Lumbago with sciatica, left side; Z96.643 Presence of artificial hip joint, bilateral; M51.369 Other intervertebral disc degeneration, lumbar region without mention of lumbar back pain or lower extremity pain
CPT/HCPCS: 72100; 73521

== ENCOUNTER → 2025-08-31 15:57 | Outpatient (CLI) | payer MEDICARE, OTHER, SELFPAY ==
[2021-12-11 11:42] VITALS: BMI 24.1
== END ==
LOC: ECHO 15:59
PROVIDERS: Family Provider Internal Medicine; PCP Family Medicine; Referring Provider Internal Medicine; Visit Provider Internal Medicine
DX: I08.2 Rheumatic disorders of both aortic and tricuspid valves (principal); I47.19 Other supraventricular tachycardia
CPT/HCPCS: 93306

== ENCOUNTER → 2025-09-28 16:08 | Outpatient (CLI) | payer MEDICARE, OTHER, SELFPAY ==
[2021-12-11 11:42] VITALS: BMI 24.1
[2025-09-28 17:52] LABS: Blood Urea Nitrogen 27 mg/dL (7-17); Calcium 9.1 mg/dL (8.4-10.2); Carbon Dioxide 28 mmol/L (22-32); Chloride 105 mmol/L (98-107); Estimated Glomerular Filt Rate > 60 mL/min (>60); Glucose 83 mg/dL (70-99); HEMOLYSIS < 15 (0-50); Potassium 4.3 mmol/L (3.4-5.1); Sodium 140 mmol/L (137-145)
[2025-09-28 18:14] LABS: Vitamin D 25 Hydroxy (D3) 63.4 ng/mL (30.0-100.0)
== END ==
PROVIDERS: Family Provider Internal Medicine; PCP Family Medicine; Referring Provider Internal Medicine Endocrinology, Diabetes & Metabolism; Visit Provider Internal Medicine Endocrinology, Diabetes & Metabolism
DX: E55.9 Vitamin D deficiency, unspecified (principal); M80.00XD Age-related osteoporosis with current pathological fracture, unspecified site, subsequent encounter for fracture with routine healing
CPT/HCPCS: 36415; 80048; 82306